=== PATIENT | female | born 1955 | race Caucasian/White ===

== ENCOUNTER 2016-11-18 13:38 | Emergency (ER) | payer MEDICAID, MEDICARE ==
[2016-11-18 14:37] LABS: Hematocrit 31 % (35-47); Hemoglobin 10.1 g/dl (12.0-16.0); Mean Corpuscular HGB Conc 33 g/dl (31-36); Mean Corpuscular Hemoglobin 26 pg (27-31); Mean Corpuscular Volume 79 fL (80-97); Mean Platelet Volume 8 um3 (7.4-10.4); Red Blood Count 3.92 10^6/ul (4.0-5.4); Red Cell Distribution Width 16 % (10.5-15); White Blood Count 6.1 10^3/ul (3.5-10.8)
[2016-11-18 14:52] LABS: Albumin 3.5 g/dL (3.2-5.2); BUN/Creatinine Ratio 20.1 (8-20); C Reactive Protein 59.68 mg/L (< 5.00); Calcium 9.2 mg/dL (8.6-10.3); EGFR African American 51.5 (>60); EGFR Non-African American 40.1 (>60); Globulin 3.7 g/dL (2-4); Total Bilirubin 0.4 mg/dL (0.2-1.0); Total Protein 7.2 g/dL (6.4-8.9)
[2016-11-18 14:53] LABS: Potassium 4.3 mmol/L (3.5-5.0)
--- NOTE | 2016-11-18 14:55 | ED ---
Upper Extremity Pain - HPI Summary HPI Summary: Patient presents with right index finger redness and swelling since last night, with a red streak up her forearm. She has a history of middle digit partial amputation on this same hand from infection, and is currently being treated for left foot osteomyolititis. Although she noticed the redness today, she admits to dealing with "dry skin" on the tip of the finger by putting lotion on and picking at the skin. She denies fever, or chills. 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 She has had a mild cold over the last week but feels better today than she has in a week. She thinks she is dehydrated and has a BREWER. - History of Current Complaint Chief Complaint: EDRashSkinAbscess Stated Complaint: INFECTION IN FINGER LINES GOING UP ARM Time Seen by Provider: 11/18/16 13:53 Hx Obtained From: Patient Mechanism Of Injury: Unknown Onset/Duration: Started Days Ago Timing: Constant Severity Initially: Mild Severity Currently: Severe Pain Location: Finger - left index Character: Unable to Describe - neuropathy Aggravating Factor(s): Nothing Alleviating Factor(s): Nothing Associated Signs & Symptoms: Positive: Swelling, Redness - Allergies/Home Medications Allergies/Adverse Reactions: Allergies Allergy/AdvReac Type Severity Reaction Status Date / Time Atenolol [From Tenormin] Allergy Severe MASSIVE Verified 11/18/16 13:41 BRUISING Glipizide Allergy Unknown Verified 11/18/16 13:41 Reaction Details Metformin [From Glucophage] AdvReac Severe N/V, Verified 11/18/16 13:41 DIARRHEA PMH/Surg Hx/FS Hx/Imm Hx Endocrine/Hematology History: Reports: Hx Blood Transfusions, Hx Diabetes Denies: Hx Anticoagulant Therapy, Hx Blood Disorders, Hx Bone Marrow Disease , Hx Systemic Lupus Erythematosus, Hx Sickle Cell Disease, Hx Thyroid Disease, Hx Anemia, Hx Unexplained Bleeding, Other Endocrine/Hematological Disorders Cardiovascular History: Reports: Hx Congestive Heart Failure - AFTER LAST SURGERY, Hx Deep Vein Thrombosis - Once after surgery, Hx Hypercholesterolemia, Hx Hypertension Denies: Hx Aneurysm, Hx Angina, Hx Angioplasty, Hx Auto Implanted Cardiovert Defib, Hx Cardiac Arrest, Hx Cardiomegaly, Hx Congenital Heart Disease, Hx Coronary Artery Disease, Hx Embolism, Hx Hypotension, Hx Pacemaker/ICD, Hx Peripheral Vascular Disease, Hx Rheumatic Fever, Hx Syncope, Hx Valvular Heart Disease, Other Cardiovascular Problems/Disorders Respiratory History: Denies: Hx Asthma, Hx Chronic Bronchitis, Hx Chronic Obstructive Pulmonary Disease (COPD), Hx Cystic Fibrosis, Hx Lung Cancer, Hx Pleural Effusion, Hx Pneumonia, Hx Pulmonary Edema, Hx Pulmonary Embolism, Hx Seasonal Allergies, Hx Sleep Apnea, Other Respiratory Problems/Disorders GI History: Reports: Hx Gastroesophageal Reflux Disease, Hx Hiatal Hernia, Hx Ulcer, Other GI Disorders - colon CA diarrhea Denies: Hx Cirrhosis, Hx Crohn's Disease, Hx Diverticulosis, Hx Gall Bladder Disease, Hx Gastrointestinal Bleed, Hx Irritable Bowel, Hx Jaundice, Hx Obstructive Bowel, Hx Ileostomy, Hx Pyloric Stenosis History: Reports: Hx Kidney Infection, Hx Renal Disease - LT HYDRONEPHROSIS, LT URETERAL STENT, Other Problems/Disorders - left urostomy tube from scar tissue Denies: Hx Acute Renal Failure, Hx Benign Prostatic Hyperplasia, Hx Chronic Renal Failure, Hx Dialysis, Hx Kidney Stones Musculoskeletal History: Reports: Hx Arthritis - HANDS AND LOWER BACK Denies: Hx Back Problems, Hx Bursitis, Hx Congenital Bone Abnormalities, Hx Fibromyalgia, Hx Gout, Hx Orthopedic Injury, Hx Osteoporosis, Hx Scoliosis, Hx Tendonitis, Other Musculoskeletal History Sensory History: Reports: Hx Contacts or Glasses - Reading, Hx Vision Problem - 03/25/13: Reading glasses only Denies: Hx Cataracts, Hx Eye Injury, Hx Eye Prosthesis, Hx Glaucoma, Hx Macular Degeneration, Hx Deafness, Hx Hearing Aid, Hx Hearing Problem Opthamlomology History: Reports: Hx Contacts or Glasses - Reading, Hx Vision Problem - 03/25/13: Reading glasses only Denies: Hx Cataracts, Hx Eye Injury, Hx Eye Prosthesis, Hx Glaucoma, Hx Macular Degeneration Neurological History: Reports: Hx Migraine - HX OF USUALLY ASSOCIATED WITH MENSES, Other Neuro Impairments/Disorders - NEUROPATHY IN FEET AND HANDS SINCE CHEMOTHERAPY Denies: Hx Dementia, Hx Developmental Delay, Hx Headaches, Hx Nerve Disease, Hx Seizures, Hx Spinal Cord Injury, Hx Transient Ischemic Attacks (TIA) Psychiatric History: Reports: Hx Depression - WITH RECENT DIAGNOSES OF CANCER Denies: Hx Anxiety, Hx Attention Deficit Hyperactivity Disorder, Hx Eating Disorder, Hx Panic Disorder, Hx Post Traumatic Stress Disorder, Hx Inpatient Treatment, Hx Community Mental Health Tx, Hx Schizophrenia, Hx Bipolar Disorder , Hx Suicide Attempt, Hx of Violent Episodes Against Others, Hx Substance Abuse , Other Psychiatric Issues/Disorders - Cancer History Cancer Type, Location and Year: COLON ca Hx Chemotherapy: Yes Hx Radiation Therapy: Yes Hx Palliative Cancer Treatment: No - Surgical History Surgery Procedure, Year, and Place: 2X LEFT FOOT,2X COLON Hx Anesthesia Reactions: No Infectious Disease History: Yes Infectious Disease History: Reports: Hx of Known/Suspected MRSA, History Other Infectious Disease - MRSA foot, post surgery Denies: Hx Clostridium Difficile, Hx Hepatitis, Hx Human Immunodeficiency Virus (HIV), Hx Shingles, Hx Tuberculosis, Hx Known/Suspected VRE, Traveled Outside the [place] in Last 30 Days - Family History Known Family History: Positive: None, Cardiac Disease - oldest brother, Hypertension, Diabetes, Other - cancer - Social History Occupation: Unemployed Lives: With Family Alcohol Use: None Substance Use Type: Reports: None Smoking Status (MU): Never Smoked Tobacco Have You Smoked in the Last Year: No Review of Systems Negative: Fever, Chills Positive: Decreased ROM, Edema Positive: Other - erythema from distal tip of left index finger proximally to PIP with erythematous streaking on the dorsum to the left mid forearm. All Other Systems Reviewed And Are Negative: Yes Physical Exam Triage Information Reviewed: Yes Vital Signs On Initial Exam: Initial Vitals Temp Pulse Resp BP Pulse Ox 96.9 F 85 18 142/73 99 11/18/16 13:41 11/18/16 13:41 11/18/16 13:41 11/18/16 13:41 11/18/16 13:41 Vital Signs Reviewed: Yes Appearance: Positive: Well-Appearing, No Pain Distress, Obese Skin: Positive: Warm, Skin Color Reflects Adequate Perfusion, Dry, Soft, Erythema @ - erythema from distal tip of left index finger proximally to PIP with erythematous streaking on the dorsum to the left mid forearm. Head/Face: Positive: Normal Head/Face Inspection Eyes: Positive: EOMI, BOBO, Conjunctiva Clear ENT: Positive: Hearing grossly normal Neck: Positive: No Lymphadenopathy Respiratory/Lung Sounds: Positive: Breath Sounds Present Cardiovascular: Positive: RRR Musculoskeletal: Positive: Limited @, Edema Left - erythema from distal tip of left index finger proximally to PIP with erythematous streaking on the dorsum to the left mid forearm. Neurological: Positive: Alert, Oriented to Person Place, Time. Negative: NV Bundle Intact Distally Psychiatric: Positive: Affect/Mood Appropriate AVPU Assessment: Alert - Dot Coma Scale Coma Scale Total: 15 Diagnostics - Vital Signs Vital Signs Temp Pulse Resp BP Pulse Ox 11/18/16 14:00 82 114/67 100 11/18/16 13:56 73 97 11/18/16 13:55 125/64 11/18/16 13:41 96.9 F 85 18 142/73 99 - Laboratory Lab Results: Lab Results 11/18/16 11/18/16 Range/Units 14:09 14:30 WBC 6.1 (3.5-10.8) 10^3/ul RBC 3.92 L (4.0-5.4) 10^6/ul Hgb 10.1 L (12.0-16.0) g/dl Hct 31 L (35-47) % MCV 79 L (80-97) fL MCH 26 L (27-31) pg MCHC 33 (31-36) g/dl RDW 16 H (10.5-15) % Plt Count 223 (150-450) 10^3/ul MPV 8 (7.4-10.4) um3 Neut % (Auto) 86.8 H (38-83) % Lymph % (Auto) 7.2 L (25-47) % [place] % (Auto) 5.0 (1-9) % Eos % (Auto) 0.6 (0-6) % Baso % (Auto) 0.4 (0-2) % Absolute Neuts (auto) 5.3 (1.5-7.7) 10^3/ul Absolute Lymphs (auto) 0.4 L (1.0-4.8) 10^3/ul Absolute Monos (auto) 0.3 (0-0.8) 10^3/ul Absolute Eos (auto) 0 (0-0.6) 10^3/ul Absolute Basos (auto) 0 (0-0.2) 10^3/ul Absolute Nucleated RBC 0 10^3/ul Nucleated RBC % 0 POC Glucose (mg/dL) 304 H (74-106) mg/dL Result Diagrams: 11/18/16 14:30 11/18/16 14:30 Lab Statement: Any lab studies that have been ordered have been reviewed, and results considered in the medical decision making process. - Radiology No standard instances Xray Interpretation: Positive (See Comments) - Suspicious for osteomyolitis of the distal phalanx and septic arthritis of the DIP Radiology Interpretation Completed By: Radiologist Course/Dx - Course Course Of Treatment: Patient's case was reviewed with Dr. Oates. She recommended discharge home with additional antiobiotic for infection and follow- up with Dr. Moore's MAURICIO. - Diagnoses Differential Diagnosis/HQI/PQRI: Positive: Arthritis, Bursitis, Contusion, Fracture (Closed), Hematoma, Osteomyelitis, Septic Arthritis, Strain, Sprain Provider Diagnoses: Cellulitis, Osteomyelitis - Physician Notifications Discussed Care Of Patient With: Dr. Oates, orthopedic surgeon Time Discussed With Above Provider: 15:00 Instructed by Provider To: Have Pt Call For Appt. Discharge - Discharge Plan Condition: Stable Disposition: HOME Prescriptions: Clindamycin CAP* [Cleocin 150 MG CAP*] 150 mg PO Q6H #60 cap Patient Education Materials: Cellulitis (ED) Referrals: Colten Brandon MD [Medical Doctor] - Ignacio Lawrence MD [Primary Care Provider] - Additional Instructions: Please add the new antibiotic to your other antibiotic. Call Dr. Moore's office in the morning for an appointment in 1-2 days for evaluation. Return to the emergency department if your symptoms worsen.
--- NOTE | 2016-11-18 15:07 | RAD ---
INDICATION: Right index finger infection, history of osteomyelitis. COMPARISON: Comparison is made with a prior x-ray study of the right hand from July 23, 2016. TECHNIQUE: 3 views of the right index finger were obtained. FINDINGS: The patient is status post amputation of the distal half of the middle phalanx of the middle finger. There is diffuse soft tissue swelling in the index finger. There is erosion of the tuft of the distal phalanx. There is also joint space narrowing hypertrophic and erosive change present in the distal interphalangeal joint. These findings are suspicious for osteomyelitis and septic arthritis. IMPRESSION: FINDINGS SUSPICIOUS FOR OSTEOMYELITIS OF THE DISTAL PHALANX AND SEPTIC ARTHRITIS OF THE DISTAL INTERPHALANGEAL JOINT.
[2016-11-18] MEDS ORDERED: Clindamycin 600 MG IVPREMIX(* 600 MG/50 ML SDV IV ONE (15:20)
[2016-11-18 16:23] VITALS: BP 121/58
== END 2016-11-18 16:22 | disposition home or self-care (01) ==
LOC: ED 13:38
DX: L03.012 Cellulitis of left finger (principal); M86.9 Osteomyelitis, unspecified; E11.9 Type 2 diabetes mellitus without complications; I50.9 Heart failure, unspecified; G62.9 Polyneuropathy, unspecified; Z92.21 Personal history of antineoplastic chemotherapy; C18.9 Malignant neoplasm of colon, unspecified; F32.9 Major depressive disorder, single episode, unspecified; Z86.718 Personal history of other venous thrombosis and embolism; Z79.4 Long term (current) use of insulin; Z79.82 Long term (current) use of aspirin
CPT/HCPCS: 36415; 73140; 80053; 85025; 86140; 96374; 99282

== ENCOUNTER 2016-11-22 11:26 | Day surgery (SDC) | payer MEDICAID, MEDICARE ==
[~2016-11-22 11:26] MED LIST: Bupivacaine 0.5% SDV PF* 30 ML VIAL ONE; Lidocain 1% EPI 1:100,000 * 30 ML MDV ONE; Lidocaine 2.5%/Prilocain 2.5%* 5 GM TUBE ONE
[2016-11-22] MEDS ORDERED: ceFAZolin 2 GM PREMIX (*) 0 GM/0 ML BAG IVPB ONE (13:11)
[2016-11-22] MEDS ORDERED: HYDROcodone/ACETAMIN 5-325 MG* 1 TAB ONE (15:21)
[2016-11-22 15:44] VITALS: BP 105/77
--- NOTE | 2016-11-27 00:51 | OP ---
DATE OF OPERATION: 11/22/16 - [facility] DATE OF : 53 SURGEON: Colten Brandon MD TIRE CORD WEAVER: ELROY Moon ANESTHESIOLOGIST: None. ANESTHESIA: Local only with 0.5% Marcaine digital block. PRE-OP DIAGNOSIS: Right index finger tip infection with osteomyelitis and necrosis due to inadequate vascularization distally. POST-OP DIAGNOSIS: Right index finger tip infection with osteomyelitis and necrosis due to inadequate vascularization distally. OPERATIVE PROCEDURE: Trans middle phalanx amputation of right index finger with digital neurectomies. INDICATIONS: Willa has severe diabetes. She has previously had osteomyelitis and infection requiring amputation to the middle phalanx of the right middle finger. She had healed that up nicely. Three months later, she came to my office with necrosis of the finger tip of the right index finger distally as well as infection proximal to that. She has been on oral antibiotics. I saw her just a couple of days ago in the clinic and she scheduled for surgery today. ESTIMATED BLOOD LOSS: 5 mL. COMPLICATIONS: None. FINDINGS: As expected. DESCRIPTION OF PROCEDURE: Wilal was seen in the preoperative holding area and the correct side, site, and procedure were marked and performed a digital block with 0.5% Marcaine. We came back to the operating room. The arm was prepped and draped in the usual fashion. Formal time-out was performed. The finger was exsanguinated proximal to the area of the infection with [place] drain and this was left proximally as a tourniquet. I then made a fish-mouth incision centered over the middle phalanx. I took the flap just as far distally as I could based on what looks like viable and perfused tissue. Dissection was carried down sharply full thickness. The bone cutter was used to complete the amputation through the proximal portion of the middle phalanx. I then pulled our the FDP stump and incised it sharply and allowed to retract back into the finger. I tried to leave as much FDS inserted on the middle phalanx as possible. Clearly some of the distal aspect of the insertion was released with the amputation. The terminal extensor tendon was likewise debrided back a few millimeters taking care to preserve the attachment of the central slip. The digital nerves were pulled out of the amputation stump and cut with the tenotomy scissors and allowed to retract back proximally into the finger. The flaps were prepared, contoured, and debulked just a little bit. I then had to cut back just a couple more millimeters of middle phalanx. The proximal stump of that middle phalanx was getting short, but it was what was required to perform an adequate debridement. I then brought my volar flap up and sutured the wound close with some 4-0 nylon. The corner I excised one of the dog ears. Prior to closing the wound, I had let it soak in a saline Betadine mixture for about 5 minutes. Everything looked clean prior to closure. After closing the wound, I then dressed it with Xeroform, some 1-inch Michelle loosely, and some Coban. She was then taken to the recovery room in stable condition. POSTOPERATIVE PLAN: Cultures were sent intraoperatively. We will await those cultures. I am going to switch over from clindamycin to some Bactrim. She is to continue to follow up with Dr. Liam Whipple with Infectious Disease. I will see her back in next week. CC: Liam Whipple MD, Infectious Disease * [id number]/[facility] #: [id number] [facility]
== END 2016-11-22 15:30 | disposition home or self-care (01) ==
LOC: OREAST 11:26
PROVIDERS: ATTEND Orthopaedic Surgery Hand Surgery
DX: M86.141 Other acute osteomyelitis, right hand (principal); E11.8 Type 2 diabetes mellitus with unspecified complications; Z79.4 Long term (current) use of insulin
CPT/HCPCS: 87070; 87073; 87077; 87186; 87205; 87640; 87641; 88305; 88311; A9270-GY; J0690

== ENCOUNTER 2016-12-03 08:15 | Inpatient (IN) | payer MEDICARE, MEDICAID ==
--- NOTE | 2016-12-28 20:47 | HP ---
PREOPERATIVE HISTORY AND PHYSICAL: DATE OF ADMISSION: 12/31/16 CHIEF COMPLAINT: Left foot infection. HISTORY OF PRESENT ILLNESS: Willa is a 61-year-old female who has been followed by Dr. Haynes for an open wound to the left foot that has been ongoing for quite sometime. She was previously scheduled to undergo partial amputation of the left foot; however, this was postponed for cardiac clearance. She has had several months of an open draining wound to the plantar aspect of her left foot. She states that the foot swells occasionally and then subsides. She has been followed by Dr. Whipple and has been on antibiotics for several months as well. She has failed conservative wound care efforts as well. She has been recommended to undergo partial amputation of the foot which she would like to proceed with. PAST MEDICAL HISTORY: 1. Type 2 diabetes. 2. Chronic kidney disease. 3. History of deep vein thrombosis. 4. Depression. 5. GERD. 6. History of rectal cancer. 7. Hyperlipidemia. 8. Hypertension. 9. Coronary artery disease. PAST SURGICAL HISTORY: 1. Urinary stent placement. 2. Partial finger amputations. 3. Colon resection with ileostomy and ileostomy reversal. 4. Left foot wound debridement. She reports no complications of anesthesia with those procedures. CURRENT MEDICATIONS: 1. Bactrim DS 1 tab p.o. b.i.d. 2. [place] 5/325 one tab p.o. q.6 hours p.r.n. pain. 3. Keflex 500 mg 1 p.o. t.i.d. 4. Tradjenta 5 mg 1 p.o. daily. 5. Lantus 85 units injected at bedtime. 6. Wellbutrin 150 mg p.o. daily. 7. Sertraline 100 mg p.o. daily. 8. Metoprolol tartrate 25 mg p.o. daily. 9. Lisinopril 10 mg p.o. daily. 10. NovoLog per sliding scale. 11. Lasix 20 mg p.o. daily. 12. Aspirin 325 mg p.o. daily. 13. Simvastatin 20 mg p.o. daily. 14. Imodium advanced 2/125 mg p.o. daily. 15. Multivitamin 1 p.o. daily. 16. Vitamin D supplement p.o. daily. ALLERGIES: GLUCOPHAGE, GLIPIZIDE, and TENORMIN. FAMILY HISTORY: Positive for diabetes. Positive for cancer. Negative for coronary artery disease. SOCIAL HISTORY: The patient denies alcohol, tobacco, or recreational drug use. She is retired. She does live alone. REVIEW OF SYSTEMS: Constitutional: Negative for recent hospitalizations. Positive for fevers and chills. Negative for night sweats. Negative for recent weight loss. Head: Negative for lightheadedness, headaches, or balance problems. Cardiovascular: Negative for chest or arm pain with exertion, history of heart attack, heart murmur. Positive for high blood pressure. Positive for deep vein thrombosis. Respiratory: Negative for chronic cough. Positive for shortness of breath with exertion. Negative for asthma or COPD. Gastrointestinal: Positive for heartburn. Positive for diarrhea. Negative for constipation. Positive for GERD. Genitourinary: Positive for a history of urinary tract infection, ureteral stent placement, and chronic kidney disease. Skin: Negative for rashes, lesions, lumps, or sores. Positive for an ulcer on the plantar aspect of her foot. Musculoskeletal: Negative for chronic back pain. Negative for recent fractures. Neurologic: Negative for seizure or stroke. Positive for depression. Negative for anxiety. Endocrine: Positive for diabetes. Negative for thyroid problems. Hematology: Negative for easy bleeding, bruising, or anemia. PHYSICAL EXAMINATION GENERAL: She is a well-developed, well-nourished female in no acute distress at rest. She is alert and oriented x3 with appropriate mood and affect. HEENT: Normocephalic, atraumatic. Her hearing and vision are grossly intact. NECK: Her trachea is midline. RESPIRATORY: Lungs clear to auscultation bilaterally. No wheezes, rales, or rhonchi. CARDIOVASCULAR: Regular rate and rhythm. No murmurs, rubs, or gallops appreciated. ABDOMEN: Soft, nondistended, nontender. Normal bowel sounds. EXTREMITIES: Exam of the left lower extremity: She has a 2 to 3 cm wide round open wound to the plantar lateral aspect of her foot that is draining serous fluid. There is moderate edema throughout the lower extremity and increased erythema over the last several days. She does not have any pain in this area, she is somewhat neuropathic. She has a 1+ dorsalis pedis pulse. IMPRESSION: Right foot osteomyelitis. PLAN: The patient is to undergo right foot bone excision and debridement and lateral right amputation by Dr. Haynes on 12/31/16. The risks, benefits, and postoperative course were discussed with the patient at length and she would like to proceed. She is understanding that she will be an inpatient for possibly a couple of days for IV antibiotics and assistance with working with physical therapy as she does live alone. All of her questions were answered to her full satisfaction. We will follow up with the patient in the postoperative phase. ELROY PORTILLO [id number]/[facility] #: [id number] MTDD
[2016-12-31] MEDS ORDERED: Buffered Lidocaine 1% SYRIN* 3 ML/SYR SYRINGE INTRADERM ONE (06:00)
[2016-12-31] MEDS ORDERED: Famotidine IV* 10 MG/ML 2 ML (20 mg) IV ONE (06:00)
[2016-12-31] MEDS ORDERED: Metoclopramide IV* 5 MG/ML 2 ML VIAL IV SLOW PU ONE (06:00)
[2016-12-31] MEDS ORDERED: HYDROmorphone* 1 MG/ML 1 ML SYR IV PRN (07:13)
[2016-12-31] MEDS ORDERED: PROCHLORPERAZINE INJ 5 MG/ML 2 ML VIAL IV PRN (07:13)
[2016-12-31] MEDS ORDERED: Ondansetron INJ* 2 MG/ML VIAL IV PRN ×2 (07:13→12:01)
[2016-12-31] MEDS ORDERED: DiMENhydriNATE IV* 50 MG/ML VIAL IV PUSH PRN (07:13)
[2016-12-31] MEDS ORDERED: fentaNYL* 50 MCG/ML 2 ML VIAL (100 MCG VIAL) IV PRN (07:13)
[2016-12-31] MEDS ORDERED: ceFAZolin 2 GM PREMIX(*) 2 GM/50 ML BAG IVPB ONE (08:56)
[2016-12-31] MEDS ORDERED: Metoclopramide IV* 5 MG/ML 2 ML VIAL ONE (08:56)
[2016-12-31] MEDS ORDERED: ceFAZolin 1 GM in Dextrose (*) 1 GM/50 ML BAG IVPB ONE (08:56)
[2016-12-31] MEDS ORDERED: Famotidine IV* 10 MG/ML 2 ML (20 mg) ONE (08:56)
[2016-12-31] MEDS ORDERED: fentaNYL* 50 MCG/ML 2 ML VIAL (100 MCG VIAL) ONE (09:23)
[2016-12-31] MEDS ORDERED: Midazolam* 1 MG/ML 2 ML VIAL (2 MG) ONE (09:23)
[2016-12-31] MEDS ORDERED: Lidocaine 2% PF * 5 ML VIAL ONE (09:28)
[2016-12-31] MEDS ORDERED: Ketorolac INJ* 30 MG/ML 1 ML VIAL ONE (09:28)
[2016-12-31] MEDS ORDERED: Ondansetron INJ* 2 MG/ML VIAL ONE (09:28)
[2016-12-31] MEDS ORDERED: Propofol* 10 MG/ML 20 ML BTL IV PUSH ONE (09:28)
[2016-12-31] MEDS ORDERED: Bupivacaine 0.5% SDV PF* 30 ML VIAL ONE (10:35)
[2016-12-31] MEDS ORDERED: diPHENhydraMINE IV* 50 MG/ML 1 ml VIAL (BENADRYL) IV PRN (12:01)
[2016-12-31] MEDS ORDERED: traZODone TAB* 50 MG TAB PO PRN (12:01)
[2016-12-31] MEDS ORDERED: Morphine INJ* 2 MG/ML 1 ML SYRINGE IV PRN (12:01)
[2016-12-31] MEDS ORDERED: Dextrose 50% Syringe 50 ML* 25 GM/50 ML SYRINGE IV PUSH PRN (12:47)
[2016-12-31] MEDS ORDERED: Enoxaparin(*) 30 MG/0.3 ML SYR SUBCUT SCH (13:00)
[2016-12-31] MEDS: Insulin LISPRO* 1 UNITS UNIT SUBCUT SCH (17:41)
[2016-12-31] MEDS: Insulin GLARGINE(*) 1 UNITS UNIT SUBCUT SCH (17:42)
[2016-12-31] MEDS ORDERED: ceFAZolin 1 GM in Dextrose (*) 1 GM/50 ML BAG IVPB SCH (20:00)
[2016-12-31] MEDS: Docusate CAP* 100 MG PO SCH (20:28)
[2016-12-31] MEDS: oxyCODONE TAB* 5 MG TAB PO PRN (20:29)
[2016-12-31] MEDS: Lactobacillus Acidophilu (GG)* 1 CAP CAP PO SCH (20:29)
[2016-12-31] MEDS ORDERED: Vancomycin per Pharmacy* NOTE FOLLOW UP PRN (20:57)
--- NOTE | 2016-12-31 20:58 | CONS ---
CONSULTATION REPORT: DATE OF CONSULT: 12/31/16 REQUESTING PHYSICIAN FOR CONSULT: Dr. Haynes. ATTENDING PHYSICIAN WHILE IN THE HOSPITAL: Dr. Colten Doyle (report being dictated by Beni Mckeon NP). PRIMARY CARE PROVIDER: Dr. Lawrence. REASON FOR CONSULTATION: Evaluation of medical problems and co-medical management. HISTORY OF PRESENT ILLNESS: Ms. Valdez is a 61-year-old female patient that presents to the care of Dr. Haynes today for a left foot bone excision and debridement and lateral amputation which was performed by Dr. Haynes. The patient has a well-documented history of diabetes, CKD, history of DVT in the postoperative setting, depression, GERD, rectal cancer, hyperlipidemia, hypertension, coronary artery disease, osteomyelitis and neuropathy. She came in today because of the failing outpatient conservative management for a chronic left foot wound. She has had several months of an opening wound at the plantar aspect of her left foot. She has been following with Dr. Whipple. She has been on antibiotics for several months. She failed conservative wound management. The patient sought care with Dr. Haynes and recommendation for partial amputation of the foot was deemed to be appropriate and the patient decided to undergo this procedure today after appropriate cardiac clearance. She was evaluated in the PACU setting. She denies having any chest pain. She denies having any shortness of breath. She denies any abdominal pain. She does state that she feels drowsy. She denies having any chest pain and denies any abdominal discomfort and states her pain rate now is zero. She has significant neuropathy and is really unable to feel any pain in the left foot. Because of her chronic medical conditions, we were asked to evaluate in consult. PAST MEDICAL HISTORY: Significant for: 1. Diabetes. 2. CKD. 3. DVT. 4. Depression. 5. GERD. 6. Rectal cancer. 7. Hyperlipidemia. 8. Hypertension. 9. Osteomyelitis. 10. Neuropathy. 11. Diabetic foot ulcer. SURGICAL HISTORY: 1. She has had a finger amputation. 2. Colon resection with ileostomy and then with subsequent reversal. 3. She has had a left foot wound debridement. HOME MEDICATIONS: According to the patient include: 1. Zoloft 100 mg daily. 2. Flagyl 500 mg every 12 hours. 3. Lisinopril 10 mg p.o. daily. 4. Tradjenta 5 mg daily. 5. Levaquin 500 mg p.o. daily. 6. Culturelle one capsule p.o. b.i.d. 7. Lantus, she is actually on 85 units subcu p.m. 8. Lispro insulin aspart sliding scale t.i.d. with meals. 9. Lasix 10 mg daily. 10. Bupropion 150 mg daily. 11. Aspirin 81 mg daily. 12. Tylenol 500 mg p.o. b.i.d. as needed. ALLERGIES TO MEDICATIONS: Include ATENOLOL, GLIPIZIDE, and METFORMIN. FAMILY HISTORY: Her mother had a history of brain cancer and father had a history of colon cancer. SOCIAL HISTORY: She does not smoke. She does not drink alcohol. Surrogate decision maker is her brother, Homer. REVIEW OF SYSTEMS: There is no documented fever. She denied having any significant weight change. There was no double vision. She denies having any ear discharge. There is no rhinorrhea. No sore throat. No thyroid enlargement. She denies having any chest pain. There is no shortness of breath. There is no abdominal pain. No nausea, no vomiting, no dysuria, no frequency, no seizure, no loss of consciousness, no pruritus. There is a wound noted to the left foot. Review of 14 systems were otherwise negative. PHYSICAL EXAM: Reveals vital signs: Blood pressure 129/62 with a pulse of 85, respirations 14, O2 sat of 97%, temperature 97.3. General: At this time, Ms. Valdez is a 61-year-old female patient. She is sitting in the PACU. She appears well nourished, well developed does not appear to be in any acute distress. HEENT: Head atraumatic, normocephalic. Eyes: EOMs intact. Sclerae anicteric, not pale. Neck: Supple. Throat: Oral mucosa appears to be moist. No oropharyngeal erythema. Heart: Sounds S1 and S2. Regular rate and rhythm. No murmurs, rubs, or gallops. Lungs: Clear to auscultation bilaterally. Abdomen: Bowel sounds were hypoactive and present in all 4 quadrants. Extremities: Pulses 2+ throughout. She has basically no sensation to bilateral lower extremities from the knees down. She has 5/5 strength. Neurologically, she is awake, alert, oriented x3. Speech is clear. No facial drooping. No gross focal deficits. The skin is intact with the exception there is incision to the left foot which is covered with an Stan dressing and bandaging from Dr. Haynes. Otherwise, skin is intact. DIAGNOSTIC STUDIES/LAB DATA: Labs preop reveal WBC of 11.2, RBC of 3.85, hemoglobin of 9.8, hematocrit 31, platelet count 378. INR was 1.05. Sodium 135 , potassium 4.2, chloride 99, bicarb 28. BUN 24; creatinine 1.15, baseline is rated 1. Glucose is 256. Her last A1c from July was 8.5. Preop urine showed 2+ glucose, 1+ protein, 1+ blood, 1+ leukocyte esterase, 2+ WBC. Microbiology from that urine is pending. She had a preop EKG which showed a normal sinus rhythm with PAC. No ST elevation or T-wave inversions were noted. She did have a preop echocardiogram with her agriculture consultant. Her EF is 60% to 65% . She did have a preop chest x-ray which showed no active disease. Old medical records reviewed. ASSESSMENT AND PLAN: Ms. Valdez is a 61-year-old female patient coming under the care of Dr. Haynes today for elective left foot bone excision and I and D of a wound on the left foot. The hospitalist service was asked to evaluate in consult. Recommendations at this point are: 1. Status post incision and drainage of the left diabetic foot ulcer with bone excision. I will defer the management to Dr. Haynes and his team. 2. History of diabetes. I will continue the lispro sliding scale and continue her Lantus. 3. Chronic kidney disease. We will follow her BMP daily. 4. History of deep venous thrombosis. She is on prophylactic Lovenox for now. We will monitor. 5. Depression. Continue with Wellbutrin. 6. Gastroesophageal reflux disease. Continue with current medical regimen. 7. History of rectal cancer. She can follow with her PCP, not an active issue. 8. Hyperlipidemia. Continue mediations as prescribed. 9. Hypertension. She is on lisinopril and Lasix but in the postoperative setting, I am going to hold these for the time being. We can reintroduce them slowly as her blood pressure allows. Her last blood pressure was 129/63, so we will just continue to follow for the time being. 10. History of osteomyelitis. Again, follow with primary. 11. Neuropathy. Continue current medical regimen. 12. DVT prophylaxis. She is high risk. She will be placed on Lovenox. 13. Fluid, electrolytes and nutrition. I would recommend a consistent carb diet. 14. Code status is full code. TIME SPENT: Time spent on the consult was 60 minutes; greater than half the time was spent [id number] with the patient obtaining my history and physical, the other half the time spent going over the plan of care with the patient and implementing the plan of care. I did discuss the plan of care with my attending , Dr. Doyle. He is in agreement. BENI MCKEON NP CC: Dr. Haynes; Dr. Lawrence* [id number] #: [id number] MTDD
[2016-12-31] MEDS ORDERED: Vancomycin(*) 1,500 MG in NS 0.9% 250 ML* 250 ML IVPB ONE (21:30)
[2017-01-01] MEDS: oxyCODONE TAB* 5 MG TAB PO PRN (05:25)
[2017-01-01] MEDS: Vancomycin(*) 1,000 MG in NS 0.9% 250 ML* 250 ML IVPB SCH ×3 (05:28→21:13)
[2017-01-01 05:52] LABS: Hematocrit 25 % (35-47); Hemoglobin 7.9 g/dl (12.0-16.0)
[2017-01-01 06:10] LABS: BUN/Creatinine Ratio 15.7 (8-20); Calcium 8.5 mg/dL (8.6-10.3); EGFR African American 61.5 (>60); EGFR Non-African American 47.8 (>60); Potassium 4.3 mmol/L (3.5-5.0)
--- NOTE | 2017-01-01 07:32 | PN ---
Subjective Date of Service: 01/01/17 Interval History: Patient seen this morning. Says she is feeling well overall. Denies pain in the foot, usually does not have much feeling. Denies subjective fever or chills. No N/V. Ate dinner last night and moved her bowels. Mild headache presently. Family History: Unchanged from Admission Social History: Unchanged from Admission Past Medical History: Unchanged from Admission Objective Active Medications: Aspirin (Aspirin Ec Low Dose*) 81 mg PO DAILY SJ Bupropion HCl (Wellbutrin Xl *) 150 mg PO DAILY SJ Dextrose (D50w Syringe 50 Ml*) 12.5 gm IV PUSH .FOR FS < 60 - SS PRN Diphenhydramine HCl (Benadryl Iv*) 25 mg IV Q6H PRN Docusate Sodium (Colace Cap*) 100 mg PO BID SJ Enoxaparin Sodium (Lovenox(*)) 30 mg SUBCUT Q24H SJ Lactated Ringer's (Lactated Ringers 1000 Ml Bag*) 1,000 mls @ 75 mls/hr IV PER RATE SJ Vancomycin HCl 1,000 mg/ (Sodium Chloride) 250 mls @ 166.667 mls/hr IVPB Q8H SJ Insulin Glargine (Lantus(*)) 85 units SUBCUT QPM SJ Insulin Human Lispro (Humalog*) 0 units SUBCUT AC SJ Lactobacillus Rhamnosus (Culturelle*) 1 cap PO BID SJ Morphine Sulfate (Morphine Inj (Syringe)*) 2 mg IV Q2H PRN Ondansetron HCl (Zofran Inj*) 4 mg IV Q6H PRN Oxycodone HCl (Roxycodone Tab*) 10 mg PO Q4H PRN Oxycodone HCl (Roxycodone Tab*) 5 mg PO Q4H PRN Pharmacy Consult (Vancomycin Per Pharmacy*) 1 note FOLLOW UP . PRN Pharmacy Profile Note (Vancomycin Trough Check) 1 note FOLLOW UP 2100 ONE Sertraline HCl (Zoloft*) 100 mg PO DAILY SJ Trazodone HCl (Desyrel Tab*) 25 mg PO BEDTIME PRN Vital Signs 12/31/16 12/31/16 12/31/16 09:01 12:03 12:05 Temperature 97.9 F 97.3 F Pulse Rate 82 78 79 Respiratory 16 14 12 Rate Blood Pressure 152/70 129/62 125/64 (mmHg) O2 Sat by Pulse 99 97 97 Oximetry 12/31/16 12/31/16 01/01/17 22:29 23:39 00:00 Temperature 100.0 F Pulse Rate 87 Respiratory 16 22 Rate Blood Pressure 141/49 (mmHg) O2 Sat by Pulse 96 96 Oximetry Oxygen Devices in Use Now: None Appearance: Middle-aged, F, laying in bed in NAD Eyes: No Scleral Icterus Ears/Nose/Mouth/Throat: Mucous Membranes Moist Neck: NL Appearance and Movements; NL JVP Respiratory: Symmetrical Chest Expansion and Respiratory Effort, Clear to Auscultation Cardiovascular: NL Sounds; No Murmurs; No JVD, RRR Abdominal: NL Sounds; No Tenderness; No Distention Lymphatic: No Cervical Adenopathy Extremities: - - R hand with 1st and 2nd finger amputations, LLE with dressing in place Skin: No Rash or Ulcers Neurological: Alert and Oriented x 3, - - able to move toes in LLE, limited sensation Result Diagrams: 01/01/17 05:41 01/01/17 05:41 Microbiology and Other Data: Microbiology 12/31/16 11:16 Skin and Soft Tissue MRSA/MSSA (PCR - Final Wound Mrsa Positive S.aureus Positive Gram Stain - Final Assess/Plan/Problems-Billing Assessment: 61 yo F with hx of HTN, HLD, DM, CKD, post-op DVT, depression, osteomyelitis s/ p I&D and bone excision of non-healing L foot diabetic foot ulcer on 12/31 - Patient Problems (1) Foot ulcer due to secondary DM Current Visit: No Comment: S/P I&D and bone incision on 12/[address] Haynes. Wound culture growing GPC (MRSA positive PCR), on Vancomycin. Management as per Ortho (2) Diabetes mellitus Current Visit: No Comment: For now continue Lantus 85 units qhs and HISS, did not have HS sugar drawn last night. (3) HTN (hypertension) Current Visit: No Comment: BPs stable, continue to hold Lasix and Lisinopril for now. (4) CKD (chronic kidney disease) Current Visit: Yes Comment: Creatinine stable. (5) HLD (hyperlipidemia) Current Visit: No Comment: Continue statin. (6) Depression Current Visit: No Comment: Cont Sertraline and Buproprion. (7) DVT prophylaxis Current Visit: No Comment: Lovenox
[2017-01-01] MEDS: Insulin LISPRO* 1 UNITS UNIT SUBCUT SCH ×3 (07:54→17:28)
[2017-01-01] MEDS: Lactobacillus Acidophilu (GG)* 1 CAP CAP PO SCH ×2 (08:40→21:09)
[2017-01-01] MEDS: Docusate CAP* 100 MG PO SCH ×2 (08:40→19:38)
[2017-01-01] MEDS: Aspirin EC Low Dose* 81 MG TAB.EC PO SCH (08:40)
[2017-01-01] MEDS: Sertraline* 100 MG TAB PO SCH (08:40)
[2017-01-01] MEDS: BuPROPion XL* 150 MG TAB.XL PO SCH (08:40)
[2017-01-01] MEDS ORDERED: Lisinopril TAB* 10 MG PO SCH (09:00)
[2017-01-01] MEDS ORDERED: Furosemide TAB* 20 MG PO SCH (09:00)
--- NOTE | 2017-01-01 09:00 | OP ---
OPERATIVE REPORT: DATE OF SURGERY: 12/31/16 - inpatient, SSU [id number] DATE OF : 53 ATTENDING SURGEON: Colten aHynes MD. STRIPPING CUTTER AND WINDER: Dasha Hwang PA-C. ANESTHESIOLOGIST: Diomedes Oscar MD ANESTHESIA: General. PRE-OP DIAGNOSIS: Recurrent osteomyelitis, chronic, left lateral border mid foot. POST-OP DIAGNOSIS: Recurrent osteomyelitis, chronic, left lateral border mid foot. PRIMARY PROCEDURE: Excision fourth and fifth metatarsals, partial cuboid excision, revision of skin flaps and closure. DESCRIPTION OF PROCEDURE: The patient was taken to the operating room where A longitudinal incision was made along the left midfoot from the base of fifth toe to the lateral border of the cuboid. Deep flaps were raised around the chronic osteomyelitis of the fourth and fifth metatarsals, which were removed with Argueta elevator. Local hemostasis obtained with the tourniquet dropped and then a 3 L pulsatile lavage was used to cleanse the wound after cultures were sent. There was a large skin defect on the plantar aspect, which was revised with a 15 blade, trimming away the necrotic or granulitic skin flaps. We were then able to close dorsal to plantar with 0 Vicryl sutures, interrupted Surgipro the skin. A compression dressing and plaster splint were applied. [id number]/CPS #: [id number] MTDD
--- NOTE | 2017-01-01 09:37 | PN ---
Progress Note - Progress Note SOAP: Subjective: [Pt was seen laying in bed this morning. She states that the pain in her foot is under control. She states that she is just feeling a bit tired with a headache. She admits to numbness of the toes. She denies any nausea, vomiting, calf pain, chest pain or shortness of breath. ] Objective: [General: Pt is awake, alert and oriented. She appears to be slightly pale MSK: LLE: Dressing is c/d/i. The pt is unable to feel light touch on her toes. She is able to wiggle her toes in the splint. Laboratory Last Values Hgb 7.9 g/dl (12.0-16.0) L 01/01/17 05:41 Hct 25 % (35-47) L 01/01/17 05:41 Sodium 135 mmol/L (133-145) 01/01/17 05:41 Potassium 4.3 mmol/L (3.5-5.0) 01/01/17 05:41 Chloride 104 mmol/L (101-111) 01/01/17 05:41 Carbon Dioxide 26 mmol/L (22-32) 01/01/17 05:41 Anion Gap 5 mmol/L (2-11) 01/01/17 05:41 BUN 18 mg/dL (6-24) 01/01/17 05:41 Creatinine 1.15 mg/dL (0.51-0.95) H 01/01/17 05:41 Est GFR ( Amer) 61.5 (>60) 01/01/17 05:41 Est GFR (Non-Af Amer) 47.8 (>60) 01/01/17 05:41 BUN/Creatinine Ratio 15.7 (8-20) 01/01/17 05:41 Glucose 81 mg/dL (70-100) 01/01/17 05:41 POC Glucose (mg/dL) 105 mg/dL (74-106) 01/01/17 07:39 Calcium 8.5 mg/dL (8.6-10.3) L 01/01/17 05:41 Vital Signs Temp 99.0 F 01/01/17 07:31 Pulse 79 01/01/17 07:31 Resp 20 01/01/17 08:00 BP 135/58 01/01/17 07:31 Pulse Ox 96 01/01/17 08:00 Microbiology 12/31/16 11:16 Anaerobic Culture - Preliminary Wound Skin and Soft Tissue MRSA/MSSA (PCR - Final Mrsa Positive S.aureus Positive Gram Stain - Final Assessment: [S/P Excision of 4th and 5th metatarsals, partial cuboid excision, revision of skin flaps and closure ] Plan: [Continue PT/OT Continue current pain management Continue current DVT prophylaxis Continue with Abx, Vancomycin Continue current hospitalists management We will continue to watch vitals and H&H.]
[2017-01-01] MEDS: Enoxaparin(*) 40 MG/0.4 ML SYR SUBCUT SCH (13:28)
--- NOTE | 2017-01-01 16:11 | PN ---
Progress Note - Progress Note SOAP: Subjective: DOS: 01/01/17 CC: left foot infection HPI: 61 yo woman with recurrent and now persistent left foot infection and wound , had recently gotten worse redness and swelling; recently on flagyl and levaquin. Admitted for partial amputation which she tolerated well. No fever, rash, or diarrhea. Objective: [] Vital Signs Temp 36.8 C 01/01/17 15:32 Pulse 80 01/01/17 15:32 Resp 16 01/01/17 15:32 BP 140/60 01/01/17 15:32 Pulse Ox 97 01/01/17 15:32 Intake & Output 12/31/16 01/01/17 01/01/17 18:59 06:59 18:59 Intake Total 2100 1579 760 Output Total 250 200 Balance 2100 1329 560 Weight 262 lb Intake: IV Fluids 1500 1279 3 GM CEFAZOLIN 100 ABX - CEFAZOLIN 55 ABX - VANCOMYCIN 284 LR 1400 940 Oral 600 300 760 Output: Urine 250 200 Other: Estimated Void Medium # Bowel Movements 1 Estimated Stool Amount Small # Voids 1 Gen:Awake, NAD Neuro: Ox3, moves all extremities HEENT:PERRL, MMM Neck:Supple Heart:RRR no murmur Lungs:CTA BL Abd:+BS NTND soft Skin: no rash MSK: no spine tenderness, left foot wrapped Laboratory Results - last 24 hr 12/31/16 01/01/17 01/01/17 16:24 05:41 05:41 Hgb Hct Sodium 135 Potassium 4.3 Chloride 104 Carbon Dioxide 26 Anion Gap 5 BUN 18 Creatinine 1.15 H Est GFR ( Amer) 61.5 Est GFR (Non-Af Amer) 47.8 BUN/Creatinine Ratio 15.7 Glucose 81 POC Glucose (mg/dL) 226 H Hemoglobin A1c 9.3 H Calcium 8.5 L 01/01/17 01/01/17 01/01/17 05:41 07:39 11:43 Hgb 7.9 L Hct 25 L Sodium Potassium Chloride Carbon Dioxide Anion Gap BUN Creatinine Est GFR ( Amer) Est GFR (Non-Af Amer) BUN/Creatinine Ratio Glucose POC Glucose (mg/dL) 105 149 H Hemoglobin A1c Calcium Assessment: 1. chronic osteomyelitis, left foot due to MRSA and likely polymicrobial 2. chronic non pressure ulcer left foot 3. diabetes 4. obesity 5. neuropathy Plan: 1. voancomycin goal tr 15-20, add ceftriaxone 2 gm daily, will plan on another course of IV antibiotics for 4 weeks and [facility] PO pending her course.
[2017-01-01] MEDS: Insulin GLARGINE(*) 1 UNITS UNIT SUBCUT SCH (18:11)
[2017-01-01] MEDS ORDERED: Vancomycin Trough Check NOTE FOLLOW UP ONE (21:00)
[2017-01-02] MEDS ORDERED: Vancomycin(*) 1,250 MG in NS 0.9% 250 ML* 250 ML IVPB SCH (02:45)
[2017-01-02] MEDS: Vancomycin(*) 1,250 MG in NS 0.9% 250 ML* 250 ML IVPB SCH ×3 (05:55→21:39)
[2017-01-02 06:40] LABS: Hematocrit 23 % (35-47); Hemoglobin 7.4 g/dl (12.0-16.0)
[2017-01-02 07:07] LABS: BUN/Creatinine Ratio 14.6 (8-20); Calcium 8.2 mg/dL (8.6-10.3); EGFR African American 75.7 (>60); EGFR Non-African American 58.9 (>60)
--- NOTE | 2017-01-02 07:22 | PN ---
Subjective Date of Service: 01/02/17 Interval History: Patient seen this morning. No complaints. Denies pain. Worked with PT yesterday , said it was not easy to get around. Eating, drinking, moving bowels. Family History: Unchanged from Admission Social History: Unchanged from Admission Past Medical History: Unchanged from Admission Objective Active Medications: Aspirin (Aspirin Ec Low Dose*) 81 mg PO DAILY SJ Bupropion HCl (Wellbutrin Xl *) 150 mg PO DAILY SJ Dextrose (D50w Syringe 50 Ml*) 12.5 gm IV PUSH .FOR FS < 60 - SS PRN Diphenhydramine HCl (Benadryl Iv*) 25 mg IV Q6H PRN Docusate Sodium (Colace Cap*) 100 mg PO BID SJ Enoxaparin Sodium (Lovenox(*)) 40 mg SUBCUT Q24H SJ Heparin Sodium (Porcine) (Heparin Flush Port (Ivad)) 5 ml FLUSH DAILY SJ Lactated Ringer's (Lactated Ringers 1000 Ml Bag*) 1,000 mls @ 75 mls/hr IV PER RATE SJ Ceftriaxone Sodium 2 gm/ (Sodium Chloride) 100 mls @ 200 mls/hr IVPB Q24H SJ Vancomycin HCl 1,250 mg/ (Sodium Chloride) 250 mls @ 166.667 mls/hr IVPB 0530, 1330,2130 SCHr Insulin Glargine (Lantus(*)) 85 units SUBCUT QPM SJ Insulin Human Lispro (Humalog*) 0 units SUBCUT AC SJ Lactobacillus Rhamnosus (Culturelle*) 1 cap PO BID SJ Morphine Sulfate (Morphine Inj (Syringe)*) 2 mg IV Q2H PRN Ondansetron HCl (Zofran Inj*) 4 mg IV Q6H PRN Oxycodone HCl (Roxycodone Tab*) 10 mg PO Q4H PRN Oxycodone HCl (Roxycodone Tab*) 5 mg PO Q4H PRN Pharmacy Consult (Vancomycin Per Pharmacy*) 1 note FOLLOW UP . PRN Pharmacy Profile Note (Vancomycin Trough Check) 1 note FOLLOW UP 0530 ONE Sertraline HCl (Zoloft*) 100 mg PO DAILY SJ Trazodone HCl (Desyrel Tab*) 25 mg PO BEDTIME PRN Vital Signs 01/01/17 01/01/17 01/01/17 07:25 07:31 08:00 Temperature 99.0 F Pulse Rate 79 Respiratory 18 18 20 Rate Blood Pressure 135/58 (mmHg) O2 Sat by Pulse 95 96 Oximetry 01/01/17 01/01/17 01/01/17 11:38 15:32 16:27 Temperature 99.2 F 98.2 F Pulse Rate 80 80 Respiratory 17 16 Rate Blood Pressure 138/57 140/60 (mmHg) O2 Sat by Pulse 99 97 97 Oximetry 01/01/17 01/01/17 01/01/17 19:30 19:59 23:28 Temperature 98.6 F 97.3 F Pulse Rate 85 84 Respiratory 20 16 14 Rate Blood Pressure 150/59 125/49 (mmHg) O2 Sat by Pulse 96 94 Oximetry 01/02/17 01/02/17 00:00 03:31 Temperature 98.4 F Pulse Rate 73 Respiratory 13 Rate Blood Pressure 129/47 (mmHg) O2 Sat by Pulse 95 95 Oximetry Oxygen Devices in Use Now: None Appearance: Middle-aged, F, laying in bed in NAD Eyes: No Scleral Icterus Ears/Nose/Mouth/Throat: Mucous Membranes Moist Neck: NL Appearance and Movements; NL JVP Respiratory: Symmetrical Chest Expansion and Respiratory Effort, Clear to Auscultation Cardiovascular: NL Sounds; No Murmurs; No JVD, - - Mild tachycardia Abdominal: NL Sounds; No Tenderness; No Distention Lymphatic: No Cervical Adenopathy Extremities: - - LLE with dressing in place, c/d/i Skin: No Rash or Ulcers Neurological: Alert and Oriented x 3 Lines/Tubes/Other Access: Clean, Dry and Intact Other Access - L chest port, c/d /i Result Diagrams: 01/02/17 05:55 01/02/17 05:55 Microbiology and Other Data: Microbiology 12/31/16 11:16 Skin and Soft Tissue MRSA/MSSA (PCR - Final Wound Mrsa Positive S.aureus Positive Gram Stain - Final Assess/Plan/Problems-Billing Assessment: 61 yo F with hx of HTN, HLD, DM, CKD, post-op DVT, depression, osteomyelitis s/ p I&D and bone excision of non-healing L foot diabetic foot ulcer on 12/31 - Patient Problems (1) Foot ulcer due to secondary DM Current Visit: No Comment: S/P I&D and bone incision on 12/[address] Haynes. Wound culture growing S. aureus (MRSA PCR positive). ID recommending Vanc/CTX. Patient with chest port, ?need for PICC line. Management as per Ortho (2) Anemia Current Visit: Yes Comment: Post-op. Hb drifting down today to 7.4, mildly tachycardic on exam this AM. Will transfuse 1 unit (ordered). (3) Diabetes mellitus Current Visit: No Comment: Continue Lantus 85 units qhs and HISS, AM BG pending (4) HTN (hypertension) Current Visit: No Comment: BPs stable, continue to hold Lasix and Lisinopril for now. (5) CKD (chronic kidney disease) Current Visit: Yes Comment: Creatinine stable. (6) HLD (hyperlipidemia) Current Visit: No Comment: Continue statin. (7) Depression Current Visit: No Comment: Cont Sertraline and Buproprion. (8) DVT prophylaxis Current Visit: No Comment: Lovenox
[2017-01-02] MEDS: Insulin LISPRO* 1 UNITS UNIT SUBCUT SCH ×3 (09:05→17:24)
[2017-01-02] MEDS: Sertraline* 100 MG TAB PO SCH (09:05)
[2017-01-02] MEDS: Docusate CAP* 100 MG PO SCH ×2 (09:05→21:42)
[2017-01-02] MEDS: Lactobacillus Acidophilu (GG)* 1 CAP CAP PO SCH ×2 (09:05→21:39)
[2017-01-02] MEDS: BuPROPion XL* 150 MG TAB.XL PO SCH (09:05)
[2017-01-02] MEDS: Aspirin EC Low Dose* 81 MG TAB.EC PO SCH (09:05)
--- NOTE | 2017-01-02 10:12 | PN ---
Progress Note - Progress Note SOAP: Subjective: DOS: 01/02/17 CC: left foot infection HPI: 61 yo woman with recurrent and now persistent left foot infection and wound , had recently gotten worse redness and swelling; recently on flagyl and levaquin. Admitted for partial amputation which she tolerated well. No fever or rash. Has chronic diarrhea, worse now without imodium. Some abd cramping which is usual for her. Liquid stool 3-6 times per day. Objective: [] Vital Signs Temp 36.4 C 01/02/17 07:31 Pulse 72 01/02/17 07:31 Resp 16 01/02/17 08:00 BP 146/76 01/02/17 07:31 Pulse Ox 99 01/02/17 08:00 Intake & Output 01/01/17 01/02/17 01/02/17 18:59 06:59 18:59 Intake Total 1230 1629 671 Output Total 200 200 Balance 1030 1429 671 Intake: IV Fluids 290 609 311 ABX - CEFAZOLIN 103 ABX - VANCOMYCIN 260 270 270 LR 30 211 NS (0.9%) 25 41 Oral 940 1020 360 Output: Urine 200 200 Other: Estimated Void Large Large Small Date of Last Bowel 01/01/17 Movement # Bowel Movements 1 1 Estimated Stool Amount Large Small # Voids 1 1 Gen:Awake, NAD Neuro: Ox3, moves all extremities HEENT:PERRL, MMM Neck:Supple Heart:RRR no murmur Lungs:CTA BL Abd:+BS NTND soft Skin: no rash MSK: no spine tenderness, left foot wrapped Laboratory Results - last 24 hr 01/01/17 01/01/17 01/01/17 05:41 11:43 17:07 Hgb Hct Sodium Potassium Chloride Carbon Dioxide Anion Gap BUN Creatinine Est GFR ( Amer) Est GFR (Non-Af Amer) BUN/Creatinine Ratio Glucose POC Glucose (mg/dL) 149 H 154 H Hemoglobin A1c 9.3 H Calcium Vancomycin Trough Blood Type Antibody Screen Crossmatch 01/01/17 01/01/17 01/02/17 21:10 22:26 05:55 Hgb Hct Sodium 138 Potassium 4.0 Chloride 107 Carbon Dioxide 26 Anion Gap 5 BUN 14 Creatinine 0.96 H Est GFR ( Amer) 75.7 Est GFR (Non-Af Amer) 58.9 BUN/Creatinine Ratio 14.6 Glucose 149 H POC Glucose (mg/dL) 203 H Hemoglobin A1c Calcium 8.2 L Vancomycin Trough 11.6 Blood Type Antibody Screen Crossmatch 01/02/17 01/02/17 01/02/17 05:55 05:55 07:50 Hgb 7.4 L Hct 23 L Sodium Potassium Chloride Carbon Dioxide Anion Gap BUN Creatinine Est GFR ( Amer) Est GFR (Non-Af Amer) BUN/Creatinine Ratio Glucose POC Glucose (mg/dL) 168 H Hemoglobin A1c Calcium Vancomycin Trough Blood Type A Positive Antibody Screen Negative Crossmatch See Detail Assessment: 1. chronic osteomyelitis, left foot due to MRSA and likely polymicrobial 2. chronic non pressure ulcer left foot 3. diabetes 4. obesity 5. neuropathy 6. chronic diarrhea Laboratory Results - last 24 hr 01/01/17 01/01/17 01/01/17 05:41 11:43 17:07 Hgb Hct Sodium Potassium Chloride Carbon Dioxide Anion Gap BUN Creatinine Est GFR ( Amer) Est GFR (Non-Af Amer) BUN/Creatinine Ratio Glucose POC Glucose (mg/dL) 149 H 154 H Hemoglobin A1c 9.3 H Calcium Vancomycin Trough Blood Type Antibody Screen Crossmatch 01/01/17 01/01/17 01/02/17 21:10 22:26 05:55 Hgb Hct Sodium 138 Potassium 4.0 Chloride 107 Carbon Dioxide 26 Anion Gap 5 BUN 14 Creatinine 0.96 H Est GFR ( Amer) 75.7 Est GFR (Non-Af Amer) 58.9 BUN/Creatinine Ratio 14.6 Glucose 149 H POC Glucose (mg/dL) 203 H Hemoglobin A1c Calcium 8.2 L Vancomycin Trough 11.6 Blood Type Antibody Screen Crossmatch 01/02/17 01/02/17 01/02/17 05:55 05:55 07:50 Hgb 7.4 L Hct 23 L Sodium Potassium Chloride Carbon Dioxide Anion Gap BUN Creatinine Est GFR ( Amer) Est GFR (Non-Af Amer) BUN/Creatinine Ratio Glucose POC Glucose (mg/dL) 168 H Hemoglobin A1c Calcium Vancomycin Trough Blood Type A Positive Antibody Screen Negative Crossmatch See Detail Plan: 1. vancomycin goal tr 15-20, ceftriaxone 2 gm daily, will plan on another course of IV antibiotics for 4 weeks and terminal gauger PO. Disussed with Dr Haynes
[2017-01-02] MEDS: Enoxaparin(*) 40 MG/0.4 ML SYR SUBCUT SCH (12:28)
[2017-01-02] MEDS: oxyCODONE TAB* 5 MG TAB PO PRN (12:32)
[2017-01-02] MEDS: Loperamide CAP* 2 MG PO PRN (12:32)
--- NOTE | 2017-01-02 13:15 | PN ---
Progress Note - Progress Note SOAP: Subjective: POD #2 left foot lateral ray amputation. Doing well, denies pain. States that she is doing "pretty well" with PT, has had to rest foot occasionally for balance. Denies CP/SOB, denies f/c Objective: Vitals: Temp Pulse Resp BP Pulse Ox 98.0 F 69 16 135/69 99 01/02/17 11:13 01/02/17 11:13 01/02/17 12:32 01/02/17 11:13 01/02/17 11:28 Gen: A&Ox3, NAD at rest, sitting in chair with LLE elevated LLE: Splint C/D/I, sensation to toes decreased, warm with brisk cap refill Labs: Laboratory Last Values Hgb 7.4 g/dl (12.0-16.0) L 01/02/17 05:55 Hct 23 % (35-47) L 01/02/17 05:55 Sodium 138 mmol/L (133-145) 01/02/17 05:55 Potassium 4.0 mmol/L (3.5-5.0) 01/02/17 05:55 Chloride 107 mmol/L (101-111) 01/02/17 05:55 Carbon Dioxide 26 mmol/L (22-32) 01/02/17 05:55 Anion Gap 5 mmol/L (2-11) 01/02/17 05:55 BUN 14 mg/dL (6-24) 01/02/17 05:55 Creatinine 0.96 mg/dL (0.51-0.95) H 01/02/17 05:55 Est GFR ( Amer) 75.7 (>60) 01/02/17 05:55 Est GFR (Non-Af Amer) 58.9 (>60) 01/02/17 05:55 BUN/Creatinine Ratio 14.6 (8-20) 01/02/17 05:55 Glucose 149 mg/dL (70-100) H 01/02/17 05:55 POC Glucose (mg/dL) 135 mg/dL (74-106) H 01/02/17 12:21 Hemoglobin A1c 9.3 % (Less than 6.0) H 01/01/17 05:41 Calcium 8.2 mg/dL (8.6-10.3) L 01/02/17 05:55 Vancomycin Trough 11.6 mcg/mL 01/01/17 21:10 Blood Type A Positive 01/02/17 05:55 Antibody Screen Negative 01/02/17 05:55 Crossmatch See Detail 01/02/17 05:55 Assessment: POD #2 Left foot lateral ray amputation Plan: H/H decreased, receiving 1 unit of blood currently, not symptomatic Cont PT for increased strength Possible d/c home tomorrow if comfortable and IV abx set up per ID
[2017-01-02] MEDS: Insulin GLARGINE(*) 1 UNITS UNIT SUBCUT SCH (17:25)
[2017-01-03] MEDS: Loperamide CAP* 2 MG PO PRN ×2 (00:13→15:26)
[2017-01-03] MEDS ORDERED: Vancomycin Trough Check NOTE FOLLOW UP ONE (05:30)
[2017-01-03] MEDS: Vancomycin(*) 1,250 MG in NS 0.9% 250 ML* 250 ML IVPB SCH ×2 (06:20→17:58)
[2017-01-03 08:17] LABS: Hematocrit 25 % (35-47); Hemoglobin 7.9 g/dl (12.0-16.0)
[2017-01-03] MEDS: Insulin LISPRO* 1 UNITS UNIT SUBCUT SCH ×3 (08:36→17:58)
--- NOTE | 2017-01-03 09:16 | PN ---
Progress Note - Progress Note SOAP: Subjective: resting comfortably with no complaints, minimal right foot pain Objective: Vital Signs Temp Pulse Resp BP Pulse Ox 97.7 F 84 18 148/78 100 01/03/17 08:28 01/03/17 08:28 01/03/17 08:29 01/03/17 08:28 01/03/17 08:28 Laboratory Last Values Hgb 7.9 g/dl (12.0-16.0) L 01/03/17 05:35 Hct 25 % (35-47) L 01/03/17 05:35 Sodium 138 mmol/L (133-145) 01/02/17 05:55 Potassium 4.0 mmol/L (3.5-5.0) 01/02/17 05:55 Chloride 107 mmol/L (101-111) 01/02/17 05:55 Carbon Dioxide 26 mmol/L (22-32) 01/02/17 05:55 Anion Gap 5 mmol/L (2-11) 01/02/17 05:55 BUN 14 mg/dL (6-24) 01/02/17 05:55 Creatinine 0.96 mg/dL (0.51-0.95) H 01/02/17 05:55 Est GFR ( Amer) 75.7 (>60) 01/02/17 05:55 Est GFR (Non-Af Amer) 58.9 (>60) 01/02/17 05:55 BUN/Creatinine Ratio 14.6 (8-20) 01/02/17 05:55 Glucose 149 mg/dL (70-100) H 01/02/17 05:55 POC Glucose (mg/dL) 89 mg/dL (74-106) 01/03/17 08:06 Hemoglobin A1c 9.3 % (Less than 6.0) H 01/01/17 05:41 Calcium 8.2 mg/dL (8.6-10.3) L 01/02/17 05:55 Vancomycin Trough 23.6 mcg/mL 01/03/17 05:35 Blood Type A Positive 01/02/17 05:55 Antibody Screen Negative 01/02/17 05:55 Crossmatch See Detail 01/02/17 05:55 incision: c/d/i PE: able to move toes right foot, good capillary refill, diminished sensation over right foot Assessment: POD #3 S/P right foot lateral baljit Plan: 1) continue IV Abx per ID 2) Continue DVT prophylaxis 3)HCT stable; OK to DC from ortho standpoint once home IV Abx are setup.
--- NOTE | 2017-01-03 09:33 | PN ---
Progress Note - Progress Note SOAP: Subjective: DOS: 01/03/17 CC: left foot infection HPI: 61 yo woman with recurrent and now persistent left foot infection and wound , had recently gotten worse redness and swelling; recently on flagyl and levaquin. Admitted for partial amputation which she tolerated well. No foot pain. No fever or rash. Has chronic diarrhea, back to baseline with imodium. Objective: [] Vital Signs Temp 36.5 C 01/03/17 08:28 Pulse 84 01/03/17 08:28 Resp 18 01/03/17 08:29 BP 148/78 01/03/17 08:28 Pulse Ox 100 01/03/17 08:28 Intake & Output 01/02/17 01/03/17 01/03/17 18:59 06:59 18:59 Intake Total 2758 1805 330 Output Total 0 200 Balance 2758 1605 330 Intake: IV Fluids 869 305 330 ABX - CEFAZOLIN 105 ABX - VANCOMYCIN 540 270 275 NS (0.9%) 224 35 55 Oral 1580 1500 Packed Cells 309 Output: Urine 0 200 Other: Estimated Void Large Large Date of Last Bowel 01/03/17 Movement # Bowel Movements 1 Estimated Stool Amount Medium # Voids 1 1 Gen:Awake, NAD Neuro: Ox3, moves all extremities HEENT:PERRL, MMM Neck:Supple Heart:RRR no murmur Lungs:CTA BL Abd:+BS NTND soft Skin: no rash MSK: no spine tenderness, left foot wrapped Laboratory Results - last 24 hr 01/02/17 01/02/17 01/02/17 05:55 12:21 17:15 Hgb Hct POC Glucose (mg/dL) 135 H 141 H Vancomycin Trough Blood Type A Positive Antibody Screen Negative Crossmatch See Detail 01/02/17 01/03/17 01/03/17 21:54 05:35 05:35 Hgb 7.9 L Hct 25 L POC Glucose (mg/dL) 142 H Vancomycin Trough 23.6 Blood Type Antibody Screen Crossmatch 01/03/17 08:06 Hgb Hct POC Glucose (mg/dL) 89 Vancomycin Trough Blood Type Antibody Screen Crossmatch Assessment: 1. chronic osteomyelitis, left foot due to MRSA and likely polymicrobial 2. chronic non pressure ulcer left foot 3. diabetes 4. obesity 5. neuropathy 6. chronic diarrhea Plan: 1. continue vancomycin goal tr 15-20, ceftriaxone, either both for home infusion OR daptomycin 750 mg IV Q24hrs and ceftriaxone 2 gm IV daily for infusion center with weekly labs. Discussed with Hermelinda Bernal
[2017-01-03] MEDS: BuPROPion XL* 150 MG TAB.XL PO SCH (09:44)
[2017-01-03] MEDS: Lactobacillus Acidophilu (GG)* 1 CAP CAP PO SCH ×2 (09:44→20:15)
[2017-01-03] MEDS: Aspirin EC Low Dose* 81 MG TAB.EC PO SCH (09:45)
[2017-01-03] MEDS: Sertraline* 100 MG TAB PO SCH (09:48)
[2017-01-03] MEDS: Docusate CAP* 100 MG PO SCH ×2 (09:54→20:10)
--- NOTE | 2017-01-03 10:38 | PN ---
Subjective Date of Service: 01/03/17 Interval History: Patient seen this morning. No new complaints. Denies pain. Eating and drinking well. Chronic abdominal discomfort and loose stools. No fever or chills. Feels that she has been getting around fairly well, now has a scooter. Family History: Unchanged from Admission Social History: Unchanged from Admission Past Medical History: Unchanged from Admission Objective Active Medications: Acetaminophen (Tylenol Tab*) 650 mg PO Q6H PRN Aspirin (Aspirin Ec Low Dose*) 81 mg PO DAILY SJ Bupropion HCl (Wellbutrin Xl *) 150 mg PO DAILY SJ Dextrose (D50w Syringe 50 Ml*) 12.5 gm IV PUSH .FOR FS < 60 - SS PRN Diphenhydramine HCl (Benadryl Iv*) 25 mg IV Q6H PRN Docusate Sodium (Colace Cap*) 100 mg PO BID SJ Enoxaparin Sodium (Lovenox(*)) 40 mg SUBCUT Q24H [facility] Heparin Sodium (Porcine) (Heparin Flush Port (Ivad)) 5 ml FLUSH DAILY [facility] Lactated Ringer's (Lactated Ringers 1000 Ml Bag*) 1,000 mls @ 75 mls/hr IV PER RATE [facility] Ceftriaxone Sodium 2 gm/ (Sodium Chloride) 100 mls @ 200 mls/hr IVPB Q24H [facility] Vancomycin HCl 1,250 mg/ (Sodium Chloride) 250 mls @ 166.667 mls/hr IVPB 0530, 1330,2130 [facility] Insulin Glargine (Lantus(*)) 85 units SUBCUT QPM [facility] Insulin Human Lispro (Humalog*) 0 units SUBCUT AC [facility] Lactobacillus Rhamnosus (Culturelle*) 1 cap PO BID SJ Loperamide HCl (Imodium Cap*) 2 mg PO .SEE DIRECTIONS PRN Morphine Sulfate (Morphine Inj (Syringe)*) 2 mg IV Q2H PRN Ondansetron HCl (Zofran Inj*) 4 mg IV Q6H PRN Oxycodone HCl (Roxycodone Tab*) 10 mg PO Q4H PRN Oxycodone HCl (Roxycodone Tab*) 5 mg PO Q4H PRN Pharmacy Consult (Vancomycin Per Pharmacy*) 1 note FOLLOW UP . PRN Sertraline HCl (Zoloft*) 100 mg PO DAILY SJ Trazodone HCl (Desyrel Tab*) 25 mg PO BEDTIME PRN Vital Signs 01/02/17 01/02/17 01/02/17 11:13 11:28 12:32 Temperature 98.0 F Pulse Rate 69 Respiratory 18 16 Rate Blood Pressure 135/69 (mmHg) O2 Sat by Pulse 99 99 Oximetry 01/03/17 01/03/17 01/03/17 08:00 08:28 08:29 Temperature 97.7 F Pulse Rate 84 Respiratory 16 18 18 Rate Blood Pressure 148/78 (mmHg) O2 Sat by Pulse 100 Oximetry Oxygen Devices in Use Now: None Appearance: Middle-aged, F, laying in bed in NAD Eyes: No Scleral Icterus Ears/Nose/Mouth/Throat: Mucous Membranes Moist Neck: NL Appearance and Movements; NL JVP Respiratory: Symmetrical Chest Expansion and Respiratory Effort, Clear to Auscultation Cardiovascular: NL Sounds; No Murmurs; No JVD, RRR Abdominal: - - NTND, BS hyperactive Lymphatic: No Cervical Adenopathy Extremities: No Edema, - - LLE with dressing in place Skin: No Rash or Ulcers Neurological: Alert and Oriented x 3 Result Diagrams: 01/03/17 05:35 01/02/17 05:55 Microbiology and Other Data: Microbiology 12/31/16 11:16 Skin and Soft Tissue MRSA/MSSA (PCR - Final Wound Mrsa Positive S.aureus Positive Gram Stain - Final Assess/Plan/Problems-Billing Assessment: 61 yo F with hx of HTN, HLD, DM, CKD, post-op DVT, depression, osteomyelitis s/ p I&D and bone excision of non-healing L foot diabetic foot ulcer on 12/31 - Patient Problems (1) Foot ulcer due to secondary DM Current Visit: No Comment: S/P I&D and bone incision on 12/[address] Haynes. Management as per Ortho. Wound culture growing S. aureus (MRSA PCR positive). ID recommending Vanc or Daptomycin and CTX. Trying to work out ABx plan for discharge. (2) Anemia Current Visit: Yes Comment: Hb 7.9 after transfusion. No need for any further blood at this point. (3) Diabetes mellitus Current Visit: No Comment: Continue Lantus 85 units qhs and HISS. Can resume home medications on discharge. (4) HTN (hypertension) Current Visit: No Comment: Resume home Lasix and Lisinopril today (5) CKD (chronic kidney disease) Current Visit: Yes Comment: Creatinine stable. (6) HLD (hyperlipidemia) Current Visit: No Comment: Continue statin. (7) Depression Current Visit: No Comment: Cont Sertraline and Buproprion. (8) DVT prophylaxis Current Visit: No Comment: Lovenox Status and Disposition: Will sign off at this time. Continue above regimen and when discharged can resume home DM medications. Please call with any further questions.
[2017-01-03] MEDS: Furosemide TAB* 20 MG PO SCH (11:29)
[2017-01-03] MEDS: Lisinopril TAB* 10 MG PO SCH (11:29)
[2017-01-03] MEDS: Enoxaparin(*) 40 MG/0.4 ML SYR SUBCUT SCH (13:02)
[2017-01-03] MEDS: Acetaminophen TAB* 325 MG PO PRN ×2 (15:26→21:52)
[2017-01-03] MEDS ORDERED: NS 0.9% 250 ML* 250 ML ONE (17:53)
[2017-01-03] MEDS: Insulin GLARGINE(*) 1 UNITS UNIT SUBCUT SCH (18:02)
[2017-01-04] MEDS: Loperamide CAP* 2 MG PO PRN ×2 (01:32→15:16)
[2017-01-04] MEDS: Acetaminophen TAB* 325 MG PO PRN (03:41)
[2017-01-04] MEDS: Vancomycin(*) 1,250 MG in NS 0.9% 250 ML* 250 ML IVPB SCH ×2 (05:57→14:00)
--- NOTE | 2017-01-04 08:40 | PN ---
Progress Note - Progress Note SOAP: Subjective: pt resting comfortably with no complaints Objective: [] Vital Signs Temp Pulse Resp BP Pulse Ox 97.5 F 68 18 138/56 96 01/04/17 03:07 01/04/17 03:07 01/04/17 03:32 01/04/17 03:07 01/04/17 03:07 Laboratory Last Values Hgb 7.9 g/dl (12.0-16.0) L 01/03/17 05:35 Hct 25 % (35-47) L 01/03/17 05:35 Sodium 138 mmol/L (133-145) 01/02/17 05:55 Potassium 4.0 mmol/L (3.5-5.0) 01/02/17 05:55 Chloride 107 mmol/L (101-111) 01/02/17 05:55 Carbon Dioxide 26 mmol/L (22-32) 01/02/17 05:55 Anion Gap 5 mmol/L (2-11) 01/02/17 05:55 BUN 14 mg/dL (6-24) 01/02/17 05:55 Creatinine 0.96 mg/dL (0.51-0.95) H 01/02/17 05:55 Est GFR ( Amer) 75.7 (>60) 01/02/17 05:55 Est GFR (Non-Af Amer) 58.9 (>60) 01/02/17 05:55 BUN/Creatinine Ratio 14.6 (8-20) 01/02/17 05:55 Glucose 149 mg/dL (70-100) H 01/02/17 05:55 POC Glucose (mg/dL) 94 mg/dL (74-106) 01/04/17 08:01 Hemoglobin A1c 9.3 % (Less than 6.0) H 01/01/17 05:41 Calcium 8.2 mg/dL (8.6-10.3) L 01/02/17 05:55 Vancomycin Trough 23.6 mcg/mL 01/03/17 05:35 Blood Type A Positive 01/02/17 05:55 Antibody Screen Negative 01/02/17 05:55 Crossmatch See Detail 01/02/17 05:55 incision: c/d/i; splint intact PE: moving toes wells, diminished sensation over toes. Assessment: s/p right foot lateral ray Plan: 1) continue IV Abx per ID 2) continue DVT prophylaxis 3) PT/OT-NWB RLE 4) Awaiting NH placement
[2017-01-04] MEDS: Insulin LISPRO* 1 UNITS UNIT SUBCUT SCH ×2 (08:46→12:07)
[2017-01-04] MEDS: Aspirin EC Low Dose* 81 MG TAB.EC PO SCH (09:02)
[2017-01-04] MEDS: Furosemide TAB* 20 MG PO SCH (09:02)
[2017-01-04] MEDS: BuPROPion XL* 150 MG TAB.XL PO SCH (09:02)
[2017-01-04] MEDS: Lisinopril TAB* 10 MG PO SCH (09:02)
[2017-01-04] MEDS: Lactobacillus Acidophilu (GG)* 1 CAP CAP PO SCH (09:02)
[2017-01-04] MEDS: Sertraline* 100 MG TAB PO SCH (09:02)
[2017-01-04] MEDS: oxyCODONE TAB* 5 MG TAB PO PRN ×2 (09:02→15:14)
[2017-01-04] MEDS: Docusate CAP* 100 MG PO SCH (09:09)
[2017-01-04] MEDS: Enoxaparin(*) 40 MG/0.4 ML SYR SUBCUT SCH (12:48)
[2017-01-04 15:43] VITALS: BP 149/68
[2017-01-05] MEDS ORDERED: Vancomycin Trough Check NOTE FOLLOW UP ONE (06:00)
--- NOTE | 2017-01-05 06:04 | DS ---
DISCHARGE SUMMARY: DATE OF ADMISSION: 12/31/16 DATE OF DISCHARGE: 01/04/17 SURGEON: Colten Haynes MD PRINCIPAL DIAGNOSIS: Recurrent osteomyelitis, chronic, left lateral border mid foot. DISCHARGE DIAGNOSIS: Recurrent osteomyelitis, chronic, left lateral border mid foot. HOSPITAL COURSE: Ms. Valdez is a 61-year-old female, she was admitted to the hospital on 12/31/16 fo r recurrent osteomyelitis of the left foot. She underwent a left lateral J procedure. She tolerate d the procedure well. Postoperatively, she was placed on Lovenox for DVT prophylaxis. Dr. Whipple was consulted and she was placed on IV antibiotics. On postoperative day 1, her H and H was 7.9 an d 25. On postoperative day, her H and H was 7.4 and 23. One unit of packed red blood cells were tr ansfused on 01/02/17. At the time of discharge on 01/04/17, her pain was well controlled, but she h ad continued difficulty with ambulation. She is non- weightbearing of the left lower extremity and she was discharged to [facility] for IV antibiotics. DISCHARGE MEDICATIONS: 1. Vancomycin 1250 mg every 12 hours. 2. Ceftriaxone 2 g every day. 3. Lovenox 30 mg subcu every day. 4. Wellbutrin 150 mg daily. 5. Colace 100 mg twice a day as needed. 6. Lasix 10 mg daily. 7. Lantus 85 units subcu every evening. 8. Humalog. 9. Lisinopril 10 mg daily. 10. Oxycodone 5 mg every 4 hours. 11. Zoloft 100 mg daily. 12. Trazodone 25 mg at night. PHYSICAL EXAMINATION UPON DISCHARGE: She was afebrile. Her vital signs were stable. She is able t o wiggle the toes of the left foot. She does have diminished sensation over the toes, but good capi llary refill. DISCHARGE PLAN: To be discharged to [facility] for IV antibiotics. Dr. Whipple has recommended van comycin 1250 mg every 12 hours and ceftriaxone 2 g daily. She will remain on Lovenox 30 mg subcu da patel for a month for DVT prophylaxis. Recommended oxycodone 5 mg every 4 hours as needed for pain. S he will remain nonweightbearing of the left lower extremity. She will see Dr. Haynes next week. She will keep her foot dry and intact until her followup appointment with Dr. Haynes. ELROY ESCUDERO [id number]/[facility] #: [id number]
== END 2017-01-04 16:00 | DRG 504 ==
LOC: AA 12-31 08:33 → SSU 12-31 13:36
PROVIDERS: ADMIT Orthopaedic Surgery; ATTEND Orthopaedic Surgery
PROC: 0Y6Y0Z2 Detachment at Left 5th Toe, Mid, Open Approach (ICD-10-PCS; 2016-12-31)
PROC: 0Y6W0Z2 Detachment at Left 4th Toe, Mid, Open Approach (ICD-10-PCS; principal; 2016-12-31 10:00)
PROC: 30233N1 Transfusion of Nonautologous Red Blood Cells into Peripheral Vein, Percutaneous Approach (ICD-10-PCS; 2017-01-02)
DX: M86.672 Other chronic osteomyelitis, left ankle and foot (principal); D62 Acute posthemorrhagic anemia; E11.22 Type 2 diabetes mellitus with diabetic chronic kidney disease; I13.10 Hypertensive heart and chronic kidney disease without heart failure, with stage 1 through stage 4 chronic kidney disease, or unspecified chronic kidney disease; E11.40 Type 2 diabetes mellitus with diabetic neuropathy, unspecified; E11.621 Type 2 diabetes mellitus with foot ulcer; N18.9 Chronic kidney disease, unspecified; K21.9 Gastro-esophageal reflux disease without esophagitis; E78.5 Hyperlipidemia, unspecified; Z85.048 Personal history of other malignant neoplasm of rectum, rectosigmoid junction, and anus; Z86.718 Personal history of other venous thrombosis and embolism; Z79.01 Long term (current) use of anticoagulants; Z79.1 Long term (current) use of non-steroidal anti-inflammatories (NSAID); Z79.82 Long term (current) use of aspirin; Z79.4 Long term (current) use of insulin; Z79.899 Other long term (current) drug therapy; Z88.8 Allergy status to other drugs, medicaments and biological substances; Z80.0 Family history of malignant neoplasm of digestive organs; Z80.8 Family history of malignant neoplasm of other organs or systems; Z83.3 Family history of diabetes mellitus
CPT/HCPCS: 36415; 80048; 80202; 83036; 85014; 85018; 86850; 86900; 86901; 86922; 87070; 87073; 87077; 87186; 87205; 87640; 87641; 88304; 88311; 94760; A9270-GY; J0690; J0696; J1642; J1650; J1885; J2250; J2270; J2405; J2704; J3010; J3370; P9040

== ENCOUNTER 2017-12-11 09:01 | Day surgery (SDC) | payer MEDICARE ==
--- NOTE | 2017-12-04 23:03 | HP ---
CC: Dr. Lawrence * HISTORY AND PHYSICAL: DATE OF PLANNED ADMISSION AND SURGERY: 12/11/17 HISTORY OF PRESENT ILLNESS: Ms. Valdez is a 62-year-old white female who has chronic left hydronephrosis, status post placement of left ureteral stent, who is admitted for cystoscopy and left ureteral stent exchange. Ms. Valdez developed stricture of the distal left ureter following treatment of carcinoma of the colon where she underwent radiation therapy, surgery, and systemic chemotherapy about 7 years ago. The ureteral stricture resulted in left hydronephrosis and this was managed with placement of a left ureteral stent. She did not respond to balloon dilation of the ureter and has a chronic ureteral stent. The stent was last replaced in August 2016. The stent should have been replaced earlier; however, the patient did not respond to repeated phone calls and instructions to come to the office for earlier procedure. She has been minimally symptomatic from her kidney. She has had episodes of urinary tract infections that were uncomplicated and treated with antibiotics. KUB showed the Lt ureteral stent in good position, no abnormal calcifications adjacent to the stent. PAST MEDICAL HISTORY AND SYSTEM REVIEW: She has chronic diarrhea, which seems to be related to her colon surgery and radiation therapy. She is diabetic and has been maintained on Lantus, NovoLog. She is hypertensive, on lisinopril 20 mg and Lasix 20 mg daily. She is on 1 regular aspirin per day. She takes Zoloft 50 mg daily. She had a urine culture 5 weeks prior to this planned admission showing a charlton sensitive E. coli. The patient was started on Bactrim DS twice a day 1 week prior to this admission. ALLERGIES: She reports being intolerant or allergic to GLUCOPHAGE and TENORMIN. PHYSICAL EXAMINATION GENERAL: Obese white female, who looks her age. VITAL SIGNS: Blood pressure 140/80, pulse of 60. LUNGS: Clear. HEART: Regular and rhythmic. No murmurs. ABDOMEN: Soft without masses and no CVA tenderness. 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 PLAN: Cystoscopy and left ureteral stent exchange. I discussed the above plans with the patient. All her questions were answered. [id number]/[facility] #: [id number] [facility]
[~2017-12-11 09:01] MED LIST changes: +Buffered Lidocaine 0.9% SYRIN* 5 ML/SYR SYRINGE INTRADERM ONE; -Bupivacaine 0.5% SDV PF* 30 ML VIAL ONE; -Lidocain 1% EPI 1:100,000 * 30 ML MDV ONE; -Lidocaine 2.5%/Prilocain 2.5%* 5 GM TUBE ONE; +cefTRIAXone 2000 MG SYRINGE IVPB ONCE (in NaCl) IVPB ONE
[2017-12-11] MEDS ORDERED: cefTRIAXone(*) 2 GM in NS 0.9% 100 ML* 100 ML IVPB ONE (10:00)
[2017-12-11] MEDS ORDERED: Iohexol 180 (CONTRAST) 10 ML SDV IV ONE (10:47)
[2017-12-11] MEDS ORDERED: fentaNYL* 50 MCG/ML 2 ML VIAL (100 MCG VIAL) ONE (11:04)
[2017-12-11] MEDS ORDERED: Lidocaine 2% PF * 5 ML VIAL ONE (11:06)
[2017-12-11] MEDS ORDERED: Propofol* 10 MG/ML 20 ML BTL IV PUSH ONE (11:06)
[2017-12-11] MEDS ORDERED: Midazolam* 1 MG/ML 2 ML VIAL (2 MG) ONE (11:06)
[2017-12-11] MEDS ORDERED: Acetaminophen TAB* 325 MG PO PRN (11:24)
[2017-12-11] MEDS ORDERED: oxyCODONE TAB* 5 MG TAB PO PRN (11:24)
[2017-12-11] MEDS ORDERED: Ondansetron INJ* 2 MG/ML VIAL IV PRN (11:24)
[2017-12-11] MEDS ORDERED: Naloxone* 0.4 MG/ML 1 ML VIAL IV PRN (11:24)
[2017-12-11] MEDS ORDERED: DiMENhydriNATE IV* 50 MG/ML VIAL IV PUSH PRN (11:24)
[2017-12-11] MEDS ORDERED: fentaNYL* 50 MCG/ML 2 ML VIAL (100 MCG VIAL) IV PRN (11:24)
[2017-12-11] MEDS ORDERED: Acetaminophen TAB* 325 MG ONE (12:06)
[2017-12-11 12:15] VITALS: BP 137/89
--- NOTE | 2017-12-12 07:21 | OP ---
CC: Dr. Lawrence * DATE OF OPERATION: 12/11/17 - [facility] DATE OF : 53 SURGEON: Beau Pruett MD. ANESTHESIOLOGIST: Dr. Sam Watkins. ANESTHESIA: General. PRE-OP DIAGNOSES: 1. Left ureteral stricture. 2. Status post placement left ureteral stent. POST-OP DIAGNOSES: 1. Left ureteral stricture. 2. Status post placement left ureteral stent. OPERATIVE PROCEDURE: 1. Cystoscopy. 2. Left retrograde pyelography. 3. Balloon dilation distal left ureteral stricture. 4. Left ureteral stent exchange (black silicon, 26 cm, 8.5-Faroese). INDICATION FOR PROCEDURE: Ms. Valdez is a 62-year-old white female who developed a stricture of the distal left ureter following surgery, radiation therapy and systemic chemotherapy for carcinoma of the colon about 7 years ago. Her stricture has been managed with chronic stent placement. The stent was last replaced 14 months ago. The plan was to replace the stent earlier, but the patient did not follow up on her appointments. Preoperative KUB showed the stent in good position and no abnormal calcifications or calculi adjacent to the stent. The patient now is admitted for the above procedure. PATHOLOGY: At cystoscopy, the bladder mucosa looked normal. There was slight hyperemia adjacent to the stent. There were no suspicious bladder lesions seen. The distal limb of the stent was seen coming from the left ureteral orifice. Following removal of the stent, there were no calcifications noted on the stent or inside its lumen. Retrograde pyelography showed no hydronephrosis. There was a stricture of the distal ureter about 3 to 4 cm above the level of the ureteral orifice. This stricture yielded well to the balloon dilation. DESCRIPTION OF PROCEDURE: After successful general anesthesia, the patient was placed in the lithotomy position and was prepped and draped for cystoscopy. Cystoscopy was performed, the bladder was carefully inspected, and the above findings were noted. The left ureteral stent was then removed. A flexible-tip guidewire was introduced without difficulty inside the left orifice and positioned in the area of the renal pelvis. Retrograde pyelography was then performed. A balloon dilator was then introduced over the guidewire and positioned in the distal ureter. The balloon was then inflated to 18-Faroese. There was partial waisting of the distal ureter about 4 cm above the level of the orifice. The balloon was then inflated by digital pressure and was kept inflated for a total of 5 minutes. Achieving 80% dilation of the stricture compared to the rest of the ureter. The balloon was then deflated and was removed keeping the guidewire in place. A black silicone stent, 8.5-Faroese, 26 cm long, was then positioned with the proximal end coiling in the renal pelvis and distal end coiling inside the bladder. The patient tolerated the procedure well and left the operating room in good condition. The plan is to leave the stent in for 4 to 6 weeks. It will be removed in the office and we will check if she is going to have a recurrence of the hydronephrosis. [id number]/[facility] #: [id number] MALAIKA
--- NOTE | 2017-12-12 10:07 | RAD ---
INDICATION: Left ureteral stent exchange COMPARISONS: August 24, 2016 TECHNIQUE: Fluoroscopy was provided for a retrograde pyelogram and stent placement. Total fluoroscopy time is: 13 seconds FINDINGS: Spot images of the straight contrast within the renal collecting system. A balloon is noted in the distal ureter. A ureteral stent is noted. IMPRESSION: FLUOROSCOPY WAS PROVIDED FOR A RETROGRADE PYELOGRAM AND STENT PLACEMENT CPT II Codes: 6045F
== END 2017-12-11 12:45 | disposition home or self-care (01) ==
LOC: OR 09:01
PROVIDERS: ATTEND Urology
DX: N13.5 Crossing vessel and stricture of ureter without hydronephrosis (principal); E11.9 Type 2 diabetes mellitus without complications; Z79.4 Long term (current) use of insulin; Z85.038 Personal history of other malignant neoplasm of large intestine; I10 Essential (primary) hypertension; E66.9 Obesity, unspecified; M19.90 Unspecified osteoarthritis, unspecified site; G62.9 Polyneuropathy, unspecified
CPT/HCPCS: 74420; A9270-GY; C1876; J0696; J2250; J2704; J3010

== ENCOUNTER 2018-03-13 12:42 | Observation (INO) | payer MEDICARE ==
--- NOTE | 2018-03-13 12:39 | HP ---
HISTORY AND PHYSICAL: DATE OF PLANNED ADMISSION AND SURGERY: 03/13/18 HISTORY OF PRESENT ILLNESS: Mrs. Valdez is a 62-year-old white female who is admitted with recurrence of the left ureteral stricture, severe left hydronephrosis for cystoscopy and placement of left ureteral stent. Mrs. Valdez's history goes back to 2010 when she underwent surgery for carcinoma of the colon. She had radiation therapy postoperatively. She developed a distal left ureteral stricture. This was managed by chronic stent placement. The stent has been in place since 2012 and has been changed periodically. Three months ago she underwent a cystoscopy, balloon dilation of the distal ureteral stricture. The balloon dilation went easy indicating that it might be resolving. The stent was replaced. The stent was removed about 8 days ago and the patient had been observed for possible recurrence of the stricture. Because of positive culture with E. coli sensitive to cephalosporins, she has been on Keflex starting several days before the stent removal and continued on it until yesterday. 3 days ago, she started having left flank pain and yesterday the pain became more severe. She also felt warm, but did not have any chills. She was evaluated today and had a renal ultrasound, which showed severe left hydronephrosis. Urine analysis in the office today was negative. Because of the recurrence of the hydronephrosis, she is admitted for urgent placement of a left ureteral stent. PAST MEDICAL HISTORY AND SYSTEM REVIEW: She has history of diabetes, hypertension, depression, hyperlipidemia, chronic diarrhea, history of DVT, GERD , and neuropathy. She had incision and drainage of an osteomyelitis of her right middle finger in July 2016. MEDICATIONS: She is maintained on the following medications: 1. Lasix 10 mg daily. 2. Zoloft 100 mg daily. 3. Zocor 20 mg daily. 4. Lantus 70 units subcu every evening. 5. Lisinopril 10 mg daily. 6. Aspirin 81 mg daily. She just completed a course of Keflex yesterday. ALLERGIES: She reports being intolerant or allergic to GLIPIZIDE, METFORMIN, and ATENOLOL. PHYSICAL EXAMINATION GENERAL: Morbidly obese white female, who looks in moderate pain. VITAL SIGNS: Blood pressure 160/90, pulse of 90, temperature 100, oxygen saturation 98%. LUNGS: Clear. HEART: Regular and rhythmic, no murmurs. ABDOMEN: Soft. No guarding. There is left flank tenderness. IMPRESSION: 1. 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 2. Recurrent left ureteral obstruction with severe left hydronephrosis following balloon dilation of the ureteral stricture and stent removal. 3. Diabetes mellitus. PLAN: Plan is for cystoscopy and placement of left ureteral stent. She will need the stent indefinitely and this will be replaced periodically. I discussed the above plans with the patient. All her questions were answered. [id number]/[facility] #: [id number] MALAIKA
[2018-03-13] MEDS ORDERED: cefTRIAXone(*) 2 GM ADDV.VIAL IVPB ONE (12:49)
[2018-03-13] MEDS ORDERED: Buffered Lidocaine 0.9% SYRIN* 5 ML/SYR SYRINGE ONE (12:49)
[2018-03-13 13:32] LABS: ABS Basophils 0 10^3/ul (0-0.2); ABS Eosinophils 0 10^3/ul (0-0.6); ABS Lymphocytes 0.4 10^3/ul (1.0-4.8); ABS Monocytes 0.5 10^3/ul (0-0.8); ABS Neutrophils 6.1 10^3/ul (1.5-7.7); ABS Nucleated RBC 0 10^3/ul; Eosinophil % 0.6 % (0-6); Hematocrit 30 % (35-47); Hemoglobin 9.9 g/dl (12.0-16.0); Lymphocyte % 5.2 % (25-47); Mean Corpuscular HGB Conc 33 g/dl (31-36); Mean Corpuscular Hemoglobin 27 pg (27-31); Mean Corpuscular Volume 83 fL (80-97); Mean Platelet Volume 7.7 um3 (7.4-10.4); Nucleated Red Blood Cells % 0; Platelet Count 277 10^3/ul (150-450); Red Blood Count 3.64 10^6/ul (4.00-5.40); Red Cell Distribution Width 15 % (10.5-15)
[2018-03-13] MEDS ORDERED: Dexamethasone IV* 4 MG/ML 1 ML (4 MG) ONE (14:58)
[2018-03-13] MEDS ORDERED: Midazolam* 1 MG/ML 5 ML VIAL (5 MG) ONE (14:58)
[2018-03-13] MEDS ORDERED: Lidocaine 2% PF * 5 ML VIAL ONE (14:58)
[2018-03-13] MEDS ORDERED: Ondansetron ODT TAB* 4 MG ONE (14:58)
[2018-03-13] MEDS ORDERED: fentaNYL* 50 MCG/ML 2 ML VIAL (100 MCG VIAL) ONE ×2 (14:58→15:13)
[2018-03-13] MEDS ORDERED: Propofol* 10 MG/ML 20 ML BTL IV PUSH ONE (14:58)
[2018-03-13] MEDS ORDERED: Iohexol 180 (CONTRAST) 10 ML SDV IV ONE (15:02)
[2018-03-13] MEDS ORDERED: fentaNYL* 50 MCG/ML 2 ML VIAL (100 MCG VIAL) IV PRN (16:07)
[2018-03-13] MEDS ORDERED: Naloxone* 0.4 MG/ML 1 ML VIAL IV PRN (16:07)
[2018-03-13] MEDS ORDERED: oxyCODONE/Acetamin 5/325 MG* TAB PO PRN ×2 (16:07→19:28)
[2018-03-13] MEDS ORDERED: Ondansetron INJ* 2 MG/ML VIAL IV PRN (16:07)
[2018-03-13] MEDS ORDERED: DiMENhydriNATE IV* 50 MG/ML VIAL IV PUSH PRN (16:07)
[2018-03-13] MEDS ORDERED: Dextrose 50% Syringe 50 ML* 25 GM/50 ML SYRINGE IV PUSH PRN (17:20)
--- NOTE | 2018-03-13 17:23 | ADMNOTE ---
Subjective Date of Service: 03/13/18 Interval History: ADMISSION HISTORY AND PHYSICAL EXAM: Allergies Allergy/AdvReac Type Severity Reaction Status Date / Time atenolol [From Tenormin] Allergy Unknown Verified 03/13/18 12:55 Reaction Details glipizide Allergy Diarrhea Verified 03/13/18 12:55 metformin [From Glucophage] Allergy Nausea And Verified 03/13/18 12:55 Vomiting Home Medications Medication Instructions Recorded Confirmed Type Insulin ASPART (NF) [Novolog (NF)] 0 - 100 units SUBCUT TID PRN 07/17/12 History Aspirin EC TAB* [Ecotrin EC Low 81 mg PO QAM 07/23/16 03/13/18 History Dose 81 MG*] Insulin GLARGINE(*) [Lantus(*)] 85 units SUBCUT QPM 07/23/16 03/13/18 History Lisinopril TAB* [Prinivil TAB 10 10 mg PO QAM 07/23/16 03/13/18 History MG*] Sertraline* [Zoloft*] 100 mg PO QAM 07/23/16 03/13/18 History Linagliptin (NF) [Tradjenta (NF)] 5 mg PO QAM 12/27/16 03/13/18 History Acetaminophen [Acetaminophen Extra 2 tab PO Q4HR PRN 12/05/17 03/13/18 History Strength] Bactrim DS 800/160 TAB* 1 tab PO BID 12/05/17 03/13/18 History Furosemide TAB* [Lasix TAB*] 1 tab PO WEEKLY 12/05/17 03/13/18 History Lactobacillus Acidophilus* 1 cap PO BID 12/05/17 03/13/18 History Omeprazole CAP* [Prilosec CAP* 20 1 cap PO QAM 12/05/17 03/13/18 History MG] Vitamin C 1 tab PO QAM 12/05/17 03/13/18 History HPI: The patient has had a L ureteral stent for 5 yrs related to RT induced stricture. Dr. Pruett gave a trial without the stent with the patient taking cephalexin. She developed L flank pain about 3 days ago and US showed hydronephrosis. Dr. Styles inserted a stent in the L ureter today and drained pus. It was sent for C&S. He could only insert a 6 Fr stent. The patient's L flank pain is much better now. Family History: Findings - mult instances ca colon, lung, brain, breast, prostate. Social History: Findings - Lives alone. No alcohol or tobacco use. Her brother Homer Valdez, is her SDM. Past Medical History: Findings - Surgery for colon ca 2010, post-op R, reversal of ileostomy. R 3rd finger I&D for osteo 2015. DM, HTN, depression, DVT, L ureteral stricture Review of Systems - Measurements Intake and Output: Intake and Output Last 24 Hours 03/11/18 03/12/18 03/13/18 03/14/18 06:59 06:59 06:59 06:59 Intake Total 1500 Balance 1500 Weight 264 lb 12.8 oz Intake: IV Fluids 1500 LR 1500 - Review of Systems Constitutional Symptoms: Negative: Weight Gain, Weight Loss, Weakness, Fatigue, Fever, Night Sweats, Unexplained Falls, Other Dermatology: Positive: Normal HEENT: Positive: Normal Eyes: Positive: Normal Thyroid: Positive: Normal Pulmonary: Positive: Normal Cardiology: Positive: Normal Gastroenterology: Positive: Other - L flank pain Genital - Urinary: Positive: Normal Hematologic/Lymphatic: Positive: Anemia Neurology: Positive: Normal Allergic/Immunologic: Negative: Hx Anaphylaxis, Hx Angioedema, Hx Environmental, Hx Seasonal, Athsma, Hx HIV, Immunocompromise, Swollen Glands LymphNodes, Other Objective Active Medications: Aspirin (Aspirin Ec Tab*) 81 mg PO QAM [facility] Dimenhydrinate (Dramamine Iv*) 25 mg IV PUSH ONCE PRN PRN Reason: NAUSEA/VOMITING Enoxaparin Sodium (Lovenox(*)) 40 mg SUBCUT Q24H SJ Enoxaparin Sodium (Lovenox(*)) 40 mg SUBCUT Q24H SJ Fentanyl Citrate (Fentanyl*) 25 mcg IV Q5M PRN PRN Reason: PAIN - MODERATE Lisinopril (Prinivil Tab*) 10 mg PO QAM SJ Naloxone HCl (Narcan*) 0.08 mg IV Q2M PRN PRN Reason: severe induced resp depression Omeprazole (Prilosec Cap*) 20 mg PO QAM SJ Ondansetron HCl (Zofran Inj*) 4 mg IV ONCE PRN PRN Reason: NAUSEA/VOMITING Oxycodone/Acetaminophen (Percocet 5/325 Tab*) 1 tab PO ONCE PRN PRN Reason: PAIN - MODERATE Sertraline HCl (Zoloft*) [facility] [place] Vital Signs - 8 hr 03/13/18 03/13/18 03/13/18 12:54 16:45 16:50 Temperature 99.3 F 97.5 F Pulse Rate 84 87 85 Respiratory 20 16 16 Rate Blood Pressure 165/77 153/73 137/67 (mmHg) O2 Sat by Pulse 100 98 99 Oximetry 03/13/18 03/13/18 03/13/18 16:55 17:01 17:02 Temperature Pulse Rate 80 77 Respiratory 18 16 18 Rate Blood Pressure 150/72 150/72 (mmHg) O2 Sat by Pulse 99 100 Oximetry 03/13/18 03/13/18 17:05 17:10 Temperature Pulse Rate 82 86 Respiratory 21 16 Rate Blood Pressure (mmHg) O2 Sat by Pulse 100 98 Oximetry Oxygen Devices in Use Now: Nasal Cannula Appearance: Supine on PACU stretcher, mildly sedated, looks comfortable. Eyes: No Scleral Icterus Neck: NL Appearance and Movements; NL JVP, No Thyroid Enlargement, Masses Respiratory: Clear to Auscultation, Clear to Percussion Cardiovascular: NL Sounds; No Murmurs; No JVD, RRR, No Edema, - Abdominal: NL Sounds; No Tenderness; No Distention, No Hepatosplenomegaly, - Extremities: No Edema, No Clubbing, Cyanosis, - Skin: No Rash or Ulcers, No Nodules or Sclerosis, - Neurological: NL Sensation - mildly sedated post-op Result Diagrams: 03/13/18 13:21 03/13/18 17:35 Assess/Plan/Problems-Billing Assessment: - Patient Problems (1) UTI (urinary tract infection) Current Visit: No Status: Acute Priority: High Onset Date: 07/13/14 Comment: Pus drained when stent inserted L ureter. Ceftriaxone 2 gm in OR, 1 gm 03/14 AM, discharge on amox/clav if afebrile and fup US shows no hydro. (2) Diabetes mellitus Current Visit: No Status: Chronic Code(s): E11.9 - TYPE 2 DIABETES MELLITUS WITHOUT COMPLICATIONS SNOMED Code(s): 88425608 Comment: Reduced dose of Lantus first evening post-op, Lispro by SS. (3) Anemia Current Visit: No Status: Acute Code(s): D64.9 - ANEMIA, UNSPECIFIED SNOMED Code(s): 986653361 Comment: Chronic and stable. (4) GERD (gastroesophageal reflux disease) Current Visit: No Status: Acute Code(s): K21.9 - GASTRO-ESOPHAGEAL REFLUX DISEASE WITHOUT ESOPHAGITIS SNOMED Code(s): 670903240 Comment: Continue omeprazole. (5) Depression Current Visit: No Status: Chronic Code(s): F32.9 - MAJOR DEPRESSIVE DISORDER , SINGLE EPISODE, UNSPECIFIED SNOMED Code(s): 89734408 Comment: Cont Sertraline.
[2018-03-13] MEDS ORDERED: Enoxaparin(*) 40 MG/0.4 ML SYR SUBCUT SCH ×2 (18:00→20:00)
[2018-03-13 18:02] LABS: EGFR Non-African American 47.2 (>60)
[2018-03-13] MEDS ORDERED: Insulin GLARGINE(*) 1 UNITS UNIT SUBCUT SCH (21:00)
[2018-03-13] MEDS ORDERED: Acetaminophen TAB* 325 MG PO PRN (21:06)
[2018-03-13] MEDS: Insulin LISPRO* 1 UNITS UNIT SUBCUT SCH (21:18)
[2018-03-14 06:45] LABS: ABS Basophils 0 10^3/ul (0-0.2); ABS Eosinophils 0 10^3/ul (0-0.6); ABS Lymphocytes 0.3 10^3/ul (1.0-4.8); ABS Monocytes 0.2 10^3/ul (0-0.8); ABS Neutrophils 4.7 10^3/ul (1.5-7.7); ABS Nucleated RBC 0 10^3/ul; Eosinophil % 0 % (0-6); Hematocrit 26 % (35-47); Hemoglobin 8.6 g/dl (12.0-16.0); Lymphocyte % 5.7 % (25-47); Mean Corpuscular HGB Conc 33 g/dl (31-36); Mean Corpuscular Hemoglobin 27 pg (27-31); Mean Corpuscular Volume 83 fL (80-97); Mean Platelet Volume 8.1 um3 (7.4-10.4); Nucleated Red Blood Cells % 0; Platelet Count 224 10^3/ul (150-450); Red Blood Count 3.17 10^6/ul (4.00-5.40); Red Cell Distribution Width 15 % (10.5-15); White Blood Count 5.2 10^3/ul (3.5-10.8)
--- NOTE | 2018-03-14 06:50 | OP ---
CC: Dr. Lawrence * DATE OF OPERATION: 03/13/18 - ROOM #339 DATE OF : 53 SURGEON: Beau Pruett MD ANESTHESIOLOGIST: Ankit Sheikh MD ANESTHESIA: General. PRE-OP DIAGNOSES: 1. Recurrent left ureteral stricture. 2. Left hydronephrosis due to above. 3. History of urinary tract infection. POST-OP DIAGNOSES: 1. Recurrent left ureteral stricture. 2. Left hydronephrosis due to above. 3. History of urinary tract infection. 4. Left pyonephrosis. OPERATIVE PROCEDURE: 1. Cystoscopy. 2. Left retrograde pyelography. 3. Placement of left ureteral stent (black silicone, 6-Georgian, 26 cm). INDICATIONS: Mrs. Valdez is a 62-year-old white female who underwent surgery followed by radiation therapy for carcinoma of the left colon in 2010. Following her treatments she developed a tight left ureteral stricture and required a placement of left nephrostomy tube at [facility]. The left nephrostomy tube was converted to a left ureteral stent. She has been followed by me for the last several years and had periodic stent exchange. Three months ago, the stent was replaced. At that time, I performed a balloon dilatation of the stricture. The balloon dilation went easy and the stricture looked like it had resolved. I decided to give her a trial without a stent. Urine culture grew E. coli sensitive to Keflex. She was placed on Keflex and stent was removed in the office under antibiotic coverage 8 days ago. Three days ago, she started having left flank pain. She felt chilli but did not have any fever. She called with her symptoms last night. Renal ultrasound this morning showed severe left hydronephrosis. The patient now is admitted for replacement of the left ureteral stent. PATHOLOGY AT CYSTOSCOPY: The bladder mucosa looked normal except for some hyperemia suggestive of resolving cystitis. The ureteral orifices looked normal. At Lt ureteral intubation, there was a tight stricture noted in the distal third of the ureter. The stricture was very tight and there was a lot of difficulty introducing the 5-Georgian open-ended catheter over the guidewire. Purulent urine was noted from the left kidney. Retrograde pyelography showed severe left hydronephrosis. DESCRIPTION OF PROCEDURE: After successful general anesthesia, the patient was placed in the lithotomy position and was prepped and draped for a cystoscopy. Cystoscopy was performed. The bladder was inspected and the above findings were noted. A guidewire was introduced into the left orifice but there was difficulty introducing it beyond the distal third. A Glidewire was then introduced and successfully positioned in the area of the renal pelvis. A size 5-Georgian open-ended catheter was then fed on top of the guidewire and there was a lot of resistance at the site of the stricture. After several attempts, the open-ended catheter was successfully positioned in the renal pelvis. Pus was drained from her kidney. Small amount of contrast was then injected delineating the collecting system and demonstrating the severe hydronephrosis. The open-ended catheter was removed over a guidewire. A black silicone stent, 26 cm long, 6 Georgian was then placed with the proximal end coiling in the renal pelvis and distal end coiling inside the bladder. Good drainage of contrast from the kidney was noted. A 16-Georgian Nunes catheter was then passed inside the bladder. The patient tolerated the procedure well and left the operating room in good condition. The plan is to keep the patient for observation overnight for possible sepsis, and to repeat the renal ultrasound in the morning to confirm resolution of the hydronephrosis. . [id number]/[facility] #: [id number] MALAIKA
[2018-03-14 07:09] LABS: EGFR Non-African American 50.7 (>60)
[2018-03-14] MEDS ORDERED: Omeprazole CAP* 20 MG PO SCH (07:30)
--- NOTE | 2018-03-14 07:56 | RAD ---
INDICATION: Left renal stent placed COMPARISON: Renal sonogram March 05, 2018 TECHNIQUE: Longitudinal and transverse scans of the left kidney were obtained. FINDINGS: Left kidney: The left kidney is in size and echogenicity. No renal masses, calculi, or hydronephrosis is seen. There is interval resolution of left-sided hydronephrosis following stent placement. The left kidney measures 11.7 x 3.6 x 4.7 cm. Other: The spleen is noted to be enlarged measuring 14.9 x 4.2 x 4.8 cm. IMPRESSION: RESOLUTION OF LEFT-SIDED HYDRONEPHROSIS POST STENT PLACEMENT. SPLENOMEGALY.
[2018-03-14] MEDS ORDERED: Insulin GLARGINE(*) 1 UNITS UNIT SUBCUT ONE (08:41)
[2018-03-14] MEDS ORDERED: Ascorbic Acid TAB* 500 MG PO SCH (09:00)
[2018-03-14] MEDS ORDERED: Sertraline* 100 MG TAB PO SCH (09:00)
[2018-03-14] MEDS ORDERED: Furosemide TAB* 20 MG PO SCH (09:00)
[2018-03-14] MEDS ORDERED: cefTRIAXone* 1 GM in NS 0.9% 50 ML BAG IVPB SCH (09:00)
[2018-03-14] MEDS ORDERED: Aspirin EC TAB* 81 MG TAB.EC PO SCH (09:00)
[2018-03-14] MEDS ORDERED: Lactobacillus Acidophilus* 1 TAB PO SCH (09:00)
[2018-03-14] MEDS ORDERED: Lisinopril TAB* 10 MG PO SCH (09:00)
[2018-03-14] MEDS ORDERED: Sulfamethox/Trimethoprim DS 800/160* TAB PO SCH (09:00)
[2018-03-14] MEDS: Insulin LISPRO* 1 UNITS UNIT SUBCUT SCH ×2 (10:03→11:54)
[2018-03-14] MEDS ORDERED: Loperamide CAP* 2 MG PO ONE (11:37)
[2018-03-14 12:41] VITALS: BP 148/73
--- NOTE | 2018-03-14 13:17 | DS ---
CC: Dr. Pruett; Dr. Lawrence * DISCHARGE SUMMARY: DATE OF ADMISSION: 03/13/18 DATE OF DISCHARGE: 03/14/18 HISTORY OF PRESENT ILLNESS: This 62-year-old woman was admitted with a urinary tract infection related to ureteral stricture. The history is detailed in my admission note. She had radiation therapy following resection of a colon cancer in 2010. She had developed a left ureteral stricture and was maintained with stents for about [address] Pruett wanted to give a trial of her without a stent. He removed the stent in his office. She was on cephalexin for the entire period of time before, during and after removing the stent; however, a few days before admission, she developed left flank pain and was found to have left hydronephrosis. Dr. Pruett brought the patient to the OR, inserted a 6-Montenegrin stent, pus drained from the kidney. The patient's pain was relieved. She was given 2 g of ceftriaxone in the operating room, she got 1 g this morning in the hospital before discharge. The patient's pain is almost completely resolved. She is afebrile. Her white count went down from 7.0 to 5.2 while in the hospital. Her creatinine went from 1.16 to 1.09, which is within her baseline labs. A culture was sent on the purulent drainage from the left ureteral stent in the OR, this result is pending. Based on the previous sensitivities, the patient will go home on amoxicillin clavulanate 875 mg b.i.d. for 10 days, total of 20 doses. FINAL DIAGNOSES: 1. Urinary tract infection with left ureteral stricture. 2. Diabetes mellitus. 3. Anemia. 4. Gastroesophageal reflux disease. 5. Depression. DISCHARGE MEDICATIONS: 1. Amoxicillin clavulanate 875 mg b.i.d. for 20 doses. 2. Aspartame insulin t.i.d. per sliding scale. 3. Sertraline 100 mg daily. 4. Glargine insulin 85 units every evening. 5. Lisinopril 10 mg daily. 6. Aspirin 81 mg daily. 7. Linagliptin 5 mg daily. 8. Acetaminophen 500 mg 2 every 4 hours p.r.n. 9. Vitamin C 1 tablet daily. 10. Omeprazole 1 capsule daily. 11. Furosemide 1 tablet weekly. 12. Lactobacillus 1 capsule twice a day. [id number]/[facility] #: [id number] MTDD
[2018-03-14] MEDS ORDERED: Amoxicillin/Clavulanate TAB* 875 MG PO SCH (21:00)
--- NOTE | 2018-03-17 10:07 | RAD ---
INDICATION: Cystogram and LEFT ureteral stent placement. Colon carcinoma. COMPARISON: Ultrasound of the same date. TECHNIQUE: 18 seconds fluoroscopy. FINDINGS: Retrograde pyelogram documents severe LEFT hydronephrosis. LEFT ureteral stent placed. IMPRESSION: Procedural fluoroscopy. CPT II Codes: G9500
== END 2018-03-14 13:25 | disposition home or self-care (01) ==
LOC: OR 12:42 → SSU 17:12
PROVIDERS: ADMIT Urology; ATTEND Internal Medicine
PROC: 0WHR8YZ Insertion of Other Device into Genitourinary Tract, Via Natural or Artificial Opening Endoscopic (ICD-10-PCS; 2018-03-13)
PROC: BT1FZZZ Fluoroscopy of Left Kidney, Ureter and Bladder (ICD-10-PCS; principal; 2018-03-13 15:30)
DX: N13.6 Pyonephrosis (principal); E11.9 Type 2 diabetes mellitus without complications; D64.9 Anemia, unspecified; K21.9 Gastro-esophageal reflux disease without esophagitis; F32.9 Major depressive disorder, single episode, unspecified; Z79.899 Other long term (current) drug therapy; Z79.82 Long term (current) use of aspirin; Z79.4 Long term (current) use of insulin; Z88.8 Allergy status to other drugs, medicaments and biological substances
CPT/HCPCS: 36415; 74420; 76775; 80048; 85025; 87077; 87086; 87186; 87641; 93005; 96372; A9270-GY; G0378; J0696; J1100; J1650; J2250; J2704; J3010

== ENCOUNTER 2018-09-10 13:14 | Emergency (ER) | payer MEDICARE ==
[2018-09-10] MEDS ORDERED: NS 0.9% 1000 ML* 1,000 ML IV ONE (14:32)
[2018-09-10 15:02] LABS: ABS Basophils 0 10^3/ul (0-0.2); ABS Eosinophils 0.1 10^3/ul (0-0.6); ABS Lymphocytes 0.5 10^3/ul (1.0-4.8); ABS Monocytes 0.3 10^3/ul (0-0.8); ABS Neutrophils 4.7 10^3/ul (1.5-7.7); ABS Nucleated RBC 0 10^3/ul; Eosinophil % 2.2 %; Hematocrit 31 % (35-47); Lymphocyte % 8.8 %; Mean Corpuscular HGB Conc 33 g/dl (31-36); Mean Corpuscular Hemoglobin 27 pg (27-31); Mean Corpuscular Volume 82 fL (80-97); Mean Platelet Volume 7.8 fL (7.4-10.4); Nucleated Red Blood Cells % 0; Platelet Count 220 10^3/ul (150-450); Red Blood Count 3.72 10^6/ul (4.00-5.40); Red Cell Distribution Width 15 % (10.5-15); White Blood Count 5.7 10^3/ul (3.5-10.8)
[2018-09-10 15:19] LABS: Albumin 3.6 g/dL (3.2-5.2); Albumin/Globulin Ratio 1.2 (1-3); BUN/Creatinine Ratio 16.4 (8-20); C Reactive Protein 106.44 mg/L (<8.01); Calcium 8.9 mg/dL (8.6-10.3); EGFR Non-African American 44.4 (>60); Potassium 4.2 mmol/L (3.5-5.0); Total Bilirubin 0.3 mg/dL (0.2-1.0); Total Protein 6.6 g/dL (6.4-8.9)
[2018-09-10 15:25] LABS: Activated Partial Thrombo Time 30.4 seconds (26.0-36.3); INR 1.08 (0.77-1.02)
[2018-09-10] MEDS ORDERED: Acetaminophen TAB* 325 MG PO ONE (15:35)
[2018-09-10] MEDS ORDERED: Amoxicillin/Clavulanate TAB* 875 MG PO ONE (15:37)
[2018-09-10 15:48] LABS: Erythrocyte Sed Rate 88 mm/Hr (0-30)
--- NOTE | 2018-09-10 17:10 | ED ---
Skin Complaint - HPI Summary HPI Summary: Patient with history of diabetes with multiple minor amputations complains of infection/ulcer on the plantar surface of left foot first noticed 5 days ago. Patient states she had some penicillin left over and was taking it for the past 4 days just to get through the holidays. States she was originally feeling nauseous and ill, but states she feels significantly better today, but wanted wound evaluated. Denies purulent discharge, known trauma, fever, cough, sore throat, CP, SOB, N/V/D, abdominal pain, change in urine, change in BM. Medical history is DM, HTN, HDL, CAD, colon cancer. - History of Current Complaint Chief Complaint: EDGeneral Time Seen by Provider: 09/10/18 14:41 Stated Complaint: LEFT FOOT INFECTION Hx Obtained From: Patient Onset/Duration: Started Days Ago Timing: Constant Onset Severity: Moderate Current Severity: Moderate Pain Intensity: 6 Pain Scale Used: 0-10 Numeric Aggravating Symptom(s): Nothing Alleviating Symptom(s): Treatment MANAGER CLIENT: Associated Signs & Symptoms: Negative - Additional Pertinent History Primary Care Physician: ONUR - Allergy/Home Medications Allergies/Adverse Reactions: Allergies Allergy/AdvReac Type Severity Reaction Status Date / Time atenolol [From Tenormin] Allergy Severe MASSIVE Verified 08/01/18 08:58 BRUISING glipizide Allergy Intermediate Diarrhea Verified 08/01/18 08:58 metformin [From Glucophage] Allergy Intermediate Nausea And Verified 08/01/18 08 :58 Vomiting PMH/Surg Hx/FS Hx/Imm Hx Endocrine/Hematology History: Reports: Hx Blood Transfusions, Hx Diabetes - Type 2 Denies: Hx Anticoagulant Therapy, Hx Blood Disorders, Hx Bone Marrow Disease , Hx Systemic Lupus Erythematosus, Hx Sickle Cell Disease, Hx Thyroid Disease, Hx Anemia, Hx Unexplained Bleeding, Other Endocrine/Hematological Disorders Cardiovascular History: Reports: Hx Congestive Heart Failure - AFTER LAST SURGERY, Hx Deep Vein Thrombosis - Once after surgery, Hx Hypercholesterolemia, Hx Hypertension - on medication, Other Cardiovascular Problems/Disorders - HAD A DVT LEFT LEG 2012- WAS ON COUMADIN AFTERWARDS Denies: Hx Aneurysm, Hx Angina, Hx Angioplasty, Hx Auto Implanted Cardiovert Defib, Hx Cardiac Arrest, Hx Cardiomegaly, Hx Congenital Heart Disease, Hx Coronary Artery Disease, Hx Embolism, Hx Hypotension, Hx Pacemaker/ICD, Hx Peripheral Vascular Disease, Hx Rheumatic Fever, Hx Syncope, Hx Valvular Heart Disease Respiratory History: Denies: Hx Asthma, Hx Chronic Bronchitis, Hx Chronic Obstructive Pulmonary Disease (COPD), Hx Cystic Fibrosis, Hx Lung Cancer, Hx Pleural Effusion, Hx Pneumonia, Hx Pulmonary Edema, Hx Pulmonary Embolism, Hx Seasonal Allergies, Hx Sleep Apnea, Other Respiratory Problems/Disorders GI History: Reports: Hx Gastroesophageal Reflux Disease - on omeprazole, Hx Hiatal Hernia, Hx Ulcer, Other GI Disorders - 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 Denies: Hx Cirrhosis, Hx Crohn's Disease, Hx Diverticulosis, Hx Gall Bladder Disease, Hx Gastrointestinal Bleed, Hx Irritable Bowel, Hx Jaundice, Hx Obstructive Bowel, Hx Ileostomy, Hx Pyloric Stenosis History: Reports: Hx Kidney Infection, Hx Renal Disease - LT HYDRONEPHROSIS, LT URETERAL STENT, Other Problems/Disorders - 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,alot of UTIs due to urine back up Denies: Hx Acute Renal Failure, Hx Benign Prostatic Hyperplasia, Hx Chronic Renal Failure, Hx Dialysis, Hx Kidney Stones Musculoskeletal History: Reports: Hx Arthritis - HANDS AND LOWER BACK, Hx Osteoporosis, Other Musculoskeletal History - Diabetic foot wounds-history of MRSA Denies: Hx Back Problems, Hx Bursitis, Hx Congenital Bone Abnormalities, Hx Fibromyalgia, Hx Gout, Hx Orthopedic Injury, Hx Scoliosis, Hx Tendonitis Sensory History: Reports: Hx Contacts or Glasses - Reading glasses, Hx Vision Problem - 03/25/13: Reading glasses only Denies: Hx Cataracts, Hx Eye Injury, Hx Eye Prosthesis, Hx Glaucoma, Hx Macular Degeneration, Hx Deafness, Hx Hearing Aid, Hx Hearing Problem Opthamlomology History: Reports: Hx Contacts or Glasses - Reading glasses, Hx Vision Problem - 03/25/13: Reading glasses only Denies: Hx Cataracts, Hx Eye Injury, Hx Eye Prosthesis, Hx Glaucoma, Hx Macular Degeneration Neurological History: Reports: Hx Migraine - HX OF USUALLY ASSOCIATED WITH MENSES, Hx Nerve Disease - Neuropathy from chemo, hands and feet Denies: Hx Dementia, Hx Developmental Delay, Hx Headaches, Hx Seizures, Hx Spinal Cord Injury, Hx Transient Ischemic Attacks (TIA), Other Neuro Impairments /Disorders Psychiatric History: Reports: Hx Depression Denies: Hx Anxiety, Hx Attention Deficit Hyperactivity Disorder, Hx Eating Disorder, Hx Panic Disorder, Hx Post Traumatic Stress Disorder, Hx Inpatient Treatment, Hx Community Mental Health Tx, Hx Schizophrenia, Hx Bipolar Disorder , Hx Suicide Attempt, Hx of Violent Episodes Against Others, Hx Substance Abuse , Other Psychiatric Issues/Disorders - Cancer History Cancer Type, Location and Year: colon CA, 06/2012 Hx Chemotherapy: Yes - chemo and radiation Hx Radiation Therapy: Yes Hx Palliative Cancer Treatment: No - Surgical History Surgery Procedure, Year, and Place: 2X LEFT FOOT- 2006. 2X Colon surgery- Ostomy and then reversal. Left Foot Surgery 12/2015. Ureteral Stents-multiple times Hx Anesthesia Reactions: Yes - usually gets something for nausea and vomiting. Headache from spinal Infectious Disease History: Yes Infectious Disease History: Reports: Hx of Known/Suspected MRSA, History Other Infectious Disease - MRSA foot, post surgery Denies: Hx Clostridium Difficile, Hx Hepatitis, Hx Human Immunodeficiency Virus (HIV), Hx Shingles, Hx Tuberculosis, Hx Known/Suspected VRE, Traveled Outside the [place] in Last 30 Days - Family History Known Family History: Positive: None, Cardiac Disease - oldest brother, Hypertension, Diabetes, Other - cancer - Social History Alcohol Use: None Substance Use Type: Reports: None Smoking Status (MU): Never Smoked Tobacco Have You Smoked in the Last Year: No Review of Systems Constitutional: Negative Eyes: Negative ENT: Negative Cardiovascular: Negative Respiratory: Negative Gastrointestinal: Negative Genitourinary: Negative Musculoskeletal: Negative Skin: Other Neurological: Negative Psychological: Normal All Other Systems Reviewed And Are Negative: Yes Physical Exam - Summary Physical Exam Summary: Foot ulcer 4 cm x 3 cm on plantar surface of left foot just proximal to both foot. No purulent discharge. Wound is clean and dry. No erythema, ecchymosis , deformity or swelling. Minimally tender to palpation. Triage Information Reviewed: Yes Vital Signs On Initial Exam: Initial Vitals Temp Pulse Resp BP Pulse Ox 98.6 F 78 16 183/73 99 09/10/18 13:54 09/10/18 13:54 09/10/18 13:54 09/10/18 13:54 09/10/18 13:54 Vital Signs Reviewed: Yes Appearance: Positive: Well-Appearing Skin: Positive: Warm Head/Face: Positive: Normal Head/Face Inspection Eyes: Positive: Normal Neck: Positive: Supple Respiratory/Lung Sounds: Positive: Clear to Auscultation Cardiovascular: Positive: Normal Abdomen Description: Positive: Nontender Musculoskeletal: Positive: Normal Neurological: Positive: Normal Psychiatric: Positive: Normal AVPU Assessment: Alert - Dot Coma Scale Best Eye Response: 4 - Spontaneous Best Motor Response: 6 - Obeys Commands Best Verbal Response: 5 - Oriented Coma Scale Total: 15 Diagnostics - Vital Signs Vital Signs Temp Pulse Resp BP Pulse Ox 09/10/18 16:37 65 148/77 100 09/10/18 16:07 65 162/70 99 09/10/18 16:00 67 98 09/10/18 15:59 98 09/10/18 15:37 64 158/82 98 09/10/18 15:29 66 99 09/10/18 15:07 142/77 09/10/18 15:02 148/83 09/10/18 14:33 67 98 09/10/18 14:32 66 150/78 99 09/10/18 13:54 98.6 F 78 16 183/73 99 - Laboratory Lab Results: Lab Results 09/10/18 09/10/18 09/10/18 Range/Units 14:45 14:45 14:45 WBC 5.7 (3.5-10.8) 10^3/ul RBC 3.72 L (4.00-5.40) 10^6/ul Hgb 10.0 L (12.0-16.0) g/dl Hct 31 L (35-47) % MCV 82 (80-97) fL MCH 27 (27-31) pg MCHC 33 (31-36) g/dl RDW 15 (10.5-15) % Plt Count 220 (150-450) 10^3/ul MPV 7.8 (7.4-10.4) fL Neut % (Auto) 83.5 % Lymph % (Auto) 8.8 % Perry % (Auto) 5.3 % Eos % (Auto) 2.2 % Baso % (Auto) 0.2 % Absolute Neuts (auto) 4.7 (1.5-7.7) 10^3/ul Absolute Lymphs (auto) 0.5 L (1.0-4.8) 10^3/ul Absolute Monos (auto) 0.3 (0-0.8) 10^3/ul Absolute Eos (auto) 0.1 (0-0.6) 10^3/ul Absolute Basos (auto) 0 (0-0.2) 10^3/ul Absolute Nucleated RBC 0 10^3/ul Nucleated RBC % 0 ESR 88 H (0-30) mm/Hr INR (Anticoag Therapy) 1.08 H (0.77-1.02) APTT 30.4 (26.0-36.3) seconds Sodium 134 L (135-145) mmol/L Potassium 4.2 (3.5-5.0) mmol/L Chloride 102 (101-111) mmol/L Carbon Dioxide 24 (22-32) mmol/L Anion Gap 8 (2-11) mmol/L BUN 20 (6-24) mg/dL Creatinine 1.22 H (0.51-0.95) mg/dL Est GFR ( Amer) 53.7 (>60) Est GFR (Non-Af Amer) 44.4 (>60) BUN/Creatinine Ratio 16.4 (8-20) Glucose 389 H (70-100) mg/dL Lactic Acid (0.5-2.0) mmol/L Calcium 8.9 (8.6-10.3) mg/dL Total Bilirubin 0.30 (0.2-1.0) mg/dL AST 13 (13-39) U/L ALT 21 (7-52) U/L Alkaline Phosphatase 113 H (34-104) U/L C-Reactive Protein 106.44 H (<8.01) mg/L Total Protein 6.6 (6.4-8.9) g/dL Albumin 3.6 (3.2-5.2) g/dL Globulin 3.0 (2-4) g/dL Albumin/Globulin Ratio 1.2 (1-3) 12//18 Range/Units 14:45 WBC (3.5-10.8) 10^3/ul RBC (4.00-5.40) 10^6/ul Hgb (12.0-16.0) g/dl Hct (35-47) % MCV (80-97) fL MCH (27-31) pg MCHC (31-36) g/dl RDW (10.5-15) % Plt Count (150-450) 10^3/ul MPV (7.4-10.4) fL Neut % (Auto) % Lymph % (Auto) % Perry % (Auto) % Eos % (Auto) % Baso % (Auto) % Absolute Neuts (auto) (1.5-7.7) 10^3/ul Absolute Lymphs (auto) (1.0-4.8) 10^3/ul Absolute Monos (auto) (0-0.8) 10^3/ul Absolute Eos (auto) (0-0.6) 10^3/ul Absolute Basos (auto) (0-0.2) 10^3/ul Absolute Nucleated RBC 10^3/ul Nucleated RBC % ESR (0-30) mm/Hr INR (Anticoag Therapy) (0.77-1.02) APTT (26.0-36.3) seconds Sodium (135-145) mmol/L Potassium (3.5-5.0) mmol/L Chloride (101-111) mmol/L Carbon Dioxide (22-32) mmol/L Anion Gap (2-11) mmol/L BUN (6-24) mg/dL Creatinine (0.51-0.95) mg/dL Est GFR ( Amer) (>60) Est GFR (Non-Af Amer) (>60) BUN/Creatinine Ratio (8-20) Glucose (70-100) mg/dL Lactic Acid 1.1 (0.5-2.0) mmol/L Calcium (8.6-10.3) mg/dL Total Bilirubin (0.2-1.0) mg/dL AST (13-39) U/L ALT (7-52) U/L Alkaline Phosphatase (34-104) U/L C-Reactive Protein (<8.01) mg/L Total Protein (6.4-8.9) g/dL Albumin (3.2-5.2) g/dL Globulin (2-4) g/dL Albumin/Globulin Ratio (1-3) Result Diagrams: 09/10/18 14:45 09/10/18 14:45 Lab Statement: Any lab studies that have been ordered have been reviewed, and results considered in the medical decision making process. Course/Dx - Course Course Of Treatment: Patient with history of diabetes with multiple minor amputations complains of infection/ulcer on the plantar surface of left foot first noticed 5 days ago. Patient states she had some penicillin left over and was taking it for the past 4 days just to get through the holidays. States she was originally feeling nauseous and ill, but states she feels significantly better today, but wanted wound evaluated. Denies purulent discharge, known trauma, fever, cough, sore throat, CP, SOB, N/V/D, abdominal pain, change in urine, change in BM. Medical history is DM, HTN, HDL, CAD, colon cancer. Physical exam:Foot ulcer 4 cm x 3 cm on plantar surface of left foot just proximal to both foot. No purulent discharge. Wound is clean and dry. No erythema, ecchymosis, deformity or swelling. Minimally tender to palpation. Vital signs within normal limits and stable. Labs unremarkable or at patient baseline. Patient started on Augmentin. Rx for same and follow up with wound care. Patient understands unopposable plan. - Diagnoses Provider Diagnoses: Diabetic foot ulcer Discharge - Sign-Out/Discharge Documenting (check all that apply): Patient Departure - Discharge Plan Condition: Stable Disposition: HOME Prescriptions: Amoxicillin/Clavulanate TAB* [Augmentin TAB 875*] 875 mg PO BID #20 tab Patient Education Materials: Diabetic Foot Ulcers (ED) Referrals: Ignacio Lawrence MD [Primary Care Provider] - Juan Pablo Montague MD [Medical Doctor] - Additional Instructions: Take antibiotics as directed. Follow-up with wound care Dr. Montague. Keep wound clean and dry and protected. Return to the ED for any new or worsening symptoms. - Billing Disposition and Condition Condition: STABLE Disposition: Home
[2018-09-10 17:18] VITALS: BP 165/84
[2018-09-10 18:29] LABS: Urine Appearance Cloudy; Urine Bacteria Absent (Absent); Urine Bilirubin Negative (Negative); Urine Blood Negative (Negative); Urine Color Yellow; Urine Glucose 3+(>=500 mg/dL) (Negative); Urine Ketones Negative (Negative); Urine Nitrite Negative (Negative); Urine Protein 1+(30 mg/dL) (Negative); Urine Red Blood Cell Absent (Absent); Urine Specific Gravity 1.024 (1.010-1.030); Urine Urobilinogen Negative (Negative); Urine White Blood Cell 3+(>20/hpf) (Absent)
--- NOTE | 2018-09-11 15:47 | PN ---
Progress Note - Progress Note Date of Service: 09/11/18 Note: Blood cultures grew staph aureus + 1/ Probable contaminant Patient called at 3pm. Busy signal. Provider was able to reach MANASA, brother who states will be able to go over to her house and patient will call back. Awaiting phone call at pm on 09/11/18. Patient called back at 3:50pm and states she is feeling better. No fevers, sweats or chills. She has been on abx and infection of the foot has improved. However, now is having diarrhea secondary to the abx, but states this is normal for her when she takes antibiotics. This is likely a contaminant. Discussed with patient to return to the ED if she develops any sweats or chills or fevers.
--- NOTE | 2018-09-14 07:03 | PN ---
Progress Note - Progress Note Date of Service: 09/10/18 Note: No growth on day 3 of blood cultures Patient had been previously placed on Augmentin which is sensitive to the staph aureus positive which grew on day 1 and 1 blood culture As shown in previous progress note, patient was called and had been feeling improved This is likely a contaminant Patient will remain on Augmentin
== END 2018-09-10 17:25 | disposition home or self-care (01) ==
LOC: ED 13:14
DX: E13.621 Other specified diabetes mellitus with foot ulcer (principal); Z88.0 Allergy status to penicillin; Z85.038 Personal history of other malignant neoplasm of large intestine
CPT/HCPCS: 36415; 80053; 81003; 81015; 83605; 85025; 85610; 85652; 85730; 86140; 87040; 87077; 87086; 87150; 87186; 87205; 99283; A9270-GY

== ENCOUNTER → 2019-01-21 06:07 | Day surgery (SDC) | payer MEDICARE ==
--- NOTE | 2019-01-14 22:12 | HP ---
HISTORY AND PHYSICAL: DATE OF PLANNED ADMISSION AND SURGERY: 01/21/19 HISTORY OF PRESENT ILLNESS: Ms. Valdez is a 63-year-old white female who is admitted with a chronic left hydronephrosis, chronic left ureteral stent drainage, for cystoscopy and left ureteral stent exchange. Ms. Valdez developed carcinoma of the colon and was treated with surgery and radiation therapy. This resulted in a stricture of the distal left ureter, which was diagnosed in 2010. Initially, she was managed with a nephrostomy tube drainage and this was then converted to a chronic left ureteral stent. The stricture was attempted to be corrected with several balloon dilations; however, she continued to have recurrence of the stricture and had required chronic left ureteral stent drainage. The stent was last replaced in July 2018. The patient is now admitted for elective cystoscopy and left ureteral stent exchange. PAST MEDICAL HISTORY AND SYSTEM REVIEW: She is diabetic. 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 She is still wearing a boot and she is waiting for healing of her stump to be fitted with prosthesis. She has chronic diarrhea that started after the treatment for colon cancer. She is hypertensive and diabetic. MEDICATIONS: She is maintained on the following medications: 1. Lisinopril 10 mg daily. 2. Aspirin 81 mg daily. 3. Omeprazole 1 tablet daily. 4. Simvastatin 20 mg daily. 5. Furosemide 10 mg daily. 6. Glargine insulin 85 units every evening. 7. Sertraline 100 mg daily. ALLERGIES: The patient reports having intolerance to TENORMIN. SOCIAL HISTORY: She is a nonsmoker. No history of alcohol or drug use. FAMILY HISTORY: Negative. PHYSICAL EXAMINATION GENERAL: She is an obese white female who looks older than her age and has a boot on her left lower extremity. VITAL SIGNS: Blood pressure 160/80, pulse of 90. LUNGS: Clear. HEART: Regular and rhythmic, no murmurs. ABDOMEN: Soft, no tenderness, and no CVA tenderness. Extremities: Lt leg in boot. Dressing not removed. IMPRESSION: 1. Chronic left hydronephrosis secondary to left ureteral stricture, status post surgery and radiation therapy for colon cancer without evidence of recurrent disease. 2. Chronic left ureteral stent drainage. 3. Diabetes mellitus. 4. Hypertension. PLAN/RECOMMENDATIONS: Plan is for cystoscopy and left ureteral stent exchange. I discussed the above plans with the patient; all her questions were answered. [id number]/[facility] #: [id number] MALAIKA
[~2019-01-21 06:07] MED LIST changes: -Buffered Lidocaine 0.9% SYRIN* 5 ML/SYR SYRINGE INTRADERM ONE; +Buffered Lidocaine 1% SYRIN* 1 ML/SYRINGE INTRADERM ONE; +DiMENhydriNATE IV* 50 MG/ML VIAL IV PUSH PRN; +Famotidine IV* 10 MG/ML 2 ML (20 mg) IV ONE; +Famotidine IV* 10 MG/ML 2 ML (20 mg) ONE; +HYDROcodone/ACETAMIN 5-325 MG* 1 TAB PO PRN; +Iohexol 180 (CONTRAST) 10 ML SDV IV ONE; +Lactated Ringers 1000 ML Bag* 1,000 ML IV SCH; +Levofloxacin 750 MG IVPREMIX(* 750 MG/150 ML BAG ONE; +Lidocaine 2% PF * 5 ML VIAL ONE; +Midazolam* 1 MG/ML 2 ML VIAL (2 MG) ONE; +Naloxone* 0.4 MG/ML 1 ML VIAL IV PRN; +Ondansetron INJ* 2 MG/ML VIAL ONE; +Propofol* 10 MG/ML 20 ML BTL ONE; -cefTRIAXone 2000 MG SYRINGE IVPB ONCE (in NaCl) IVPB ONE; +fentaNYL* 50 MCG/ML 2 ML VIAL (100 MCG VIAL) IV PRN; +fentaNYL* 50 MCG/ML 2 ML VIAL (100 MCG VIAL) ONE; +oxyCODONE/Acetamin 5/325 MG* TAB PO PRN
--- NOTE | 2019-01-21 14:53 | OP ---
OPERATIVE REPORT: DATE OF OPERATION: 01/21/19 - [facility] DATE OF : 53 SURGEON: Beau Pruett MD ANESTHESIOLOGIST: Dr. Remi Ferreira. ANESTHESIA: General. PRE-OP DIAGNOSES: 1. Left ureteral stricture. 2. Left hydronephrosis due to above. 3. Chronic left ureteral stent drainage. POST-OP DIAGNOSES: 1. Left ureteral stricture. 2. Left hydronephrosis due to above. 3. Left ureteral stent drainage. OPERATIVE PROCEDURE: 1. Cystoscopy. 2. Left retrograde pyelography. 3. Left ureteral stent exchange (black silicone, 8.5-Hebrew, 26 cm). INDICATION FOR PROCEDURE: Ms. Valdez is a 63-year-old white female, who developed a distal left ureteral stricture after surgical and radiation treatments for colon carcinoma. Balloon dilations of the stricture had failed and she had been managed with a chronic left ureteral stent. The stent is typically replaced once every 6 months and the patient has done very well on that regimen. The patient is here for her periodic elective ureteral stent exchange. PATHOLOGY: At cystoscopy, the bladder mucosa showed some hyperemia consistent with cystitis. The distal limb of the stent was seen coming from the left ureteral orifice. Upon left retrograde pyelography, there was minimal dilatation of the ureter and collecting system. DESCRIPTION OF PROCEDURE: After successful general anesthesia, the patient was placed in the lithotomy position and was prepped and draped for a cystoscopy. Cystoscopy was performed. The bladder was inspected and the above findings were noted. The distal limb of the stent was pulled out to the level of the urethral meatus. A flexible-tip guidewire was then introduced into the lumen of the stent and positioned in the area of the renal pelvis. Retrograde pyelography was then performed. A black silicone stent, 26 cm long, 8.5-Hebrew was then placed with the proximal end coiling in the renal pelvis and the distal end coiling inside the bladder. There was good drainage of contrast from the kidney. The patient tolerated the procedure well and left the operating room in good condition. [id number]/[facility] #: [id number] MTDD
[2019-01-21 15:31] VITALS: BP 144/76
== END | disposition home or self-care (01) ==
LOC: OR 06:07
PROVIDERS: ATTEND Urology
DX: N13.1 Hydronephrosis with ureteral stricture, not elsewhere classified (principal); E11.9 Type 2 diabetes mellitus without complications; Z79.84 Long term (current) use of oral hypoglycemic drugs; Z85.038 Personal history of other malignant neoplasm of large intestine; I10 Essential (primary) hypertension
CPT/HCPCS: 74420; J2250; J2405; J2704; J3010; Q9965

== ENCOUNTER 2019-02-12 12:13 | Inpatient (IN) | payer MEDICARE ==
[2019-02-12] MEDS ORDERED: traMADol TAB* 50 MG PO PRN (12:21)
[2019-02-12] MEDS ORDERED: Morphine INJ* 2 MG/ML 1 ML SYRINGE (TWO MG - NEW SYRINGE VERSION) IV PRN (12:21)
[2019-02-12] MEDS ORDERED: Ondansetron ODT TAB* 4 MG PO PRN (12:21)
[2019-02-12] MEDS ORDERED: traZODone TAB* 50 MG TAB PO PRN (12:21)
[2019-02-12] MEDS ORDERED: diPHENhydraMINE IV* 50 MG/ML 1 ml VIAL (BENADRYL) IV PRN (12:21)
[2019-02-12] MEDS ORDERED: diPHENhydraMINE PO* 25 MG PO PRN (12:21)
[2019-02-12] MEDS ORDERED: oxyCODONE TAB* 5 MG TAB PO PRN (12:21)
[2019-02-12] MEDS ORDERED: Ondansetron INJ* 2 MG/ML VIAL IV PRN (12:21)
[2019-02-12] MEDS ORDERED: Bisacodyl SUPP* 10 MG SUPP PR PRN (12:21)
[2019-02-12] MEDS ORDERED: oxyCODONE/Acetamin 5/325 MG* TAB PO PRN ×2 (12:21)
[2019-02-12] MEDS ORDERED: Polyethylene Glycol 3350* 17 GM PACKET PO PRN (12:21)
[2019-02-12] MEDS ORDERED: Magnesium Hydroxide LIQ* 30 ML UDC PO PRN (12:21)
[2019-02-12] MEDS ORDERED: Vancomycin per Pharmacy* NOTE FOLLOW UP PRN (15:06)
[2019-02-12] MEDS: Acetaminophen TAB* 325 MG PO SCH ×2 (15:31→21:24)
[2019-02-12] MEDS ORDERED: Vancomycin(*) 1,750 MG in NS 0.9% 500 ML* 500 ML IVPB ONE (16:00)
[2019-02-12] MEDS: Enoxaparin(*) 40 MG/0.4 ML SYR SUBCUT SCH (16:33)
[2019-02-12 19:04] LABS: EGFR African American 52.2 (>60); EGFR Non-African American 43.1 (>60)
[2019-02-12] MEDS ORDERED: Dextrose 50% Syringe 50 ML* 25 GM/50 ML SYRINGE IV PUSH PRN (20:14)
[2019-02-12 20:42] LABS: ABS Eosinophils 0.1 10^3/ul (0-0.6); ABS Lymphocytes 0.6 10^3/ul (1.0-4.8); ABS Monocytes 0.3 10^3/ul (0-0.8); ABS Neutrophils 6.4 10^3/ul (1.5-7.7); Eosinophil % 1.3 %; Hematocrit 30 % (35-47); Hemoglobin 9.6 g/dL (12.0-16.0); Lymphocyte % 8.4 %; Mean Corpuscular HGB Conc 33 g/dL (31-36); Mean Corpuscular Hemoglobin 26 pg (27-31); Mean Corpuscular Volume 81 fL (80-97); Mean Platelet Volume 8.2 fL (7.4-10.4); Platelet Count 268 10^3/uL (150-450); Red Blood Count 3.66 10^6 /uL (3.70-4.87); Red Cell Distribution Width 16 % (10.5-15); White Blood Count 7.4 10^3/uL (3.5-10.8)
[2019-02-12 21:00] LABS: BUN/Creatinine Ratio 12.8 (8-20); C Reactive Protein 81.73 mg/L (<8.01); Calcium 8.5 mg/dL (8.6-10.3); EGFR African American 52.2 (>60); EGFR Non-African American 43.1 (>60); Potassium 3.7 mmol/L (3.5-5.0)
[2019-02-12] MEDS: Lactated Ringers 1000 ML Bag* 1,000 ML IV SCH (21:00)
[2019-02-12] MEDS ORDERED: Insulin GLARGINE(*) 1 UNITS UNIT SUBCUT SCH (21:00)
[2019-02-12] MEDS ORDERED: Metoprolol Tartrate TAB* 25 MG PO SCH (21:00)
[2019-02-12] MEDS: Docusate CAP* 100 MG PO SCH (21:16)
[2019-02-12] MEDS: Lactobacillus Acidophilus* 1 TAB PO SCH (21:25)
--- NOTE | 2019-02-12 23:55 | CONS ---
CC: Dr. Haynes; Dr. Prince* CONSULTATION REPORT: DATE OF CONSULT: 02/12/19 ATTENDING PHYSICIAN: Dr. Haynes. CONSULTING PHYSICIAN: Dr. Jermain Paige (dictated by Remedios Wynn NP). REASON FOR CONSULT: Comanagement of chronic medical conditions. HISTORY OF PRESENT ILLNESS: Ms. Valdez is a 63-year-old female with past medical history significant for diabetes, hypertension, history of colon cancer , history of multiple UTIs, chronic diarrhea, who presented for a direct admission from Dr. Haynes's office for concern of stump infection. The patient reports in October she had an amputation of her left foot metatarsal amputation and after that hospitalization, she was discharged to [facility], [place]. She reports from [facility], [place] she was discharged home and has been home for approximately a month. She has been following with Dr. Haynes closely who has been observing her stump progression, which has been healing well. She reports on last she had the casting removed to the left stump and was going to get fitted for a prothesis. She states that she was walking with the boot on and the skin opened up. She states that on Saturday the skin was a little bit worse. So, she called the doctor's office. She reports there was no signs of infection, so her orthopedic office told her to follow up Saturday. She reports that she followed up with Dr. Haynes on Saturday and they placed a cast back on her stump and started her on Bactrim antibiotics. She reports that she followed up again today with Dr. Haynes and the stump was weeping and oozing more secretion, so he sent her to the hospital for IV antibiotics for her stump infection. Due to her history of diabetes and hypertension, we were asked to see and to assist in comanagement of her chronic medical conditions. PAST MEDICAL HISTORY: Significant for: 1. Left hydronephrosis. 2. History of colon cancer. 3. Status post chemo and resection. 4. History of multiple UTIs. 5. Diabetes type 2. 6. Hypertension. 7. Chronic diarrhea. 8. Chronic anemia. 9. Depression. 10. GERD. 11. History of CAD. 12. Peptic ulcer. 13. History of osteomyelitis of the left foot. PAST SURGICAL HISTORY: 1. Left foot amputation. 2. Partial finger amputations. 3. History of colon resection. 4. History of a DVT in 2013 status post second colon operation. HOME MEDICATIONS: Include: 1. Metoprolol 25 mg p.o. b.i.d. Metoprolol - the patient has not taken in a month. 2. Lisinopril 40 mg p.o. daily. Lisinopril - the patient has not taken in a month. 3. Lactobacillus 1 tab b.i.d. 4. Lantus 85 units q.a.m. - the patient has taken this intermittently over the past month, most recently in the last 2 days prior to that did not have any Lantus insulin. 5. Aspirin 81 mg p.o. daily. 6. Omeprazole 40 mg p.o. daily. 7. Vitamin B complex 1 tablet p.o. daily. 8. Zoloft 100 mg p.o. daily. ALLERGIES: 1. ATENOLOL. 2. GLIPIZIDE. 3. METFORMIN. FAMILY HISTORY: No reported history of coronary artery disease or cancer. Diabetes with 2 brothers. SOCIAL HISTORY: She denies any tobacco, alcohol, or illicit drug use. She is single. Surrogate decision maker in the event she is unable to make her own decisions is her brother Homer. She is a do not resuscitate. REVIEW OF SYSTEMS: The patient denies any fever or intended weight loss, chest pain, edema, cough, hemoptysis or shortness of breath. No nausea, vomiting, diarrhea or abdominal pain, gross hematuria, dysuria, focal weakness, sensory loss, dysphagia. She does report generalized body aches secondary to limited weightbearing on the left foot. She denies any rashes. She does report an open wound to the left foot stump. Denies any psychosis or anxiety. PHYSICAL EXAM: General: At this time, Ms. Valdez is alert and oriented, resting in her hospital bed. She is in no acute distress. Vital Signs: Blood pressure 135/50, heart rate 70, respirations 22, O2 saturation 99%, temperature was 98.1. HEENT: Head is atraumatic, normocephalic. Eyes: EOMs are intact. Sclerae anicteric and not pale. Oral mucosa appears to be moist. Neck is supple. Lungs are clear to auscultation bilaterally. No wheezes, rales, or rhonchi. Cardiac: S1, S2. Regular rate and rhythm. No murmurs, rubs, or gallops. Abdomen is soft and nontender. Bowel sounds are present x4. Musculoskeletal: She is able to move all 4 extremities. She does have mild swelling to the left lower extremity. Dressing is dry and intact to her left foot stump. Skin: There is a dressing that is dry and intact to the left foot stump. Her left lower leg is with mild pain and swelling. Warm to touch. No redness. Neurologic: She is awake, alert, oriented x3. Speech is clear. Thought process is intact. There is no gross focal deficit. DIAGNOSTIC STUDIES/LAB DATA: WBCs are 7.4, RBCs 3.66, hemoglobin 9.6, hematocrit was 30, platelet count was 268. Sodium 134, potassium 3.7, chloride 103, carbon dioxide was 23, anion gap was 8, BUN was 16, creatinine was 1.25, glucose was 287, calcium 8.5. C-reactive protein was 81.73. ASSESSMENT AND PLAN: Ms. Valdez is a 63-year-old female with a past medical history significant for diabetes, hypertension, history of osteomyelitis and left foot ulcer status post Pirogoff amputation to the left foot who presented with open wound to the left stump, concern for infection. 1. Left foot amputation and infection. Management per Orthopedics. PT/OT per Orthopedics. 2. Diabetes type 2. I will place her on lispro sliding scale with Accu-Cheks a.c. and h.s. She will resume her Lantus at 60 units subcu daily. She does report she takes 85 units at home, but has not been consistently taking this over the past month as she was out of Lantus. We will adjust her dose based on her blood sugars. 3. Hypertension. The patient does report a history of hypertension. She reports she used to be on metoprolol and lisinopril, which she reports she has not taken in over a month. I will stop her metoprolol. I will resume her lisinopril at 5 mg and adjust dose as needed. 4. GERD. She will continue on omeprazole as previously prescribed. 5. Depression. She should continue on Zoloft 100 mg p.o. daily. 6. FEN: She should have consistent carb diet. 7. Code status. She is a DNR. 8. DVT prophylaxis. As per Orthopedics. TIME SPENT: Time spent on this consultation was 45 minutes, greater than half that time was spent at the bedside reviewing events leading thus far to her hospitalization, performing physical exam, and reviewing my plan of care. I have discussed this with my attending, Dr. Jermain Paige, he is in agreement with my plan. REMEDIOS WYNN, RELATIONS LIAISON [id number]/CPS #: [id number] MALAIKA
[2019-02-13] MEDS ORDERED: Vancomycin(*) 1,250 MG in NS 0.9% 250 ML* 250 ML IVPB SCH (05:30)
[2019-02-13] MEDS: Acetaminophen TAB* 325 MG PO SCH ×4 (05:57→21:33)
[2019-02-13 05:58] LABS: BUN/Creatinine Ratio 12.6 (8-20); Calcium 8.7 mg/dL (8.6-10.3); EGFR African American 59.9 (>60); EGFR Non-African American 49.5 (>60); Potassium 3.3 mmol/L (3.5-5.0)
[2019-02-13] MEDS: Insulin LISPRO* 1 UNITS UNIT SUBCUT SCH ×3 (08:37→17:49)
[2019-02-13] MEDS ORDERED: Potassium Chlor TAB* 20 MEQ TAB.ER PO ONE (08:59)
[2019-02-13] MEDS ORDERED: Lisinopril TAB* 10 MG PO SCH (09:00)
[2019-02-13] MEDS: Lactated Ringers 1000 ML Bag* 1,000 ML IV SCH (09:42)
[2019-02-13] MEDS: Lisinopril TAB* 5 MG PO SCH (09:43)
[2019-02-13] MEDS: Sertraline* 100 MG TAB PO SCH (09:43)
[2019-02-13] MEDS: Lactobacillus Acidophilus* 1 TAB PO SCH ×2 (09:43→21:35)
[2019-02-13] MEDS: FERROUS SULFATE 27 MG PO SCH (09:43)
[2019-02-13] MEDS: Pantoprazole TAB * 40 MG TAB PO SCH (09:43)
[2019-02-13] MEDS: Docusate CAP* 100 MG PO SCH ×2 (09:43→21:34)
--- NOTE | 2019-02-13 09:43 | PN ---
Subjective Date of Service: 02/13/19 Interval History: HOSPITALIST PROGRESS NOTE Patient seen and examined at bedside. Care reviewed and d/w Samantha Joshua RN. She c/o an "ache" on her left foot stump. Otherwise feels well. Family History: Unchanged from Admission Social History: Unchanged from Admission Past Medical History: Unchanged from Admission Objective Active Medications: Acetaminophen (Tylenol Tab*) 975 mg PO Q8H [facility] Last Admin: 02/13/19 05:57 Dose: 975 mg Bisacodyl (Dulcolax Supp*) 10 mg TN DAILY PRN PRN Reason: constipation Dextrose (D50w Syringe 50 Ml*) 12.5 gm IV PUSH .FOR FS < 60 - SS PRN PRN Reason: FS < 60 Diphenhydramine HCl (Benadryl Iv*) 25 mg IV Q6H PRN PRN Reason: itching Diphenhydramine HCl (Benadryl Po*) 25 mg PO Q6H PRN PRN Reason: itching Docusate Sodium (Colace Cap*) 100 mg PO BID [facility] Last Admin: 02/12/19 21:16 Dose: Not Given Enoxaparin Sodium (Lovenox(*)) 40 mg SUBCUT Q24H [facility] Last Admin: 02/12/19 16:33 Dose: 40 mg Lactated Ringer's (Lactated Ringers 1000 Ml Bag*) 1,000 mls @ 100 mls/hr IV PER RATE [facility] Last Admin: 02/12/19 21:00 Dose: 100 mls/hr Vancomycin HCl 1,250 mg/ (Sodium Chloride) 250 mls @ 166.667 mls/hr IVPB Q12H [facility] Last Admin: 02/13/19 06:10 Dose: 166.667 mls/hr Insulin Glargine (Lantus(*)) 60 units SUBCUT Q24H [facility] Last Admin: 02/12/19 21:25 Dose: 60 units Insulin Human Lispro (Humalog*) 0 units SUBCUT [facility]; Protocol Last Admin: 02/13/19 08:37 Dose: Not Given Lactobacillus Rhamnosus (Lactobacillus Acidophilus*) 1 tab PO BID [facility] Last Admin: 02/12/19 21:25 Dose: 1 tab Lactulose (Lactulose*) 30 ml PO Q6H PRN PRN Reason: constipation Lisinopril (Prinivil Tab*) 5 mg PO DAILY [facility] Magnesium Hydroxide (Milk Of Magnesia Liq*) 30 ml PO Q6H PRN PRN Reason: constipation Morphine Sulfate (Morphine Inj (Syringe))*) 2 mg IV Q4H PRN PRN Reason: PAIN - SEVERE Non-Formulary Medication (Ferrous Sulfate [High Potency Iron]) 27 mg PO QAM [facility] Ondansetron HCl (Zofran Inj*) 4 mg IV Q6H PRN PRN Reason: nausea Ondansetron HCl (Zofran Odt Tab*) 4 mg PO Q6H PRN PRN Reason: NAUSEA Oxycodone HCl (Roxycodone Tab*) 10 mg PO Q4H PRN PRN Reason: PAIN - MODERATE TO SEVERE Last Admin: 02/12/19 15:31 Dose: 10 mg Oxycodone/Acetaminophen (Percocet 5/325 Tab*) 1 tab PO Q4H PRN PRN Reason: PAIN - MILD Oxycodone/Acetaminophen (Percocet 5/325 Tab*) 2 tab PO Q4H PRN PRN Reason: PAIN - MODERATE Pantoprazole Sodium (Protonix Tab*) 40 mg PO QAM [facility] Pharmacy Consult (Vancomycin Per Pharmacy*) 1 note FOLLOW UP . PRN PRN Reason: PER PROTOCOL Pharmacy Profile Note (Vancomycin Trough Check) 1 note FOLLOW UP .ENTER TIME ONE Stop: 02/14/19 17:01 Polyethylene Glycol/Electrolytes (Miralax*) 17 gm PO DAILY PRN PRN Reason: Constipation Sertraline HCl (Zoloft*) 100 mg PO QAM [facility] Tramadol HCl (Ultram*) 50 mg PO Q6H PRN PRN Reason: PAIN - MILD Trazodone HCl (Desyrel Tab*) 25 mg PO BEDTIME PRN PRN Reason: insomnia Vital Signs - 8 hr 02/13/19 02/13/19 03:00 06:47 Temperature 98 F 98.2 F Pulse Rate 64 63 Respiratory 18 Rate Blood Pressure 123/50 116/51 (mmHg) O2 Sat by Pulse 98 98 Oximetry Oxygen Devices in Use Now: None Appearance: Pleasant elderly lady sitting up in bed in NAD. Eyes: No Scleral Icterus Ears/Nose/Mouth/Throat: Mucous Membranes Moist Neck: Trachea Midline Respiratory: Symmetrical Chest Expansion and Respiratory Effort, Clear to Auscultation Cardiovascular: RRR - Normal S1 and S2 Extremities: - - CDI to left foot stump Neurological: Alert and Oriented x 3, NL Muscle Strength and Tone Result Diagrams: 02/12/19 20:37 02/13/19 05:14 Assess/Plan/Problems-Billing Assessment: Mrs Valdez is 63yo F with PMH of type 2 DM, diabetic neuropathy, HTN, depression , GERD, colon CA s/p resection and chemo, left foot osteomyelitis s/p left Pirogoff amputation, who was admitted due to stump infection. Hospitalist service consulted to assist with comorbidities management. - Patient Problems (1) Diabetic foot infection Comment: - Management as per Ortho and ID recommendations. - Continue Vancomycin. (2) Diabetes mellitus Comment: - Last A1c was 9.5 11/04 - will repeat. - Transitioning to a different PCP - had a hard time with her insulin at home. - Increase Lantus to 65 units and cover with Lispro SS. (3) HTN (hypertension) Comment: - Controlled. - Continue Lisinopril. (4) Hypokalemia Comment: - Replete. (5) DVT prophylaxis Comment: - Lovenox. Status and Disposition: Hospitalist service will continue to follow with you.
--- NOTE | 2019-02-13 12:14 | PN ---
Progress Note - Progress Note Date of Service: 02/13/19 SOAP: Subjective: []Patient seen at bedside, dressing was changed this am by Tosha CHAKRABORTY from ID. Patient states she initially had pain in her leg but now has resolved. Objective: [] Vital Signs Temp 98.2 F 02/13/19 06:47 Pulse 63 02/13/19 06:47 Resp 18 02/13/19 06:47 BP 116/51 02/13/19 06:47 Pulse Ox 98 02/13/19 06:47 Intake & Output 02/12/19 02/13/19 02/13/19 18:59 06:59 18:59 Intake Total 320 2446 480 Balance 320 2446 480 Weight 253 lb 12.8 oz 253 lb 8 oz Intake: IV Fluids 931 NS (0.9%) 931 IVPB 555 ABX - VANCOMYCIN 555 Oral 320 960 480 Other: Estimated Void Medium Medium # Bowel Movements 0 Estimated Stool Amount Medium # Voids 2 1 Laboratory Results - last 24 hr 02/12/19 02/12/19 02/12/19 18:31 20:27 20:37 WBC RBC Hgb Hct MCV MCH MCHC RDW Plt Count MPV Neut % (Auto) Lymph % (Auto) Dade % (Auto) Eos % (Auto) Baso % (Auto) Absolute Neuts (auto) Absolute Lymphs (auto) Absolute Monos (auto) Absolute Eos (auto) Absolute Basos (auto) Absolute Nucleated RBC Nucleated RBC % Sodium 134 L Potassium 3.7 Chloride 103 Carbon Dioxide 23 Anion Gap 8 BUN 16 16 Creatinine 1.25 H 1.25 H Est GFR ( Amer) 52.2 52.2 Est GFR (Non-Af Amer) 43.1 43.1 BUN/Creatinine Ratio 12.8 Glucose 287 H POC Glucose (mg/dL) 310 H Calcium 8.5 L C-Reactive Protein 81.73 H Vancomycin Trough 02/12/19 02/13/19 02/13/19 20:37 05:14 08:32 WBC 7.4 RBC 3.66 L Hgb 9.6 L Hct 30 L MCV 81 MCH 26 L MCHC 33 RDW 16 H Plt Count 268 MPV 8.2 Neut % (Auto) 85.5 Lymph % (Auto) 8.4 Dade % (Auto) 4.5 Eos % (Auto) 1.3 Baso % (Auto) 0.3 Absolute Neuts (auto) 6.4 Absolute Lymphs (auto) 0.6 L Absolute Monos (auto) 0.3 Absolute Eos (auto) 0.1 Absolute Basos (auto) 0.0 Absolute Nucleated RBC 0.0 Nucleated RBC % 0.0 Sodium 138 Potassium 3.3 L Chloride 108 Carbon Dioxide 24 Anion Gap 6 BUN 14 Creatinine 1.11 H Est GFR ( Amer) 59.9 Est GFR (Non-Af Amer) 49.5 BUN/Creatinine Ratio 12.6 Glucose 88 POC Glucose (mg/dL) 113 H Calcium 8.7 C-Reactive Protein Vancomycin Trough 12.0 02/13/19 11:40 WBC RBC Hgb Hct MCV MCH MCHC RDW Plt Count MPV Neut % (Auto) Lymph % (Auto) Dade % (Auto) Eos % (Auto) Baso % (Auto) Absolute Neuts (auto) Absolute Lymphs (auto) Absolute Monos (auto) Absolute Eos (auto) Absolute Basos (auto) Absolute Nucleated RBC Nucleated RBC % Sodium Potassium Chloride Carbon Dioxide Anion Gap BUN Creatinine Est GFR ( Amer) Est GFR (Non-Af Amer) BUN/Creatinine Ratio Glucose POC Glucose (mg/dL) 196 H Calcium C-Reactive Protein Vancomycin Trough dressings unwrapped bottom of stump with light pink granulation tissue, blister edges are slightly macerated, no drainage, no purulent drainage or foul smell. The area is non tender as she is insensate up to the distal tibial region. Betadine wet to dry dressing replaced. Assessment: []Open wound plantar aspect Pirogoff amputation stump, no active evidence of infection Plan: []Continue with daily wound check for improvement with Wet to dry Betadine dressing changes. TERESA Victor
[2019-02-13] MEDS: Vancomycin(*) 1,000 MG in NS 0.9% 250 ML* 250 ML IVPB SCH ×2 (13:32→21:35)
--- NOTE | 2019-02-13 16:31 | CONS ---
CONSULTATION REPORT: DATE OF CONSULT: 02/13/19 PRIMARY CARE PROVIDER: Vanessa Prince NP PROVIDER REQUESTING CONSULTATION: ELROY Luna CONSULTING SERVICE: Infectious Disease. PROVIDER: Soo Fischer NP MY ATTENDING PROVIDER: Dr. Liam Whipple.* (DICTATED BY SOO FISCHER, [employer] SUPERVISOR-C) REASON FOR CONSULT: Left foot wound/infection. IMPRESSION: 1. Left foot wound, status post Pirogoff amputation. The patient was started on Bactrim outpatient by orthopedics. No cultures of the wound have been obtained at this time. There does not appear to be anything to culture at this time. She has grown methicillin-resistant Staphylococcus aureus in the past from this site. She is currently afebrile and has been afebrile since her stay. She has no leukocytosis. Her CRP is elevated at 81.73. She had ABIs completed in October 2018 showing normal ABIs, slightly lower on the left than the right, but within normal limits. 2. History of left foot osteomyelitis, status post multiple foot surgeries. 3. Diabetes mellitus type 2 with peripheral neuropathy. PLAN/RECOMMENDATIONS: Recommend continuing IV vancomycin through the weekend, we can see how the wound does over the course of few days on IV antibiotics and then can make further recommendations. Vanco trough goal of 15 to 20. HISTORY OF PRESENT ILLNESS: Ms. Valdez is a 63-year-old female with past medical history significant for diabetes mellitus with diabetic neuropathy, multiple left foot surgeries for osteomyelitis, who developed a plantar ulcer of the midfoot on the left. She was hospitalized in October 2018 and placed on broad spectrum antibiotics due to the wound on her foot. At that time, wound cultures showed the PCR was positive for MRSA and the culture grew Staph aureus. She underwent a Pirogoff amputation, and completed 5 weeks of IV vancomycin. She states that she was doing well and the amputation site had healed well. Last , she had a cast removed from her stump. By Saturday , she had developed a wound on the bottom of her stump. A cast was placed back on her stump and she was started on Bactrim. She followed up with Dr. Haynes in the office yesterday, and at that time she was noted to have a weeping and oozing wound and was sent to the hospital for IV antibiotics. While in the hospital she states that she is doing well, but is frustrated by the occurrence of a new wound. She denies any fevers or chills. She reports diarrhea for approximately 10 days, but also reports that she has had some degree of diarrhea since her colon surgery. The diarrhea is no worse than her usual. She has been on Bactrim since earlier this week and prior to that Augmentin after a urological procedure by Dr. Monsivais for 10 days. Denies constipation. She denies any urinary symptoms. She has neuropathy in bilateral hands and feet. She denies any recent travel. PAST MEDICAL HISTORY: 1. Colon cancer, status post chemotherapy, colectomy, and radiation. 2. Diabetes mellitus type 2. 3. Hypertension. 4. Anemia. 5. Depression. 6. GERD. 7. Peptic ulcer disease. 8. Osteomyelitis of the left foot and right fingers. 9. DVT. 10. Chronic anemia. PAST SURGICAL HISTORY: 1. Status post a fourth and fifth metatarsal resection in December 2016. 2. Status post cystoscopy and stent insertions. 3. Status post right second and third finger amputation secondary to osteomyelitis. 4. Status post colectomy. MEDICATIONS: Home medications include: 1. Lantus insulin 85 units subcutaneous every evening. 2. Lopressor 25 mg by mouth twice daily. 3. Lisinopril 40 mg by mouth every morning. 4. Lactobacillus 1 capsule by mouth twice daily. 5. Ferrous sulfate 27 mg by mouth daily. 6. Aspirin 81 mg by mouth daily. 7. Acetaminophen 1000 mg by mouth every 6 hours. 8. Omeprazole 40 mg by mouth daily. 9. Vitamin B complex 1 capsule by mouth daily. 10. Sertraline 100 mg by mouth every morning. Hospital medications: 1. Acetaminophen 975 mg by mouth every 8 hours. 2. Dulcolax suppository 10 mg per rectum daily as needed for constipation. 3. Dextrose 12.5 g IV push for glucose less than 60. 4. Benadryl 25 mg IV/p.o. every 6 hours as needed for itching. 5. Colace 100 mg by mouth twice daily. 6. Lovenox 40 mg subcutaneous every day. 7. Lantus 60 units subcutaneous daily. 8. Humalog sliding scale subcutaneous with meals. 9. Lactobacillus 1 tablet by mouth twice daily. 10. Lactulose 30 mL by mouth every 6 hours as needed for constipation. 11. Lisinopril 5 mg by mouth daily. 12. Milk of magnesia 30 mL by mouth every 6 hours as needed for constipation. 13. Morphine sulfate 2 mg IV every 4 hours as needed for pain. 14. Ferrous sulfate 27 mg by mouth every morning. 15. Zofran 4 mg IV or p.o. every 6 hours as needed for nausea and vomiting. 16. Oxycodone 10 mg by mouth every 4 hours as needed for pain. 17. Percocet 5/325 one to two tablets by mouth every 4 hours as needed for pain. 18. Protonix 40 mg by mouth every morning. 19. MiraLAX 17 g by mouth daily as needed for constipation. 20. Zoloft 100 mg by mouth daily. 21. Tramadol 50 mg by mouth every 6 hours as needed for pain. 22. Trazodone 25 mg by mouth at bedtime as needed for sleep. 23. Vancomycin 1000 mg IV every 8 hours. ALLERGIES: ATENOLOL, GLIPIZIDE, METFORMIN. FAMILY HISTORY: No family history of recurrent infections. Denies family history of coronary artery disease or cancer. Two brothers with a history of diabetes. SOCIAL HISTORY: Denies tobacco, alcohol, or recreational drug use. REVIEW OF SYSTEMS: I performed a 10-point review of systems. All the pertinent positives and negatives are mentioned in the history of present illness. The remaining review of systems are negative. PHYSICAL EXAM: Vital Signs: Temperature 98.2, heart rate 63, respiratory rate 18, O2 sat 98% on room air, blood pressure 116/51. General Appearance: No acute distress. Head: Normocephalic, atraumatic. ENT: Pupils are equal and reactive to light. Extraocular movements intact. Moist mucous membranes. No thrush. Neck: Supple. No lymphadenopathy. Neurologic: Alert and oriented x4. Cranial nerves II through XII are grossly intact. Cardiovascular: Heart rate is regular. No murmurs, rubs, or gallops heard. Respiratory: No accessory muscle use. Lungs are clear to auscultation bilaterally. Abdomen: Soft, nontender, nondistended. Bowel sounds present x4. Extremities: No lower extremity edema. Musculoskeletal: No clubbing or cyanosis noted. The patient exhibits good strength in all extremities. Psychological: Calm and cooperative. Skin: No rash seen. She has wound to her stump that is approximately 7.5 cm x 7 cm x 0.1 cm. There is slight erythema surrounding the wound. There is a light pink granulation tissue with slightly macerated edges around the outer edge of the wound. No drainage or foul smell noted. No tenderness. The patient has decreased sensation to her leg. DIAGNOSTIC STUDIES/LAB DATA: Sodium 138, potassium 3.3, chloride 108, CO2 of 24 , BUN 14, creatinine 1.11, glucose 88. WBC 7.4, hemoglobin 9.6, hematocrit 30, platelet count 268. CRP 81.73. Please see impression and recommendations outlined above. Thank you for asking use to see Ms. Valdez in consultation. Case has been discussed with ELROY Reynolds, with Orthopedics. Case has been reviewed with my attending, Dr. Whipple, who agrees with the plan of care. Reviewed by TODD SU 02/15/19 1800 [id number]/CPS #: [id number] MTDD
[2019-02-13] MEDS: Enoxaparin(*) 40 MG/0.4 ML SYR SUBCUT SCH (16:32)
--- NOTE | 2019-02-13 19:24 | HP ---
HISTORY AND PHYSICAL: DATE OF ADMISSION: 02/12/19 HISTORY OF PRESENT ILLNESS: Willa is a pleasant 63-year-old insulin-dependent diabetic who has had chronic osteomyelitis of the left lower extremity, who underwent a Pirogoff amputation and was doing well until a week ago when she was advanced to a boot and developed a significant blister on the ita om of her foot. She now has cellulitis and serous drainage and will be admitted for some IV antibioti cs. PAST MEDICAL HISTORY: She has significant medical issues including hydronephrosis, pyelonephritis hi story, type 2 diabetes, some diabetic polyneuropathy. She has had a stent in her ureter. She has neves d mixed hyperlipidemia. She has had previous DVT. She has depression. She has obesity. She has re flux. She had previous colorectal cancer treated with chemoradiation. 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 Hyperlipidemia and hypertension. MEDICATIONS: Willa is takin. Basaglar KwikPen in the evenings 100 units/mL. 2. Furosemide 20 mg every day. 3. Sertraline 100 mg tab by mouth daily. 4. Lisinopril 10 mg 1 per day. 5. NovoLog 100 units/mL, not taking, only per sliding scale. 6. She is on omeprazole 20 mg per day. 7. Metoprolol 25 mg per day. ALLERGIES: She has an allergy to GLUCOPHAGE, GLIPIZIDE, and TENORMIN. REVIEW OF SYSTEMS: Have been negative except for fatigue, occasional feeling of chills. No signific ant chest pain, shortness of breath. She has chronic constipation issues. She has polyneuropathy. No dizziness noted. Generalized malaise and weakness, some depression. PHYSICAL EXAMINATION GENERAL: Willa is pleasant, alert, and oriented. VITAL SIGNS: She is a 5 feet 11 inches, 260 pounds. She is normotensive, 142. Afebrile. HEENT: Oropharynx is clear. Her neck is supple. CHEST: Exam is clear to auscultation in all lung dominique. I do not hear any wheezing or rales. CARDIAC EXAM: Distant heart sounds, regular. No extra sounds noted. ABDOMEN: Flat, large, soft, nontender. EXTREMITIES: Exam shows her to have a left hind foot amputation with well-healed anterior scar, but complete skin blistering over the plantar aspect of the heel with raw, erythematous serous drainage. PLAN: Willa will be admitted for IV antibiotics as she has skin loss of the plantar heel from cell ulitis and blistering. She will have an ID consult and followed by Orthopedics as well. [id number]/[facility] #: [id number]
[2019-02-13] MEDS ORDERED: Insulin GLARGINE(*) 1 UNITS UNIT SUBCUT SCH (21:00)
[2019-02-13] MEDS ORDERED: NS 0.9% 250 ML* 250 ML ONE (21:28)
[2019-02-14] MEDS: Acetaminophen TAB* 325 MG PO SCH ×3 (06:12→21:51)
[2019-02-14] MEDS: Vancomycin(*) 1,000 MG in NS 0.9% 250 ML* 250 ML IVPB SCH ×2 (06:12→14:49)
[2019-02-14 06:48] LABS: BUN/Creatinine Ratio 13.2 (8-20); Calcium 8.7 mg/dL (8.6-10.3); EGFR African American 63.1 (>60); EGFR Non-African American 52.2 (>60); Potassium 4.2 mmol/L (3.5-5.0)
[2019-02-14] MEDS: Insulin LISPRO* 1 UNITS UNIT SUBCUT SCH ×5 (08:20→18:22)
[2019-02-14] MEDS: Docusate CAP* 100 MG PO SCH ×2 (08:21→21:52)
[2019-02-14] MEDS: FERROUS SULFATE 27 MG PO SCH (08:21)
--- NOTE | 2019-02-14 08:51 | PN ---
Progress Note - Progress Note Date of Service: 02/14/19 SOAP: Subjective: resting comfortably, no complaints of pain Objective: Vital Signs Temp Pulse Resp BP Pulse Ox 97.4 F 58 17 125/63 100 02/14/19 06:45 02/14/19 06:45 02/14/19 08:00 02/14/19 06:45 02/14/19 06:45 Laboratory Last Values WBC 7.4 10^3/uL (3.5-10.8) 02/12/19 20:37 RBC 3.66 10^6 /uL (3.70-4.87) L 02/12/19 20:37 Hgb 9.6 g/dL (12.0-16.0) L 02/12/19 20:37 Hct 30 % (35-47) L 02/12/19 20:37 MCV 81 fL (80-97) 02/12/19 20:37 MCH 26 pg (27-31) L 02/12/19 20:37 MCHC 33 g/dL (31-36) 02/12/19 20:37 RDW 16 % (10.5-15) H 02/12/19 20:37 Plt Count 268 10^3/uL (150-450) 02/12/19 20:37 MPV 8.2 fL (7.4-10.4) 02/12/19 20:37 Neut % (Auto) 85.5 % 02/12/19 20:37 Lymph % (Auto) 8.4 % 02/12/19 20:37 [place] % (Auto) 4.5 % 02/12/19 20:37 Eos % (Auto) 1.3 % 02/12/19 20:37 Baso % (Auto) 0.3 % 02/12/19 20:37 Absolute Neuts (auto) 6.4 10^3/ul (1.5-7.7) 02/12/19 20:37 Absolute Lymphs (auto) 0.6 10^3/ul (1.0-4.8) L 02/12/19 20:37 Absolute Monos (auto) 0.3 10^3/ul (0-0.8) 02/12/19 20:37 Absolute Eos (auto) 0.1 10^3/ul (0-0.6) 02/12/19 20:37 Absolute Basos (auto) 0.0 10^3/ul (0-0.2) 02/12/19 20:37 Absolute Nucleated RBC 0.0 10^3/ul 02/12/19 20:37 Nucleated RBC % 0.0 02/12/19 20:37 Sodium 139 mmol/L (135-145) 02/14/19 06:23 Potassium 4.2 mmol/L (3.5-5.0) 02/14/19 06:23 Chloride 111 mmol/L (101-111) 02/14/19 06:23 Carbon Dioxide 21 mmol/L (22-32) L 02/14/19 06:23 Anion Gap 7 mmol/L (2-11) 02/14/19 06:23 BUN 14 mg/dL (6-24) 02/14/19 06:23 Creatinine 1.06 mg/dL (0.51-0.95) H 02/14/19 06:23 Est GFR ( Amer) 63.1 (>60) 02/14/19 06:23 Est GFR (Non-Af Amer) 52.2 (>60) 02/14/19 06:23 BUN/Creatinine Ratio 13.2 (8-20) 02/14/19 06:23 Glucose 105 mg/dL (70-100) H 02/14/19 06:23 POC Glucose (mg/dL) 234 mg/dL (70-100) H 02/13/19 21:21 Calcium 8.7 mg/dL (8.6-10.3) 02/14/19 06:23 C-Reactive Protein 81.73 mg/L (<8.01) H 02/12/19 20:37 Vancomycin Trough 12.0 mcg/mL 02/13/19 05:14 PE: LLE wound, edges clean, no erythema/warmth/drainage; dressing changed Assessment: open wound plantar aspect pirogoff amp stump Plan: 1) NWB LLE 2) twice daily dressing changes 3) continue abx 4) Lovenox for DVT prophylaxis
[2019-02-14] MEDS: Sertraline* 100 MG TAB PO SCH (10:16)
[2019-02-14] MEDS: Lisinopril TAB* 5 MG PO SCH (10:16)
[2019-02-14] MEDS: Lactobacillus Acidophilus* 1 TAB PO SCH ×2 (10:16→21:52)
[2019-02-14] MEDS: Pantoprazole TAB * 40 MG TAB PO SCH (10:16)
[2019-02-14] MEDS ORDERED: Dextrose 50% Syringe 50 ML* 25 GM/50 ML SYRINGE IV PUSH PRN (11:20)
--- NOTE | 2019-02-14 11:29 | PN ---
Subjective Date of Service: 02/14/19 Interval History: HOSPITALIST PROGRESS NOTE Patient seen and examined at bedside. Care reviewed and d/w Brenda Mcgregor RN. She feels a little better today. Stump pain is less intense. Family History: Unchanged from Admission Social History: Unchanged from Admission Past Medical History: Unchanged from Admission Objective Active Medications: Acetaminophen (Tylenol Tab*) 975 mg PO Q8H [facility] Last Admin: 02/14/19 06:12 Dose: 975 mg Bisacodyl (Dulcolax Supp*) 10 mg [place] DAILY PRN PRN Reason: constipation Dextrose (D50w Syringe 50 Ml*) 12.5 gm IV PUSH .FOR FS < 60 - SS PRN PRN Reason: FS < 60 Dextrose (D50w Syringe 50 Ml*) 12.5 gm IV PUSH .FOR FS < 60 - SS PRN PRN Reason: FS < 60 Diphenhydramine HCl (Benadryl Iv*) 25 mg IV Q6H PRN PRN Reason: itching Diphenhydramine HCl (Benadryl Po*) 25 mg PO Q6H PRN PRN Reason: itching Docusate Sodium (Colace Cap*) 100 mg PO BID [facility] Last Admin: 02/14/19 08:21 Dose: Not Given Enoxaparin Sodium (Lovenox(*)) 40 mg SUBCUT Q24H [facility] Last Admin: 02/13/19 16:32 Dose: 40 mg Vancomycin HCl 1,000 mg/ (Sodium Chloride) 250 mls @ 166.667 mls/hr IVPB Q8H [facility] Last Admin: 02/14/19 06:12 Dose: 166.667 mls/hr Insulin Glargine (Lantus(*)) 60 units SUBCUT BEDTIME [facility] Insulin Human Lispro (Humalog*) 0 units SUBCUT AC [facility]; Protocol Last Admin: 02/14/19 08:20 Dose: Not Given Insulin Human Lispro (Humalog*) 0 units SUBCUT AC [facility]; Protocol Lactobacillus Rhamnosus (Lactobacillus Acidophilus*) 1 tab PO BID [facility] Last Admin: 02/14/19 10:16 Dose: 1 tab Lactulose (Lactulose*) 30 ml PO Q6H PRN PRN Reason: constipation Lisinopril (Prinivil Tab*) 5 mg PO DAILY [facility] Last Admin: 02/14/19 10:16 Dose: 5 mg Magnesium Hydroxide (Milk Of Magnesia Liq*) 30 ml PO Q6H PRN PRN Reason: constipation Morphine Sulfate (Morphine Inj (Syringe))*) 2 mg IV Q4H PRN PRN Reason: PAIN - SEVERE Non-Formulary Medication (Ferrous Sulfate [High Potency Iron]) 27 mg PO [facility] Last Admin: 02/14/19 08:21 Dose: Not Given Ondansetron HCl (Zofran Inj*) 4 mg IV Q6H PRN PRN Reason: nausea Ondansetron HCl (Zofran Odt Tab*) 4 mg PO Q6H PRN PRN Reason: NAUSEA Oxycodone HCl (Roxycodone Tab*) 10 mg PO Q4H PRN PRN Reason: PAIN - MODERATE TO SEVERE Last Admin: 02/12/19 15:31 Dose: 10 mg Oxycodone/Acetaminophen (Percocet 5/325 Tab*) 1 tab PO Q4H PRN PRN Reason: PAIN - MILD Oxycodone/Acetaminophen (Percocet 5/325 Tab*) 2 tab PO Q4H PRN PRN Reason: PAIN - MODERATE Pantoprazole Sodium (Protonix Tab*) 40 mg PO [facility] Last Admin: 02/14/19 10:16 Dose: 40 mg Pharmacy Consult (Vancomycin Per Pharmacy*) 1 note FOLLOW UP . PRN PRN Reason: PER PROTOCOL Pharmacy Profile Note (Vancomycin Trough Check) 1 note FOLLOW UP ONCE ONE Stop: 02/14/19 13:31 Polyethylene Glycol/Electrolytes (Miralax*) 17 gm PO DAILY PRN PRN Reason: Constipation Sertraline HCl (Zoloft*) 100 mg PO [facility] Last Admin: 02/14/19 10:16 Dose: 100 mg Tramadol HCl (Ultram*) 50 mg PO Q6H PRN PRN Reason: PAIN - MILD Trazodone HCl (Desyrel Tab*) 25 mg PO BEDTIME PRN PRN Reason: insomnia Vital Signs - 8 hr 02/14/19 02/14/19 06:45 08:00 Temperature 97.4 F Pulse Rate 58 Respiratory 16 17 Rate Blood Pressure 125/63 (mmHg) O2 Sat by Pulse 100 Oximetry Oxygen Devices in Use Now: None Appearance: Pleasant obese lady lying in bed in NAD Eyes: No Scleral Icterus Ears/Nose/Mouth/Throat: Mucous Membranes Moist Neck: Trachea Midline Respiratory: Symmetrical Chest Expansion and Respiratory Effort, Clear to Auscultation Cardiovascular: RRR - Normal S1 and S2 Extremities: - - CDI to left stump Neurological: Alert and Oriented x 3, NL Muscle Strength and Tone Result Diagrams: 02/12/19 20:37 02/14/19 06:23 Assess/Plan/Problems-Billing Assessment: Mrs Valdez is 63yo F with PMH of type 2 DM, diabetic neuropathy, HTN, depression , GERD, colon CA s/p resection and chemo, left foot osteomyelitis s/p left Pirogoff amputation, who was admitted due to stump infection. Hospitalist service consulted to assist with comorbidities management. - Patient Problems (1) Diabetic foot infection Comment: - Management as per Ortho and ID recommendations. - Continue Vancomycin. (2) Diabetes mellitus Comment: - Last A1c was 9.5 11/04 - will repeat. - Transitioning to a different PCP - had a hard time with her insulin at home. - Change Lantus back to 60 units as her FS< 100 in AM, but add Lispro carb coverage on to of Lispro SS. (3) HTN (hypertension) Comment: - Controlled. - Continue Lisinopril. (4) Hypokalemia Comment: - Resolved. (5) DVT prophylaxis Comment: - Lovenox. Status and Disposition: Hospitalist service will continue to follow with you.
[2019-02-14] MEDS ORDERED: Vancomycin Trough Check NOTE FOLLOW UP ONE (13:30)
[2019-02-14] MEDS: Enoxaparin(*) 40 MG/0.4 ML SYR SUBCUT SCH (16:30)
[2019-02-14] MEDS ORDERED: Insulin GLARGINE(*) 1 UNITS UNIT SUBCUT SCH ×2 (21:00)
[2019-02-14] MEDS: Vancomycin(*) 1,250 MG in NS 0.9% 250 ML* 250 ML IVPB SCH (21:51)
[2019-02-15] MEDS: Acetaminophen TAB* 325 MG PO SCH ×3 (05:26→20:23)
--- NOTE | 2019-02-15 07:58 | PN ---
Progress Note - Progress Note Date of Service: 02/15/19 SOAP: Subjective: resting comfortably with no complaints Objective: Laboratory Last Values WBC 7.4 10^3/uL (3.5-10.8) 02/12/19 20:37 RBC 3.66 10^6 /uL (3.70-4.87) L 02/12/19 20:37 Hgb 9.6 g/dL (12.0-16.0) L 02/12/19 20:37 Hct 30 % (35-47) L 02/12/19 20:37 MCV 81 fL (80-97) 02/12/19 20:37 MCH 26 pg (27-31) L 02/12/19 20:37 MCHC 33 g/dL (31-36) 02/12/19 20:37 RDW 16 % (10.5-15) H 02/12/19 20:37 Plt Count 268 10^3/uL (150-450) 02/12/19 20:37 MPV 8.2 fL (7.4-10.4) 02/12/19 20:37 Neut % (Auto) 85.5 % 02/12/19 20:37 Lymph % (Auto) 8.4 % 02/12/19 20:37 [place] % (Auto) 4.5 % 02/12/19 20:37 Eos % (Auto) 1.3 % 02/12/19 20:37 Baso % (Auto) 0.3 % 02/12/19 20:37 Absolute Neuts (auto) 6.4 10^3/ul (1.5-7.7) 02/12/19 20:37 Absolute Lymphs (auto) 0.6 10^3/ul (1.0-4.8) L 02/12/19 20:37 Absolute Monos (auto) 0.3 10^3/ul (0-0.8) 02/12/19 20:37 Absolute Eos (auto) 0.1 10^3/ul (0-0.6) 02/12/19 20:37 Absolute Basos (auto) 0.0 10^3/ul (0-0.2) 02/12/19 20:37 Absolute Nucleated RBC 0.0 10^3/ul 02/12/19 20:37 Nucleated RBC % 0.0 02/12/19 20:37 Sodium 139 mmol/L (135-145) 02/14/19 06:23 Potassium 4.2 mmol/L (3.5-5.0) 02/14/19 06:23 Chloride 111 mmol/L (101-111) 02/14/19 06:23 Carbon Dioxide 21 mmol/L (22-32) L 02/14/19 06:23 Anion Gap 7 mmol/L (2-11) 02/14/19 06:23 BUN 14 mg/dL (6-24) 02/14/19 06:23 Creatinine 1.06 mg/dL (0.51-0.95) H 02/14/19 06:23 Est GFR ( Amer) 63.1 (>60) 02/14/19 06:23 Est GFR (Non-Af Amer) 52.2 (>60) 02/14/19 06:23 BUN/Creatinine Ratio 13.2 (8-20) 02/14/19 06:23 Glucose 105 mg/dL (70-100) H 02/14/19 06:23 POC Glucose (mg/dL) 84 mg/dL (70-100) 02/14/19 21:41 Hemoglobin A1c 10.5 % (4.0-5.6) H 02/14/19 06:23 Calcium 8.7 mg/dL (8.6-10.3) 02/14/19 06:23 C-Reactive Protein 81.73 mg/L (<8.01) H 02/12/19 20:37 Vancomycin Trough 23.9 mcg/mL 02/14/19 13:55 Vital Signs Temp Pulse Resp BP Pulse Ox 97.5 F 52 16 121/49 99 02/15/19 04:04 02/15/19 04:04 02/15/19 04:04 02/15/19 04:04 02/15/19 04:04 incision: c/d/i; Dr. Haynes changed dressing this am PE: calf soft/NT Assessment: open wound plantar aspect of Pirogoff amputation stump Plan: 1) continue Abx 2) NWB LLE 3) Lovenox for DVT prophylaxis 4) twice daily wet to dry dressing changes
--- NOTE | 2019-02-15 08:04 | PN ---
Subjective Date of Service: 02/15/19 Interval History: HOSPITALIST PROGRESS NOTE Patient seen and examined at bedside. Care reviewed and d/w Cierra Devine RN. She feels well today, offers no complaints. Glucose was 84 last night and Lantus was held. Family History: Unchanged from Admission Social History: Unchanged from Admission Past Medical History: Unchanged from Admission Objective Active Medications: Acetaminophen (Tylenol Tab*) 975 mg PO Q8H [facility] Last Admin: 02/15/19 05:26 Dose: 650 mg Bisacodyl (Dulcolax Supp*) 10 mg [place] DAILY PRN PRN Reason: constipation Dextrose (D50w Syringe 50 Ml*) 12.5 gm IV PUSH .FOR FS < 60 - SS PRN PRN Reason: FS < 60 Dextrose (D50w Syringe 50 Ml*) 12.5 gm IV PUSH .FOR FS < 60 - SS PRN PRN Reason: FS < 60 Diphenhydramine HCl (Benadryl Iv*) 25 mg IV Q6H PRN PRN Reason: itching Diphenhydramine HCl (Benadryl Po*) 25 mg PO Q6H PRN PRN Reason: itching Docusate Sodium (Colace Cap*) 100 mg PO BID [facility] Last Admin: 02/14/19 21:52 Dose: 100 mg Enoxaparin Sodium (Lovenox(*)) 40 mg SUBCUT Q24H [facility] Last Admin: 02/14/19 16:30 Dose: 40 mg Vancomycin HCl 1,250 mg/ (Sodium Chloride) 250 mls @ 166.667 mls/hr IVPB Q12HR [facility] Last Admin: 02/14/19 21:51 Dose: 166.667 mls/hr Insulin Glargine (Lantus(*)) 20 units SUBCUT DAILY [facility] Insulin Human Lispro (Humalog*) 0 units SUBCUT AC [facility]; Protocol Last Admin: 02/14/19 18:22 Dose: 2 units Insulin Human Lispro (Humalog*) 0 units SUBCUT AC [facility]; Protocol Lactobacillus Rhamnosus (Lactobacillus Acidophilus*) 1 tab PO BID [facility] Last Admin: 02/14/19 21:52 Dose: 1 tab Lactulose (Lactulose*) 30 ml PO Q6H PRN PRN Reason: constipation Lisinopril (Prinivil Tab*) 5 mg PO DAILY [facility] Last Admin: 02/14/19 10:16 Dose: 5 mg Magnesium Hydroxide (Milk Of Magnesia Liq*) 30 ml PO Q6H PRN PRN Reason: constipation Morphine Sulfate (Morphine Inj (Syringe))*) 2 mg IV Q4H PRN PRN Reason: PAIN - SEVERE Non-Formulary Medication (Ferrous Sulfate [High Potency Iron]) 27 mg PO [facility] Last Admin: 02/14/19 08:21 Dose: Not Given Ondansetron HCl (Zofran Inj*) 4 mg IV Q6H PRN PRN Reason: nausea Ondansetron HCl (Zofran Odt Tab*) 4 mg PO Q6H PRN PRN Reason: NAUSEA Oxycodone HCl (Roxycodone Tab*) 10 mg PO Q4H PRN PRN Reason: PAIN - MODERATE TO SEVERE Last Admin: 02/12/19 15:31 Dose: 10 mg Oxycodone/Acetaminophen (Percocet 5/325 Tab*) 1 tab PO Q4H PRN PRN Reason: PAIN - MILD Oxycodone/Acetaminophen (Percocet 5/325 Tab*) 2 tab PO Q4H PRN PRN Reason: PAIN - MODERATE Pantoprazole Sodium (Protonix Tab*) 40 mg PO [facility] Last Admin: 02/14/19 10:16 Dose: 40 mg Pharmacy Consult (Vancomycin Per Pharmacy*) 1 note FOLLOW UP . PRN PRN Reason: PER PROTOCOL Pharmacy Profile Note (Vancomycin Trough Check) 1 note FOLLOW UP ONCE ONE Stop: 02/16/19 08:31 Polyethylene Glycol/Electrolytes (Miralax*) 17 gm PO DAILY PRN PRN Reason: Constipation Sertraline HCl (Zoloft*) 100 mg PO [facility] Last Admin: 02/14/19 10:16 Dose: 100 mg Tramadol HCl (Ultram*) 50 mg PO Q6H PRN PRN Reason: PAIN - MILD Trazodone HCl (Desyrel Tab*) 25 mg PO BEDTIME PRN PRN Reason: insomnia Vital Signs - 8 hr 02/15/19 02/15/19 02/15/19 00:07 04:04 07:50 Temperature 97.9 F 97.5 F 97.4 F Pulse Rate 61 52 53 Respiratory 16 16 18 Rate Blood Pressure 138/58 121/49 133/67 (mmHg) O2 Sat by Pulse 99 99 100 Oximetry Oxygen Devices in Use Now: None Appearance: Pleasant elderly lady sitting up in bed in NAD. Eyes: No Scleral Icterus Ears/Nose/Mouth/Throat: Mucous Membranes Moist Neck: Trachea Midline Respiratory: Symmetrical Chest Expansion and Respiratory Effort, Clear to Auscultation Cardiovascular: RRR - Normal S1 and S2 Extremities: - - CDI to LLE Result Diagrams: 02/12/19 20:37 02/14/19 06:23 Assess/Plan/Problems-Billing Assessment: Mrs Valdez is 63yo F with PMH of type 2 DM, diabetic neuropathy, HTN, depression , GERD, colon CA s/p resection and chemo, left foot osteomyelitis s/p left Pirogoff amputation, who was admitted due to stump infection. Hospitalist service consulted to assist with comorbidities management. - Patient Problems (1) Diabetic foot infection Comment: - Management as per Ortho and ID recommendations. - Continue Vancomycin. - NWB LLE. - Dressing changes as per Ortho. (2) Diabetes mellitus Comment: - Last A1c was 9.5 11/04 - 10.5 now. - Transitioning to a different PCP - had a hard time with her insulin at home. - Glucose was 84 last night - she states she ate less carbs yesterday, especially dinner. Will cut Lantus down to 20, continue Lispro SS/carb coverage. - Endocrinology consult. (3) HTN (hypertension) Comment: - Controlled. - Continue Lisinopril. (4) Hypokalemia Comment: - Resolved. (5) DVT prophylaxis Comment: - Lovenox. Status and Disposition: Hospitalist service will continue to follow with you.
[2019-02-15] MEDS: Pantoprazole TAB * 40 MG TAB PO SCH (09:43)
[2019-02-15] MEDS: Lactobacillus Acidophilus* 1 TAB PO SCH ×2 (09:43→20:23)
[2019-02-15] MEDS: Docusate CAP* 100 MG PO SCH ×3 (09:43→20:20)
[2019-02-15] MEDS: Insulin LISPRO* 1 UNITS UNIT SUBCUT SCH ×6 (09:44→18:30)
[2019-02-15] MEDS: Insulin GLARGINE(*) 1 UNITS UNIT SUBCUT SCH (09:44)
[2019-02-15] MEDS: Sertraline* 100 MG TAB PO SCH (09:44)
[2019-02-15] MEDS: Lisinopril TAB* 5 MG PO SCH (09:44)
--- NOTE | 2019-02-15 09:47 | PN ---
PROGRESS NOTE: DATE OF SERVICE: 02/15/19 Willa has been here couple of days, now on IV vancomycin for left hindfoot amputation, stump breakdown. She is not having any pain, evidently her sugars are improving in terms of overall control. She is trying to keep the foot elevated. She is getting a daily dressing change. I have unwrapped her stump and it is dried out, which is a good thing. Erythema is down. She does have some area of new epithelialization as this dries out and it is difficult to tell until some of the swelling and oozing diminishes further to see how much tyrel skin loss she has had and this of course will determine whether she can start to process over of getting stump healing with serial casting, etc., or need to have an amputation at the below-knee level. I spoke with Willa about this and she seems resigned either course, but is optimistic that she can heal this and go back to where she was a couple of weeks ago before she had such severe breakdown. [id number]/[facility] #: [id number] MALAIKA
[2019-02-15] MEDS: FERROUS SULFATE 27 MG PO SCH (09:57)
[2019-02-15] MEDS: Vancomycin(*) 1,250 MG in NS 0.9% 250 ML* 250 ML IVPB SCH ×2 (10:17→20:38)
[2019-02-15] MEDS: Enoxaparin(*) 40 MG/0.4 ML SYR SUBCUT SCH (17:34)
[2019-02-16] MEDS: Acetaminophen TAB* 325 MG PO SCH ×3 (04:44→21:19)
[2019-02-16 08:30] LABS: EGFR African American 63.8 (>60); EGFR Non-African American 52.8 (>60)
[2019-02-16] MEDS ORDERED: Vancomycin Trough Check NOTE FOLLOW UP ONE (08:30)
--- NOTE | 2019-02-16 09:23 | PN ---
Progress Note - Progress Note Date of Service: 02/16/19 SOAP: Subjective: CC: Left foot infection. HPI: Ms. Valdez is a 63 yo female with PMH significant for colon cancer s/p chemo, bowel resection, and radiation; DM2; HTN; anemia; depression; GERD; PUD; osteomyelitis of the left foot and right fingers; and DVT. Denies fever, chills , nausea, vomiting, or constipation. States that she has baseline diarrhea, and her current diarrhea is at it's baseline. Objective: Physical Exam: General: NAD, laying in bed Neurological: Alert and Oriented HEENT: Moist MM, no thrush Cariodvascular: Heart rate regular Respiratory: Lung sounds clear Abdominal: Bowel sounds present; ABD soft, large and non tender Skin: No rash. Open area to the left LE stump, wound base with pink granulation tissue. No drainage Laboratory Last Values WBC 7.4 10^3/uL (3.5-10.8) 02/12/19 20:37 RBC 3.66 10^6 /uL (3.70-4.87) L 02/12/19 20:37 Hgb 9.6 g/dL (12.0-16.0) L 02/12/19 20:37 Hct 30 % (35-47) L 02/12/19 20:37 MCV 81 fL (80-97) 02/12/19 20:37 MCH 26 pg (27-31) L 02/12/19 20:37 MCHC 33 g/dL (31-36) 02/12/19 20:37 RDW 16 % (10.5-15) H 02/12/19 20:37 Plt Count 268 10^3/uL (150-450) 02/12/19 20:37 MPV 8.2 fL (7.4-10.4) 02/12/19 20:37 Neut % (Auto) 85.5 % 02/12/19 20:37 Lymph % (Auto) 8.4 % 02/12/19 20:37 [place] % (Auto) 4.5 % 02/12/19 20:37 Eos % (Auto) 1.3 % 02/12/19 20:37 Baso % (Auto) 0.3 % 02/12/19 20:37 Absolute Neuts (auto) 6.4 10^3/ul (1.5-7.7) 02/12/19 20:37 Absolute Lymphs (auto) 0.6 10^3/ul (1.0-4.8) L 02/12/19 20:37 Absolute Monos (auto) 0.3 10^3/ul (0-0.8) 02/12/19 20:37 Absolute Eos (auto) 0.1 10^3/ul (0-0.6) 02/12/19 20:37 Absolute Basos (auto) 0.0 10^3/ul (0-0.2) 02/12/19 20:37 Absolute Nucleated RBC 0.0 10^3/ul 02/12/19 20:37 Nucleated RBC % 0.0 02/12/19 20:37 Sodium 139 mmol/L (135-145) 02/14/19 06:23 Potassium 4.2 mmol/L (3.5-5.0) 02/14/19 06:23 Chloride 111 mmol/L (101-111) 02/14/19 06:23 Carbon Dioxide 21 mmol/L (22-32) L 02/14/19 06:23 Anion Gap 7 mmol/L (2-11) 02/14/19 06:23 BUN 16 mg/dL (6-24) 02/16/19 08:05 Creatinine 1.05 mg/dL (0.51-0.95) H 02/16/19 08:05 Est GFR ( Amer) 63.8 (>60) 02/16/19 08:05 Est GFR (Non-Af Amer) 52.8 (>60) 02/16/19 08:05 BUN/Creatinine Ratio 13.2 (8-20) 02/14/19 06:23 Glucose 105 mg/dL (70-100) H 02/14/19 06:23 POC Glucose (mg/dL) 135 mg/dL (70-100) H 02/16/19 07:47 Hemoglobin A1c 10.5 % (4.0-5.6) H 02/14/19 06:23 Calcium 8.7 mg/dL (8.6-10.3) 02/14/19 06:23 C-Reactive Protein 81.73 mg/L (<8.01) H 02/12/19 20:37 Vancomycin Trough 25.9 mcg/mL 02/16/19 08:05 Assessment: 1. Left foot infection S/P pirogoff amputation in 10/2018. 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 Afebrile and no leukocytosis. 2. History of left foot osteomyelitis. S/P left pirogoff in 10/2018. 3. DM2 with peripheral neuropathy. Plan: Continue vancomycin, trough goal 15-20. Recommend an MRI of the left stump to eval for osteomyelitits. Further recommendations will be based on the MRI findings.
[2019-02-16] MEDS: Lisinopril TAB* 5 MG PO SCH (09:31)
[2019-02-16] MEDS: Lactobacillus Acidophilus* 1 TAB PO SCH ×2 (09:31→21:19)
[2019-02-16] MEDS: Pantoprazole TAB * 40 MG TAB PO SCH (09:31)
[2019-02-16] MEDS: Insulin GLARGINE(*) 1 UNITS UNIT SUBCUT SCH (09:31)
[2019-02-16] MEDS: Sertraline* 100 MG TAB PO SCH (09:31)
[2019-02-16] MEDS: Insulin LISPRO* 1 UNITS UNIT SUBCUT SCH ×6 (09:32→18:34)
[2019-02-16] MEDS: Docusate CAP* 100 MG PO SCH ×2 (11:01→21:19)
[2019-02-16] MEDS: FERROUS SULFATE 27 MG PO SCH (11:01)
--- NOTE | 2019-02-16 11:39 | PN ---
Subjective Date of Service: 02/16/19 Interval History: Pt is feeling ok. She has been having frequent loose stools but this is her baseline. She does have some abdominal discomfort but this too is her usual. She denies any pain in the amputation stump at this time. She states it does ache from time to time. Family History: Unchanged from Admission Social History: Unchanged from Admission Past Medical History: Unchanged from Admission Objective Active Medications: Acetaminophen (Tylenol Tab*) 975 mg PO Q8H [facility] Last Admin: 02/16/19 04:44 Dose: Not Given Bisacodyl (Dulcolax Supp*) 10 mg HI DAILY PRN PRN Reason: constipation Dextrose (D50w Syringe 50 Ml*) 12.5 gm IV PUSH .FOR FS < 60 - SS PRN PRN Reason: FS < 60 Diphenhydramine HCl (Benadryl Iv*) 25 mg IV Q6H PRN PRN Reason: itching Diphenhydramine HCl (Benadryl Po*) 25 mg PO Q6H PRN PRN Reason: itching Docusate Sodium (Colace Cap*) 100 mg PO BID [facility] Last Admin: 02/16/19 11:01 Dose: Not Given Enoxaparin Sodium (Lovenox(*)) 40 mg SUBCUT Q24H [facility] Last Admin: 02/15/19 17:34 Dose: 40 mg Vancomycin HCl 750 mg/ Sodium (Chloride) 250 mls @ 166.667 mls/hr IVPB Q12H [facility] Insulin Glargine (Lantus(*)) 20 units SUBCUT DAILY [facility] Last Admin: 02/16/19 09:31 Dose: 20 units Insulin Human Lispro (Humalog*) 0 units SUBCUT AC [facility]; Protocol Last Admin: 02/16/19 09:32 Dose: 2 units Insulin Human Lispro (Humalog*) 0 units SUBCUT AC [facility]; Protocol Last Admin: 02/16/19 09:33 Dose: 2 units Lactobacillus Rhamnosus (Lactobacillus Acidophilus*) 1 tab PO BID [facility] Last Admin: 02/16/19 09:31 Dose: 1 tab Lactulose (Lactulose*) 30 ml PO Q6H PRN PRN Reason: constipation Lisinopril (Prinivil Tab*) 5 mg PO DAILY [facility] Last Admin: 02/16/19 09:31 Dose: 5 mg Magnesium Hydroxide (Milk Of Magnesia Liq*) 30 ml PO Q6H PRN PRN Reason: constipation Morphine Sulfate (Morphine Inj (Syringe))*) 2 mg IV Q4H PRN PRN Reason: PAIN - SEVERE Non-Formulary Medication (Ferrous Sulfate [High Potency Iron]) 27 mg PO [facility] Last Admin: 02/16/19 11:01 Dose: Not Given Ondansetron HCl (Zofran Inj*) 4 mg IV Q6H PRN PRN Reason: nausea Ondansetron HCl (Zofran Odt Tab*) 4 mg PO Q6H PRN PRN Reason: NAUSEA Oxycodone HCl (Roxycodone Tab*) 10 mg PO Q4H PRN PRN Reason: PAIN - MODERATE TO SEVERE Last Admin: 02/12/19 15:31 Dose: 10 mg Oxycodone/Acetaminophen (Percocet 5/325 Tab*) 1 tab PO Q4H PRN PRN Reason: PAIN - MILD Oxycodone/Acetaminophen (Percocet 5/325 Tab*) 2 tab PO Q4H PRN PRN Reason: PAIN - MODERATE Pantoprazole Sodium (Protonix Tab*) 40 mg PO [facility] Last Admin: 02/16/19 09:31 Dose: 40 mg Pharmacy Consult (Vancomycin Per Pharmacy*) 1 note FOLLOW UP . PRN PRN Reason: PER PROTOCOL Pharmacy Profile Note (Vancomycin Trough Check) 1 note FOLLOW UP 0830 ONE Stop: 02/18/19 08:31 Polyethylene Glycol/Electrolytes (Miralax*) 17 gm PO DAILY PRN PRN Reason: Constipation Sertraline HCl (Zoloft*) 100 mg PO [facility] Last Admin: 02/16/19 09:31 Dose: 100 mg Tramadol HCl (Ultram*) 50 mg PO Q6H PRN PRN Reason: PAIN - MILD Trazodone HCl (Desyrel Tab*) 25 mg PO BEDTIME PRN PRN Reason: insomnia Vital Signs - 8 hr 02/16/19 02/16/19 07:35 09:39 Temperature 97.3 F Pulse Rate 51 Respiratory 18 18 Rate Blood Pressure 136/70 (mmHg) O2 Sat by Pulse 99 Oximetry Oxygen Devices in Use Now: None Appearance: Middle aged female sitting up in bed, NAD Eyes: No Scleral Icterus Ears/Nose/Mouth/Throat: Mucous Membranes Moist Respiratory: Symmetrical Chest Expansion and Respiratory Effort, Clear to Auscultation Cardiovascular: NL Sounds; No Murmurs; No JVD, RRR, No Edema Abdominal: NL Sounds; No Tenderness; No Distention Extremities: No Clubbing, Cyanosis, - - amputation stump healed well Skin: No Nodules or Sclerosis, - - distal end of stump has appearance of a ruptured blister, no significant erythema, no drainage, mild swelling Neurological: Alert and Oriented x 3 Result Diagrams: 02/12/19 20:37 02/16/19 08:05 Assess/Plan/Problems-Billing Ms Valdez is 63yo F with PMH of type 2 DM, diabetic neuropathy, HTN, depression, GERD, colon CA s/p resection and chemo, left foot osteomyelitis s/p left Pirogoff amputation, who was admitted due to stump infection. Hospitalist service consulted to assist with comorbidities management. - Patient Problems (1) Diabetic foot infection Current Visit: Yes Status: Acute Code(s): E11.628 - TYPE 2 DIABETES MELLITUS WITH OTHER SKIN COMPLICATIONS; L08.9 - LOCAL INFECTION OF THE SKIN AND SUBCUTANEOUS TISSUE, UNSP SNOMED Code(s): 620826931 Comment: Management per Ortho and ID. Continue vancomycin and NWB LLE. Continue BID betadine soaked gauze to the distal stump. (2) Diabetes mellitus Current Visit: Yes Status: Chronic Code(s): E11.9 - TYPE 2 DIABETES MELLITUS WITHOUT COMPLICATIONS SNOMED Code(s): 77582333 Comment: Blood sugars today are under good control. Continue lantus 20 units SQ daily and lispro sliding scale and carb coverage. (3) HTN (hypertension) Current Visit: Yes Status: Chronic Code(s): I10 - ESSENTIAL (PRIMARY) HYPERTENSION SNOMED Code(s): 89163376 Comment: BP is under good control. Continue lisinopril at current dose. (4) CKD (chronic kidney disease) Current Visit: Yes Status: Acute Code(s): N18.9 - CHRONIC KIDNEY DISEASE, UNSPECIFIED SNOMED Code(s): 541227146 Comment: Creatinine is at baseline. Monitor intermittently. (5) Chronic diarrhea Current Visit: Yes Status: Chronic Code(s): K52.9 - NONINFECTIVE GASTROENTERITIS AND COLITIS, UNSPECIFIED SNOMED Code(s): 984052598 Comment: At baseline. Monitor. (6) DVT prophylaxis Current Visit: Yes Status: Acute Code(s): MEA4493 - SNOMED Code(s): 953251851 Comment: Kayleigh (7) DNR (do not resuscitate) Current Visit: Yes Status: Acute Status and Disposition: Hospitalist service will continue to follow with you.
--- NOTE | 2019-02-16 11:50 | PN ---
Progress Note - Progress Note Date of Service: 02/16/19 SOAP: Subjective: []Patient seen and examined at bedside. She feels well without feeling of fever or chills. Denies CP, SOB, dizziness, nausea. She is on IV vancomycin Objective: []General: Appears well, NAD LLE: Plantar heel with a superficial 6x5 cm area of raw tissue without erythema , discharge or fluctuance. Calves are supple and nontender Assessment: []left lower extremity stump breakdown and cellulitis, SP hindfoot amputation with well healed anterior surgical incision Plan: []NWB LLE Continue vancomycin per ID Lovenox 40 mg sq qd Continue twice daily Betadine wet to dry dressings Vital Signs Temp 97.3 F 02/16/19 07:35 Pulse 51 02/16/19 07:35 Resp 18 02/16/19 09:39 BP 136/70 02/16/19 07:35 Pulse Ox 99 02/16/19 07:35 Intake & Output 02/15/19 02/16/19 02/16/19 18:59 06:59 18:59 Intake Total 1165 1285 Output Total 0 Balance 1165 1285 Weight 259 lb Intake: IV Fluids 35 25 NS (0.9%) 35 25 IVPB 290 300 ABX - VANCOMYCIN 290 300 Oral 840 960 Output: Urine 0 Other: Estimated Void Medium Date of Last Bowel [id number] unknown Movement # Bowel Movements 0 0 # Voids 4 Laboratory Last Values WBC 7.4 10^3/uL (3.5-10.8) 02/12/19 20:37 RBC 3.66 10^6 /uL (3.70-4.87) L 02/12/19 20:37 Hgb 9.6 g/dL (12.0-16.0) L 02/12/19 20:37 Hct 30 % (35-47) L 02/12/19 20:37 MCV 81 fL (80-97) 02/12/19 20:37 MCH 26 pg (27-31) L 02/12/19 20:37 MCHC 33 g/dL (31-36) 02/12/19 20:37 RDW 16 % (10.5-15) H 02/12/19 20:37 Plt Count 268 10^3/uL (150-450) 02/12/19 20:37 MPV 8.2 fL (7.4-10.4) 02/12/19 20:37 Neut % (Auto) 85.5 % 02/12/19 20:37 Lymph % (Auto) 8.4 % 02/12/19 20:37 [place] % (Auto) 4.5 % 02/12/19 20:37 Eos % (Auto) 1.3 % 02/12/19 20:37 Baso % (Auto) 0.3 % 02/12/19 20:37 Absolute Neuts (auto) 6.4 10^3/ul (1.5-7.7) 02/12/19 20:37 Absolute Lymphs (auto) 0.6 10^3/ul (1.0-4.8) L 02/12/19 20:37 Absolute Monos (auto) 0.3 10^3/ul (0-0.8) 02/12/19 20:37 Absolute Eos (auto) 0.1 10^3/ul (0-0.6) 02/12/19 20:37 Absolute Basos (auto) 0.0 10^3/ul (0-0.2) 02/12/19 20:37 Absolute Nucleated RBC 0.0 10^3/ul 02/12/19 20:37 Nucleated RBC % 0.0 02/12/19 20:37 Sodium 139 mmol/L (135-145) 02/14/19 06:23 Potassium 4.2 mmol/L (3.5-5.0) 02/14/19 06:23 Chloride 111 mmol/L (101-111) 02/14/19 06:23 Carbon Dioxide 21 mmol/L (22-32) L 02/14/19 06:23 Anion Gap 7 mmol/L (2-11) 02/14/19 06:23 BUN 16 mg/dL (6-24) 02/16/19 08:05 Creatinine 1.05 mg/dL (0.51-0.95) H 02/16/19 08:05 Est GFR ( Amer) 63.8 (>60) 02/16/19 08:05 Est GFR (Non-Af Amer) 52.8 (>60) 02/16/19 08:05 BUN/Creatinine Ratio 13.2 (8-20) 02/14/19 06:23 Glucose 105 mg/dL (70-100) H 02/14/19 06:23 POC Glucose (mg/dL) 135 mg/dL (70-100) H 02/16/19 07:47 Hemoglobin A1c 10.5 % (4.0-5.6) H 02/14/19 06:23 Calcium 8.7 mg/dL (8.6-10.3) 02/14/19 06:23 C-Reactive Protein 81.73 mg/L (<8.01) H 02/12/19 20:37 Vancomycin Trough 25.9 mcg/mL 02/16/19 08:05
[2019-02-16] MEDS: Enoxaparin(*) 40 MG/0.4 ML SYR SUBCUT SCH (18:33)
[2019-02-16] MEDS: Vancomycin(*) 750 MG in NS 0.9% 250 ML* 250 ML IVPB SCH (21:20)
[2019-02-17] MEDS: Acetaminophen TAB* 325 MG PO SCH ×3 (05:41→21:36)
[2019-02-17] MEDS: Vancomycin(*) 750 MG in NS 0.9% 250 ML* 250 ML IVPB SCH ×2 (08:54→21:38)
[2019-02-17] MEDS: Insulin LISPRO* 1 UNITS UNIT SUBCUT SCH ×6 (08:58→18:03)
[2019-02-17] MEDS: Pantoprazole TAB * 40 MG TAB PO SCH (08:58)
[2019-02-17] MEDS: Lactobacillus Acidophilus* 1 TAB PO SCH ×2 (08:58→21:38)
[2019-02-17] MEDS: Ferrous Sulfate TAB* 325 MG PO SCH (08:58)
[2019-02-17] MEDS: Lisinopril TAB* 5 MG PO SCH (08:58)
[2019-02-17] MEDS: Sertraline* 100 MG TAB PO SCH (08:58)
[2019-02-17] MEDS: Insulin GLARGINE(*) 1 UNITS UNIT SUBCUT SCH (08:59)
[2019-02-17] MEDS: Docusate CAP* 100 MG PO SCH ×2 (09:00→21:38)
--- NOTE | 2019-02-17 11:10 | PN ---
Progress Note - Progress Note Date of Service: 02/17/19 SOAP: Subjective: []Pt seen at bedside, she feels well without chest pain, shortness of breath, fever or chills. Objective: [] General: Appears well, NAD LLE: Plantar heel with a superficial 6x4.5 cm area of raw tissue without erythema, discharge or fluctuance. Anterior surgical scar is well healed. Calves are supple and nontender Assessment: []left lower extremity stump breakdown and cellulitis, SP hindfoot amputation with well healed anterior surgical incision Plan: []NWB LLE Continue vancomycin per ID Lovenox 40 mg sq qd Continue twice daily Betadine wet to dry dressings Plan to watch the wound a few more days, if healing well without sign of infection plan for DC with abx per ID and serial casting. If any sign of infection or concern for lack of healing a below knee amputation may be considered. Vital Signs Temp 97.5 F 02/17/19 03:26 Pulse 55 02/17/19 03:26 Resp 18 02/17/19 03:26 BP 141/64 02/17/19 03:26 Pulse Ox 99 02/17/19 03:26 Intake & Output 02/16/19 02/17/19 02/17/19 18:59 06:59 18:59 Intake Total 1800 325 Output Total 0 Balance 1800 325 Weight 259 lb Intake: IV Fluids 0 25 ABX - VANCOMYCIN 0 NS (0.9%) 25 IVPB 300 ABX - VANCOMYCIN 300 Oral 1800 0 Output: Urine 0 Other: Estimated Void Medium Date of Last Bowel [id number] unknown Movement # Bowel Movements 5 0 Estimated Stool Amount Medium # Voids 5 Laboratory Last Values WBC 7.4 10^3/uL (3.5-10.8) 02/12/19 20:37 RBC 3.66 10^6 /uL (3.70-4.87) L 02/12/19 20:37 Hgb 9.6 g/dL (12.0-16.0) L 02/12/19 20:37 Hct 30 % (35-47) L 02/12/19 20:37 MCV 81 fL (80-97) 02/12/19 20:37 MCH 26 pg (27-31) L 02/12/19 20:37 MCHC 33 g/dL (31-36) 02/12/19 20:37 RDW 16 % (10.5-15) H 02/12/19 20:37 Plt Count 268 10^3/uL (150-450) 02/12/19 20:37 MPV 8.2 fL (7.4-10.4) 02/12/19 20:37 Neut % (Auto) 85.5 % 02/12/19 20:37 Lymph % (Auto) 8.4 % 02/12/19 20:37 [place] % (Auto) 4.5 % 02/12/19 20:37 Eos % (Auto) 1.3 % 02/12/19 20:37 Baso % (Auto) 0.3 % 02/12/19 20:37 Absolute Neuts (auto) 6.4 10^3/ul (1.5-7.7) 02/12/19 20:37 Absolute Lymphs (auto) 0.6 10^3/ul (1.0-4.8) L 02/12/19 20:37 Absolute Monos (auto) 0.3 10^3/ul (0-0.8) 02/12/19 20:37 Absolute Eos (auto) 0.1 10^3/ul (0-0.6) 02/12/19 20:37 Absolute Basos (auto) 0.0 10^3/ul (0-0.2) 02/12/19 20:37 Absolute Nucleated RBC 0.0 10^3/ul 02/12/19 20:37 Nucleated RBC % 0.0 02/12/19 20:37 Sodium 139 mmol/L (135-145) 02/14/19 06:23 Potassium 4.2 mmol/L (3.5-5.0) 02/14/19 06:23 Chloride 111 mmol/L (101-111) 02/14/19 06:23 Carbon Dioxide 21 mmol/L (22-32) L 02/14/19 06:23 Anion Gap 7 mmol/L (2-11) 02/14/19 06:23 BUN 16 mg/dL (6-24) 02/16/19 08:05 Creatinine 1.05 mg/dL (0.51-0.95) H 02/16/19 08:05 Est GFR ( Amer) 63.8 (>60) 02/16/19 08:05 Est GFR (Non-Af Amer) 52.8 (>60) 02/16/19 08:05 BUN/Creatinine Ratio 13.2 (8-20) 02/14/19 06:23 Glucose 105 mg/dL (70-100) H 02/14/19 06:23 POC Glucose (mg/dL) 203 mg/dL (70-100) H 02/17/19 07:48 Hemoglobin A1c 10.5 % (4.0-5.6) H 02/14/19 06:23 Calcium 8.7 mg/dL (8.6-10.3) 02/14/19 06:23 C-Reactive Protein 81.73 mg/L (<8.01) H 02/12/19 20:37 Vancomycin Trough 25.9 mcg/mL 02/16/19 08:05
--- NOTE | 2019-02-17 13:20 | CONSULT ---
Consult Consult: [facility] Inpatient Consult Note Date of Consult: 02/17/19 Reason for Consult: management of hyperglycemia Reason for Admission: diabetic foot infection s/p amputation ASSESSMENT: 63 yo F with long-standing T2DM on insulin with A1c >10%, admitted October 2018 for LEFT foot amputation, now admitted for LEFT food wound infection. Her insulin requirement is at least 40 units/day during this admisison, which is a significant reduction from her prior regimen (glargine 85 units/day). She is willing to use multi-dose insulin regimen to regain glycemic control allow for better wound healing. See recommendations below. She has multiple intolerances and/or treatment failures and/or contraindications to diabetes medications. 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 She was diagnosed with T2DM in the mid-1980s. She has used various oral agents over the years, but has since stopped these: metformin (diarrhea), glipizide ( ineffective), Januvia (ineffective). she has a history of Lantus induced hypoglycemia last year while she was a resident of [facility]. Complications of diabetes include nephropathy, neuropathy. She has struggled with diabetes management since her PCP (Dr. aLwrence) . Past Medical History: 1. Obstructive uropathy. 2. Colon cancer. 3. Hypertension 4. Depression. 5. Diabetes type 2. 6. GERD. Medications Prior to Admission: Aspirin EC TAB* [Ecotrin EC Low Dose 81 MG*] 81 mg PO QAM 07/23/16 [History Confirmed 02/12/19] Insulin GLARGINE(*) [Lantus(*)] 85 units SUBCUT QPM 07/23/16 [History Confirmed 02/12/19] Sertraline* [Zoloft*] 100 mg PO QAM 07/23/16 [History Confirmed 02/12/19] Lactobacillus Acidophilus* 1 cap PO BID 12/05/17 [History Confirmed 02/12/19] Acetaminophen [Acetaminophen Extra Strength] 2 tab PO Q6HR #0 11/14/18 [Rx Confirmed 02/12/19] Lisinopril 40 mg PO QAM 01/14/19 [History Confirmed 02/12/19] Ferrous Sulfate [Ra High Potency Iron] 27 mg PO QAM 01/15/19 [History Confirmed 02/12/19] Metoprolol Tartrate TAB* [Lopressor TAB*] 25 mg PO BID 01/15/19 [History Confirmed 02/12/19] Omeprazole 40 mg PO QAM 01/15/19 [History Confirmed 02/12/19] Vitamin B Complex CAP* [B Complex CAP*] 1 cap PO QAM 01/15/19 [History Confirmed 02/12/19] Inpatient Medications: Acetaminophen (Tylenol Tab*) 975 mg PO Q8H [facility] Last Admin: 02/17/19 05:41 Dose: 975 mg Bisacodyl (Dulcolax Supp*) 10 mg RI DAILY PRN PRN Reason: constipation Dextrose (D50w Syringe 50 Ml*) 12.5 gm IV PUSH .FOR FS < 60 - SS PRN PRN Reason: FS < 60 Diphenhydramine HCl (Benadryl Iv*) 25 mg IV Q6H PRN PRN Reason: itching Diphenhydramine HCl (Benadryl Po*) 25 mg PO Q6H PRN PRN Reason: itching Docusate Sodium (Colace Cap*) 100 mg PO BID [facility] Last Admin: 02/17/19 09:00 Dose: Not Given Enoxaparin Sodium (Lovenox(*)) 40 mg SUBCUT Q24H [facility] Last Admin: 02/16/19 18:33 Dose: 40 mg Ferrous Sulfate (Ferrous Sulfate Tab*) 325 mg PO DAILY [facility] Last Admin: 02/17/19 08:58 Dose: 325 mg Vancomycin HCl 750 mg/ Sodium (Chloride) 250 mls @ 166.667 mls/hr IVPB Q12H [facility] Last Admin: 02/17/19 08:54 Dose: 166.667 mls/hr Insulin Glargine (Lantus(*)) 20 units SUBCUT DAILY [facility] Last Admin: 02/17/19 08:59 Dose: 20 units Insulin Human Lispro (Humalog*) 0 units SUBCUT [facility]; Protocol Last Admin: 02/17/19 08:58 Dose: 6 units Insulin Human Lispro (Humalog*) 0 units SUBCUT [facility]; Protocol Last Admin: 02/17/19 08:59 Dose: 3 units Lactobacillus Rhamnosus (Lactobacillus Acidophilus*) 1 tab PO BID [facility] Last Admin: 02/17/19 08:58 Dose: 1 tab Lactulose (Lactulose*) 30 ml PO Q6H PRN PRN Reason: constipation Lisinopril (Prinivil Tab*) 5 mg PO DAILY [facility] Last Admin: 02/17/19 08:58 Dose: 5 mg Magnesium Hydroxide (Milk Of Magnmolly Liq*) 30 ml PO Q6H PRN PRN Reason: constipation Morphine Sulfate (Morphine Inj (Syringe))*) 2 mg IV Q4H PRN PRN Reason: PAIN - SEVERE Ondansetron HCl (Zofran Inj*) 4 mg IV Q6H PRN PRN Reason: nausea Ondansetron HCl (Zofran Odt Tab*) 4 mg PO Q6H PRN PRN Reason: NAUSEA Oxycodone HCl (Roxycodone Tab*) 10 mg PO Q4H PRN PRN Reason: PAIN - MODERATE TO SEVERE Last Admin: 02/12/19 15:31 Dose: 10 mg Oxycodone/Acetaminophen (Percocet 5/325 Tab*) 1 tab PO Q4H PRN PRN Reason: PAIN - MILD Oxycodone/Acetaminophen (Percocet 5/325 Tab*) 2 tab PO Q4H PRN PRN Reason: PAIN - MODERATE Pantoprazole Sodium (Protonix Tab*) 40 mg PO QAM [facility] Last Admin: 02/17/19 08:58 Dose: 40 mg Pharmacy Consult (Vancomycin Per Pharmacy*) 1 note FOLLOW UP . PRN PRN Reason: PER PROTOCOL Pharmacy Profile Note (Vancomycin Trough Check) 1 note FOLLOW UP 829 ONE Stop: 02/18/19 08:31 Polyethylene Glycol/Electrolytes (Miralax*) 17 gm PO DAILY PRN PRN Reason: Constipation Sertraline HCl (Zoloft*) 100 mg PO [facility] Last Admin: 02/17/19 08:58 Dose: 100 mg Tramadol HCl (Ultram*) 50 mg PO Q6H PRN PRN Reason: PAIN - MILD Trazodone HCl (Desyrel Tab*) 25 mg PO BEDTIME PRN PRN Reason: insomnia Allergies/Intolerances: Social History: 2 brothers with T2DM. No reported history of coronary artery disease or cancer. Family History: She denies any tobacco, alcohol, or illicit drug use. Lives alone. HCP is brother Homer. DNR. Review of Systems: As above. OBJECTIVE: Temp Pulse Resp BP Pulse Ox 97.5 F 55 18 141/64 99 02/17/19 03:26 02/17/19 03:26 02/17/19 08:00 02/17/19 03:26 02/17/19 03:26 General: alert, pleasant, oriented, no distress ENT: neck supple, no thyromegaly, no bruit is heard Chest: CTAB, no wheezing or crackles CV: RRR, no murmur Abdomen: soft, non-tender Extremities: no edema, LEFT foot stump, s/p R 2-3 interdigital amputation Skin: warm, dry, no rash Neuro: grossly intact motor/sensory in extremities Psych: restricted affect, pleasant Labs: 02/15/19 16:30 184 02/15/19 21:00 - 20G 02/16/19 09:09 135 - 4L 02/16/19 11:59 151 - 5L 02/16/19 17:35 162 - 5L 02/16/19 21:00 - 20G 02/17/19 07:30 203 - 9L 02/17/19 11:30 167 - 6L WBC 7.4 10^3/uL (3.5-10.8) 02/12/19 20:37 RBC 3.66 10^6 /uL (3.70-4.87) L 02/12/19 20:37 Hgb 9.6 g/dL (12.0-16.0) L 02/12/19 20:37 Hct 30 % (35-47) L 02/12/19 20:37 MCV 81 fL (80-97) 02/12/19 20:37 MCH 26 pg (27-31) L 02/12/19 20:37 MCHC 33 g/dL (31-36) 02/12/19 20:37 RDW 16 % (10.5-15) H 02/12/19 20:37 Plt Count 268 10^3/uL (150-450) 02/12/19 20:37 MPV 8.2 fL (7.4-10.4) 02/12/19 20:37 Neut % (Auto) 85.5 % 02/12/19 20:37 Lymph % (Auto) 8.4 % 02/12/19 20:37 [place] % (Auto) 4.5 % 02/12/19 20:37 Eos % (Auto) 1.3 % 02/12/19 20:37 Baso % (Auto) 0.3 % 02/12/19 20:37 Absolute Neuts (auto) 6.4 10^3/ul (1.5-7.7) 02/12/19 20:37 Absolute Lymphs (auto) 0.6 10^3/ul (1.0-4.8) L 02/12/19 20:37 Absolute Monos (auto) 0.3 10^3/ul (0-0.8) 02/12/19 20:37 Absolute Eos (auto) 0.1 10^3/ul (0-0.6) 02/12/19 20:37 Absolute Basos (auto) 0.0 10^3/ul (0-0.2) 02/12/19 20:37 Absolute Nucleated RBC 0.0 10^3/ul 02/12/19 20:37 Nucleated RBC % 0.0 02/12/19 20:37 Sodium 139 mmol/L (135-145) 02/14/19 06:23 Potassium 4.2 mmol/L (3.5-5.0) 02/14/19 06:23 Chloride 111 mmol/L (101-111) 02/14/19 06:23 Carbon Dioxide 21 mmol/L (22-32) L 02/14/19 06:23 Anion Gap 7 mmol/L (2-11) 02/14/19 06:23 BUN 16 mg/dL (6-24) 02/16/19 08:05 Creatinine 1.05 mg/dL (0.51-0.95) H 02/16/19 08:05 Est GFR ( Amer) 63.8 (>60) 02/16/19 08:05 Est GFR (Non-Af Amer) 52.8 (>60) 02/16/19 08:05 BUN/Creatinine Ratio 13.2 (8-20) 02/14/19 06:23 Glucose 105 mg/dL (70-100) H 02/14/19 06:23 POC Glucose (mg/dL) 167 mg/dL (70-100) H 02/17/19 11:30 Hemoglobin A1c 10.5 % (4.0-5.6) H 02/14/19 06:23 Calcium 8.7 mg/dL (8.6-10.3) 02/14/19 06:23 C-Reactive Protein 81.73 mg/L (<8.01) H 02/12/19 20:37 Vancomycin Trough 25.9 mcg/mL 02/16/19 08:05
--- NOTE | 2019-02-17 14:50 | PN ---
Subjective Date of Service: 02/17/19 Interval History: HOSPITALIST PROGRESS NOTE Patient seen and examined at bedside. Care reviewed and d/w Brenda Mcgregor RN. She offers no new complaints today. Pain is controlled. Sugar is trending up again. Family History: Unchanged from Admission Social History: Unchanged from Admission Past Medical History: Unchanged from Admission Objective Active Medications: Acetaminophen (Tylenol Tab*) 975 mg PO Q8H [facility] Last Admin: 02/17/19 14:14 Dose: 975 mg Bisacodyl (Dulcolax Supp*) 10 mg [place] DAILY PRN PRN Reason: constipation Dextrose (D50w Syringe 50 Ml*) 12.5 gm IV PUSH .FOR FS < 60 - SS PRN PRN Reason: FS < 60 Diphenhydramine HCl (Benadryl Iv*) 25 mg IV Q6H PRN PRN Reason: itching Diphenhydramine HCl (Benadryl Po*) 25 mg PO Q6H PRN PRN Reason: itching Docusate Sodium (Colace Cap*) 100 mg PO BID [facility] Last Admin: 02/17/19 09:00 Dose: Not Given Enoxaparin Sodium (Lovenox(*)) 40 mg SUBCUT Q24H [facility] Last Admin: 02/16/19 18:33 Dose: 40 mg Ferrous Sulfate (Ferrous Sulfate Tab*) 325 mg PO DAILY [facility] Last Admin: 02/17/19 08:58 Dose: 325 mg Vancomycin HCl 750 mg/ Sodium (Chloride) 250 mls @ 166.667 mls/hr IVPB Q12H [facility] Last Admin: 02/17/19 08:54 Dose: 166.667 mls/hr Insulin Glargine (Lantus(*)) 20 units SUBCUT DAILY [facility] Last Admin: 02/17/19 08:59 Dose: 20 units Insulin Human Lispro (Humalog*) 0 units SUBCUT AC [facility]; Protocol Last Admin: 02/17/19 13:04 Dose: 3 units Insulin Human Lispro (Humalog*) 0 units SUBCUT AC [facility]; Protocol Last Admin: 02/17/19 13:04 Dose: 3 units Lactobacillus Rhamnosus (Lactobacillus Acidophilus*) 1 tab PO BID [facility] Last Admin: 02/17/19 08:58 Dose: 1 tab Lactulose (Lactulose*) 30 ml PO Q6H PRN PRN Reason: constipation Lisinopril (Prinivil Tab*) 5 mg PO DAILY [facility] Last Admin: 02/17/19 08:58 Dose: 5 mg Magnesium Hydroxide (Milk Of Magnmolly Liq*) 30 ml PO Q6H PRN PRN Reason: constipation Morphine Sulfate (Morphine Inj (Syringe))*) 2 mg IV Q4H PRN PRN Reason: PAIN - SEVERE Ondansetron HCl (Zofran Inj*) 4 mg IV Q6H PRN PRN Reason: nausea Ondansetron HCl (Zofran Odt Tab*) 4 mg PO Q6H PRN PRN Reason: NAUSEA Oxycodone HCl (Roxycodone Tab*) 10 mg PO Q4H PRN PRN Reason: PAIN - MODERATE TO SEVERE Last Admin: 02/12/19 15:31 Dose: 10 mg Oxycodone/Acetaminophen (Percocet 5/325 Tab*) 1 tab PO Q4H PRN PRN Reason: PAIN - MILD Oxycodone/Acetaminophen (Percocet 5/325 Tab*) 2 tab PO Q4H PRN PRN Reason: PAIN - MODERATE Pantoprazole Sodium (Protonix Tab*) 40 mg PO QAM [facility] Last Admin: 02/17/19 08:58 Dose: 40 mg Pharmacy Consult (Vancomycin Per Pharmacy*) 1 note FOLLOW UP . PRN PRN Reason: PER PROTOCOL Pharmacy Profile Note (Vancomycin Trough Check) 1 note FOLLOW UP 0830 ONE Stop: 02/18/19 08:31 Polyethylene Glycol/Electrolytes (Miralax*) 17 gm PO DAILY PRN PRN Reason: Constipation Sertraline HCl (Zoloft*) 100 mg PO [facility] Last Admin: 02/17/19 08:58 Dose: 100 mg Tramadol HCl (Ultram*) 50 mg PO Q6H PRN PRN Reason: PAIN - MILD Trazodone HCl (Desyrel Tab*) 25 mg PO BEDTIME PRN PRN Reason: insomnia Vital Signs - 8 hr Selected Entries 02/17/19 03:26 Temperature 97.5 F Pulse Rate 55 Respiratory 18 Rate Blood Pressure 141/64 (mmHg) O2 Sat by Pulse 99 Oximetry Oxygen Devices in Use Now: None Appearance: Pleasant lady sitting up in bed in NAD. Eyes: No Scleral Icterus Ears/Nose/Mouth/Throat: Mucous Membranes Moist Neck: Trachea Midline Respiratory: Symmetrical Chest Expansion and Respiratory Effort, Clear to Auscultation Cardiovascular: RRR - Normal S1 and S2 Extremities: - - No edema, plantar heel ulcer 6x4.5cm area of raw tissue, no erythema, discharge. Anterior surgical scar is well healed. 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 Hospitalist service consulted to assist with comorbidities management. - Patient Problems (1) Diabetic foot infection Comment: - Management per Ortho and ID. - Continue vancomycin and NWB LLE. - Continue BID betadine soaked gauze to the distal stump. - MRI suggestive of osteomyelitis - d/w ID - would recommend 4-6 weeks of IV Vancomycin or Daptomycin. (2) Diabetes mellitus Comment: - Blood sugars trending up again - will request Endocrinology input to adjust her insulin dose. (3) HTN (hypertension) Comment: - Controlled. - Continue lisinopril. (4) DVT prophylaxis Comment: Kayleigh (5) DNR (do not resuscitate) Status and Disposition: Hospitalist service will continue to follow with you.
[2019-02-17] MEDS: Enoxaparin(*) 40 MG/0.4 ML SYR SUBCUT SCH (16:26)
[2019-02-18] MEDS: Acetaminophen TAB* 325 MG PO SCH ×3 (05:56→21:20)
[2019-02-18] MEDS ORDERED: Vancomycin Trough Check NOTE FOLLOW UP ONE (08:30)
--- NOTE | 2019-02-18 09:07 | PN ---
Progress Note - Progress Note Date of Service: 02/18/19 SOAP: Subjective: CC: Left foot infection. HPI: Ms. Valdez is a 63 yo female with PMH significant for colon cancer s/p chemo, bowel resection, and radiation; DM2; HTN; anemia; depression; GERD; PUD; osteomyelitis of the left foot and right fingers; and DVT. Denies fever, chills , nausea, vomiting, or constipation. States that she has baseline diarrhea, currently with 5 loose stools daily. Reports ABD discomfort, which she states is caused by Vancomycin. She states that every time she is on IV Vancomycin it caused stomach discomfort. Objective: Vital Signs - 8 hr 02/18/19 02/18/19 02:45 07:59 Temperature 97.5 F Pulse Rate 52 46 Respiratory 18 20 Rate Blood Pressure 135/54 121/47 (mmHg) O2 Sat by Pulse 98 99 Oximetry Physical Exam: General: NAD, sitting up on the side of the bed Neurological: Alert and oriented HEENT: No thrush, moist MM Cardiovascular: Heart rate regular Respiratory: Lung sounds clear Abdominal: Bowel sounds present, ABD large, soft and non tender Skin: Dressing to left stump clean, dry and intact. No erythema seen above the dressing. No rash Laboratory Last Values WBC 7.4 10^3/uL (3.5-10.8) 02/12/19 20:37 RBC 3.66 10^6 /uL (3.70-4.87) L 02/12/19 20:37 Hgb 9.6 g/dL (12.0-16.0) L 02/12/19 20:37 Hct 30 % (35-47) L 02/12/19 20:37 MCV 81 fL (80-97) 02/12/19 20:37 MCH 26 pg (27-31) L 02/12/19 20:37 MCHC 33 g/dL (31-36) 02/12/19 20:37 RDW 16 % (10.5-15) H 02/12/19 20:37 Plt Count 268 10^3/uL (150-450) 02/12/19 20:37 MPV 8.2 fL (7.4-10.4) 02/12/19 20:37 Neut % (Auto) 85.5 % 02/12/19 20:37 Lymph % (Auto) 8.4 % 02/12/19 20:37 [place] % (Auto) 4.5 % 02/12/19 20:37 Eos % (Auto) 1.3 % 02/12/19 20:37 Baso % (Auto) 0.3 % 02/12/19 20:37 Absolute Neuts (auto) 6.4 10^3/ul (1.5-7.7) 02/12/19 20:37 Absolute Lymphs (auto) 0.6 10^3/ul (1.0-4.8) L 02/12/19 20:37 Absolute Monos (auto) 0.3 10^3/ul (0-0.8) 02/12/19 20:37 Absolute Eos (auto) 0.1 10^3/ul (0-0.6) 02/12/19 20:37 Absolute Basos (auto) 0.0 10^3/ul (0-0.2) 02/12/19 20:37 Absolute Nucleated RBC 0.0 10^3/ul 02/12/19 20:37 Nucleated RBC % 0.0 02/12/19 20:37 Sodium 139 mmol/L (135-145) 02/14/19 06:23 Potassium 4.2 mmol/L (3.5-5.0) 02/14/19 06:23 Chloride 111 mmol/L (101-111) 02/14/19 06:23 Carbon Dioxide 21 mmol/L (22-32) L 02/14/19 06:23 Anion Gap 7 mmol/L (2-11) 02/14/19 06:23 BUN 16 mg/dL (6-24) 02/16/19 08:05 Creatinine 1.05 mg/dL (0.51-0.95) H 02/16/19 08:05 Est GFR ( Amer) 63.8 (>60) 02/16/19 08:05 Est GFR (Non-Af Amer) 52.8 (>60) 02/16/19 08:05 BUN/Creatinine Ratio 13.2 (8-20) 02/14/19 06:23 Glucose 105 mg/dL (70-100) H 02/14/19 06:23 POC Glucose (mg/dL) 152 mg/dL (70-100) H 02/18/19 07:20 Hemoglobin A1c 10.5 % (4.0-5.6) H 02/14/19 06:23 Calcium 8.7 mg/dL (8.6-10.3) 02/14/19 06:23 C-Reactive Protein 81.73 mg/L (<8.01) H 02/12/19 20:37 Vancomycin Trough 19.4 mcg/mL 02/18/19 06:52 Assessment: 1. Left foot acute osteomyelitis. S/P pirogoff amputation in 10/2018. 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 MRI shows new osteomyelitis of the tibiocalcaneal arthrodesis when compared to the previous CT from 10/2018. Afebrile and no leukocytosis. CRP 81.73 on 02/12. Will discuss with Orthopedics if they plan to take her to the OR for a revision of her stump. 2. History of left foot osteomyelitis. S/P left pirogoff amputation in 10/2018. 3. DM2 with peripheral neuropathy. Plan: Continue vancomycin, trough goal 15-20. She will need 4-6 weeks if IV ABX, day -. Will place a PICC line. Will need to have weekly labs while on ABX: CBC , CMP, CRP and vanco trough.
[2019-02-18] MEDS: Insulin GLARGINE(*) 1 UNITS UNIT SUBCUT SCH (09:08)
[2019-02-18] MEDS: Insulin LISPRO* 1 UNITS UNIT SUBCUT SCH ×6 (09:09→18:33)
[2019-02-18] MEDS: Vancomycin(*) 750 MG in NS 0.9% 250 ML* 250 ML IVPB SCH ×2 (09:10→21:20)
[2019-02-18] MEDS: Lisinopril TAB* 5 MG PO SCH (09:10)
[2019-02-18] MEDS: Ferrous Sulfate TAB* 325 MG PO SCH (09:10)
[2019-02-18] MEDS: Lactobacillus Acidophilus* 1 TAB PO SCH ×2 (09:10→21:20)
[2019-02-18] MEDS: Sertraline* 100 MG TAB PO SCH (09:10)
[2019-02-18] MEDS: Pantoprazole TAB * 40 MG TAB PO SCH (09:10)
[2019-02-18] MEDS: Docusate CAP* 100 MG PO SCH ×2 (09:11→21:20)
--- NOTE | 2019-02-18 14:53 | PN ---
Progress Note - Progress Note Date of Service: 02/18/19 SOAP: Subjective: []I saw Willa today, she feels well, no fever or chills. No pain of LLE. Objective: []General: Appears well, NAD LLE: Plantar heel with a superficial 5.5x4.5 cm area of raw tissue without erythema, discharge or fluctuance. Anterior surgical scar is well healed. Calves are supple and nontender Assessment: []left lower extremity stump breakdown and cellulitis, SP hindfoot amputation with well healed anterior surgical incision Plan: []NWB LLE Continue vancomycin per ID Lovenox 40 mg sq qd Continue twice daily Betadine wet to dry dressings Plan to watch the wound a few more days, if healing well without sign of infection plan for DC with abx per ID and serial casting. If any sign of infection or concern for lack of healing a below knee amputation may be considered. Vital Signs Temp 97.5 F 02/18/19 02:45 Pulse 46 02/18/19 07:59 Resp 20 02/18/19 08:00 BP 121/47 02/18/19 07:59 Pulse Ox 99 02/18/19 07:59 Intake & Output 02/17/19 02/18/19 02/18/19 18:59 06:59 18:59 Intake Total 7397 585 0116 Output Total 0 Balance 2715 615 0702 Intake: IV Fluids 20 NS (0.9%) 20 IVPB 280 250 ABX - VANCOMYCIN 280 250 Oral 1140 0 1200 Output: Urine 0 Other: Estimated Void Medium # Bowel Movements 0 0 # Voids 3 Laboratory Last Values WBC 7.4 10^3/uL (3.5-10.8) 02/12/19 20:37 RBC 3.66 10^6 /uL (3.70-4.87) L 02/12/19 20:37 Hgb 9.6 g/dL (12.0-16.0) L 02/12/19 20:37 Hct 30 % (35-47) L 02/12/19 20:37 MCV 81 fL (80-97) 02/12/19 20:37 MCH 26 pg (27-31) L 02/12/19 20:37 MCHC 33 g/dL (31-36) 02/12/19 20:37 RDW 16 % (10.5-15) H 02/12/19 20:37 Plt Count 268 10^3/uL (150-450) 02/12/19 20:37 MPV 8.2 fL (7.4-10.4) 02/12/19 20:37 Neut % (Auto) 85.5 % 02/12/19 20:37 Lymph % (Auto) 8.4 % 02/12/19 20:37 [place] % (Auto) 4.5 % 02/12/19 20:37 Eos % (Auto) 1.3 % 02/12/19 20:37 Baso % (Auto) 0.3 % 02/12/19 20:37 Absolute Neuts (auto) 6.4 10^3/ul (1.5-7.7) 02/12/19 20:37 Absolute Lymphs (auto) 0.6 10^3/ul (1.0-4.8) L 02/12/19 20:37 Absolute Monos (auto) 0.3 10^3/ul (0-0.8) 02/12/19 20:37 Absolute Eos (auto) 0.1 10^3/ul (0-0.6) 02/12/19 20:37 Absolute Basos (auto) 0.0 10^3/ul (0-0.2) 02/12/19 20:37 Absolute Nucleated RBC 0.0 10^3/ul 02/12/19 20:37 Nucleated RBC % 0.0 02/12/19 20:37 Sodium 139 mmol/L (135-145) 02/14/19 06:23 Potassium 4.2 mmol/L (3.5-5.0) 02/14/19 06:23 Chloride 111 mmol/L (101-111) 02/14/19 06:23 Carbon Dioxide 21 mmol/L (22-32) L 02/14/19 06:23 Anion Gap 7 mmol/L (2-11) 02/14/19 06:23 BUN 16 mg/dL (6-24) 02/16/19 08:05 Creatinine 1.05 mg/dL (0.51-0.95) H 02/16/19 08:05 Est GFR ( Amer) 63.8 (>60) 02/16/19 08:05 Est GFR (Non-Af Amer) 52.8 (>60) 02/16/19 08:05 BUN/Creatinine Ratio 13.2 (8-20) 02/14/19 06:23 Glucose 105 mg/dL (70-100) H 02/14/19 06:23 POC Glucose (mg/dL) 135 mg/dL (70-100) H 02/18/19 11:45 Hemoglobin A1c 10.5 % (4.0-5.6) H 02/14/19 06:23 Calcium 8.7 mg/dL (8.6-10.3) 02/14/19 06:23 C-Reactive Protein 81.73 mg/L (<8.01) H 02/12/19 20:37 Vancomycin Trough 19.4 mcg/mL 02/18/19 06:52
--- NOTE | 2019-02-18 17:46 | PN ---
Subjective Date of Service: 02/18/19 Interval History: HOSPITALIST PROGRESS NOTE Patient seen and examined at bedside. Care reviewed and d/w Marivel Mcqueen RN. She offers no new complaints today. Continues to have diarrhea, 4-5 episodes/day , that she associates with Vancomycin (has received it in the past with similar side effects). Pain is controlled. Family History: Unchanged from Admission Social History: Unchanged from Admission Past Medical History: Unchanged from Admission Objective Active Medications: Acetaminophen (Tylenol Tab*) 975 mg PO Q8H [facility] Last Admin: 02/18/19 13:30 Dose: 975 mg Bisacodyl (Dulcolax Supp*) 10 mg [place] DAILY PRN PRN Reason: constipation Dextrose (D50w Syringe 50 Ml*) 12.5 gm IV PUSH .FOR FS < 60 - SS PRN PRN Reason: FS < 60 Diphenhydramine HCl (Benadryl Iv*) 25 mg IV Q6H PRN PRN Reason: itching Diphenhydramine HCl (Benadryl Po*) 25 mg PO Q6H PRN PRN Reason: itching Docusate Sodium (Colace Cap*) 100 mg PO BID [facility] Last Admin: 02/18/19 09:11 Dose: Not Given Enoxaparin Sodium (Lovenox(*)) 40 mg SUBCUT Q24H [facility] Last Admin: 02/17/19 16:26 Dose: 40 mg Ferrous Sulfate (Ferrous Sulfate Tab*) 325 mg PO DAILY [facility] Last Admin: 02/18/19 09:10 Dose: 325 mg Vancomycin HCl 750 mg/ Sodium (Chloride) 250 mls @ 166.667 mls/hr IVPB Q12H [facility] Last Admin: 02/18/19 09:10 Dose: 166.667 mls/hr Insulin Glargine (Lantus(*)) 24 units SUBCUT DAILY [facility] Last Admin: 02/18/19 09:08 Dose: 24 units Insulin Human Lispro (Humalog*) 0 units SUBCUT AC [facility]; Protocol Last Admin: 02/18/19 16:47 Dose: Not Given Insulin Human Lispro (Humalog*) 0 units SUBCUT AC [facility]; Protocol Last Admin: 02/18/19 13:31 Dose: 3 units Lactobacillus Rhamnosus (Lactobacillus Acidophilus*) 1 tab PO BID [facility] Last Admin: 02/18/19 09:10 Dose: 1 tab Lactulose (Lactulose*) 30 ml PO Q6H PRN PRN Reason: constipation Lisinopril (Prinivil Tab*) 5 mg PO DAILY [facility] Last Admin: 02/18/19 09:10 Dose: 5 mg Loperamide HCl (Imodium Cap*) 2 mg PO .SEE DIRECTIONS PRN PRN Reason: DIARRHEA Magnesium Hydroxide (Milk Of Magnesia Liq*) 30 ml PO Q6H PRN PRN Reason: constipation Morphine Sulfate (Morphine Inj (Syringe))*) 2 mg IV Q4H PRN PRN Reason: PAIN - SEVERE Ondansetron HCl (Zofran Inj*) 4 mg IV Q6H PRN PRN Reason: nausea Ondansetron HCl (Zofran Odt Tab*) 4 mg PO Q6H PRN PRN Reason: NAUSEA Oxycodone HCl (Roxycodone Tab*) 10 mg PO Q4H PRN PRN Reason: PAIN - MODERATE TO SEVERE Last Admin: 02/12/19 15:31 Dose: 10 mg Oxycodone/Acetaminophen (Percocet 5/325 Tab*) 1 tab PO Q4H PRN PRN Reason: PAIN - MILD Oxycodone/Acetaminophen (Percocet 5/325 Tab*) 2 tab PO Q4H PRN PRN Reason: PAIN - MODERATE Pantoprazole Sodium (Protonix Tab*) 40 mg PO QAM [facility] Last Admin: 02/18/19 09:10 Dose: 40 mg Pharmacy Consult (Vancomycin Per Pharmacy*) 1 note FOLLOW UP . PRN PRN Reason: PER PROTOCOL Pharmacy Profile Note (Vancomycin Trough Check) 1 note FOLLOW UP 0830 ONE Stop: 02/20/19 08:31 Polyethylene Glycol/Electrolytes (Miralax*) 17 gm PO DAILY PRN PRN Reason: Constipation Sert[facility]ine [facility] ([facility]ft*) [facility] [place] [facility] [place] Admin: 02/18/19 09:10 Dose: 100 mg Tramadol HCl (Ultram*) 50 mg PO Q6H PRN PRN Reason: PAIN - MILD Trazodone HCl (Desyrel Tab*) 25 mg PO BEDTIME PRN PRN Reason: insomnia Last Admin: 02/17/19 21:37 Dose: 25 mg Vital Signs - 8 hr 02/18/19 16:15 Temperature 98.0 F Pulse Rate 60 Respiratory 16 Rate Blood Pressure 141/61 (mmHg) O2 Sat by Pulse 99 Oximetry Oxygen Devices in Use Now: None Appearance: Pleasant lady lying in bed in NAD. Eyes: No Scleral Icterus Ears/Nose/Mouth/Throat: Mucous Membranes Moist Neck: Trachea Midline Respiratory: Symmetrical Chest Expansion and Respiratory Effort, Clear to Auscultation Cardiovascular: RRR - Normal S1 and S2 Extremities: - - CDI to left stump Neurological: Alert and Oriented x 3, NL Muscle Strength and Tone Result Diagrams: 02/12/19 20:37 02/16/19 08:05 Assess/Plan/Problems-Billing Ms Valdez is 63yo F with PMH of type 2 DM, diabetic neuropathy, HTN, depression, GERD, colon CA s/p resection and chemo, left foot osteomyelitis s/p left Pirogoff amputation, who was admitted due to stump infection. Hospitalist service consulted to assist with comorbidities management. - Patient Problems (1) Diabetic foot infection Comment: - Management per Ortho and ID. - Continue NWB LLE. - Continue BID betadine soaked gauze to the distal stump. - MRI suggestive of osteomyelitis - d/w ID - would recommend 4-6 weeks of IV Vancomycin or Daptomycin - place PICC line. - Awaiting Ortho decision re: surgical revision. (2) Diabetes mellitus Comment: - Endocrinology input appreciated - increase Lantus by 3 units until AM FS <120. - If discharged home, will need prescriptions for insulin as outlined on Dr Patterson 's consult. (3) HTN (hypertension) Comment: - Controlled. - Continue lisinopril. (4) Diarrhea Comment: - Likely secondary to antibiotic - check C. diff. - Immodium if C diff negative. (5) DVT prophylaxis Comment: Kayleigh (6) DNR (do not resuscitate) Status and Disposition: Hospitalist service will continue to follow with you.
[2019-02-18] MEDS: Enoxaparin(*) 40 MG/0.4 ML SYR SUBCUT SCH (18:33)
[2019-02-19] MEDS: Acetaminophen TAB* 325 MG PO SCH ×3 (06:14→21:12)
[2019-02-19 06:51] LABS: ABS Eosinophils 0.1 10^3/ul (0-0.6); ABS Lymphocytes 0.7 10^3/ul (1.0-4.8); ABS Monocytes 0.2 10^3/ul (0-0.8); ABS Neutrophils 3.6 10^3/ul (1.5-7.7); Hematocrit 31 % (35-47); Hemoglobin 9.9 g/dL (12.0-16.0); Lymphocyte % 14.4 %; Mean Corpuscular HGB Conc 32 g/dL (31-36); Mean Corpuscular Hemoglobin 26 pg (27-31); Mean Corpuscular Volume 81 fL (80-97); Mean Platelet Volume 8.2 fL (7.4-10.4); Nucleated Red Blood Cells % 0.1; Platelet Count 280 10^3/uL (150-450); Red Blood Count 3.78 10^6 /uL (3.70-4.87); Red Cell Distribution Width 15 % (10.5-15); White Blood Count 4.6 10^3/uL (3.5-10.8)
[2019-02-19 07:07] LABS: BUN/Creatinine Ratio 15.1 (8-20); EGFR African American 51.7 (>60); EGFR Non-African American 42.8 (>60); Potassium 4.1 mmol/L (3.5-5.0)
--- NOTE | 2019-02-19 08:52 | PN ---
Progress Note - Progress Note Date of Service: 02/19/19 SOAP: Subjective: CC: Left foot infection. HPI: Ms. Valdez is a 63 yo female with PMH significant for colon cancer s/p chemo, bowel resection, and radiation; DM2; HTN; anemia; depression; GERD; PUD; osteomyelitis of the left foot and right fingers; and DVT. Denies fever, chills , nausea, vomiting, or constipation. States that she has baseline diarrhea, no loose stools since yesterday. Reports ABD discomfort, she states this occurs at home without being on vancomycin, but feels like it lasts longer while on Vancomycin. Reports a decreased appetite, but is eating ok. Objective: Vital Signs - 8 hr 02/19/19 03:47 Temperature 96.9 F Pulse Rate 49 Respiratory 20 Rate Blood Pressure 153/60 (mmHg) O2 Sat by Pulse 98 Oximetry Physical Exam: General: NAD, sitting up in bed Neurological: Alert and Oriented x 4 HEENT: No thrush, moist MM Cardiovascular: Heart rate regular Respiratory: Lung sounds clear bilateral Abdominal: Bowel sounds present; ABD soft, large and on tender Skin: No rash. Dressing to the left stump intact. No erythema. Laboratory Results - last 24 hr 02/19/19 02/19/19 02/19/19 06:11 06:11 08:22 WBC 4.6 RBC 3.78 Hgb 9.9 L Hct 31 L MCV 81 MCH 26 L MCHC 32 RDW 15 Plt Count 280 MPV 8.2 Neut % (Auto) 77.7 Lymph % (Auto) 14.4 [place] % (Auto) 5.1 Eos % (Auto) 2.0 Baso % (Auto) 0.8 Absolute Neuts (auto) 3.6 Absolute Lymphs (auto) 0.7 L Absolute Monos (auto) 0.2 Absolute Eos (auto) 0.1 Absolute Basos (auto) 0.0 Absolute Nucleated RBC 0.0 Nucleated RBC % 0.1 Sodium 141 Potassium 4.1 Chloride 109 Carbon Dioxide 25 Anion Gap 7 BUN 19 Creatinine 1.26 H Est GFR ( Amer) 51.7 Est GFR (Non-Af Amer) 42.8 BUN/Creatinine Ratio 15.1 Glucose 168 H POC Glucose (mg/dL) 161 H Calcium 9.0 Assessment: 1. Left foot acute osteomyelitis. S/P pirogoff amputation in 10/2018. 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 MRI shows new osteomyelitis of the tibiocalcaneal arthrodesis when compared to the previous CT from 10/2018. Afebrile and no leukocytosis. CRP 81.73 on 02/12. Will discuss with Orthopedics if they plan to take her to the OR for a revision of her stump. 2. History of left foot osteomyelitis. S/P left pirogoff amputation in 10/2018. 3. DM2 with peripheral neuropathy. Plan: Will add a CRP to todays labs. Continue vancomycin, trough goal 15-20. She will need 4-6 weeks if IV ABX, day 7/28-42. Will place a PICC line today. Will need to have weekly labs while on ABX: CBC, CMP, CRP and vanco trough.
[2019-02-19] MEDS: Pantoprazole TAB * 40 MG TAB PO SCH (09:33)
[2019-02-19] MEDS: Lactobacillus Acidophilus* 1 TAB PO SCH ×2 (09:33→21:13)
[2019-02-19] MEDS: Lisinopril TAB* 5 MG PO SCH (09:33)
[2019-02-19] MEDS: Docusate CAP* 100 MG PO SCH ×3 (09:33→20:45)
[2019-02-19] MEDS: Insulin LISPRO* 1 UNITS UNIT SUBCUT SCH ×6 (09:34→18:09)
[2019-02-19] MEDS: Ferrous Sulfate TAB* 325 MG PO SCH (09:34)
[2019-02-19] MEDS: Sertraline* 100 MG TAB PO SCH (09:34)
[2019-02-19] MEDS: Insulin GLARGINE(*) 1 UNITS UNIT SUBCUT SCH (09:35)
[2019-02-19] MEDS: Vancomycin(*) 750 MG in NS 0.9% 250 ML* 250 ML IVPB SCH ×2 (09:35→21:13)
[2019-02-19 09:40] LABS: C Reactive Protein 10.51 mg/L (<8.01)
--- NOTE | 2019-02-19 14:09 | PN ---
Subjective Date of Service: 02/19/19 Interval History: Pt c/o chronic loose stool (5x/day-chronic) and lower abd pain after eating- chronic Family History: Unchanged from Admission Social History: Unchanged from Admission Past Medical History: Unchanged from Admission Objective Active Medications: Acetaminophen (Tylenol Tab*) 975 mg PO Q8H [facility] Last Admin: 02/19/19 13:31 Dose: 975 mg Bisacodyl (Dulcolax Supp*) 10 mg [place] DAILY PRN PRN Reason: constipation Dextrose (D50w Syringe 50 Ml*) 12.5 gm IV PUSH .FOR FS < 60 - SS PRN PRN Reason: FS < 60 Diphenhydramine HCl (Benadryl Iv*) 25 mg IV Q6H PRN PRN Reason: itching Diphenhydramine HCl (Benadryl Po*) 25 mg PO Q6H PRN PRN Reason: itching Docusate Sodium (Colace Cap*) 100 mg PO BID [facility] Last Admin: 02/19/19 09:37 Dose: Not Given Enoxaparin Sodium (Lovenox(*)) 40 mg SUBCUT Q24H [facility] Last Admin: 02/18/19 18:33 Dose: 40 mg Ferrous Sulfate (Ferrous Sulfate Tab*) 325 mg PO DAILY [facility] Last Admin: 02/19/19 09:34 Dose: 325 mg Heparin Sodium (Porcine) (Heparin Flush Picc/Ml/Cvc(*)) 1 - 3 ml FLUSH 0600, 1800 [facility]; Protocol Vancomycin HCl 750 mg/ Sodium (Chloride) 250 mls @ 166.667 mls/hr IVPB Q12H [facility] Last Admin: 02/19/19 09:35 Dose: 166.667 mls/hr Insulin Glargine (Lantus(*)) 24 units SUBCUT DAILY [facility] Last Admin: 02/19/19 09:35 Dose: 24 units Insulin Human Lispro (Humalog*) 0 units SUBCUT AC [facility]; Protocol Last Admin: 02/19/19 13:33 Dose: 2 units Insulin Human Lispro (Humalog*) 0 units SUBCUT AC [facility]; Protocol Last Admin: 02/19/19 13:33 Dose: 3 units Lactobacillus Rhamnosus (Lactobacillus Acidophilus*) 1 tab PO BID [facility] Last Admin: 02/19/19 09:33 Dose: 1 tab Lactulose (Lactulose*) 30 ml PO Q6H PRN PRN Reason: constipation Lisinopril (Prinivil Tab*) 5 mg PO DAILY [facility] Last Admin: 02/19/19 09:33 Dose: 5 mg Loperamide HCl (Imodium Cap*) 2 mg PO .SEE DIRECTIONS PRN PRN Reason: DIARRHEA Magnesium Hydroxide (Milk Of Magnesia Liq*) 30 ml PO Q6H PRN PRN Reason: constipation Ondansetron HCl (Zofran Inj*) 4 mg IV Q6H PRN PRN Reason: nausea Ondansetron HCl (Zofran Odt Tab*) 4 mg PO Q6H PRN PRN Reason: NAUSEA Pantoprazole Sodium (Protonix Tab*) [address] [facility] [place] [facility] Admin: 02/19/19 09:33 Dose: 40 mg Pharmacy Consult (Vancomycin Per Pharmacy*) 1 note FOLLOW UP . PRN PRN Reason: PER PROTOCOL Pharmacy Profile Note (Vancomycin Trough Check) 1 note FOLLOW UP 0830 ONE Stop: 02/20/19 08:31 Pharmacy Profile Note (Vancomycin Trough Check) 1 note FOLLOW UP ONCE ONE Stop: 02/20/19 08:31 Polyethylene Glycol/Electrolytes (Miralax*) 17 gm PO DAILY PRN PRN Reason: Constipation Sertraline HCl (Zoloft*) 100 mg PO [facility] Last Admin: 02/19/19 09:34 Dose: 100 mg Trazodone HCl (Desyrel Tab*) 25 mg PO BEDTIME PRN PRN Reason: insomnia Last Admin: 02/17/19 21:37 Dose: 25 mg Vital Signs - 8 hr 02/19/19 08:00 Respiratory 16 Rate O2 Sat by Pulse 98 Oximetry Oxygen Devices in Use Now: None Appearance: 63 yo F in nAD, aAOx3 Eyes: No Scleral Icterus, PERRLA Ears/Nose/Mouth/Throat: NL Teeth, Lips, Gums, Mucous Membranes Moist Neck: NL Appearance and Movements; NL JVP, Trachea Midline Respiratory: Symmetrical Chest Expansion and Respiratory Effort, Clear to Auscultation Cardiovascular: NL Sounds; No Murmurs; No JVD, RRR Abdominal: NL Sounds; No Tenderness; No Distention Lymphatic: No Cervical Adenopathy Extremities: No Clubbing, Cyanosis, - - left foot stump in surgical dressings, not uncovered Skin: No Nodules or Sclerosis Neurological: Alert and Oriented x 3, NL Muscle Strength and Tone Result Diagrams: 02/19/19 06:11 02/19/19 06:11 Assess/Plan/Problems-Billing Ms Valdez is 63yo F with PMH of type 2 DM, diabetic neuropathy, HTN, depression, GERD, colon CA s/p resection and chemo, left foot osteomyelitis s/p left Pirogoff amputation, who was admitted due to stump infection. Hospitalist service consulted to assist with comorbidities management. - Patient Problems (1) Diabetic foot infection Code(s): E11.628 - TYPE 2 DIABETES MELLITUS WITH OTHER SKIN COMPLICATIONS; L08.9 - LOCAL INFECTION OF THE SKIN AND SUBCUTANEOUS TISSUE, UNSP Comment: - Management per Ortho and ID. - Continue NWB LLE. - Continue BID betadine soaked gauze to the distal stump. - MRI suggestive of osteomyelitis - d/w ID - would recommend 4-6 weeks of IV Vancomycin or Daptomycin - placed PICC line. - Ortho decision: no surgical revision at this time. (2) CKD (chronic kidney disease) Comment: Creatinine is at baseline. Monitor intermittently. (3) Diarrhea Comment: - chronic, will tx with simethicone due to "gas pain" (4) Diabetes mellitus Comment: - Endocrinology input appreciated - increase Lantus by 3 units until AM FS <120. - If discharged home, will need prescriptions for insulin as outlined on Dr Patterson 's consult. (5) HTN (hypertension) Comment: - Controlled. - Continue lisinopril. (6) DVT prophylaxis Comment: Lovenox Status and Disposition: Hospitalist service will continue to follow with you.
--- NOTE | 2019-02-19 14:19 | PN ---
Progress Note - Progress Note Date of Service: 02/19/19 SOAP: Subjective: []Pt seen at bedside. She feels well without fever or chills. Agrees to go to [facility] for rehab. Objective: []General: Appears well, NAD LLE: Plantar heel with a superficial 5.5x4.0 cm area of raw tissue without erythema, discharge or fluctuance. Anterior surgical scar is well healed. Calves are supple and nontender Assessment: []left lower extremity stump breakdown and cellulitis, SP hindfoot amputation with well healed anterior surgical incision Plan: []NWB LLE Continue IV vancomycin per ID Lovenox 40 mg sq qd Continue twice daily Betadine wet to dry dressings Discussed with Dr Haynes, patient can discharge on IV abx, no surgery planned at this time Follow up with Dr Haynes next week, sooner with concerns DC as soon as bed offer/insurance approval and abx set up. Vital Signs Temp 98.6 F 02/19/19 11:11 Pulse 55 02/19/19 11:11 Resp 16 02/19/19 11:11 BP 142/83 02/19/19 11:11 Pulse Ox 99 02/19/19 11:11 Intake & Output 02/18/19 02/19/19 02/19/19 18:59 06:59 18:59 Intake Total 1480 270 990 Balance 1480 270 990 Intake: IV Fluids 20 270 ABX - VANCOMYCIN 250 NS (0.9%) 20 20 IVPB 280 250 ABX - VANCOMYCIN 280 250 Oral 1200 0 720 Other: Estimated Void Medium Medium # Bowel Movements 0 0 3 Estimated Stool Amount Large # Voids 3 0 3 Laboratory Last Values WBC 4.6 10^3/uL (3.5-10.8) 02/19/19 06:11 RBC 3.78 10^6 /uL (3.70-4.87) 02/19/19 06:11 Hgb 9.9 g/dL (12.0-16.0) L 02/19/19 06:11 Hct 31 % (35-47) L 02/19/19 06:11 MCV 81 fL (80-97) 02/19/19 06:11 MCH 26 pg (27-31) L 02/19/19 06:11 MCHC 32 g/dL (31-36) 02/19/19 06:11 RDW 15 % (10.5-15) 02/19/19 06:11 Plt Count 280 10^3/uL (150-450) 02/19/19 06:11 MPV 8.2 fL (7.4-10.4) 02/19/19 06:11 Neut % (Auto) 77.7 % 02/19/19 06:11 Lymph % (Auto) 14.4 % 02/19/19 06:11 Sullivan % (Auto) 5.1 % 02/19/19 06:11 Eos % (Auto) 2.0 % 02/19/19 06:11 Baso % (Auto) 0.8 % 02/19/19 06:11 Absolute Neuts (auto) 3.6 10^3/ul (1.5-7.7) 02/19/19 06:11 Absolute Lymphs (auto) 0.7 10^3/ul (1.0-4.8) L 02/19/19 06:11 Absolute Monos (auto) 0.2 10^3/ul (0-0.8) 02/19/19 06:11 Absolute Eos (auto) 0.1 10^3/ul (0-0.6) 02/19/19 06:11 Absolute Basos (auto) 0.0 10^3/ul (0-0.2) 02/19/19 06:11 Absolute Nucleated RBC 0.0 10^3/ul 02/19/19 06:11 Nucleated RBC % 0.1 02/19/19 06:11 Sodium 141 mmol/L (135-145) 02/19/19 06:11 Potassium 4.1 mmol/L (3.5-5.0) 02/19/19 06:11 Chloride 109 mmol/L (101-111) 02/19/19 06:11 Carbon Dioxide 25 mmol/L (22-32) 02/19/19 06:11 Anion Gap 7 mmol/L (2-11) 02/19/19 06:11 BUN 19 mg/dL (6-24) 02/19/19 06:11 Creatinine 1.26 mg/dL (0.51-0.95) H 02/19/19 06:11 Est GFR ( Amer) 51.7 (>60) 02/19/19 06:11 Est GFR (Non-Af Amer) 42.8 (>60) 02/19/19 06:11 BUN/Creatinine Ratio 15.1 (8-20) 02/19/19 06:11 Glucose 168 mg/dL (70-100) H 02/19/19 06:11 POC Glucose (mg/dL) 131 mg/dL (70-100) H 02/19/19 11:55 Hemoglobin A1c 10.5 % (4.0-5.6) H 02/14/19 06:23 Calcium 9.0 mg/dL (8.6-10.3) 02/19/19 06:11 C-Reactive Protein 10.51 mg/L (<8.01) H 02/19/19 06:11 Vancomycin Trough 19.4 mcg/mL 02/18/19 06:52
--- NOTE | 2019-02-19 14:33 | PN ---
Subjective Date of Service: 02/19/19 Family History: Unchanged from Admission Social History: Unchanged from Admission Past Medical History: Unchanged from Admission Objective Active Medications: Acetaminophen (Tylenol Tab*) 975 mg PO Q8H [facility] Last Admin: 02/19/19 13:31 Dose: 975 mg Bisacodyl (Dulcolax Supp*) 10 mg [place] DAILY PRN PRN Reason: constipation Dextrose (D50w Syringe 50 Ml*) 12.5 gm IV PUSH .FOR FS < 60 - SS PRN PRN Reason: FS < 60 Diphenhydramine HCl (Benadryl Iv*) 25 mg IV Q6H PRN PRN Reason: itching Diphenhydramine HCl (Benadryl Po*) 25 mg PO Q6H PRN PRN Reason: itching Docusate Sodium (Colace Cap*) 100 mg PO BID [facility] Last Admin: 02/19/19 09:37 Dose: Not Given Enoxaparin Sodium (Lovenox(*)) 40 mg SUBCUT Q24H [facility] Last Admin: 02/18/19 18:33 Dose: 40 mg Ferrous Sulfate (Ferrous Sulfate Tab*) 325 mg PO DAILY [facility] Last Admin: 02/19/19 09:34 Dose: 325 mg Heparin Sodium (Porcine) (Heparin Flush Picc/Ml/Cvc(*)) 1 - 3 ml FLUSH 0600, 1800 [facility]; Protocol Vancomycin HCl 750 mg/ Sodium (Chloride) 250 mls @ 166.667 mls/hr IVPB Q12H [facility] Last Admin: 02/19/19 09:35 Dose: 166.667 mls/hr Insulin Glargine (Lantus(*)) 24 units SUBCUT DAILY [facility] Last Admin: 02/19/19 09:35 Dose: 24 units Insulin Human Lispro (Humalog*) 0 units SUBCUT AC [facility]; Protocol Last Admin: 02/19/19 13:33 Dose: 2 units Insulin Human Lispro (Humalog*) 0 units SUBCUT AC [facility]; Protocol Last Admin: 02/19/19 13:33 Dose: 3 units Lactobacillus Rhamnosus (Lactobacillus Acidophilus*) 1 tab PO BID [facility] Last Admin: 02/19/19 09:33 Dose: 1 tab Lactulose (Lactulose*) 30 ml PO Q6H PRN PRN Reason: constipation Lisinopril (Prinivil Tab*) 5 mg PO DAILY [facility] Last Admin: 02/19/19 09:33 Dose: 5 mg Loperamide HCl (Imodium Cap*) 2 mg PO .SEE DIRECTIONS PRN PRN Reason: DIARRHEA Magnesium Hydroxide (Milk Of Magnmolly Liq*) 30 ml PO Q6H PRN PRN Reason: constipation Ondansetron HCl (Zofran Inj*) 4 mg IV Q6H PRN PRN Reason: nausea Ondansetron HCl (Zofran Odt Tab*) 4 mg PO Q6H PRN PRN Reason: NAUSEA Pantoprazole Sodium (Protonix Tab*) 40 mg PO QAM [facility] Last Admin: 02/19/19 09:33 Dose: 40 mg Pharmacy Consult (Vancomycin Per Pharmacy*) 1 note FOLLOW UP . PRN PRN Reason: PER PROTOCOL Pharmacy Profile Note (Vancomycin Trough Check) 1 note FOLLOW UP 0830 ONE Stop: 02/20/19 08:31 Pharmacy Profile Note (Vancomycin Trough Check) 1 note FOLLOW UP ONCE ONE Stop: 02/20/19 08:31 Polyethylene Glycol/Electrolytes (Miralax*) 17 gm PO DAILY PRN PRN Reason: Constipation Sertraline HCl (Zoloft*) [facility] [place] Last Admin: 02/19/19 09:34 Dose: 100 mg Trazodone HCl (Desyrel Tab*) 25 mg PO BEDTIME PRN PRN Reason: insomnia Last Admin: 02/17/19 21:37 Dose: 25 mg Vital Signs - 8 hr 02/19/19 02/19/19 02/19/19 07:50 08:00 11:11 Temperature 97.9 F 98.6 F Pulse Rate 51 55 Respiratory 18 16 16 Rate Blood Pressure 142/57 142/83 (mmHg) O2 Sat by Pulse 100 98 99 Oximetry Oxygen Devices in Use Now: None Result Diagrams: 02/19/19 06:11 02/19/19 06:11 Assess/Plan/Problems-Billing Ms Valdez is 63yo F with PMH of type 2 DM, diabetic neuropathy, HTN, depression, GERD, colon CA s/p resection and chemo, left foot osteomyelitis s/p left Pirogoff amputation, who was admitted due to stump infection. Hospitalist service consulted to assist with comorbidities management. Status and Disposition: Hospitalist service will continue to follow with you.
[2019-02-19] MEDS: Enoxaparin(*) 40 MG/0.4 ML SYR SUBCUT SCH (18:08)
[2019-02-20] MEDS: Acetaminophen TAB* 325 MG PO SCH ×4 (05:22→21:39)
[2019-02-20] MEDS: Docusate CAP* 100 MG PO SCH ×2 (08:06→19:10)
[2019-02-20] MEDS: Lisinopril TAB* 5 MG PO SCH (08:16)
[2019-02-20] MEDS: Pantoprazole TAB * 40 MG TAB PO SCH (08:16)
[2019-02-20] MEDS: Sertraline* 100 MG TAB PO SCH (08:16)
[2019-02-20] MEDS: Ferrous Sulfate TAB* 325 MG PO SCH (08:16)
[2019-02-20] MEDS: Lactobacillus Acidophilus* 1 TAB PO SCH ×2 (08:16→21:31)
[2019-02-20] MEDS ORDERED: Vancomycin Trough Check NOTE FOLLOW UP ONE ×2 (08:30)
[2019-02-20] MEDS ORDERED: Insulin GLARGINE(*) 1 UNITS UNIT SUBCUT SCH (09:00)
[2019-02-20] MEDS: Insulin LISPRO* 1 UNITS UNIT SUBCUT SCH ×6 (09:33→18:08)
[2019-02-20 11:07] LABS: Vancomycin Trough 17.4 mcg/mL
[2019-02-20] MEDS: Vancomycin(*) 750 MG in NS 0.9% 250 ML* 250 ML IVPB SCH ×2 (11:47→21:32)
[2019-02-20] MEDS: Simethicone TAB* 80 MG TAB.CHEW PO PRN (12:47)
--- NOTE | 2019-02-20 13:49 | PN ---
Subjective Date of Service: 02/20/19 Interval History: Pt c/o abd cramping after eating which is chronic. Has not had any BM since last night Family History: Unchanged from Admission Social History: Unchanged from Admission Past Medical History: Unchanged from Admission Objective Active Medications: Acetaminophen (Tylenol Tab*) 975 mg PO Q8H [facility] Last Admin: 02/20/19 12:47 Dose: 975 mg Bisacodyl (Dulcolax Supp*) 10 mg [place] DAILY PRN PRN Reason: constipation Dextrose (D50w Syringe 50 Ml*) 12.5 gm IV PUSH .FOR FS < 60 - SS PRN PRN Reason: FS < 60 Diphenhydramine HCl (Benadryl Iv*) 25 mg IV Q6H PRN PRN Reason: itching Diphenhydramine HCl (Benadryl Po*) 25 mg PO Q6H PRN PRN Reason: itching Docusate Sodium (Colace Cap*) 100 mg PO BID [facility] Last Admin: 02/20/19 08:06 Dose: Not Given Enoxaparin Sodium (Lovenox(*)) 40 mg SUBCUT Q24H [facility] Last Admin: 02/19/19 18:08 Dose: 40 mg Ferrous Sulfate (Ferrous Sulfate Tab*) 325 mg PO DAILY [facility] Last Admin: 02/20/19 08:16 Dose: 325 mg Heparin Sodium (Porcine) (Heparin Flush Picc/Ml/Cvc(*)) 1 - 3 ml FLUSH 0600, 1800 [facility]; Protocol Last Admin: 02/19/19 23:21 Dose: 1 ml Vancomycin HCl 750 mg/ Sodium (Chloride) 250 mls @ 166.667 mls/hr IVPB Q12H [facility] Last Admin: 02/20/19 11:47 Dose: 166.667 mls/hr Insulin Glargine (Lantus(*)) 27 units SUBCUT DAILY [facility] Last Admin: 02/20/19 09:34 Dose: 27 units Insulin Human Lispro (Humalog*) 0 units SUBCUT AC [facility]; Protocol Last Admin: 02/20/19 09:33 Dose: 2 units Insulin Human Lispro (Humalog*) 0 units SUBCUT AC [facility]; Protocol Last Admin: 02/20/19 09:34 Dose: 2 units Lactobacillus Rhamnosus (Lactobacillus Acidophilus*) 1 tab PO BID [facility] Last Admin: 02/20/19 08:16 Dose: 1 tab Lactulose (Lactulose*) 30 ml PO Q6H PRN PRN Reason: constipation Lisinopril (Prinivil Tab*) 5 mg PO DAILY [facility] Last Admin: 02/20/19 08:16 Dose: 5 mg Loperamide HCl (Imodium Cap*) 2 mg PO .SEE DIRECTIONS PRN PRN Reason: DIARRHEA Magnesium Hydroxide (Milk Of Magnesia Liq*) 30 ml PO Q6H PRN PRN Reason: constipation Ondansetron HCl (Zofran Inj*) 4 mg IV Q6H PRN PRN Reason: nausea Ondansetron HCl (Zofran Odt Tab*) 4 mg PO Q6H PRN PRN Reason: NAUSEA Pantoprazole Sodium (Protonix Tab*) 40 mg PO QAM [facility] Last Admin: 02/20/19 08:16 Dose: 40 mg Pharmacy Consult (Vancomycin Per Pharmacy*) 1 note FOLLOW UP . PRN PRN Reason: PER PROTOCOL Polyethylene Glycol/Electrolytes (Miralax*) 17 gm PO DAILY PRN PRN Reason: Constipation Sertraline HCl (Zoloft*) [facility] [place] Last Admin: 02/20/19 08:16 Dose: 100 mg Simethicone (Mylicon Tab*) 80 mg PO Q6H PRN PRN Reason: abd discomfort Last Admin: 02/20/19 12:47 Dose: 80 mg Trazodone HCl (Desyrel Tab*) 25 mg PO BEDTIME PRN PRN Reason: insomnia Last Admin: 02/17/19 21:37 Dose: 25 mg Vital Signs - 8 hr 02/20/19 02/20/19 07:46 08:00 Temperature 97.4 F Pulse Rate 56 Respiratory 16 16 Rate Blood Pressure 167/65 (mmHg) O2 Sat by Pulse 99 Oximetry Oxygen Devices in Use Now: None Appearance: 63 yo F in nAD, aAOx3 Eyes: No Scleral Icterus, PERRLA Ears/Nose/Mouth/Throat: NL Teeth, Lips, Gums, Mucous Membranes Moist Neck: NL Appearance and Movements; NL JVP, Trachea Midline Respiratory: Symmetrical Chest Expansion and Respiratory Effort, Clear to Auscultation Cardiovascular: NL Sounds; No Murmurs; No JVD, RRR Abdominal: - - mildy distended , soft , NT BS+ Lymphatic: No Cervical Adenopathy Extremities: - - mild left leg edema Skin: No Nodules or Sclerosis, - - left LE s/p foot amputation-post op dressings not removed Neurological: Alert and Oriented x 3, NL Muscle Strength and Tone Result Diagrams: 02/19/19 06:11 02/19/19 06:11 Microbiology and Other Data: Microbiology 02/19/19 14:00 Stool Gross Appearance - Final Stool C. difficile DNA Amplification - Final 027 Presumptive NEGATIVE Toxigenic C.diff NEGATIVE Assess/Plan/Problems-Billing Ms Valdez is 63yo F with PMH of type 2 DM, diabetic neuropathy, HTN, depression, GERD, colon CA s/p resection and chemo, left foot osteomyelitis s/p left Pirogoff amputation, who was admitted due to stump infection. Hospitalist service consulted to assist with comorbidities management. - Patient Problems (1) Diabetic foot infection Code(s): E11.628 - TYPE 2 DIABETES MELLITUS WITH OTHER SKIN COMPLICATIONS; L08.9 - LOCAL INFECTION OF THE SKIN AND SUBCUTANEOUS TISSUE, UNSP Comment: - Management per Ortho and ID. - Continue NWB LLE. - Continue BID betadine soaked gauze to the distal stump. - MRI suggestive of osteomyelitis - d/w ID recommends 4-6 weeks of IV Vancomycin or Daptomycin - placed PICC line. - Ortho decision: no surgical revision at this time. (2) CKD (chronic kidney disease) Comment: Creatinine is at baseline. Monitor intermittently. (3) Diarrhea Comment: - chronic, will tx with simethicone due to "gas pain" -stool neg for C.diff -cont Imodium prn (4) Diabetes mellitus Comment: - Endocrinology input appreciated - increase Lantus by 3 units until AM FS <120. - If discharged home, will need prescriptions for insulin as outlined on Dr Patterson 's consult. (5) HTN (hypertension) Comment: - Controlled. - Continue lisinopril. (6) DVT prophylaxis Comment: Lovenox Status and Disposition: Medicine consult
[2019-02-20 13:57] LABS: EGFR African American 60.5 (>60)
[2019-02-20] MEDS: Loperamide CAP* 2 MG PO PRN ×3 (16:22→19:14)
[2019-02-20] MEDS: Enoxaparin(*) 40 MG/0.4 ML SYR SUBCUT SCH (16:23)
[2019-02-21] MEDS: Acetaminophen TAB* 325 MG PO SCH ×3 (05:12→21:23)
[2019-02-21] MEDS: Insulin LISPRO* 1 UNITS UNIT SUBCUT SCH ×6 (08:35→17:59)
[2019-02-21] MEDS: Vancomycin(*) 750 MG in NS 0.9% 250 ML* 250 ML IVPB SCH ×2 (08:45→21:22)
[2019-02-21] MEDS: Insulin GLARGINE(*) 1 UNITS UNIT SUBCUT SCH (08:51)
[2019-02-21] MEDS: Lactobacillus Acidophilus* 1 TAB PO SCH ×2 (08:52→21:22)
[2019-02-21] MEDS: Lisinopril TAB* 5 MG PO SCH (08:52)
[2019-02-21] MEDS: Ferrous Sulfate TAB* 325 MG PO SCH (08:52)
[2019-02-21] MEDS: Docusate CAP* 100 MG PO SCH ×2 (08:53→21:34)
[2019-02-21] MEDS: Sertraline* 100 MG TAB PO SCH (08:53)
[2019-02-21] MEDS: Pantoprazole TAB * 40 MG TAB PO SCH (08:53)
[2019-02-21] MEDS: Simethicone TAB* 80 MG TAB.CHEW PO PRN (13:44)
--- NOTE | 2019-02-21 15:14 | PN ---
Subjective Date of Service: 02/21/19 Interval History: Pt feels well. Abd pain/diarrhea better with tx with simethicone and Imodium Family History: Unchanged from Admission Social History: Unchanged from Admission Past Medical History: Unchanged from Admission Objective Active Medications: Acetaminophen (Tylenol Tab*) 975 mg PO Q8H [facility] Last Admin: 02/21/19 13:36 Dose: 975 mg Bisacodyl (Dulcolax Supp*) 10 mg [place] DAILY PRN PRN Reason: constipation Dextrose (D50w Syringe 50 Ml*) 12.5 gm IV PUSH .FOR FS < 60 - SS PRN PRN Reason: FS < 60 Diphenhydramine HCl (Benadryl Iv*) 25 mg IV Q6H PRN PRN Reason: itching Diphenhydramine HCl (Benadryl Po*) 25 mg PO Q6H PRN PRN Reason: itching Docusate Sodium (Colace Cap*) 100 mg PO BID [facility] Last Admin: 02/21/19 08:53 Dose: Not Given Enoxaparin Sodium (Lovenox(*)) 40 mg SUBCUT Q24H [facility] Last Admin: 02/20/19 16:23 Dose: 40 mg Ferrous Sulfate (Ferrous Sulfate Tab*) 325 mg PO DAILY [facility] Last Admin: 02/21/19 08:52 Dose: 325 mg Heparin Sodium (Porcine) (Heparin Flush Picc/Ml/Cvc(*)) 1 - 3 ml FLUSH 0600, 1800 [facility]; Protocol Last Admin: 02/21/19 11:07 Dose: 1 ml Vancomycin HCl 750 mg/ Sodium (Chloride) 250 mls @ 166.667 mls/hr IVPB Q12H [facility] Last Admin: 02/21/19 08:45 Dose: 166.667 mls/hr Insulin Glargine (Lantus(*)) 30 units SUBCUT DAILY [facility] Last Admin: 02/21/19 08:51 Dose: 30 units Insulin Human Lispro (Humalog*) 0 units SUBCUT AC [facility]; Protocol Last Admin: 02/21/19 13:14 Dose: Not Given Insulin Human Lispro (Humalog*) 0 units SUBCUT AC [facility]; Protocol Last Admin: 02/21/19 13:36 Dose: 1 units Lactobacillus Rhamnosus (Lactobacillus Acidophilus*) 1 tab PO BID [facility] Last Admin: 02/21/19 08:52 Dose: 1 tab Lactulose (Lactulose*) 30 ml PO Q6H PRN PRN Reason: constipation Lisinopril (Prinivil Tab*) 5 mg PO DAILY [facility] Last Admin: 02/21/19 08:52 Dose: 5 mg Loperamide HCl (Imodium Cap*) 2 mg PO .SEE DIRECTIONS PRN PRN Reason: DIARRHEA Last Admin: 02/20/19 19:14 Dose: 2 mg Magnesium Hydroxide (Milk Of Magnesia Liq*) 30 ml PO Q6H PRN PRN Reason: constipation Ondansetron HCl (Zofran Inj*) 4 mg IV Q6H PRN PRN Reason: nausea Ondansetron HCl (Zofran Odt Tab*) 4 mg PO Q6H PRN PRN Reason: NAUSEA Pantoprazole Sodium (Protonix Tab*) 40 mg PO QAM [facility] Last Admin: 02/21/19 08:53 Dose: 40 mg Pharmacy Consult (Vancomycin Per Pharmacy*) 1 note FOLLOW UP . PRN PRN Reason: PER PROTOCOL Polyethylene Glycol/Electrolytes (Miralax*) 17 gm PO DAILY PRN PRN Reason: Constipation Sertraline HCl ([facility]oloft*) [address] [facility] [place] Last Admin: 02/21/19 08:53 Dose: 100 mg Simethicone (Mylicon Tab*) 80 mg PO Q6H PRN PRN Reason: abd discomfort Last Admin: 02/21/19 13:44 Dose: 80 mg Trazodone HCl (Desyrel Tab*) 25 mg PO BEDTIME PRN PRN Reason: insomnia Last Admin: 02/17/19 21:37 Dose: 25 mg Vital Signs - 8 hr 02/21/19 02/21/19 08:45 11:52 Temperature 97.2 F Pulse Rate 50 Respiratory 20 12 Rate Blood Pressure 149/59 (mmHg) O2 Sat by Pulse 99 100 Oximetry Oxygen Devices in Use Now: None Appearance: 63 yo F in nAD, aAOx3 Eyes: No Scleral Icterus, PERRLA Ears/Nose/Mouth/Throat: NL Teeth, Lips, Gums, Mucous Membranes Moist Neck: NL Appearance and Movements; NL JVP, Trachea Midline Respiratory: Symmetrical Chest Expansion and Respiratory Effort, Clear to Auscultation Cardiovascular: NL Sounds; No Murmurs; No JVD, RRR Abdominal: NL Sounds; No Tenderness; No Distention Lymphatic: No Cervical Adenopathy Extremities: No Clubbing, Cyanosis, - - trace left leg edema Skin: No Nodules or Sclerosis, - - left leg stump with area of an open scupeficial wound of 5 cm at the bottom of stump with healthy granulation tissue and no evidence of cellulitis. Neurological: Alert and Oriented x 3, NL Muscle Strength and Tone Result Diagrams: 02/19/19 06:11 02/20/19 08:25 Microbiology and Other Data: Microbiology 02/19/19 14:00 Stool Gross Appearance - Final Stool C. difficile DNA Amplification - Final 027 Presumptive NEGATIVE Toxigenic C.diff NEGATIVE Assess/Plan/Problems-Billing Ms Valdez is 63yo F with PMH of type 2 DM, diabetic neuropathy, HTN, depression, GERD, colon CA s/p resection and chemo, left foot osteomyelitis s/p left Pirogoff amputation, who was admitted due to stump infection. Hospitalist service consulted to assist with comorbidities management. - Patient Problems (1) Diabetic foot infection Code(s): E11.628 - TYPE 2 DIABETES MELLITUS WITH OTHER SKIN COMPLICATIONS; L08.9 - LOCAL INFECTION OF THE SKIN AND SUBCUTANEOUS TISSUE, UNSP Comment: - Management per Ortho and ID. - Continue NWB LLE. - Continue BID betadine soaked gauze to the distal stump. - MRI suggestive of osteomyelitis - d/w ID recommends 4-6 weeks of IV Vancomycin or Daptomycin - placed PICC line. - Ortho decision: no surgical revision at this time. (2) CKD (chronic kidney disease) Comment: Creatinine is at baseline. Monitor intermittently. (3) Diarrhea Comment: - chronic, will tx with simethicone due to "gas pain" -stool neg for C.diff -cont Imodium prn (4) Diabetes mellitus Comment: - Endocrinology input appreciated - increase Lantus by 3 units until AM FS <120. - If discharged home, will need prescriptions for insulin as outlined on Dr Patterson 's consult. (5) HTN (hypertension) Comment: - Controlled. - Continue lisinopril. (6) DVT prophylaxis Comment: Lovenox Status and Disposition: Medicine consult. Sugars are stable. Will sign off for now and see pt prn. Thank You for consult. Call if needed.
[2019-02-21] MEDS: Enoxaparin(*) 40 MG/0.4 ML SYR SUBCUT SCH (16:47)
[2019-02-21] MEDS: Loperamide CAP* 2 MG PO PRN (21:21)
[2019-02-22] MEDS: Loperamide CAP* 2 MG PO PRN (00:35)
[2019-02-22] MEDS: Pantoprazole TAB * 40 MG TAB PO SCH (08:50)
[2019-02-22] MEDS: Ferrous Sulfate TAB* 325 MG PO SCH (08:50)
[2019-02-22] MEDS: Lisinopril TAB* 5 MG PO SCH (08:50)
[2019-02-22] MEDS: Sertraline* 100 MG TAB PO SCH (08:50)
[2019-02-22] MEDS: Lactobacillus Acidophilus* 1 TAB PO SCH ×2 (08:50→21:55)
[2019-02-22] MEDS: Acetaminophen TAB* 325 MG PO SCH ×3 (08:51→22:08)
[2019-02-22] MEDS: Insulin GLARGINE(*) 1 UNITS UNIT SUBCUT SCH (08:52)
[2019-02-22] MEDS: Insulin LISPRO* 1 UNITS UNIT SUBCUT SCH ×6 (08:52→17:49)
[2019-02-22] MEDS: Docusate CAP* 100 MG PO SCH ×2 (08:52→22:09)
[2019-02-22] MEDS: Vancomycin(*) 750 MG in NS 0.9% 250 ML* 250 ML IVPB SCH ×2 (09:00→21:55)
[2019-02-22] MEDS: Simethicone TAB* 80 MG TAB.CHEW PO PRN (09:24)
--- NOTE | 2019-02-22 11:43 | PN ---
Progress Note - Progress Note Date of Service: 02/22/19 SOAP: Subjective: [Pt with no c/o pain. In good spirits. Denies CP/SOB/dizziness. C/O diarrhea with vanco. Was seen by Dr. Haynes earlier today.] Objective: [A and O x 3, NAD L stump dressing C/D/I, Calves soft/NT Vital Signs: Temp Pulse Resp BP Pulse Ox 97.1 F 54 16 159/65 100 02/22/19 03:39 02/22/19 03:39 02/22/19 08:45 02/22/19 03:39 02/22/19 08:00 Laboratory Results - last 24 hr 02/21/19 02/21/19 02/21/19 08:02 12:03 16:51 POC Glucose (mg/dL) 129 H 112 H 53 L 02/21/19 02/21/19 02/22/19 17:06 22:43 07:48 POC Glucose (mg/dL) 97 236 H 103 H Assessment: [L LE stump cellulitis, breakdown] Plan: [NWB LLE Con't vanco per ID Lovenox 40 mg sq qd D/C to [facility] is planned for tomorrow]
[2019-02-22] MEDS: Enoxaparin(*) 40 MG/0.4 ML SYR SUBCUT SCH (16:31)
[2019-02-23 06:44] LABS: EGFR African American 54.7 (>60); EGFR Non-African American 45.2 (>60)
[2019-02-23] MEDS: Acetaminophen TAB* 325 MG PO SCH ×2 (06:47→12:48)
[2019-02-23 07:45] VITALS: BP 147/71
[2019-02-23] MEDS: Docusate CAP* 100 MG PO SCH (09:10)
[2019-02-23] MEDS: Insulin GLARGINE(*) 1 UNITS UNIT SUBCUT SCH (09:10)
[2019-02-23] MEDS: Sertraline* 100 MG TAB PO SCH (09:10)
[2019-02-23] MEDS: Pantoprazole TAB * 40 MG TAB PO SCH (09:10)
[2019-02-23] MEDS: Lisinopril TAB* 5 MG PO SCH (09:10)
[2019-02-23] MEDS: Lactobacillus Acidophilus* 1 TAB PO SCH (09:10)
[2019-02-23] MEDS: Ferrous Sulfate TAB* 325 MG PO SCH (09:10)
[2019-02-23] MEDS: Insulin LISPRO* 1 UNITS UNIT SUBCUT SCH ×4 (09:11→12:49)
--- NOTE | 2019-02-23 09:20 | PN ---
Progress Note - Progress Note Date of Service: 02/23/19 SOAP: Subjective: CC: Left foot infection. HPI: Ms. Valdez is a 63 yo female with PMH significant for colon cancer s/p chemo, bowel resection, and radiation; DM2; HTN; anemia; depression; GERD; PUD; osteomyelitis of the left foot and right fingers; and DVT. Denies fever, chills , nausea, vomiting, or constipation. States that she has baseline diarrhea, continues to have loose stools, not worse than her baseline. Reports intermittent ABD discomfort. Reports appetite is good and she is eating well. She feels like her vision is blurry when reading, she states she feels this is a side effect of the Vancomycin. She has noticed this in the past and it has resolved once the Vanomycin is stopped. Objective: Vital Signs - 8 hr 02/23/19 02/23/19 03:14 07:30 Temperature 98 F 98.2 F Pulse Rate 54 54 Respiratory 16 16 Rate Blood Pressure 135/72 147/71 (mmHg) O2 Sat by Pulse 99 99 Oximetry Physical Exam: General: NAD, sitting up in bed Neurological: Alert and Oriented x4 HEENT: No thrush, moist MM Cardiovascular: Heart rate regular Respiratory: Lung sounds clear bilateral Abdominal: Bowel sounds present; ABD soft, non tender and non distended Skin: No rash. Left LE stump with open area, measures 4.4 cm x 4.8 cm x 0.1 cm. The wound bed is red granulation tissue. No drainage noted. The surrounding skin is intact with slight erythema. Laboratory Last Values WBC 4.6 10^3/uL (3.5-10.8) 02/19/19 06:11 RBC 3.78 10^6 /uL (3.70-4.87) 02/19/19 06:11 Hgb 9.9 g/dL (12.0-16.0) L 02/19/19 06:11 Hct 31 % (35-47) L 02/19/19 06:11 MCV 81 fL (80-97) 02/19/19 06:11 MCH 26 pg (27-31) L 02/19/19 06:11 MCHC 32 g/dL (31-36) 02/19/19 06:11 RDW 15 % (10.5-15) 02/19/19 06:11 Plt Count 280 10^3/uL (150-450) 02/19/19 06:11 MPV 8.2 fL (7.4-10.4) 02/19/19 06:11 Neut % (Auto) 77.7 % 02/19/19 06:11 Lymph % (Auto) 14.4 % 02/19/19 06:11 [place] % (Auto) 5.1 % 02/19/19 06:11 Eos % (Auto) 2.0 % 02/19/19 06:11 Baso % (Auto) 0.8 % 02/19/19 06:11 Absolute Neuts (auto) 3.6 10^3/ul (1.5-7.7) 02/19/19 06:11 Absolute Lymphs (auto) 0.7 10^3/ul (1.0-4.8) L 02/19/19 06:11 Absolute Monos (auto) 0.2 10^3/ul (0-0.8) 02/19/19 06:11 Absolute Eos (auto) 0.1 10^3/ul (0-0.6) 02/19/19 06:11 Absolute Basos (auto) 0.0 10^3/ul (0-0.2) 02/19/19 06:11 Absolute Nucleated RBC 0.0 10^3/ul 02/19/19 06:11 Nucleated RBC % 0.1 02/19/19 06:11 Sodium 141 mmol/L (135-145) 02/19/19 06:11 Potassium 4.1 mmol/L (3.5-5.0) 02/19/19 06:11 Chloride 109 mmol/L (101-111) 02/19/19 06:11 Carbon Dioxide 25 mmol/L (22-32) 02/19/19 06:11 Anion Gap 7 mmol/L (2-11) 02/19/19 06:11 BUN 27 mg/dL (6-24) H 02/23/19 06:10 Creatinine 1.20 mg/dL (0.51-0.95) H 02/23/19 06:10 Est GFR ( Amer) 54.7 (>60) 02/23/19 06:10 Est GFR (Non-Af Amer) 45.2 (>60) 02/23/19 06:10 BUN/Creatinine Ratio 15.1 (8-20) 02/19/19 06:11 Glucose 168 mg/dL (70-100) H 02/19/19 06:11 POC Glucose (mg/dL) 160 mg/dL (70-100) H 02/23/19 07:48 Hemoglobin A1c 10.5 % (4.0-5.6) H 02/14/19 06:23 Calcium 9.0 mg/dL (8.6-10.3) 02/19/19 06:11 C-Reactive Protein 10.51 mg/L (<8.01) H 02/19/19 06:11 Vancomycin Trough 17.4 mcg/mL 02/20/19 08:25 Microbiology 02/19/19 14:00 Stool Gross Appearance - Final Stool C. difficile DNA Amplification - Final 027 Presumptive NEGATIVE Toxigenic C.diff NEGATIVE Assessment: 1. Left foot acute osteomyelitis. S/P pirogoff amputation in 10/2018. 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 MRI shows new osteomyelitis of the tibiocalcaneal arthrodesis when compared to the previous CT from 10/2018. Afebrile and no leukocytosis. CRP 81.73 on 02/12 and down to 10.51 on 02/19/19. No plans for surgical revision per orthopedics. 2. History of left foot osteomyelitis. S/P left pirogoff amputation in 10/2018. 3. DM2 with peripheral neuropathy. Plan: Continue vancomycin 750 mg Q12H, trough goal 15-20. She will need 4-6 weeks if IV ABX, day 08/13-42. PICC line has been placed. Will need to have weekly labs while on ABX: CBC, CMP, CRP and vanco trough, please obtain on Mondays. Will need to followup in the office in about 2 weeks.
[2019-02-23] MEDS: Vancomycin(*) 750 MG in NS 0.9% 250 ML* 250 ML IVPB SCH (09:59)
--- NOTE | 2019-02-23 12:44 | DS ---
Orthopedic Discharge Summary - Discharge Summary Date of Admission:02/12/19 Date of Discharge: 02/23/19 Attending Orthopedic Provider: Colten Haynes MD Admitting Diagnosis: Left foot osteomyelitis Disposition of Patient: shelter facility Condition of Patient: Stable History: GISELLE WISE is a 63 year old F with history of left foot amputation. She was admitted with large plantar heel blister and cellulitis. Hospital Course: GISELLE was admitted to [facility] on 02/12/19. She was admitted for observation and IV antibiotics. Our hospitalist service, infectious disease, physical therapy and occupational therapy also participated in this patients care. Throughout her hospitalization, redness and swelling improved. Patient was no longer febrile and WBC count was decreasing. Patient was deemed to be medically and orthopedically stable for discharge. Physical therapy goals were met. Home Medications Medication Instructions Recorded Confirmed Type Aspirin EC TAB* [Ecotrin EC Low 81 mg PO QAM 07/23/16 02/12/19 History Dose 81 MG*] Insulin GLARGINE(*) [Lantus(*)] 85 units SUBCUT QPM 07/23/16 02/12/19 History Sertraline* [Zoloft*] 100 mg PO QAM 07/23/16 02/12/19 History Lactobacillus Acidophilus* 1 cap PO BID 12/05/17 02/12/19 History Acetaminophen [Acetaminophen Extra 2 tab PO Q6HR #0 11/14/18 02/12/19 Rx Strength] Lisinopril 40 mg PO QAM 01/14/19 02/12/19 History Ferrous Sulfate [High Potency Iron] 27 mg PO QAM 01/15/19 02/12/19 History Metoprolol Tartrate TAB* 25 mg PO BID 01/15/19 02/12/19 History [Lopressor TAB*] Omeprazole 40 mg PO QAM 01/15/19 02/12/19 History Vitamin B Complex CAP* [B Complex 1 cap PO QAM 01/15/19 02/12/19 History CAP*] Acetaminophen TAB* [Tylenol TAB*] 975 mg PO Q8H tab 02/23/19 Rx Docusate CAP* [Colace Cap*] 100 mg PO BID cap 02/23/19 Rx Enoxaparin(*) [Lovenox(*)] 40 mg SUBCUT Q24H syringe 06/10/19 Rx Heparin FLUSH PICC/ML/CVC(*) 1 - 3 ml FLUSH 0600,1800 syringe 02/23/19 Rx Instructions: Patient will be non-weightbearing on the left leg She will need daily betadine wet to dry dressing changes Elevate leg frequently Follow up with Dr. Haynes 1-2 weeks
== END 2019-02-23 13:30 | DRG 565 ==
LOC: MED 15:02
PROVIDERS: ADMIT Orthopaedic Surgery; ATTEND Orthopaedic Surgery
PROC: 02HV33Z Insertion of Infusion Device into Superior Vena Cava, Percutaneous Approach (ICD-10-PCS; principal; 2019-02-19)
DX: T87.44 Infection of amputation stump, left lower extremity (principal); M86.662 Other chronic osteomyelitis, left tibia and fibula; L03.116 Cellulitis of left lower limb; M86.172 Other acute osteomyelitis, left ankle and foot; E11.69 Type 2 diabetes mellitus with other specified complication; E11.42 Type 2 diabetes mellitus with diabetic polyneuropathy; E78.2 Mixed hyperlipidemia; F32.9 Major depressive disorder, single episode, unspecified; E66.9 Obesity, unspecified; Z96.0 Presence of urogenital implants; K21.9 Gastro-esophageal reflux disease without esophagitis; I08.1 Rheumatic disorders of both mitral and tricuspid valves; K59.09 Other constipation; R53.81 Other malaise; E87.6 Hypokalemia; T87.89 Other complications of amputation stump; Y83.5 Amputation of limb(s) as the cause of abnormal reaction of the patient, or of later complication, without mention of misadventure at the time of the procedure; E11.22 Type 2 diabetes mellitus with diabetic chronic kidney disease; N18.9 Chronic kidney disease, unspecified; K52.9 Noninfective gastroenteritis and colitis, unspecified; Z66 Do not resuscitate; R10.9 Unspecified abdominal pain; I12.9 Hypertensive chronic kidney disease with stage 1 through stage 4 chronic kidney disease, or unspecified chronic kidney disease; E11.21 Type 2 diabetes mellitus with diabetic nephropathy; I25.10 Atherosclerotic heart disease of native coronary artery without angina pectoris; D64.9 Anemia, unspecified; Z89.021 Acquired absence of right finger(s); Z89.432 Acquired absence of left foot; Z86.718 Personal history of other venous thrombosis and embolism; Z68.36 Body mass index [BMI] 36.0-36.9, adult; Z85.038 Personal history of other malignant neoplasm of large intestine; Z85.048 Personal history of other malignant neoplasm of rectum, rectosigmoid junction, and anus; Z92.3 Personal history of irradiation; Z92.21 Personal history of antineoplastic chemotherapy; Z88.8 Allergy status to other drugs, medicaments and biological substances; Y92.9 Unspecified place or not applicable; Z90.49 Acquired absence of other specified parts of digestive tract; Z83.3 Family history of diabetes mellitus; Z87.440 Personal history of urinary (tract) infections; Z79.82 Long term (current) use of aspirin; Z79.4 Long term (current) use of insulin; Z79.01 Long term (current) use of anticoagulants
CPT/HCPCS: 36415; 80048; 80202; 82565; 83036; 84520; 85025; 86140; 87493; A9270-GY; C1751; G8978-GP-CI; G8978-GP-CJ; G8979-GP-CH; G8979-GP-CI; G8980-GP-CI; G8987-GO-CK; G8988-GO-CI; J1650; J3370

== ENCOUNTER 2019-05-30 15:01 | Inpatient (IN) | payer MEDICARE ==
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
[2019-05-30] MEDS ORDERED: ED Vancomycin 1 GM/250 ML 1 GM/250 ML PREMIX.SET IVPB ONE (15:50)
[2019-05-30 16:14] LABS: ABS Basophils 0.1 10^3/ul (0-0.2); ABS Eosinophils 0.2 10^3/ul (0-0.6); ABS Lymphocytes 0.6 10^3/ul (1.0-4.8); ABS Monocytes 0.3 10^3/ul (0-0.8); ABS Neutrophils 6.2 10^3/ul (1.5-7.7); Eosinophil % 2.2 %; Hematocrit 34 % (35-47); Hemoglobin 10.9 g/dL (12.0-16.0); Lymphocyte % 8.2 %; Mean Corpuscular HGB Conc 32 g/dL (31-36); Mean Corpuscular Hemoglobin 26 pg (27-31); Mean Corpuscular Volume 80 fL (80-97); Mean Platelet Volume 8.3 fL (7.4-10.4); Nucleated Red Blood Cells % 0.1; Platelet Count 323 10^3/uL (150-450); Red Blood Count 4.22 10^6 /uL (3.70-4.87); Red Cell Distribution Width 18 % (10-15); White Blood Count 7.3 10^3/uL (3.5-10.8)
--- OUTSIDE RECORDS SUMMARY | 2019-05-30 16:17 | XMS REPORT | Continuity of Care Document ---
:1955 External Reference #:[id number] Author Name Colten Haynes M.D. (transmitted by agent of provider Ivory Hearn) Address [address] [place] [address] Care Team Providers Name Role Phone William Roman MD - Gastroenterology Care Team Information Bottom Presser Lorenzo Ortiz MD - Ophthalmology Care Team Information Bottom Presser Latrice Salas MD [facility] - Care Team Information Bottom Presser [phone] Cardiovascular Disease Steffany Wilburn MD - Internal Medicine Care Team Information Bottom Presser Problems Active Problems Provider Date Benign essential hypertension Latrice Salas M.D. Onset: 06/04/2011 Type II diabetes mellitus uncontrolled Latrice Salas M.D. Onset: Hyperlipidemia Latrice Salas M.D. Onset: 06/04/2011 Electrocardiogram abnormal Latrice Salas M.D. Onset: 06/04/2011 Morbid obesity Latrice Salas M.D. Onset: 06/04/2011 Mitral valve disorder Latrice Salas M.D. Onset: 07/30/2011 Rheumatic disease of tricuspid valve Latrice Salas M.D. Onset: 07/30 Pre-surgery evaluation Latrice Salas M.D. Onset: 09/05/2011 Gastroesophageal reflux disease Ignacio Lawrence M.D. Onset: 10/10/2011 Obesity Ignacio Lawrence M.D. Onset: 10/10/2011 Depressive disorder Ignacio Lawrence M.D. 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 Onset: 06/03/2012 distal lower extremity Thromboembolic disorder Ignacio Lawrence M.D. Onset: 07/02/2012 Open wound of anterior abdominal wall Ignacio Lawrence M.D. Onset: 2011 without complication Insomnia Ignacio Lawrence M.D. Onset: 07/16/2012 Type 2 diabetes mellitus Ignacio Lawrence M.D. Onset: 10/15/2012 Mixed hyperlipidemia Ignacio Lawrence M.D. Onset: 04/08/2013 Urinary tract infectious disease Ignacio Lawrence M.D. Onset: 04/22/2013 Closed fracture of vertebral column Ignacio Lawrence M.D. Onset: 07/21/2013 History of insertion of stent into Boris GreenlandicMYLENE Onset: 07/22/2015 ureter Note: Left ureteral stent placement d/t moderate left-sided hydronephorsis; Dr. Beau Pruett History of malignant neoplasm of rectum Boris Owens NP Onset: 07/31/2011 Note: chemo & radiation Dr. Cordon's following Type 2 diabetes mellitus with diabetic Ignacio Lawrence M.D. Onset: 2015 polyneuropathy Chronic osteomyelitis of hand Colten Brandon MD Onset: 08/31/2016 Convalescence after surgery Colten Brandon MD Onset: 09/14/2016 Type 2 diabetes mellitus with ulcer Ignacio Lawrence M.D. Onset: 10/03/2016 Anemia René Leung M.D. Onset: 03/13/2018 Pyelonephritis René Leung M.D. Onset: 03/14/2018 Hydronephrosis René Leung M.D. Onset: 03/14/2018 Long-term current use of insulin René Leung M.D. Onset: 03/14/2018 Acute osteomyelitis of ankle and/or foot Colten Haynes M.D. Onset: 2018 Social History Type Date Description Comments Sex Unknown Tobacco Use Start: Unknown Never Smoked Cigarettes ETOH Use 02/25/2014 Negative For Denies alcohol use Recreational Drug Use Denies Drug Use Tobacco Use Start: Unknown Patient has never smoked Smoking Status Reviewed: 05/19/19 Patient has never smoked Exercise Type/Frequency Exercises sporadically Allergies, Adverse Reactions, Alerts Active Allergies Reaction Severity Comments Date Glucophage nauseau, diarrhea 08/02/2010 Glipizide diarrhea 06/04/2011 Tenormin Pt states "broken veins" 06/04/2011 vascular hemmorhage Medications Active Medications SIG Qnty Indications Ordering Date Provider Ferrous Sulfate Every Day Unknown 05/06/2019 325(65Fe) mg Tablets Roxybond Q4H Unknown 05/06/2019 5mg Taba Humalog Before Meals And AT Unknown 05/06/2019 100Unit/ML Bedtime Solution Bactrim DS 1 by mouth twice a 28tabs M86.172 Colten Haynes, 04/14/2019 day M.DAbram 800-160mg Tablets Colace Twice Daily Unknown 02/23/2019 100mg Capsules Onetouch Ultra 2 check blood sugar 2 1units E11.40 [place] 12/03/2017 times daily and prtyson Lawrence M.D. w/Device Kit Onetouch Ultrasoft check blood sugar 2 100units E11.40 [place] 12/03/2017 Lancets times daily and prtyson Lawrence M.D. [facility] Onetouch Ultra Blue test twice a day 100units E11.40 [place] 12/03/2017 and as needed Heidy Lawrence Strips Basaglar Kwikpen inject 85 iu daily 30ml Zsofia Abraham, 11/15/2017 in the evenings, PANTOGRAPH ENG[employer]VER 100Unit/ML Solution reduce dose to 70 Pen-Inject iu if bs reading < 100 at night - pt taking at 9am at [facility] w/ good effect Furosemide 1 by mouth every 30tabs I10 Zsofia Abraham, 11/08/2017 20mg day f PANTOGRAPH ENGRAVER Tablets Oxygen 2 l nc at bedtime 1units Les Turcios 12/20/2016 [facility] Heidy Carter Sertraline HCL 1 tab by mouth 90tabs F32.9 Zsofia Abraham, 03/25/2015 daily PANTOGRAPH ENGRAVER 100mg Tablets BD Pen [place] for use with 100units Vanessa Prince, 12/17/2012 Short/Ultrafine/31G insulin pens as N.P. X 5/16" directed 31G X 8 [facility] Ins[facility] Syringe 1ML use qid 120units E11.40 Ignacio 08/02/2010 Heidy Lawrence Blood Sugar test qid Unknown Tylenol Extra 2 by mouth q4 hrs Unknown Strength as needed 500mg Tablets Metoprolol Tartrate 1 by mouth twice a Unknown day 25mg Tablets Lovenox 1 injection Unknown 40mg/0.4ML subcutaneous every Solution 24 hours Vitamin B Complex 1 by mouth every Unknown day Tablets Lisinopril 1 by mouth every Unknown 40mg day Tablets Omeprazole 1 by mouth every Unknown 40mg day Capsules Aspirin Low Dose 1 by mouth every Unknown day 81mg Tablets DR Vancomycin HCL 750 mg iv every 12 [facility] Rec Ceftriaxone Sodium 2gm IV q day at Unknown [place] 1gm Solution Rec History Medications Doxycycline Hyclate one tablet twice 28caps Liam Riojas 03/29/2019 - daily for 14 days Heidy Gutierrez 04/19/2019 100mg Capsules (order written on [facility] consult sheet) Vancomycin HCL 750mg IV q 12 hrs Liam Riojas 02/23/2019 - 1gm x 4-6 wks at Heidy Gutierrez 03/28/2019 Solution Rec [place] started 02/13/19 Bactrim DS 1 by mouth twice 28tabs M86.672 Colten Haynes, 02/10/2019 - a day Heidy 02/23/2019 800-160mg Tablets Immunizations CPT Code Status Date Vaccine Lot # [id number] Given 07/19/2016 Influ Virus Vaccine, Quadrivalent, Split Virus, [place] [id number] [address] Given 02/25/2014 Hepatitis B Vaccine Adult Dosage [id number] Given 05/28/2012 Fluzone Vaccine [id number] 10471 Given 05/28/2012 Influenza Virus 3Yrs & Over 39028 Given 02/06/2012 Pneumonia Vaccine [id number] Given 07/10/2011 Influenza Virus 3Yrs & Over Vital Signs Date Vital Result Comment 05/19/2019 10:26am Height 71 inches 5'11" Weight 260.00 lb Heart Rate 80 /min BP Systolic 144 mmHg BP Diastolic 70 mmHg Respiratory Rate 14 /min Body Temperature 98.4 F Pain Level 0 BMI (Body Mass Index) 36.3 kg/m2 05/12/2019 11:48am Height 71 inches 5'11" Heart Rate 65 /min BP Systolic 130 mmHg BP Diastolic 72 mmHg Respiratory Rate 18 /min Body Temperature 98.2 F Pain Level 0 Results Test Date Facility Test Result H/L Range Note Comp Metabolic 05/11/2019 [facility] Sodium 141 mmol/L Normal 135-145 [address] [place] [address] [phone] Potassium 3.8 mmol/L Normal 3.5-5.0 Co2 Carbon Dioxide 24 mmol/L Normal 22-32 Glucose 94 mg/dL Normal 70-100 Blood Urea Nitrogen 18 mg/dL Normal 6-24 Creatinine 0.83 mg/dL Normal 0.51-0.95 BUN/Creatinine Ratio 21.7 High 8-20 Calcium 7.3 mg/dL Low 8.6-10.3 Total Protein 4.6 g/dL Low 6.4-8.9 Albumin 2.6 g/dL Low 3.2-5.2 Globulin 2.0 g/dL Normal 2-4 Albumin/Globulin Ratio 1.3 Normal 1-3 Total Bilirubin 0.20 mg/dL Normal 0.2-1.0 Alkaline Phosphatase 66 U/L Normal 34-104 Alt 7 U/L Normal 7-52 Ast 8 U/L Low 13-39 Egfr Non- 69.2 >60 Egfr 83.7 >60 2 Chloride 112 mmol/L High 101-111 Anion Gap 5 mmol/L Normal 2-11 Laboratory test 05/11/2019 [facility] Vancomycin Trough 10.3 g /mL [address] [place] [address] [phone] C Reactive Protein 30.27 mg/L High <8.01 4 CBC Auto 05/11/2019 [facility] White Blood 5.6 10^3/uL Normal 3.5-10.[address] [place] [address] [phone] Red Blood Count 2.70 10^6/uL Low 3.70-4.87 Hemoglobin 6.8 g/dL Low 12.0-16.0 Hematocrit 22 % Low 35-47 Mean Corpuscular Volume 80 fL Normal 80-97 Mean Corpuscular Hemoglobin 25 pg Low 27-31 Mean Corpuscular HGB Conc 32 g/dL Normal 31-36 Red Cell Distribution Width 16 % High 10-15 Platelet Count 289 10^3/uL Normal 150-450 Mean Platelet Volume 7.6 fL Normal 7.4-10.4 Abs Neutrophils 4.8 10^3/uL Normal 1.5-7.7 Abs Lymphocytes 0.5 10^3/uL Low 1.0-4.8 Abs Monocytes 0.2 10^3/uL Normal 0-0.8 Abs Eosinophils 0.1 10^3/uL Normal 0-0.6 Abs Basophils 0.0 10^3/uL Normal 0-0.2 Abs Nucleated RBC 0.0 10^3/uL Granulocyte % 85.4 % Lymphocyte % 8.5 % Monocyte % 3.7 % Eosinophil % 2.0 % Basophil % 0.4 % Nucleated Red Blood Cells % 0.1 Laboratory test 05/11/2019 [facility] Erythrocyte Sed 103 mm/Hr High 0-29 [address] [place] [address] [phone] Comp Metabolic 03/30/2019 [facility] Sodium 142 Normal 135- 145 [address] mmol/L [place], [place] [address] [phone] Chloride 108 mmol/L Normal 101-111 Co2 Carbon Dioxide 29 mmol/L Normal 22-32 Glucose 113 mg/dL High 70-100 Blood Urea Nitrogen 29 mg/dL High 6-24 Creatinine 1.18 mg/dL High 0.51-0.95 BUN/Creatinine Ratio 24.6 High 8-20 Calcium 9.0 mg/dL Normal 8.6-10.3 Total Protein 6.0 g/dL Low 6.4-8.9 Albumin 3.5 g/dL Normal 3.2-5.2 Globulin 2.5 g/dL Normal 2-4 Albumin/Globulin Ratio 1.4 Normal 1-3 Total Bilirubin 0.20 mg/dL Normal 0.2-1.0 Alkaline Phosphatase 89 U/L Normal 34-104 Alt 8 U/L Normal 7-52 Ast 8 U/L Low 13-39 Egfr Non- 46.1 >60 Egfr 55.8 >60 7 Potassium 5.2 mmol/L High 3.5-5.0 Anion Gap 5 mmol/L Normal 2-11 Laboratory test 03/30/2019 [facility] C Reactive 13.75 High < 8.01 [address] Protein mg/L [place], [place] [id number] [phone] CBC Auto Diff 03/30/2019 [facility] White Blood 5.5 Normal 3.5 -10.[address] Count 10^3/[place] [address] [phone] Red Blood Count 3.84 10^6/uL Normal 3.70-4.87 Hemoglobin 10.0 g/dL Low 12.0-16.0 Hematocrit 31 % Low 35-47 Mean Corpuscular Volume 82 fL Normal 80-97 Mean Corpuscular Hemoglobin 26 pg Low 27-31 Mean Corpuscular HGB Conc 32 g/dL Normal 31-36 Red Cell Distribution Width 16 % High 10-15 Platelet Count 223 10^3/uL Normal 150-450 Mean Platelet Volume 9.0 fL Normal 7.4-10.4 Abs Neutrophils 4.3 10^3/uL Normal 1.5-7.7 Abs Lymphocytes 0.7 10^3/uL Low 1.0-4.8 Abs Monocytes 0.3 10^3/uL Normal 0-0.8 Abs Eosinophils 0.1 10^3/uL Normal 0-0.6 Abs Basophils 0.0 10^3/uL Normal 0-0.2 Abs Nucleated RBC 0.0 10^3/uL Granulocyte % 78.9 % Lymphocyte % 12.7 % Monocyte % 5.9 % Eosinophil % 2.2 % Basophil % 0.3 % Nucleated Red Blood Cells % 0.1 Laboratory 03/30/2019 [facility] Erythrocyte 47 mm/Hr High 0- 29 9 test finding [address] [place] [address] [phone] Laboratory 03/27/2019 [facility] Vancomycin 30.3 Critical 10 , test finding [address] Trough g/mL high 11 [place] [address] [phone] Comp 03/23/2019 [facility] Sodium 141 Normal 135-145 [address] mmol/[place] [address] [phone] Potassium 4.9 mmol/L Normal 3.5-5.0 Chloride 109 mmol/L Normal 101-111 Co2 Carbon Dioxide 25 mmol/L Normal 22-32 Anion Gap 7 mmol/L Normal 2-11 Glucose 164 mg/dL High 70-100 Blood Urea Nitrogen 32 mg/dL High 6-24 Creatinine 1.24 mg/dL High 0.51-0.95 BUN/Creatinine Ratio 25.8 High 8-20 Calcium 9.6 mg/dL Normal 8.6-10.3 Total Protein 6.1 g/dL Low 6.4-8.9 Albumin 3.6 g/dL Normal 3.2-5.2 Globulin 2.5 g/dL Normal 2-4 Albumin/Globulin Ratio 1.4 Normal 1-3 Total Bilirubin 0.20 mg/dL Normal 0.2-1.0 Alkaline Phosphatase 91 U/L Normal 34-104 Alt 9 U/L Normal 7-52 Ast 9 U/L Low 13-39 Egfr Non- 43.5 >60 Egfr 52.7 >60 13 Laboratory test 03/23/2019 [facility] Vancomycin Trough 20.6 g /mL [address] [place] [address] [phone] C Reactive Protein 10.76 mg/L High <8.01 15 CBC Auto 03/23/2019 [facility] White Blood 6.3 10^3/uL Normal 3.5-10.[address] [place] [address] [phone] Red Blood Count 4.05 10^6/uL Normal 3.70-4.87 Hemoglobin 10.5 g/dL Low 12.0-16.0 Hematocrit 33 % Low 35-47 Mean Corpuscular Volume 82 fL Normal 80-97 Mean Corpuscular Hemoglobin 26 pg Low 27-31 Mean Corpuscular HGB Conc 32 g/dL Normal 31-36 Red Cell Distribution Width 16 % High 10-15 Platelet Count 242 10^3/uL Normal 150-450 Mean Platelet Volume 9.0 fL Normal 7.4-10.4 Abs Neutrophils 5.0 10^3/uL Normal 1.5-7.7 Abs Lymphocytes 0.8 10^3/uL Low 1.0-4.8 Abs Monocytes 0.3 10^3/uL Normal 0-0.8 Abs Eosinophils 0.1 10^3/uL Normal 0-0.6 Abs Basophils 0.1 10^3/uL Normal 0-0.2 Abs Nucleated RBC 0.0 10^3/uL Granulocyte % 79.8 % Lymphocyte % 12.7 % Monocyte % 5.1 % Eosinophil % 1.6 % Basophil % 0.8 % Nucleated Red Blood Cells % 0.0 Laboratory 03/23/2019 [facility] Erythrocyte Sed 50 mm/Hr High 0-29 16 test finding [address] [place] [address] [phone] Laboratory 03/16/2019 [facility] Vancomycin 17.0 17, test finding [address] Trough g/mL 18 [place] [address] [phone] Laboratory 03/09/2019 [facility] Vancomycin 14.8 19, test finding [address] Trough g/mL 20 [place] [address] [phone] Laboratory 01/21/2019 [facility] Point of Care 165 High 70- 100 21 test finding [address] Glucose mg/dL [place], [place] [address] [phone] Laboratory 01/21/2019 [facility] Point of Care 125 High 70- 100 22 test finding [address] Glucose mg/dL [place], [place] [address] [phone] Laboratory 01/21/2019 [facility] Point of Care 112 High 70- 100 23 test finding [address] Glucose mg/dL [place], [place] [address] [phone] CBC Auto Diff 12/08/2018 [facility] White Blood 6.0 Normal 3.5 -10. [address] Count 10^3/uL 8 [place] [address] [phone] Red Blood Count 3.72 10^6/uL Normal 3.70-4.87 Hemoglobin 9.8 g/dL Low 12.0-16.0 Hematocrit 31 % Low 33-41 Mean Corpuscular Volume 82 fL Normal 80-97 Mean Corpuscular Hemoglobin 26 pg Low 27-31 Mean Corpuscular HGB Conc 32 g/dL Normal 31-36 Red Cell Distribution Width 17 % High 10.5-15 Platelet Count 245 10^3/uL Normal 150-450 Mean Platelet Volume 8.4 fL Normal 7.4-10.4 Abs Neutrophils 4.6 10^3/uL Normal 1.5-7.7 Abs Lymphocytes 0.7 10^3/uL Low 1.0-4.8 Abs Monocytes 0.4 10^3/uL Normal 0-0.8 Abs Eosinophils 0.2 10^3/uL Normal 0-0.6 Abs Basophils 0 10^3/uL Normal 0-0.2 Abs Nucleated RBC 0 10^3/uL Granulocyte % 77.3 % Lymphocyte % 11.3 % Monocyte % 6.9 % Eosinophil % 4.1 % Basophil % 0.4 % Nucleated Red Blood Cells % 0.1 Comp Metabolic 12/08/2018 [facility] Sodium 140 mmol/L Normal 135-[address] [place] [address] [phone] Potassium 4.3 mmol/L Normal 3.5-5.0 Chloride 107 mmol/L Normal 101-111 Co2 Carbon Dioxide 27 mmol/L Normal 22-32 Anion Gap 6 mmol/L Normal 2-11 Glucose 86 mg/dL Normal 70-100 Blood Urea Nitrogen 26 mg/dL High 6-24 Creatinine 1.14 mg/dL High 0.51-0.95 BUN/Creatinine Ratio 22.8 High 8-20 Calcium 9.0 mg/dL Normal 8.6-10.3 Total Protein 5.9 g/dL Low 6.4-8.9 Albumin 3.5 g/dL Normal 3.2-5.2 Globulin 2.4 g/dL Normal 2-4 Albumin/Globulin Ratio 1.5 Normal 1-3 Total Bilirubin 0.20 mg/dL Normal 0.2-1.0 Alkaline Phosphatase 123 U/L High 34-104 Alt 7 U/L Normal 7-52 Ast 8 U/L Low 13-39 Egfr Non- 48.0 >60 Egfr 58.1 >60 25 Laboratory test 12/08/2018 [facility] Vancomycin Random 22.4 g /mL [address] [place] [address] [phone] C Reactive Protein 12.20 mg/L High <8.01 27 CBC Auto 12/05/2018 [facility] White Blood 5.4 10^3/uL Normal 3.5-10.8 [address] [place] [address] [phone] Red Blood Count 3.88 10^6/uL Normal 3.70-4.87 Hemoglobin 10.4 g/dL Low 12.0-16.0 Hematocrit 32 % Low 33-41 Mean Corpuscular Volume 83 fL Normal 80-97 Mean Corpuscular Hemoglobin 27 pg Normal 27-31 Mean Corpuscular HGB Conc 32 g/dL Normal 31-36 Red Cell Distribution Width 17 % High 10.5-15 Platelet Count 265 10^3/uL Normal 150-450 Mean Platelet Volume 8.5 fL Normal 7.4-10.4 Abs Neutrophils 4.3 10^3/uL Normal 1.5-7.7 Abs Lymphocytes 0.6 10^3/uL Low 1.0-4.8 Abs Monocytes 0.3 10^3/uL Normal 0-0.8 Abs Eosinophils 0.2 10^3/uL Normal 0-0.6 Abs Basophils 0 10^3/uL Normal 0-0.2 Abs Nucleated RBC 0 10^3/uL Granulocyte % 79.2 % Lymphocyte % 11.2 % Monocyte % 5.8 % Eosinophil % 3.5 % Basophil % 0.3 % Nucleated Red Blood Cells % 0.1 Comp Metabolic 12/05/2018 [facility] Sodium 142 mmol/L Normal 135-[address] [place] [address] [phone] Potassium 4.2 mmol/L Normal 3.5-5.0 Chloride 108 mmol/L Normal 101-111 Co2 Carbon Dioxide 27 mmol/L Normal 22-32 Anion Gap 7 mmol/L Normal 2-11 Glucose 118 mg/dL High 70-100 Blood Urea Nitrogen 20 mg/dL Normal 6-24 Creatinine 1.04 mg/dL High 0.51-0.95 BUN/Creatinine Ratio 19.2 Normal 8-20 Calcium 8.8 mg/dL Normal 8.6-10.3 Total Protein 6.2 g/dL Low 6.4-8.9 Albumin 3.5 g/dL Normal 3.2-5.2 Globulin 2.7 g/dL Normal 2-4 Albumin/Globulin Ratio 1.3 Normal 1-3 Total Bilirubin 0.20 mg/dL Normal 0.2-1.0 Alkaline Phosphatase 138 U/L High 34-104 Alt 8 U/L Normal 7-52 Ast 8 U/L Low 13-39 Egfr Non- 53.3 >60 Egfr 64.6 >60 29 Laboratory test 12/05/2018 [facility] Vancomycin Random 21.2 g /mL [address] [place] [address] [phone] C Reactive Protein 12.04 mg/L High <8.01 31 Laboratory 12/03/2018 [facility] Vancomycin 21.9 32, 33 test finding [address] Random g/[place] [address] [phone] Laboratory 12/01/2018 [facility] Vancomycin 23.5 34, 35 test finding [address] Random g/[place] [address] [phone] Laboratory 11/26/2018 [facility] Vancomycin 18.0 36, 37 test finding [address] Trough g/[place] [address] [phone] CBC Auto Diff 11/21/2018 [facility] White Blood 6.1 Normal 3.5 - [address] Count 10^3/uL 10.8 [place] [address] [phone] Red Blood Count 3.86 10^6/uL Low 4.00-5.40 Hemoglobin 10.1 g/dL Low 12.0-16.0 Hematocrit 32 % Low 35-47 Mean Corpuscular Volume 82 fL Normal 80-97 Mean Corpuscular Hemoglobin 26 pg Low 27-31 Mean Corpuscular HGB Conc 32 g/dL Normal 31-36 Red Cell Distribution Width 16 % High 10.5-15 Platelet Count 409 10^3/uL Normal 150-450 Mean Platelet Volume 8.0 fL Normal 7.4-10.4 Abs Neutrophils 4.7 10^3/uL Normal 1.5-7.7 Abs Lymphocytes 0.9 10^3/uL Low 1.0-4.8 Abs Monocytes 0.3 10^3/uL Normal 0-0.8 Abs Eosinophils 0.1 10^3/uL Normal 0-0.6 Abs Basophils 0.1 10^3/uL Normal 0-0.2 Abs Nucleated RBC 0 10^3/uL Granulocyte % 76.9 % Lymphocyte % 14.4 % Monocyte % 5.4 % Eosinophil % 2.3 % Basophil % 1.0 % Nucleated Red Blood Cells % 0 Comp Metabolic 11/21/2018 [facility] Sodium 140 mmol/L Normal 135-[address] [place] [address] [phone] Chloride 105 mmol/L Normal 101-111 Co2 Carbon Dioxide 28 mmol/L Normal 22-32 Glucose 77 mg/dL Normal 70-100 Blood Urea Nitrogen 19 mg/dL Normal 6-24 Creatinine 1.04 mg/dL High 0.51-0.95 BUN/Creatinine Ratio 18.3 Normal 8-20 Calcium 9.1 mg/dL Normal 8.6-10.3 Total Protein 6.2 g/dL Low 6.4-8.9 Albumin 3.4 g/dL Normal 3.2-5.2 Globulin 2.8 g/dL Normal 2-4 Albumin/Globulin Ratio 1.2 Normal 1-3 Total Bilirubin 0.30 mg/dL Normal 0.2-1.0 Alkaline Phosphatase 105 U/L High 34-104 Alt 14 U/L Normal 7-52 Egfr Non- 53.3 >60 Egfr 64.6 >60 39 Potassium TNP mmol/L 3.5-5.0 40 Anion Gap 7 mmol/L Normal 2-11 Ast TNP U/L 13-39 41 Laboratory test 11/21/2018 [facility] Vancomycin Trough 23.6 g /mL 42 finding [address] [place] [address] [phone] C Reactive Protein 8.50 mg/L High <8.01 43 Laboratory test 11/17/2018 [facility] Vancomycin 21.7 g/mL 44, 45 finding [address] [place] [address] [phone] 1 [id number] 2 Because ethnic data is not always readily available, this report includes an eGFR for both -Americans and non- Americans. The National Kidney Disease Education Program (NKDEP) does not endorse the use of the MDRD equation for patients that are not between the ages of 18 and 70, are , have extremes of body size, muscle mass, or nutritional status, or are non- or non-. According to the National Kidney Foundation, irrespective of diagnosis, the stage of the disease is based on the level of kidney function: Stage Description GFR(mL/min/1.73 m(2)) 1 Kidney damage with normal or decreased GFR 90 2 Kidney damage with mild decrease in GFR 60-89 3 Moderate decrease in GFR 30-59 4 Severe decrease in GFR 15-29 5 Kidney failure <15 (or dialysis) 3 15-20 for HCAP, VAP, Osteomyelitis, Endocarditis, Meningitis 10-15 for All Other Infections 4 [id number] 6 [facility] - Floor: 1, Rm #: [id number] 7 Because ethnic data is not always readily available, this report includes an eGFR for both -Americans and non- Americans. The National Kidney Disease Education Program (NKDEP) does not endorse the use of the MDRD equation for patients that are not between the ages of 18 and 70, are , have extremes of body size, muscle mass, or nutritional status, or are non- or non-. According to the National Kidney Foundation, irrespective of diagnosis, the stage of the disease is based on the level of kidney function: Stage Description GFR(mL/min/1.73 m(2)) 1 Kidney damage with normal or decreased GFR 90 2 Kidney damage with mild decrease in GFR 60-89 3 Moderate decrease in GFR 30-59 4 Severe decrease in GFR 15-29 5 Kidney failure <15 (or dialysis) 8 [facility] - Floor: 1, Rm #: [id number] 9 [facility] - Floor: 1, Rm #: [id number] [facility] - Floor: , Rm #: [id number] 11 15-20 for HCAP, VAP, Osteomyelitis, Endocarditis, Meningitis 10-15 for All Other Infections 12 [facility] - Floor: 1, Rm #: [id number] 13 Because ethnic data is not always readily available, this report includes an eGFR for both -Americans and non- Americans. The National Kidney Disease Education Program (NKDEP) does not endorse the use of the MDRD equation for patients that are not between the ages of 18 and 70, are , have extremes of body size, muscle mass, or nutritional status, or are non- or non-. According to the National Kidney Foundation, irrespective of diagnosis, the stage of the disease is based on the level of kidney function: Stage Description GFR(mL/min/1.73 m(2)) 1 Kidney damage with normal or decreased GFR 90 2 Kidney damage with mild decrease in GFR 60-89 3 Moderate decrease in GFR 30-59 4 Severe decrease in GFR 15-29 5 Kidney failure <15 (or dialysis) 14 15-20 for HCAP, VAP, Osteomyelitis, Endocarditis, Meningitis 10-15 for All Other Infections 15 [facility] - Floor: 1, Rm #: [id number] 16 [facility] - Floor: 1, Rm #: [id number] 17 [facility] - Floor: 1, Rm #: [id number] 18 15-20 for HCAP, VAP, Osteomyelitis, Endocarditis, Meningitis 10-15 for All Other Infections 19 [facility] - Floor: 1, Rm #: [id number] 20 [facility] - Floor: 1, Rm #: [id number] 21 [employer]: [id number] 22 [employer] Hel[employer]: [id number] 23 [employer] Helper: [id number] 24 [facility] - Floor: 1, Rm #: [id number] 25 Because ethnic data is not always readily available, this report includes an eGFR for both -Americans and non- Americans. The National Kidney Disease Education Program (NKDEP) does not endorse the use of the MDRD equation for patients that are not between the ages of 18 and 70, are , have extremes of body size, muscle mass, or nutritional status, or are non- or non-. According to the National Kidney Foundation, irrespective of diagnosis, the stage of the disease is based on the level of kidney function: Stage Description GFR(mL/min/1.73 m(2)) 1 Kidney damage with normal or decreased GFR 90 2 Kidney damage with mild decrease in GFR 60-89 3 Moderate decrease in GFR 30-59 4 Severe decrease in GFR 15-29 5 Kidney failure <15 (or dialysis) 26 15-20 for HCAP, VAP, +++Osteomyelitis, Endocarditis, Meningitis 10-15 for All Other Infections 27 [facility] - Floor: 1, Rm #: [id number] 28 [facility] - Floor: 1, Rm #: [id number] Because ethnic data is not always readily available, this report includes an eGFR for both -Americans and non- Americans. The National Kidney Disease Education Program (NKDEP) does not endorse the use of the MDRD equation for patients that are not between the ages of 18 and 70, are , have extremes of body size, muscle mass, or nutritional status, or are non- or non-. According to the National Kidney Foundation, irrespective of diagnosis, the stage of the disease is based on the level of kidney function: Stage Description GFR(mL/min/1.73 m(2)) 1 Kidney damage with normal or decreased GFR 90 2 Kidney damage with mild decrease in GFR 60-89 3 Moderate decrease in GFR 30-59 4 Severe decrease in GFR 15-29 5 Kidney failure <15 (or dialysis) 30 15-20 for HCAP, VAP, +++Osteomyelitis, Endocarditis, Meningitis 10-15 for All Other Infections 31 [facility] - Floor: 1, Rm #: [id number] [facility] - Floor: 1, Rm #: [id number] 15-20 for HCAP, VAP, +++Osteomyelitis, Endocarditis, Meningitis 10-15 for All Other Infections 34 [facility] - Floor: 1, Rm #: [id number] NEXT DOSE 1000 35 15-20 for HCAP, VAP, +++Osteomyelitis, Endocarditis, Meningitis 10-15 for All Other Infections 36 [id number] 38 [facility] - Floor: 1, Rm #: [id number] NEXT VANCO DOSE TODAY AT 1000 39 Because ethnic data is not always readily available, this report includes an eGFR for both -Americans and non- Americans. The National Kidney Disease Education Program (NKDEP) does not endorse the use of the MDRD equation for patients that are not between the ages of 18 and 70, are , have extremes of body size, muscle mass, or nutritional status, or are non- or non-. According to the National Kidney Foundation, irrespective of diagnosis, the stage of the disease is based on the level of kidney function: Stage Description GFR(mL/min/1.73 m(2)) 1 Kidney damage with normal or decreased GFR 90 2 Kidney damage with mild decrease in GFR 60-89 3 Moderate decrease in GFR 30-59 4 Severe decrease in GFR 15-29 5 Kidney failure <15 (or dialysis) 40 Specimen Hemolyzed. Result may not be valid. Unable to report test result due to hemolysis. 41 Unable to report test result due to hemolysis. 42 [facility] - Floor: 1, Rm #: [id number] NEXT VANCO DOSE TODAY AT 1000 43 [facility] - Floor: 1, Rm #: [id number] NEXT VANCO DOSE TODAY AT 1000 44 [facility] - Floor: 1, Rm #: [id number] 45 [facility] - Floor: 1, Rm #: [id number] Procedures Date Code Description Status 04/29/2019 44800 Amputation Leg Through Tibia & Fibula Completed 04/29/2019 54989 Amputation Leg Through Tibia & Fibula Completed 04/07/2019 90501 Walking Cast Completed 02/10/2019 27017 Walking Cast Completed 01/22/2019 94345 Walking Cast Completed 01/01/2019 50892 Walking Cast Completed 12/11/2018 65873 Short Leg Cast Completed 12/04/2018 25715 Short Leg Cast Completed 11/25/2018 51595 Walking Cast Completed 01/01/2013 [id number] Colonoscopy Completed 10/16/2012 [id number] Diabetic Retinal Eye Exam Completed 07/17/2012 [id number] Mammogram Completed 10/04/2011 [id number] Diabetic Foot Exam Completed 08/08/2011 [id number] Mammogram Completed 07/30/2011 [id number] Diabetic Foot Exam Completed 07/16/2011 [id number] Diabetic Foot Exam Completed 07/06/2011 60876637 Colonoscopy Completed 07/02/2011 [id number] Diabetic Foot Exam Completed 06/11/2011 [id number] Diabetic Foot Exam Completed 05/29/2011 [id number] Diabetic Foot Exam Completed 05/14/2011 [id number] Diabetic Foot Exam Completed 05/01/2011 [id number] Diabetic Foot Exam Completed 04/09/2011 612538354 Diabetic Foot Exam Completed 04/02/2011 [id number] Diabetic Foot Exam Completed 03/12/2011 [id number] Diabetic Foot Exam Completed 08/04/2010 [id number] Mammogram Completed Medical Devices Description No Information Available Encounters Type Date Location Provider Dx Diagnosis Office Visit 05/06/2019 [facility] Tosha Naqvi T87.44 Infection of 6:37a Infectious Fischer, CHILD SUPPORT CASE OFFICER amputation stump, Diseases left lower extremity Z89.512 Acquired absence of left leg below knee E11.40 Type 2 diabetes mellitus with diabetic neuropathy, unsp Office Visit 05/05/2019 8:46a [facility] [place] D64.9 Anemia, Assoc,pc [facility] [place], unspecified Hospitalists CHILD SUPPORT CASE OFFICER N18.9 Chronic kidney disease, unspecified E11.22 Type 2 diabetes mellitus w diabetic chronic kidney disease Office Visit 05/04/2019 [facility] T87.44 Infection of 6:36a For Infectious Aaliyah CHILD SUPPORT CASE OFFICER amputation Diseases stump, left lower extremity Z89.512 Acquired absence of left leg below knee E11.40 Type 2 diabetes mellitus with diabetic neuropathy, unsp Office Visit 05/04/2019 8:46a [facility] D64.9 Anemia, Assoc,pc [facility] [place], unspecified Hospitalists CHILD SUPPORT CASE OFFICER N18.9 Chronic kidney disease, unspecified E11.22 Type 2 diabetes mellitus w diabetic chronic kidney disease Office Visit 05/03/2019 8:46a [facility] [place] D64.9 Anemia, Assoc,pc [facility] [place], unspecified Hospitalists CHILD SUPPORT CASE OFFICER N18.9 Chronic kidney disease, unspecified E11.22 Type 2 diabetes mellitus w diabetic chronic kidney disease Office Visit 05/02/2019 8:45a [facility] [place] D64.9 Anemia, Assoc,pc [facility] [place], unspecified Hospitalists CHILD SUPPORT CASE OFFICER E11.22 Type 2 diabetes mellitus w diabetic chronic kidney disease N18.9 Chronic kidney disease, unspecified Office Visit 05/01/2019 8:45a [facility] Maciej D64.9 Anemia, Assoc,pc Jd [place] unspecified Hospitalists N18.9 Chronic kidney disease, unspecified E11.22 Type 2 diabetes mellitus w diabetic chronic kidney disease E11.65 Type 2 diabetes mellitus with hyperglycemia Office Visit 04/30/2019 8:44a [facility] Maciej D64.9 Anemia, Assoc,pc Jd [place] unspecified Hospitalists E11.22 Type 2 diabetes mellitus w diabetic chronic kidney disease N18.9 Chronic kidney disease, unspecified Office Visit 04/29/2019 [facility] T87.44 Infection of 9:14a For Infectious Aaliyah CHILD SUPPORT CASE OFFICER amputation Diseases stump, left lower extremity E11.40 Type 2 diabetes mellitus with diabetic neuropathy, unsp E11.69 Type 2 diabetes mellitus with other specified complication Office Visit 04/29/2019 [facility] Maciej M86.9 Osteomyelitis, 8:37a chely Garrido [place] unspecified Hospitalists D64.9 Anemia, unspecified N18.9 Chronic kidney disease, unspecified E11.22 Type 2 diabetes mellitus w diabetic chronic kidney disease Office Visit 04/28/2019 8:37a [facility] Rosalind T87.44 Infection of Asschely tucker D.O. amputation Hospitalists stump, left lower extremity E87.1 Hypo-osmolality and hyponatremia E11.9 Type 2 diabetes mellitus without complications Office Visit 04/21/2019 [facility] M86.172 Other acute 9:30a Services Of Heidy Haynes osteomyelitis, left C.M.A. ankle and foot Office Visit 04/20/2019 [facility] Liam Riojas M86.172 Other acute 2:40p For Infectious Macqueen, osteomyelitis, left Diseases M.D. ankle and foot E11.69 Type 2 diabetes mellitus with other specified complication Office Visit 03/31/2019 11:00a [facility] S90.812A Abrasion, left Services Of Heidy Haynes foot, initial C.M.A. encounter E11.621 Type 2 diabetes mellitus with foot ulcer Office Visit 03/27/2019 [facility] Liam Riojas M86.172 Other acute 11:30a For Infectious Heidy Gutierrez osteomyelitis, left Diseases ankle and foot Z79.2 [facility] (current) use of antibiotics E11.69 Type 2 diabetes mellitus with other specified complication Office Visit 03/17/2019 [facility] M86.172 Other acute 9:15a Services Of Heidy Haynes osteomyelitis, left C.M.A. ankle and foot Office Visit 03/13/2019 [facility] Liam Riojas M86.172 Other acute 11:30a For Infectious Macqueen, osteomyelitis, left Diseases M.D. ankle and foot E11.69 Type 2 diabetes mellitus with other specified complication Z79.2 director long term care (current) use of antibiotics Office Visit 02/23/2019 [facility] Tosha Naqvi E11.69 Type 2 diabetes 8:55a For Infectious Fischer, CHILD SUPPORT CASE OFFICER mellitus with Diseases other specified complication M86.172 Other acute osteomyelitis, left ankle and foot E11.40 Type 2 diabetes mellitus with diabetic neuropathy, unsp T87.44 Infection of amputation stump, left lower extremity Office Visit 02/22/2019 1:35p [facility] Radha Canas, T87.44 Infection of Services Of RPA-C amputation C.M.A. stump, left lower extremity L03.116 Cellulitis of left lower limb Z89.432 Acquired absence of left foot Office Visit 02/21/2019 8:55a [facility] Radha Munroe, I10 Essential Assoc,pc MHernán (primary) Hospitalists hypertension R19.7 Diarrhea, unspecified N18.9 Chronic kidney disease, unspecified Z79.4 [facility] (current) use of insulin Office Visit 02/20/2019 [facility] Radha Munroe, R19.7 Diarrhea, 8:54a Assoc,chely Moody unspecified Hospitalists N18.9 Chronic kidney disease, unspecified E11.22 Type 2 diabetes mellitus w diabetic chronic kidney disease I10 Essential (primary) hypertension Z79.4 [facility] (current) use of insulin Office Visit 02/19/2019 [facility] E11.69 Type 2 diabetes 9:06a For Infectious Aaliyah, CHILD SUPPORT CASE OFFICER mellitus with Diseases other specified complication M86.172 Other acute osteomyelitis, left ankle and foot E11.40 Type 2 diabetes mellitus with diabetic neuropathy, [facility] T87.44 Infection of amputation stump, left lower extremity Office Visit 02/19/2019 8:54a [facility] Radha Munroe, I10 Essential Assoc,chely MAbramDAbram (primary) Hospitalists hypertension R19.7 Diarrhea, unspecified N18.9 Chronic kidney disease, unspecified E11.22 Type 2 diabetes mellitus w diabetic chronic kidney disease Z79.4 [facility] (current) use of insulin Office Visit 02/19/2019 2:01p Orthopedic Amy Reich, L03.116 Cellulitis of Services Of [place] left lower limb C.M.A. Z89.432 Acquired absence of left foot Office Visit 02/18/2019 [facility] E11.69 Type 2 diabetes 9:04a For Infectious Fischer, CHILD SUPPORT CASE OFFICER mellitus with Diseases other specified complication M86.172 Other acute osteomyelitis, left ankle and foot E11.40 Type 2 diabetes mellitus with diabetic neuropathy, unsp T87.44 Infection of amputation stump, left lower extremity Office Visit 02/18/2019 9:40a Orth[facility] Amy Reich, L03.116 Cellulitis of Services Of [place] left lower limb C.M.A. Z89.432 Acquired absence of left foot Office Visit 02/18/2019 8:[facility]a [facility] I10 Essential chely Garrido M.D. (primary) Hospitalists hypertension R19.7 Diarrhea, unspecified Z79.4 [facility] (current) use of insulin Office Visit 02/17/2019 [facility] E11.65 Type 2 diabetes 3:20p [facility] [place] mellitus with Behavioral Pediatrician hyperglycemia Office Visit 02/17/2019 [facility] Selena I10 Essential 8:53a chely Garrido M.D. (primary) Hospitalists hypertension Z79.4 [facility] (current) use of insulin Office Visit 02/16/2019 2:01p Orthopedic Amy Reich, L03.116 Cellulitis of Services Of [place] left lower limb C.M.A. Z89.432 Acquired absence of left foot Office Visit 02/16/2019 [facility] E11.628 Type 2 diabetes 8:53a chely Garrido D.O. mellitus with Hospitalists other skin complications L08.9 Local infection of the skin and subcutaneous tissue, unsp I10 Essential (primary) hypertension E11.22 Type 2 diabetes mellitus w diabetic chronic kidney disease N18.9 Chronic kidney disease, unspecified Z79.4 [facility] (current) use of insulin Office Visit 02/16/2019 [facility] E11.628 Type 2 diabetes 9:03a For Infectious Fischer, CHILD SUPPORT CASE OFFICER mellitus with Diseases other skin complications T87.44 Infection of amputation stump, left lower extremity L03.116 Cellulitis of left lower limb E11.40 Type 2 diabetes mellitus with diabetic neuropathy, unsp Office Visit 02/15/2019 8:52a [facility] Selena T87.44 Infection of chely Garrido M.D. amputation Hospitalists stump, left lower extremity E11.69 Type 2 diabetes mellitus with other specified complication I10 Essential (primary) hypertension Z79.4 [facility] (current) use of insulin Office Visit 02/14/2019 8:52a [facility] Selena T87.44 Infection of chely Garrido M.D. amputation Hospitalists stump, left lower extremity E11.69 Type 2 diabetes mellitus with other specified complication I10 Essential (primary) hypertension Z79.4 [facility] (current) use of insulin Office Visit 02/13/2019 8:52a [facility] T87.44 Infection of Assoc,chely Marlow M.D. amputation Hospitalists stump, left lower extremity I10 Essential (primary) hypertension E11.69 Type 2 diabetes mellitus with other specified complication Z79.4 director long term care (current) use of insulin Office Visit 02/13/2019 [facility] Tosha Naqvi E11.628 Type 2 diabetes 9:00a For Infectious MYLENE Fischer mellitus with Diseases other skin complications T87.44 Infection of amputation stump, left lower extremity E11.40 Type 2 diabetes mellitus with diabetic neuropathy, unsp L03.116 Cellulitis of left lower limb Office Visit 02/13/2019 [facility] Niyah Lugo, S90.822D Blister 2:29p Services Of RPA-C (nonthermal), left C.M.A. foot, subsequent encounter Z89.432 Acquired absence of left foot Office Visit 02/12/2019 [facility] T87.44 Infection of 8:51a Assoc,chely Wynn NP amputation Hospitalists stump, left lower extremity E11.9 Type 2 diabetes mellitus without complications I10 Essential (primary) hypertension F32.9 Major depressive disorder, single episode, unspecified Office Visit 02/12/2019 11:00a [facility] L03.116 Cellulitis of Services Of Hediy Haynes left lower limb C.M.A. Z89.432 Acquired absence of left foot Office Visit 02/05/2019 [facility] M86.672 Other chronic 10:15a Services Of Heidy Haynes osteomyelitis, left C.M.A. ankle and foot Office Visit 12/11/2018 [facility] Liam Riojas Z89.432 Acquired absence of 2:40p For Infectious Macqueen, left foot Diseases M.Shine E11.52 Type 2 diabetes w diabetic peripheral angiopathy w gangrene Assessments Date Code Description Provider 05/19/2019 Z89.512 Acquired absence of left leg below Colten Haynes M.D. knee 05/12/2019 Z89.512 Acquired absence of left leg below Colten Haynes M.D. knee 05/06/2019 T87.44 Infection of amputation stump, left Tosha Andersondavisleehernan Fischer, CHILD SUPPORT CASE OFFICER lower extremity 05/06/2019 Z89.512 Acquired absence of left leg below Tosha Preetinatalyamy Fischer, CHILD SUPPORT CASE OFFICER knee 05/06/2019 E11.40 Type 2 diabetes mellitus with Toshadoris Fischer, CHILD SUPPORT CASE OFFICER diabetic neuropathy, unspecified 05/05/2019 Z47.81 Encounter for orthopedic aftercare AHSAN Reynolds following surgical amputation 05/05/2019 D64.9 Anemia, unspecified [place] Ange Doto, CHILD SUPPORT CASE OFFICER 05/05/2019 Z89.512 Acquired absence of left leg below DAVINA ReynoldsC knee 05/05/2019 N18.9 Chronic kidney disease, unspecified [place] Ange Doto, CHILD SUPPORT CASE OFFICER 05/05/2019 E11.22 Type 2 diabetes mellitus with Al[place] Ange Doto, CHILD SUPPORT CASE OFFICER diabetic chronic kidney disease 05/04/2019 Z47.81 Encounter for orthopedic aftercare ELROY Krause following surgical amputation 05/04/2019 D64.9 Anemia, unspecified [place] Ange Doto, CHILD SUPPORT CASE OFFICER 05/04/2019 Z89.512 Acquired absence of left leg below ELROY Krause knee 05/04/2019 T87.44 Infection of amputation stump, left Tosha Preetinatalyamy Fischer, CHILD SUPPORT CASE OFFICER lower extremity 05/04/2019 N18.9 Chronic kidney disease, unspecified [place] Ange Doto, CHILD SUPPORT CASE OFFICER 05/04/2019 Z89.512 Acquired absence of left leg below Tosha Preetinatalyamy Fischer, CHILD SUPPORT CASE OFFICER knee 05/04/2019 E11.22 Type 2 diabetes mellitus with [place] Ange Doto, CHILD SUPPORT CASE OFFICER diabetic chronic kidney disease 05/04/2019 E11.40 Type 2 diabetes mellitus with Tosha Fischer, CHILD SUPPORT CASE OFFICER diabetic neuropathy, unspecified 05/03/2019 D64.9 Anemia, unspecified [place] Ange Doto, CHILD SUPPORT CASE OFFICER 05/03/2019 N18.9 Chronic kidney disease, unspecified [place] Ange Doto, CHILD SUPPORT CASE OFFICER 05/03/2019 E11.22 Type 2 diabetes mellitus with [place] Ange Doto, CHILD SUPPORT CASE OFFICER diabetic chronic kidney disease 05/02/2019 Z47.89 Encounter for other orthopedic Radha Canas RPA-C aftercare 05/02/2019 D64.9 Anemia, unspecified [place] Black, CHILD SUPPORT CASE OFFICER 05/02/2019 Z89.512 Acquired absence of left leg below Anup Carson MD knee 05/02/2019 E11.22 Type 2 diabetes mellitus with [place]ka Black NP diabetic chronic kidney disease 05/02/2019 N18.9 Chronic kidney disease, unspecified Alka Black CHILD SUPPORT CASE OFFICER 05/01/2019 Z47.81 Encounter for orthopedic aftercare Niyah Lugo, RPA-C following surgical amputation 05/01/2019 D64.9 Anemia, unspecified Maciej Miles PA 05/01/2019 Z89.512 Acquired absence of left leg below Niyah Emilyginger, RPA-C knee 05/01/2019 N18.9 Chronic kidney disease, unspecified Maciej Miles PA 05/01/2019 E11.22 Type 2 diabetes mellitus with ELROY Richard diabetic chronic kidney disease 05/01/2019 E11.65 Type 2 diabetes mellitus with ELROY Richard hyperglycemia 04/30/2019 Z47.81 Encounter for orthopedic aftercare Dasha Hwang RPA-C following surgical amputation 04/30/2019 D64.9 Anemia, unspecified Maciej Miles PA 04/30/2019 Z89.512 Acquired absence of left leg below Dasha Jaramillojoy, RPA-C knee 04/30/2019 E11.22 Type 2 diabetes mellitus with ELROY Richard diabetic chronic kidney disease 04/30/2019 N18.9 Chronic kidney disease, unspecified Maciej Miles PA 04/29/2019 M86.9 Osteomyelitis, unspecified Maciej Miles PA 04/29/2019 T87.44 Infection of amputation stump, left Tosha Fischer NP lower extremity 04/29/2019 D64.9 Anemia, unspecified Maciej Miles PA 04/29/2019 M86.172 Other acute osteomyelitis, left Dasha Timnath, RPA-C ankle and foot 04/29/2019 N18.9 Chronic kidney disease, unspecified Maciej Miles PA 04/29/2019 E11.40 Type 2 diabetes mellitus with Tosha Fischer NP diabetic neuropathy, unspecified 04/29/2019 E11.22 Type 2 diabetes mellitus with ELROY Richard diabetic chronic kidney disease 04/29/2019 M86.172 Other acute osteomyelitis, left Anup Carson MD ankle and foot 04/29/2019 E11.69 Type 2 diabetes mellitus with other Tosha Fischer NP specified complication 04/29/2019 E11.621 Type 2 diabetes mellitus with foot Dasha Hwang RPA-C ulcer 04/29/2019 E11.621 Type 2 diabetes mellitus with foot Anup Carson MD ulcer 04/28/2019 T87.44 Infection of amputation stump, left Shine PottsO. lower extremity 04/28/2019 E87.1 Hypo-osmolality and hyponatremia Shine PottsO. 04/28/2019 E11.9 Type 2 diabetes mellitus without Rosalind Johnson D.O. complications 04/21/2019 M86.172 Other acute osteomyelitis, left Colten Haynes M.D. ankle and foot 04/20/2019 M86.172 Other acute osteomyelitis, left Liam Gutierrez M.D. ankle and foot 04/20/2019 E11.69 Type 2 diabetes mellitus with other Liam Gutierrez M.D. specified complication 04/14/2019 M86.172 Other acute osteomyelitis, left Colten Haynes M.D. ankle and foot 04/07/2019 M86.172 Other acute osteomyelitis, left Colten Haynes M.D. ankle and foot 03/31/2019 S90.812A Abrasion, left foot, initial Colten Haynes M.D. encounter 03/31/2019 E11.621 Type 2 diabetes mellitus with foot Colten Haynes M.D. ulcer 03/27/2019 M86.172 Other acute osteomyelitis, left Liam Gutierrez M.D. ankle and foot 03/27/2019 Z79.2 director long term care (current) use of Liam Gutierrez M.D. antibiotics 03/27/2019 E11.69 Type 2 diabetes mellitus with other Liam Gutierrez M.D. specified complication 03/17/2019 M86.172 Other acute osteomyelitis, left Colten Haynes M.D. ankle and foot 03/13/2019 M86.172 Other acute osteomyelitis, left Liam Gutierrez M.D. ankle and foot 03/13/2019 E11.69 Type 2 diabetes mellitus with other Liam Gutierrez M.D. specified complication 03/13/2019 Z79.2 [facility] (current) use of Liam Gutierrez M.D. antibiotics 02/23/2019 E11.69 Type 2 diabetes mellitus with other Tosha Fischer NP specified complication 02/23/2019 M86.172 Other acute osteomyelitis, left Tosha Donya Fischer NP ankle and foot 02/23/2019 E11.40 Type 2 diabetes mellitus with Tosha Fischer NP diabetic neuropathy, unsp 02/23/2019 T87.44 Infection of amputation stump, left Tosha Andersonvioleta Fischer, MYLENE lower extremity 02/22/2019 T87.44 Infection of amputation stump, left Radha Canas, RPA-C lower extremity 02/22/2019 L03.116 Cellulitis of left lower limb Radha Canas, RPA-C 02/22/2019 Z89.432 Acquired absence of left foot Radha Canas, RPA-C 02/21/2019 I10 Essential (primary) hypertension Radha Munroe M.D. 02/21/2019 R19.7 Diarrhea, unspecified Radha Munroe M.D. 02/21/2019 N18.9 Chronic kidney disease, unspecified Radha Munroe M.D. 02/21/2019 Z79.4 [facility] (current) use of insulin Radha Munroe M.D. 02/20/2019 R19.7 Diarrhea, unspecified Radha Munroe M.D. 02/20/2019 N18.9 Chronic kidney disease, unspecified Radha Munroe M.D. 02/20/2019 E11.22 Type 2 diabetes mellitus w diabetic Radha Munroe M.D. chronic kidney disease 02/20/2019 I10 Essential (primary) hypertension Radha Munroe M.D. 02/20/2019 Z79.4 [facility] (current) use of insulin Radha Munroe M.D. 02/19/2019 E11.69 Type 2 diabetes mellitus with other Tosha Fischer NP specified complication 02/19/2019 I10 Essential (primary) hypertension Radha Munroe M.D. 02/19/2019 M86.172 Other acute osteomyelitis, left Toshadoris Fischer NP ankle and foot 02/19/2019 L03.116 Cellulitis of left lower limb Amy Reich, PA 02/19/2019 E11.40 Type 2 diabetes mellitus with Tosha Fischer NP diabetic neuropathy, unsp 02/19/2019 R19.7 Diarrhea, unspecified Radha Munroe M.D. 02/19/2019 T87.44 Infection of amputation stump, left Toshadoris Fischer NP lower extremity 02/19/2019 Z89.432 Acquired absence of left foot Amy Reich, PA 02/19/2019 N18.9 Chronic kidney disease, unspecified Radha Munroe M.D. 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 chronic kidney disease 02/19/2019 Z79.4 director long term care (current) use of insulin Radha Munroe M.D. 02/18/2019 E11.69 Type 2 diabetes mellitus with other Tosha Fischer NP specified complication 02/18/2019 I10 Essential (primary) hypertension Selena Marlow M.D. 02/18/2019 M86.172 Other acute osteomyelitis, left Tosha Fischer NP ankle and foot 02/18/2019 L03.116 Cellulitis of left lower limb Amy Damir, PA 02/18/2019 E11.40 Type 2 diabetes mellitus with Tosha Fischer NP diabetic neuropathy, unsp 02/18/2019 R19.7 Diarrhea, unspecified Selena Marlow M.D. 02/18/2019 T87.44 Infection of amputation stump, left Toshadoris Fischer NP lower extremity 02/18/2019 Z89.432 Acquired absence of left foot Amy Reich PA 02/18/2019 Z79.4 [facility] (current) use of insulin Selena Marlow M.D. 02/17/2019 E11.65 Type 2 diabetes mellitus with Edison Patterson MD hyperglycemia 02/17/2019 I10 Essential (primary) hypertension Selena Marlow M.D. 02/17/2019 Z79.4 [facility] (current) use of insulin Selena Marlow M.D. 02/16/2019 E11.628 Type 2 diabetes mellitus with other Tosha Fischer, MYLENE skin complications 02/16/2019 E11.628 Type 2 diabetes mellitus with other Dereje Potts.O. skin complications 02/16/2019 T87.44 Infection of amputation stump, left Tosha Fischer, CHILD SUPPORT CASE OFFICER lower extremity 02/16/2019 L03.116 Cellulitis of left lower limb Amy Reich, PA 02/16/2019 L03.116 Cellulitis of left lower limb Tosha Fischer, CHILD SUPPORT CASE OFFICER 02/16/2019 L08.9 Local infection of the skin and Rosalind Johnson, D.O. subcutaneous tissue, uns 02/16/2019 E11.40 Type 2 diabetes mellitus with Tosha Donya Fischer, MYLENE diabetic neuropathy, [facility] 02/16/2019 Z89.432 Acquired absence of left foot Amy Reich PA 02/16/2019 I10 Essential (primary) hypertension Dereje Potts.O. 02/16/2019 E11.22 Type 2 diabetes mellitus w diabetic Rosalind Johnson D.O. chronic kidney disease 02/16/2019 N18.9 Chronic kidney disease, unspecified Rosalind Johnson, D.O. 02/16/2019 Z79.4 [facility] (current) use of insulin Dereje Potts.O. 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 lower extremity 02/15/2019 E11.69 Type 2 diabetes mellitus with other Selena Marlow M.D. specified complication 02/15/2019 I10 Essential (primary) hypertension Selena Marlow M.D. 02/15/2019 Z79.4 director long term care (current) use of insulin Selena Marlow M.D. 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 lower extremity 02/14/2019 E11.69 Type 2 diabetes mellitus with other Selena Marlow M.D. specified complication 02/14/2019 I10 Essential (primary) hypertension Selena Marlow M.D. 02/14/2019 Z79.4 director long term care (current) use of insulin Selena Marlow M.D. 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 lower extremity 02/13/2019 T87.44 Infection of amputation stump, left Tosha Fischer, MYLENE lower extremity 02/13/2019 S90.822D Blister (nonthermal), left foot, AHSAN Reynolds subsequent encounter 02/13/2019 E11.40 Type 2 diabetes mellitus with Tosha Fischer NP diabetic neuropathy, unsp 02/13/2019 I10 Essential (primary) hypertension Selena Marlow M.D. 02/13/2019 L03.116 Cellulitis of left lower limb Tosha Fischer NP 02/13/2019 Z89.432 Acquired absence of left foot AHSAN Reynolds 02/13/2019 E11.69 Type 2 diabetes mellitus with other Selena Marlow M.D. specified complication 02/13/2019 Z79.4 director long term care (current) use of insulin Selena Marlow M.D. 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 02/12/2019 E11.9 Type 2 diabetes mellitus without Remedios Wynn NP complications 02/12/2019 Z89.432 Acquired absence of left foot Colten Haynes M.D. 02/12/2019 I10 Essential (primary) hypertension Remedios Wynn, MYLENE 02/12/2019 F32.9 Major depressive disorder, single Remedios Wynn NP episode, unspecified 02/10/2019 M86.672 Other chronic osteomyelitis, left Colten Haynes M.D. ankle and foot 02/05/2019 M86.672 Other chronic osteomyelitis, left Colten Haynes M.D. ankle and foot 01/22/2019 M86.672 Other chronic osteomyelitis, left Colten Haynes M.D. ankle and foot 01/01/2019 M86.672 Other chronic osteomyelitis, left Colten Haynes M.D. ankle and foot 12/11/2018 E11.52 Type 2 diabetes mellitus with Colten Haynes M.D. diabetic peripheral angiopathy 12/11/2018 Z89.432 Acquired absence of left foot Liam Gutierrez M.D. 12/11/2018 Z89.432 Acquired absence of left foot Colten Haynes M.D. 12/11/2018 E11.52 Type 2 diabetes mellitus with Liam Gutierrez M.D. diabetic peripheral angiopathy 12/11/2018 L97.528 Non-prs chronic ulcer oth prt left Colten Haynes M.D. foot with oth severity 12/04/2018 Z89.432 Acquired absence of left foot Jb Ferrari MD 12/04/2018 I96 Gangrene, not elsewhere classified Jb Ferrari MD 12/04/2018 E11.621 Type 2 diabetes mellitus with foot Jb Ferrari MD ulcer 12/04/2018 Z47.81 Encounter for orthopedic aftercare Jb Ferrari MD following surgical amp 11/25/2018 E11.621 Type 2 diabetes mellitus with foot Colten Haynes M.D. ulcer 11/25/2018 Z89.432 Acquired absence of left foot Colten Haynes M.D. Plan of Treatment Future Appointment(s):06/09/2019 10:45 am - Colten Haynes M.D. at [facility]..05/27/2019 2:00 pm - Tosha Fischer NP at [facility]84/24/2019 11:00 am - Edison Patterson MD at [facility]05/19/2019 - Colten Haynes M.D.Z89.512 Acquired absence of left leg below kneeNew Therapy:Rehab ReferralFollow up:4-5 weeks Functional Status Description No Information Available Mental Status Description No Information Available Referrals Refer to Dr Reason for Referral Status Appt Edison Patterson MD 63 year old diabetic woman with Patient Notified 06/09/2019 neuropathy and foot infections [address] [address] [phone]
--- OUTSIDE RECORDS SUMMARY | 2019-05-30 16:17 | XMS REPORT | Continuity of Care Document ---
:1955 External Reference #:[id number] Author Name Colten Haynes M.D. (transmitted by agent of provider Rhea Felder) Address [address] [place] [address] Care Team Providers Name Role Phone William Roman MD - Gastroenterology Care Team Information Keno Attendant Lorenzo Ortiz MD - Ophthalmology Care Team Information Keno Attendant [phone] Latrice Salas MD [facility] - Care Team Information Keno Attendant [phone] Cardiovascular Disease Steffany Wilburn MD - Internal Medicine Care Team Information Keno Attendant Problems Active Problems Provider Date Benign essential [...] History of insertion of stent into Boris Owens NP Onset: 07/22/2015 ureter Note: Left ureteral stent placement d/t moderate left-sided hydronephorsis; Dr. Beau Pruett History of malignant neoplasm of rectum Boris Owens MEDIA/INSTRUCTIONAL DESIGNER Onset: 07/31/2011 Note: chemo & radiation Dr. Cordon's following Type 2 diabetes mellitus with diabetic Ignacio Lawrence M.D. Onset: 2015 polyneuropathy Chronic osteomyelitis of hand Colten Brandon MD Onset: 08/31/2016 Convalescence after surgery Cotlen Brandon MD Onset: 09/14/2016 Type 2 diabetes [...] Patient has never smoked Smoking Status Reviewed: 05/12/19 Patient has never smoked Exercise Type/Frequency Exercises [...] 2 check blood sugar 2 1units E11.40 [place] 12/03/2017 times daily and prn Heidy Lawrence w/Device Kit Onetouch Ultrasoft check blood sugar 2 100units E11.40 [place] 12/03/2017 Lancets times daily and prtyson Lawrence M.D. [facility] Onetouch Ultra Blue test twice a day 100units E11.40 [place] 12/03/2017 and as needed Heidy Lawrence Strips Basaglar Kwikpen inject 85 iu daily 30ml Zsofia Abraham, 11/15/2017 in the evenings, FRONT OFFICE JAVA DEVELOPER 100Unit/ML Solution reduce dose to 70 Pen-Inject iu if bs reading < 100 at night - pt taking at 9am at [facility] w/ good effect Furosemide 1 by mouth every 30tabs I10 Zsofia Abraham, 11/08/2017 20mg day f FRONT OFFICE JAVA DEVELOPER Tablets Oxygen 2 l nc at bedtime 1units Les Turcios 12/20/2016 [facility] Heidy Carter Sertraline HCL 1 tab by mouth 90tabs F32.9 Zsofia Abraham, 03/25/2015 daily FRONT OFFICE JAVA DEVELOPER 100mg Tablets BD Pen [place] for use with 100units Vanessa Prince, 12/17/2012 Short/Ultrafine/31G insulin pens as N.P. X 01/29" directed 31G X 8 mm Misc Insulin Syringe 1ML use qid 120units E11.40 [...] by mouth every Unknown 40mg day Capsules DR Aspirin Low Dose 1 by mouth every Unknown day 81mg Tablets DR History Medications Doxycycline Hyclate one tablet twice [...] CPT Code Status Date Vaccine Lot # 88892 Given 07/19/2016 Influ Virus Vaccine, Quadrivalent, Split Virus, [place] [id number] [address] Given 02/25/2014 Hepatitis B Vaccine Adult Dosage [id number] Given 05/28/2012 Fluzone Vaccine [id number] Given 05/28/2012 Influenza Virus 3Yrs & Over 09123 Given 02/06/2012 Pneumonia Vaccine [id number] 14094 Given 07/10/2011 Influenza Virus 3Yrs & Over Vital Signs Date Vital Result Comment 05/12/2019 11:48am Height 71 inches 5'11" Heart Rate 65 /min BP Systolic 130 mmHg BP Diastolic 72 mmHg Respiratory Rate 18 /min Body Temperature 98.2 F Pain Level 0 04/28/2019 9:28am Height 71 inches 5'11" Weight 260.00 lb patient stated Heart Rate 110 /min BP Systolic 140 mmHg BP Diastolic 72 mmHg Body Temperature 99.4 F Pain Level 5 BMI (Body Mass Index) 36.3 kg/m2 Results Test Date Facility Test Result H/L Range Note Comp Metabolic 05/11/2019 [facility] Sodium 141 mmol/L Normal 135-[address] [place] [address] [phone] Potassium 3.8 mmol/L Normal 3.5-5.0 Co2 Carbon [...] 5 mmol/L Normal 2-11 Laboratory test 05/11/2019 [facility] Vancomycin Trough 10.3 g /mL [address] [place] [address] [phone] C Reactive Protein 30.27 mg/L High <8.01 4 CBC Auto 05/11/2019 [facility] White Blood 5.6 10^3/uL Normal 3.5-10.[address] [place] [address] [phone] Red Blood Count 2.70 10^6/uL Low 3.70-4.87 [...] Blood Cells % 0.1 Laboratory test 05/11/2019 [facility] Erythrocyte Sed 103 mm/Hr High 0-29 [address] [place] [address] [phone] Comp Metabolic 03/30/2019 [facility] Sodium 142 Normal 135- 145 [address] mmol/[place] [address] [phone] Chloride 108 mmol/L Normal 101-111 Co2 Carbon [...] 5 mmol/L Normal 2-11 Laboratory test 03/30/2019 [facility] C Reactive 13.75 High < 8.01 [address] Protein mg/[place] [address] [phone] CBC Auto Diff 03/30/2019 [facility] White Blood 5.5 Normal 3.5 -10.[address] Count 10^3/[place] [address] [phone] Red Blood Count 3.84 10^6/uL Normal 3.70-4.87 [...] Red Blood Cells % 0.1 Laboratory 03/30/2019 [facility] Erythrocyte 47 mm/Hr High 0- 29 9 test finding [address] [place] [address] [phone] Laboratory 03/27/2019 [facility] Vancomycin 30.3 Critical 10 , test finding [address] Trough g/mL high 11 [place] [address] [phone] Comp 03/23/2019 [facility] Sodium 141 Normal 135-145 [address] mmol/[place] [address] [phone] Potassium 4.9 mmol/L Normal 3.5-5.0 Chloride 109 [...] Egfr 52.7 >60 13 Laboratory test 03/23/2019 [facility] Vancomycin Trough 20.6 g /mL [address] [place] [address] [phone] C Reactive Protein 10.76 mg/L High <8.01 15 CBC Auto 03/23/2019 [facility] White Blood 6.3 10^3/uL Normal 3.5-10.[address] [place] [address] [phone] Red Blood Count 4.05 10^6/uL Normal 3.70-4.87 [...] Red Blood Cells % 0.0 Laboratory 03/23/2019 [facility] Erythrocyte Sed 50 mm/Hr High 0-29 16 test finding [address] [place] [address] [phone] Laboratory 03/16/2019 [facility] Vancomycin 17.0 17, test finding [address] Trough g/mL 18 [place] [address] [phone] Laboratory 03/09/2019 [facility] Vancomycin 14.8 19, test finding [address] Trough g/mL 20 [place] [address] [phone] Laboratory 01/21/2019 [facility] Point of Care 165 High 70- 100 21 test finding [address] Glucose mg/dL [place], [place] [address] [phone] Laboratory 01/21/2019 [facility] Point of Care 125 High 70- 100 22 test finding [address] Glucose mg/dL [place], [place] [address] [phone] Laboratory 01/21/2019 [facility] Point of Care 112 High 70- 100 23 test finding [address] Glucose mg/dL [place], [place] [address] [phone] CBC Auto Diff 12/08/2018 [facility] White Blood 6.0 Normal 3.5 -10. [address] Count 10^3/uL 8 [place] [address] [phone] Red Blood Count 3.72 10^6/uL Normal 3.70-4.87 [...] Blood Cells % 0.1 Comp Metabolic 12/08/2018 [facility] Sodium 140 mmol/L Normal 135-[address] [place] [address] [phone] Potassium 4.3 mmol/L Normal 3.5-5.0 Chloride 107 [...] Egfr 58.1 >60 25 Laboratory test 12/08/2018 [facility] Vancomycin Random 22.4 g /mL [address] [place] [address] [phone] C Reactive Protein 12.20 mg/L High <8.01 27 CBC Auto 12/05/2018 [facility] White Blood 5.4 10^3/uL Normal 3.5-10.[address] [place] [address] [phone] Red Blood Count 3.88 10^6/uL Normal 3.70-4.87 [...] Blood Cells % 0.1 Comp Metabolic 12/05/2018 [facility] Sodium 142 mmol/L Normal 135-[address] [place] [address] [phone] Potassium 4.2 mmol/L Normal 3.5-5.0 Chloride 108 [...] Egfr 64.6 >60 29 Laboratory test 12/05/2018 [facility] Vancomycin Random 21.2 g /mL [address] [place] [address] [phone] C Reactive Protein 12.04 mg/L High <8.01 31 Laboratory 12/03/2018 [facility] Vancomycin 21.9 32, 33 test finding [address] Random g/[place] [address] [phone] Laboratory 12/01/2018 [facility] Vancomycin 23.5 34, 35 test finding [address] Random g/[place] [address] [phone] Laboratory 11/26/2018 [facility] Vancomycin 18.0 36, 37 test finding [address] Trough g/[place] [address] [phone] CBC Auto Diff 11/21/2018 [facility] White Blood 6.1 Normal 3.5 - [address] Count 10^3/uL 10.8 [place] [address] [phone] Red Blood Count 3.86 10^6/uL Low 4.00-5.40 [...] Blood Cells % 0 Comp Metabolic 11/21/2018 [facility] Sodium 140 mmol/L Normal 135-[address] [place] [address] [phone] Chloride 105 mmol/L Normal 101-111 Co2 Carbon [...] TNP U/L 13-39 41 Laboratory test 11/21/2018 [facility] Vancomycin Trough 23.6 g /mL [address] [place] [address] [phone] C Reactive Protein 8.50 mg/L High <8.01 43 Laboratory test 11/17/2018 [facility] Vancomycin 21.7 g/mL 44, [address] [place] [address] [phone] 1 [id number] 2 Because ethnic data is not always [...] Meningitis 10-15 for All Other Infections 4 [id number] 5 [id number] 6 [facility] - Floor: 1, Rm #: 156B [id number] 7 Because ethnic data is not always [...] 5 Kidney failure <15 (or dialysis) 8 [facility] - Floor: 1, Rm #: 156B [id number] 9 [facility] - Floor: 1, Rm #: 156B [id number] 10 [id number] [facility] - Floor: , Rm #: 156B 11 15-20 for HCAP, VAP, Osteomyelitis, Endocarditis, Meningitis 10-15 for All Other Infections 12 [facility] - Floor: 1, Rm #: 156B [id number] 13 Because ethnic data is not always [...] Meningitis 10-15 for All Other Infections 15 [facility] - Floor: 1, Rm #: 156B [id number] [facility], Rm #: 156B [id number] 17 [facility] - Floor: 1, Rm #: 156B [id number] 18 15-20 for HCAP, VAP, Osteomyelitis, Endocarditis, Meningitis 10-15 for All Other Infections 19 [facility] - Floor: 1, Rm #: 156B [id number] 20 [facility] - Floor: 1, Rm #: 156B [id number] 21 Cell Installer: [id number] Cell Installer: [id number] 23 Cell Installer: [id number] 24 [facility] - Floor: 1, Rm #: 168B [id number] 25 Because ethnic data is not always [...] Meningitis 10-15 for All Other Infections 27 [facility] - Floor: 1, Rm #: 168B [id number] 28 [facility] - Floor: 1, Rm #: 168 [...] Meningitis 10-15 for All Other Infections 31 [facility] - Floor: 1, Rm #: 168 32 [facility] - Floor: 1, Rm #: 168B [id number] 33 15-20 for HCAP, VAP, +++Osteomyelitis, Endocarditis, Meningitis 10-15 for All Other Infections 34 [facility] - Floor: 1, Rm #: 168B [id number] NEXT DOSE 1000 35 15-20 for HCAP, VAP, +++Osteomyelitis, Endocarditis, Meningitis 10-15 for All Other Infections 36 [id number] 37 [id number] 38 [facility] - Floor: 1, Rm #: 168B [id number] NEXT VANCO DOSE TODAY AT 1000 39 [...] report test result due to hemolysis. 42 [facility] - Floor: 1, Rm #: 168B [id number] NEXT VANCO DOSE TODAY AT 1000 43 [facility] - Floor: 1, Rm #: 168B [id number] NEXT VANCO DOSE TODAY AT 1000 44 [facility] - Floor: 1, Rm #: 168B [id number] 45 [facility] - Floor: 1, Rm #: 168B [id number] Procedures Date Code Description Status 04/29/2019 24623 Amputation Leg Through Tibia & Fibula Completed 04/29/2019 52136 Amputation Leg Through Tibia & Fibula Completed 04/07/2019 53944 Walking Cast Completed 02/10/2019 79110 Walking Cast Completed 01/22/2019 62013 Walking Cast Completed 01/01/2019 20169 Walking Cast Completed 12/11/2018 70869 Short Leg Cast Completed 12/04/2018 43948 Short Leg Cast Completed 11/25/2018 03591 Walking Cast Completed 01/01/2013 65433162 Colonoscopy Completed 10/16/2012 101911696 Diabetic Retinal Eye Exam Completed 07/17/2012 78076121 Mammogram Completed 10/04/2011 876367352 Diabetic Foot Exam Completed 08/08/2011 35525361 Mammogram Completed 07/30/2011 395851470 Diabetic Foot Exam Completed 07/16/2011 839006812 Diabetic Foot Exam Completed 07/06/2011 20666434 Colonoscopy Completed 07/02/2011 781488569 Diabetic Foot Exam Completed 06/11/2011 640441565 Diabetic Foot Exam Completed 05/29/2011 808764820 Diabetic Foot Exam Completed 05/14/2011 867957213 Diabetic Foot Exam Completed 05/01/2011 191106752 Diabetic Foot Exam Completed 04/09/2011 744494758 Diabetic Foot Exam Completed 04/02/2011 774340599 Diabetic Foot Exam Completed 03/12/2011 282622107 Diabetic Foot Exam Completed 08/04/2010 54709452 Mammogram Completed Medical Devices Description No Information Available Encounters Type Date Location Provider Dx Diagnosis Office Visit 05/06/2019 [facility] Tosha Naqvi T87.44 Infection of 6:37a Infectious Fischer, MEDIA/INSTRUCTIONAL DESIGNER amputation stump, Diseases left lower extremity Z89.512 Acquired absence of left leg below knee E11.40 Type 2 diabetes mellitus with diabetic neuropathy, unsp [facility] T[facility].44 Infection of 6:36a For Infectious Fischer, MEDIA/INSTRUCTIONAL DESIGNER amputation Diseases stump, left lower extremity Z89.512 Acquired absence of left leg below knee E11.40 Type 2 diabetes mellitus with diabetic neuropathy, unsp [facility] T[facility].44 Infection of 9:14a For Infectious Fischer, MEDIA/INSTRUCTIONAL DESIGNER amputation Diseases stump, left lower extremity E11.40 Type 2 diabetes mellitus with diabetic neuropathy, unsp E11.69 Type 2 diabetes mellitus with other specified complication Office Visit 04/21/2019 [facility] Colten Mosley86.172 Other acute 9:30a Services Of Heidy Haynes osteomyelitis, left C.M.A. ankle and foot Office Visit 04/20/2019 [facility] Liam Riojas M86.172 Other acute 2:40p For Infectious Macqueen, osteomyelitis, left Diseases M.D. ankle and foot E11.69 Type 2 diabetes mellitus with other specified complication Office Visit 03/31/2019 11:00a Orthopedic Colten S90.812A Abrasion, left Services Of Heidy Haynes foot, initial C.M.A. encounter E11.621 Type 2 diabetes mellitus with foot ulcer Office Visit 03/27/2019 [facility] Liam Riojas M86.172 Other acute 11:30a For Infectious Heidy Gutierrez osteomyelitis, left Diseases ankle and foot Z79.2 truck terminal manager (current) use of antibiotics E11.69 Type 2 diabetes mellitus with other specified complication Office Visit 03/17/2019 [facility]opedic Colten Mosley86.172 Other acute 9:15a Services Of Heidy Haynes osteomyelitis, left C.M.A. ankle and foot Office Visit 03/13/2019 [facility] Liam Riojas M86.172 Other acute 11:30a For Infectious [place], osteomyelitis, left Diseases M.D. ankle and foot E11.69 Type 2 diabetes mellitus with other specified complication Z79.2 assisted (current) use of antibiotics Office Visit 02/23/2019 [facility] E11.69 Type 2 diabetes 8:55a For Infectious Aaliyah MEDIA/INSTRUCTIONAL DESIGNER mellitus with Diseases other specified complication M86.172 Other acute osteomyelitis, left ankle and foot E11.40 Type 2 diabetes mellitus with diabetic neuropathy, uns T87.44 Infection of amputation stump, left lower extremity Office Visit 02/22/2019 1:35p Orthopedic Radha Floresita, T87.44 Infection of Services Of RPA-C amputation C.M.A. stump, left lower extremity L03.116 Cellulitis of left lower limb Z89.432 Acquired absence of left foot Office Visit 02/21/2019 8:55a [facility] Radha Munroe, [employer],chely Moody (primary) Hospitalists hypertension R19.7 Diarrhea, unspecified N18.9 Chronic kidney disease, unspecified Z79.4 truck terminal manager (current) use of insulin Office Visit 02/20/2019 [facility] Radha Munroe, R19.7 Diarrhea, 8:54a Assocchely M.D. unspecified Hospitalists N18.9 Chronic kidney disease, unspecified E11.22 Type 2 diabetes mellitus w diabetic chronic kidney disease I10 Essential (primary) hypertension Z79.4 truck terminal manager (current) use of insulin Office Visit 02/19/2019 2:01p Orthopedic Amy Reich, L03.116 Cellulitis of Services Of [place] left lower limb C.M.A. Z89.432 Acquired absence of left foot Office Visit 02/19/2019 8:54a [facility] Radha Munroe, I10 Essential Assocchely M.D. (primary) Hospitalists hypertension R19.7 Diarrhea, unspecified N18.9 Chronic kidney disease, unspecified E11.22 Type 2 diabetes mellitus w diabetic chronic kidney disease Z79.4 assisted (current) use of insulin Office Visit 02/19/2019 [facility] Donya E11.69 Type 2 diabetes 9:06a For Infectious Aaliyah, MEDIA/INSTRUCTIONAL DESIGNER mellitus with Diseases other specified complication M86.172 Other acute osteomyelitis, left ankle and foot E11.40 Type 2 diabetes mellitus with diabetic neuropathy, unsp T87.44 Infection of amputation stump, left lower extremity Office Visit [facility] E11.69 Type 2 diabetes 9:04a For Infectious Fischer, MEDIA/INSTRUCTIONAL DESIGNER mellitus with Diseases other specified complication M86.172 Other acute osteomyelitis, left ankle and foot E11.40 Type 2 diabetes mellitus with diabetic neuropathy, unsp T87.44 Infection of amputation stump, left lower extremity Office Visit 02/18/2019 8:54a [facility] Selena I10 Essential chely Garrido M.D. (primary) Hospitalists hypertension R19.7 Diarrhea, unspecified Z79.4 assisted (current) use of insulin Office Visit 02/18/2019 9:40a Orthopedic Amy Reich L03.116 Cellulitis of Services Of [place] left lower limb C.M.A. Z89.432 Acquired absence of left foot Office Visit 02/17/2019 8:53a [facility] Selena I10 Essential chely Garrido M.D. (primary) Hospitalists hypertension Z79.4 assisted (current) use of insulin Office 02/17/2019 [facility] Edison Patterson MD E11.65 Type 2 diabetes Visit 3:20p and Endocrinology mellitus with of [employer] Field Coordinator hyperglycemia Office 02/16/2019 [facility] E11.628 Type 2 diabetes Visit 9:03a Infectious Fischer, MEDIA/INSTRUCTIONAL DESIGNER mellitus with Diseases other skin complications T87.44 Infection of amputation stump, left lower extremity L03.116 Cellulitis of left lower limb E11.40 Type 2 diabetes mellitus with diabetic neuropathy, unsp Office Visit 02/16/2019 [facility] E11.628 Type 2 diabetes 8:53a Assocchely D.O. mellitus with Hospitalists other skin complications L08.9 Local infection of the skin and subcutaneous tissue, unsp I10 Essential (primary) hypertension E11.22 Type 2 diabetes mellitus w diabetic chronic kidney disease N18.9 Chronic kidney disease, unspecified Z79.4 assisted (current) use of insulin Office Visit 02/16/2019 2:01p Orthopedic Amy Reich, L03.116 Cellulitis of Services Of [place] left lower limb C.M.A. Z89.432 Acquired absence of left foot Office Visit 02/15/2019 8:52a [facility] Selena T87.44 Infection of Asschely tucker M.D. amputation Hospitalists stump, left lower extremity E11.69 Type 2 diabetes mellitus with other specified complication I10 Essential (primary) hypertension Z79.4 assisted (current) use of insulin Office Visit 02/14/2019 8:52a [facility] Selena T87.44 Infection of chely Garrido M.D. amputation Hospitalists stump, left lower extremity E11.69 Type 2 diabetes mellitus with other specified complication I10 Essential (primary) hypertension Z79.4 truck terminal manager (current) use of insulin Office Visit 02/13/2019 Orthopedic Niyah Lugo, S90.822D Blister 2:29p Services Of ROMEL-C (nonthermal), left C.M.A. foot, subsequent encounter Z89.432 Acquired absence of left foot Office Visit 02/13/2019 8:52a [facility] Selena T87.44 Infection of Asschely tucker M.D. amputation Hospitalists stump, left lower extremity I10 Essential (primary) hypertension E11.69 Type 2 diabetes mellitus with other specified complication Z79.4 truck terminal manager (current) use of insulin Office Visit 02/13/2019 [facility] Tosha Naqvi E11.628 Type 2 diabetes 9:00a For Infectious MYLENE Fischer mellitus with Diseases other skin complications T87.44 Infection of amputation stump, left lower extremity E11.40 Type 2 diabetes mellitus with diabetic neuropathy, unsp L03.116 Cellulitis of left lower limb Office Visit 02/12/2019 [facility] T87.44 Infection of 8:51a Assocchely NP amputation Hospitalists stump, left lower extremity E11.9 Type 2 diabetes mellitus without complications I10 Essential (primary) hypertension F32.9 Major depressive disorder, single episode, unspecified Office Visit 02/12/2019 11:00a Orthopedic Colten L03.116 Cellulitis of Services Of Heidy Haynes left lower limb C.M.A. Z89.432 Acquired absence of left foot Office Visit 02/05/2019 Orthopedic Colten M86.672 Other chronic 10:15a Services Of Heidy Haynes osteomyelitis, left C.M.A. ankle and foot Office Visit 12/11/2018 [facility] Liam Riojas Z89.432 Acquired absence of 2:40p For Infectious [place], left foot Diseases Heidy E11.52 Type 2 diabetes w diabetic peripheral angiopathy w gangrene Office Visit 11/14/2018 [facility] Mayank E11.621 Type 2 9:34a Asschely tucker M.D. diabetes Hospitalists mellitus with foot ulcer I96 Gangrene, not elsewhere classified L97.528 Non-prs chronic ulcer oth prt left foot with oth severity Z89.432 Acquired absence of left foot Z79.4 assisted (current) use of insulin Office Visit 11/13/2018 [facility] E11.621 Type 2 9:33a chely Garrido M.D. diabetes Hospitalists mellitus with foot ulcer L97.528 Non-prs chronic ulcer oth prt left foot with oth severity G89.18 Other acute postprocedural pain I10 Essential (primary) hypertension Z79.4 assisted (current) use of insulin Assessments Date Code Description Provider 05/12/2019 Z89.512 Acquired absence of left leg below Colten Haynes M.D. knee 05/06/2019 T87.44 Infection of amputation stump, left Tosha Fischer NP lower extremity 05/06/2019 Z89.512 Acquired absence of left leg below Tosha Fischer NP knee 05/06/2019 E11.40 Type 2 diabetes mellitus with Tosha Fischer NP diabetic neuropathy, unspecified 05/04/2019 T87.44 Infection of amputation stump, left Tosha Fischer NP lower extremity 05/04/2019 Z89.512 Acquired absence of left leg below Tosha Fischer NP knee 05/04/2019 E11.40 Type 2 diabetes mellitus with Tosha Fischer NP diabetic neuropathy, unspecified 05/02/2019 Z89.512 Acquired absence of left leg below Anup Carson MD knee 04/29/2019 T87.44 Infection of amputation stump, left Tosha Fischer NP lower extremity 04/29/2019 M86.172 Other acute osteomyelitis, left AHSAN Ford ankle and foot 04/29/2019 E11.40 Type 2 diabetes mellitus with Tosha Fischer NP diabetic neuropathy, unspecified 04/29/2019 M86.172 Other acute osteomyelitis, left Anup Carson MD ankle and foot 04/29/2019 E11.69 Type 2 diabetes mellitus with other Tosha Fischer NP specified complication 04/29/2019 E11.621 Type 2 diabetes mellitus with foot AHSAN Ford ulcer 04/29/2019 E11.621 Type 2 diabetes mellitus with foot Anup Carson MD ulcer 04/21/2019 M86.172 Other acute osteomyelitis, left Colten [...] Gutierrez M.D. ankle and foot 03/27/2019 Z79.2 truck terminal manager (current) use of Liam Gutierrez M.D. antibiotics 03/27/2019 E11.69 Type 2 diabetes mellitus with other Liam Gutierrez M.D. specified complication 03/17/2019 M86.172 Other acute osteomyelitis, left Colten Haynes M.D. ankle and foot 03/13/2019 M86.172 Other acute osteomyelitis, left Liam Gutierrez M.D. ankle and foot 03/13/2019 E11.69 Type 2 diabetes mellitus with other Liam Gutierrez M.D. specified complication 03/13/2019 Z79.2 assisted (current) use of Liam Gutierrez M.D. antibiotics 02/23/2019 E11.69 Type 2 diabetes mellitus with other Tosha Fischer NP specified complication 02/23/2019 M86.172 Other acute osteomyelitis, left Tosha Fischer NP ankle and foot 02/23/2019 E11.40 Type 2 diabetes mellitus with Tosha Fischer NP diabetic neuropathy, unsp 02/23/2019 T87.44 Infection of amputation stump, left Tosha Fischer NP lower extremity 02/22/2019 T87.44 Infection of amputation stump, left Radha Canas, [facility] lower extremity 02/22/2019 L03.116 Cellulitis of left lower limb Radha Canas, [facility] 02/22/2019 Z89.432 Acquired absence of left foot Radha Canas, [facility] 02/21/2019 I10 Essential (primary) hypertension Radha Munroe M.D. 02/21/2019 R19.7 Diarrhea, unspecified Radha Munroe M.D. 02/21/2019 N18.9 Chronic kidney disease, unspecified Radha Munroe M.D. 02/21/2019 Z79.4 assisted (current) use of insulin Radha Munroe M.D. 02/20/2019 R19.7 Diarrhea, unspecified Radha Munroe M.D. 02/20/2019 N18.9 Chronic kidney disease, unspecified Radha Munroe M.D. 02/20/2019 E11.22 Type 2 diabetes mellitus w diabetic Radha Munroe M.D. chronic kidney disease 02/20/2019 I10 Essential (primary) hypertension Radha Munroe M.D. 02/20/2019 Z79.4 truck terminal manager (current) use of insulin Radha Munroe M.D. 02/19/2019 E11.69 Type 2 diabetes mellitus with other Tosha Fischer NP specified complication 02/19/2019 I10 Essential (primary) hypertension Radha Munroe M.D. 02/19/2019 M86.172 Other acute osteomyelitis, left Tosha Fischer NP ankle and foot 02/19/2019 L03.116 Cellulitis of left lower limb ELROY Correa 02/19/2019 E11.40 Type 2 diabetes mellitus with Tosha Fischer NP diabetic neuropathy, unsp 02/19/2019 R19.7 Diarrhea, unspecified Radha Munroe M.D. 02/19/2019 T87.44 Infection of amputation stump, left Tosha Fischer NP lower extremity 02/19/2019 Z89.432 Acquired absence of left foot ELROY Correa 02/19/2019 N18.9 Chronic kidney disease, unspecified Radha Munroe M.D. 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 02/18/2019 E11.69 Type 2 diabetes mellitus with other Tosha Fischer NP specified complication 02/18/2019 I10 Essential (primary) hypertension Selena Marlow M.D. 02/18/2019 M86.172 Other acute osteomyelitis, left Tosha Fischer NP ankle and foot 02/18/2019 L03.116 Cellulitis of left lower limb Amy Reich PA 02/18/2019 E11.40 Type 2 diabetes mellitus with Tosha Fischer NP diabetic neuropathy, [facility] 02/18/2019 R19.7 Diarrhea, unspecified Selena Marlow M.D. 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 02/17/2019 E11.65 Type 2 diabetes mellitus with Edison Patterson MD hyperglycemia 02/17/2019 I10 Essential (primary) hypertension Selena Marlow M.D. 02/17/2019 Z79.4 assisted (current) use of insulin Selena Marlow M.D. 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 subcutaneous tissue, unsp 02/16/2019 E11.40 Type 2 diabetes mellitus with Tosha Fischer NP diabetic neuropathy, unsp 02/16/2019 Z89.432 Acquired absence of left foot ELROY Correa 02/16/2019 I10 Essential (primary) hypertension Shine PottsOAbram 02/16/2019 E11.22 Type 2 diabetes mellitus w diabetic Dereje Potts.O. chronic kidney disease 02/16/2019 N18.9 Chronic kidney disease, unspecified Dereje oPtts.O. 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 lower extremity 02/15/2019 E11.69 Type 2 diabetes mellitus with other Selena Marlow M.D. specified complication 02/15/2019 I10 Essential (primary) hypertension Selena Marlow M.D. 02/15/2019 Z79.4 assisted (current) use of insulin Selena Marlow M.D. 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 lower extremity 02/14/2019 E11.69 Type 2 diabetes mellitus with other Selena Marlow M.D. specified complication 02/14/2019 I10 Essential (primary) hypertension Selena Marlow M.D. 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 02/13/2019 L03.116 Cellulitis of left lower limb Tosha Andersonvioleta Fischer, MEDIA/INSTRUCTIONAL DESIGNER 02/13/2019 Z89.432 Acquired absence of left foot AHSAN Reynolds 02/13/2019 E11.69 Type 2 diabetes mellitus with other Selena Marlow M.D. specified complication 02/13/2019 Z79.4 assisted (current) use of insulin Selena Marlow M.D. 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 02/12/2019 E11.9 Type 2 diabetes mellitus without Remedios Wynn NP complications 02/12/2019 Z89.432 Acquired absence of left foot Colten Haynes M.D. 02/12/2019 I10 Essential (primary) hypertension Remedios Wynn NP 02/12/2019 F32.9 Major depressive disorder, single Remedios [...] absence of left foot Colten Haynes M.D. 11/14/2018 Z89.432 Acquired absence of left foot AHSAN Reynolds 11/14/2018 E11.621 Type 2 diabetes mellitus with foot Mayank Sandy M.D. ulcer 11/14/2018 I96 Gangrene, not elsewhere classified Mayank Sandy M.D. 11/14/2018 L97.528 Non-prs chronic ulcer oth prt left Mayank Sandy M.D. foot with oth severity 11/14/2018 Z89.432 Acquired absence of left foot Mayank Sandy M.D. 11/14/2018 Z79.4 assisted (current) use of insulin Maynak Sandy M.D. 11/13/2018 Z89.432 Acquired absence of left foot ELROY Correa 11/13/2018 E11.621 Type 2 diabetes mellitus with foot Mayank Sandy M.D. ulcer 11/13/2018 L97.528 Non-prs chronic ulcer oth prt left Mayank Sandy M.D. foot with oth severity 11/13/2018 G89.18 Other acute postprocedural pain Mayank Sandy M.D. 11/13/2018 I10 Essential (primary) hypertension Mayank Sandy M.D. 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 Plan of Treatment Future Appointment(s):2019 2:00 pm - Tosha Fischer NP at [facility]/24/2019 11:00 am - Edison Patterson MD at [facility]05/12/2019 - Colten Haynes M.D.Z89.512 Acquired absence of left leg below kneeFollow up:10-14 days Functional Status Description No Information Available Mental Status Description No Information Available Referrals Refer to Reason for Referral Status Appt Date Edison Patterson MD 63 year old diabetic woman with Patient Notified 06/09/2019 neuropathy and foot infections [address] [place] [address] [phone]
--- OUTSIDE RECORDS SUMMARY | 2019-05-30 16:17 | XMS REPORT | Continuity of Care Document ---
:1955 External Reference #:[id number] Author Name Tosha Fischer NP (transmitted by agent of provider Sparkle Correa) Address [address] [place] [address] Care Team Providers Name Role Phone William Roman MD - Gastroenterology Care Team Information [employer]astics Factory Worker [phone] Lorenzo Ortiz MD - Ophthalmology Care Team Information [employer] Factory Worker [phone] Latrice Salas MD [facility] - Care Team Information Plastics Factory Worker Cardiovascular Disease Steffany Wilburn MD - Internal Medicine Care Team Information Plastics Factory Worker [phone] Problems Active Problems Provider Date Benign essential [...] Patient has never smoked Smoking Status Reviewed: 05/27/19 Patient has never smoked Exercise Type/Frequency Exercises [...] 2 check blood sugar 2 1units E11.40 [place] 12/03/2017 times daily and prtyson Lawrence M.D. w/Device Kit Onetouch Ultrasoft check blood sugar 2 100units E11.40 [place] 12/03/2017 Lancets times daily and prtyson Lawrence M.D. [facility] Onetouch Ultra Blue test twice a day 100units E11.40 [place] 12/03/2017 and as needed Heidy Lawrence Strips Basaglar Kwikpen inject 85 iu daily 30ml Zsofia Abraham, 11/15/2017 in the evenings, GLASS ETCHER 100Unit/ML Solution reduce dose to 70 Pen-Inject iu if bs reading < 100 at night - pt taking at 9am at [facility] w/ good effect Furosemide 1 by mouth every 30tabs I10 Zsofia Abraham, 11/08/2017 20mg day f GLASS ETCHER Tablets Oxygen 2 l nc at bedtime 1units Les Turcios 12/20/2016 [facility] Heidy Carter Sertraline HCL 1 tab by mouth 90tabs F32.9 Zsofia Abraham, 03/25/2015 daily GLASS ETCHER 100mg Tablets BD Pen [place] for use with 100units Vanessa Prince, 12/17/2012 [...] Unknown day 81mg Tablets DR Vancomycin HCL 750mg IV twice Unknown 1gm daily x 28 days at [facility] (ending 05/26/19) History Medications Doxycycline Hyclate one tablet twice 28caps Liam Riojas 03/29/2019 - daily for 14 days Heidy Gutierrez 04/19/2019 100mg Capsules (order written on [facility] consult sheet) Vancomycin HCL 750mg IV q 12 hrs Liam Riojas 02/23/2019 - 1gm x 4-6 wks at Heidy Gutierrez 03/28/2019 [facility] started 02/13/19 Bactrim DS 1 by mouth twice 28tabs M86.672 Colten Haynes, 02/10/2019 - a day Heidy 02/23/2019 800-160mg Tablets Immunizations CPT Code Status Date Vaccine Lot # [id number] Given 07/19/2016 Influ Virus Vaccine, Quadrivalent, Split Virus, [place] [id number] [id number] Given 02/25/2014 Hepatitis B Vaccine Adult Dosage [id number] Given 05/28/2012 Fluzone Vaccine [id number] Given 05/28/2012 Influenza Virus 3Yrs & Over 65119 Given 02/06/2012 Pneumonia Vaccine [id number] Given 07/10/2011 Influenza Virus 3Yrs & Over Vital Signs Date Vital Result Comment 2019 1:58pm Height 71 inches 5'11" Respiratory Rate 14 /min Body Temperature 99.2 F 05/19/2019 10:26am Height 71 inches 5'11" Weight 260.00 lb Heart Rate 80 /min BP Systolic 144 mmHg BP Diastolic 70 mmHg Respiratory Rate 14 /min Body Temperature 98.4 F Pain Level 0 BMI (Body Mass Index) 36.3 kg/m2 Results Test Date Facility Test Result H/L Range Note Laboratory test [facility] Vancomycin 17.0 g/mL 1, 2 finding [address] [place] [address] [phone] CBC Auto Diff [facility] White Blood 6.3 10^3/uL Normal 3.5-10.8 [address] [place] [address] [phone] Red Blood Count 3.69 10^6/uL Low 3.70-4.87 Hemoglobin 9.5 g/dL Low 12.0-16.0 Hematocrit 30 % Low 35-47 Mean Corpuscular Volume 80 fL Normal 80-97 Mean Corpuscular Hemoglobin 26 pg Low 27-31 Mean Corpuscular HGB Conc 32 g/dL Normal 31-36 Red Cell Distribution Width 18 % High 10-15 Platelet Count 252 10^3/uL Normal 150-450 Mean Platelet Volume 8.3 fL Normal 7.4-10.4 Abs Neutrophils 5.4 10^3/uL Normal 1.5-7.7 Abs Lymphocytes 0.5 10^3/uL Low 1.0-4.8 Abs Monocytes 0.2 10^3/uL Normal 0-0.8 Abs Eosinophils 0.2 10^3/uL Normal 0-0.6 Abs Basophils 0.0 10^3/uL Normal 0-0.2 Abs Nucleated RBC 0.0 10^3/uL Granulocyte % 85.4 % Lymphocyte % 7.9 % Monocyte % 3.9 % Eosinophil % 2.4 % Basophil % 0.4 % Nucleated Red Blood Cells % 0.1 Comp Metabolic 05/11/2019 [facility] Sodium 141 mmol/L Normal 135-145 [address] [place] [address] [phone] Potassium 3.8 mmol/L Normal 3.5-5.0 Co2 Carbon [...] Egfr Non- 69.2 >60 Egfr 83.7 >60 5 Chloride 112 mmol/L High 101-111 Anion Gap 5 mmol/L Normal 2-11 Laboratory test 05/11/2019 [facility] Vancomycin Trough 10.3 g /mL [address] [place] [address] [phone] C Reactive Protein 30.27 mg/L High <8.01 7 CBC Auto 05/11/2019 [facility] White Blood 5.6 10^3/uL Normal 3.5-10.[address] [place] [address] [phone] Red Blood Count 2.70 10^6/uL Low 3.70-4.87 [...] Blood Cells % 0.1 Laboratory test 05/11/2019 [facility] Erythrocyte Sed 103 mm/Hr High 0-29 [address] [place] [address] [phone] Comp Metabolic 03/30/2019 [facility] Sodium 142 Normal 135- 145 [address] mmol/[place] [address] [phone] Chloride 108 mmol/L Normal 101-111 Co2 Carbon [...] Egfr Non- 46.1 >60 Egfr 55.8 >60 10 Potassium 5.2 mmol/L High 3.5-5.0 Anion Gap 5 mmol/L Normal 2-11 Laboratory test 03/30/2019 [facility] C Reactive 13.75 High < 8.01 [address] Protein mg/[place] [address] [phone] CBC Auto Diff 03/30/2019 [facility] White Blood 5.5 Normal 3.5 -10.[address] Count 10^3/[place] [address] [phone] Red Blood Count 3.84 10^6/uL Normal 3.70-4.87 [...] Red Blood Cells % 0.1 Laboratory 03/30/2019 [facility] Erythrocyte 47 mm/Hr High 0- 29 12 test finding [address] [place] [address] [phone] Laboratory 03/27/2019 [facility] Vancomycin 30.3 Critical 13 , test finding [address] Trough g/mL high 14 [place] [address] [phone] Comp 03/23/2019 [facility] Sodium 141 Normal 135-145 [address] mmol/[place] [address] [phone] Potassium 4.9 mmol/L Normal 3.5-5.0 Chloride 109 [...] Egfr Non- 43.5 >60 Egfr 52.7 >60 16 Laboratory test 03/23/2019 [facility] Vancomycin Trough 20.6 g /mL [address] [place] [address] [phone] C Reactive Protein 10.76 mg/L High <8.01 18 CBC Auto 03/23/2019 [facility] White Blood 6.3 10^3/uL Normal 3.5-10.[address] [place] [address] [phone] Red Blood Count 4.05 10^6/uL Normal 3.70-4.87 [...] Red Blood Cells % 0.0 Laboratory 03/23/2019 [facility] Erythrocyte Sed 50 mm/Hr High 0-29 19 test finding [address] [place] [address] [phone] Laboratory 03/16/2019 [facility] Vancomycin 17.0 20, test finding [address] Trough g/mL 21 [place] [address] [phone] Laboratory 03/09/2019 [facility] Vancomycin 14.8 22, test finding [address] Trough g/mL 23 [place] [address] [phone] Laboratory 01/21/2019 [facility] Point of Care 112 High 70- 100 24 test finding [address] Glucose mg/dL [place], [place] [address] [phone] Laboratory 01/21/2019 [facility] Point of Care 125 High 70- 100 25 test finding [address] Glucose mg/[place] [address] [phone] Laboratory 01/21/2019 [facility] Point of Care 165 High 70- 100 26 test finding [address] Glucose mg/[place] [address] [phone] CBC Auto Diff 12/08/2018 [facility] White Blood 6.0 Normal 3.5 -10. [address] Count 10^3/uL 8 [place] [address] [phone] Red Blood Count 3.72 10^6/uL Normal 3.70-4.87 [...] Blood Cells % 0.1 Comp Metabolic 12/08/2018 [facility] Sodium 140 mmol/L Normal 135-[address] [place] [address] [phone] Potassium 4.3 mmol/L Normal 3.5-5.0 Chloride 107 [...] Egfr Non- 48.0 >60 Egfr 58.1 >60 28 Laboratory test 12/08/2018 [facility] Vancomycin Random 22.4 g /mL [address] [place] [address] [phone] C Reactive Protein 12.20 mg/L High <8.01 30 CBC Auto 12/05/2018 [facility] White Blood 5.4 10^3/uL Normal 3.5-10.8 [address] [place] [address] [phone] Red Blood Count 3.88 10^6/uL Normal 3.70-4.87 [...] Blood Cells % 0.1 Comp Metabolic 12/05/2018 [facility] Sodium 142 mmol/L Normal 135-145 Panel [address] [place] [address] [phone] Potassium 4.2 mmol/L Normal 3.5-5.0 Chloride 108 [...] Egfr Non- 53.3 >60 Egfr 64.6 >60 32 Laboratory test 12/05/2018 [facility] Vancomycin Random 21.2 g /mL 33 finding [address] [place] [address] [phone] C Reactive Protein 12.04 mg/L High <8.01 34 Laboratory test 12/03/2018 [facility] Vancomycin 21.9 g/mL 35, [address] [place] [address] [phone] Laboratory test 12/01/2018 [facility] Vancomycin 23.5 g/mL 37, [address] [place] [address] [phone] Laboratory test 11/26/2018 [facility] Vancomycin 18.0 g/mL 39, [address] [place] [address] [phone] 1 [id number] 2 15-20 for HCAP, VAP, Osteomyelitis, Endocarditis, Meningitis 10-15 for All Other Infections 3 [id number] PLEASE RUN STAT, CALL W/H/H [phone] P489 4 [id number] 5 Because ethnic data is not always readily [...] 15-29 5 Kidney failure <15 (or dialysis) 6 15-20 for HCAP, VAP, Osteomyelitis, Endocarditis, Meningitis 10-15 for All Other Infections 7 [id number] 8 [id number] 9 [facility] - Floor: 1, Rm #: 156B [id number] 10 Because ethnic data is not always readily [...] 15-29 5 Kidney failure <15 (or dialysis) 11 [facility] - Floor: 1, Rm #: 156B [id number] 12 [facility] - Floor: 1, Rm #: 156B [id number] 13 [id number] [facility] - Floor: , Rm #: [id number] 14 15-20 for HCAP, VAP, Osteomyelitis, Endocarditis, Meningitis 10-15 for All Other Infections 15 [facility] - Floor: 1, Rm #: 156B [id number] 16 Because ethnic data is not always readily [...] 15-29 5 Kidney failure <15 (or dialysis) 17 15-20 for HCAP, VAP, Osteomyelitis, Endocarditis, Meningitis 10-15 for All Other Infections 18 [facility] - Floor: 1, Rm #: 156B [id number] 19 [facility] - Floor: 1, Rm #: 156B [id number] 20 [facility] - Floor: 1, Rm #: 156B [id number] 21 15-20 for HCAP, VAP, Osteomyelitis, Endocarditis, Meningitis 10-15 for All Other Infections 22 [facility] - Floor: 1, Rm #: 156B [id number] 23 [facility] - Floor: 1, Rm #: 156B [id number] 24 Rn Endoscopy: [id number] Rn Endoscopy: [id number] 26 Rn Endoscopy: [id number] 27 [facility] - Floor: 1, Rm #: 168B [id number] 28 Because ethnic data is not always readily [...] 15-29 5 Kidney failure <15 (or dialysis) 29 15-20 for HCAP, VAP, +++Osteomyelitis, Endocarditis, Meningitis 10-15 for All Other Infections 30 [facility] - Floor: 1, Rm #: 168B [id number] 31 [facility] - Floor: 1, Rm #: 168 32 Because ethnic data is not always readily [...] 15-29 5 Kidney failure <15 (or dialysis) 33 15-20 for HCAP, VAP, +++Osteomyelitis, Endocarditis, Meningitis 10-15 for All Other Infections 34 [facility] - Floor: 1, Rm #: 168 35 [facility] - Floor: 1, Rm #: 168B [id number] 36 15-20 for HCAP, VAP, +++Osteomyelitis, Endocarditis, Meningitis 10-15 for All Other Infections 37 [facility] - Floor: 1, Rm #: 168B [id number] NEXT DOSE 1000 38 15-20 for HCAP, VAP, +++Osteomyelitis, Endocarditis, Meningitis 10-15 for All Other Infections 39 [id number] 40 [id number] Procedures Date Code Description Status 04/29/2019 32273 Amputation Leg Through Tibia & Fibula Completed 04/29/2019 05519 Amputation Leg Through Tibia & Fibula Completed 04/07/2019 37730 Walking Cast Completed 02/10/2019 72246 Walking Cast Completed 01/22/2019 98858 Walking Cast Completed 01/01/2019 48048 Walking Cast Completed 12/11/2018 81801 Short Leg Cast Completed 12/04/2018 61748 Short Leg Cast Completed 11/25/2018 65424 Walking Cast Completed 01/01/2013 32757046 Colonoscopy Completed 10/16/2012 291044058 Diabetic Retinal Eye Exam Completed 07/17/2012 75364788 Mammogram Completed 10/04/2011 778108325 Diabetic Foot Exam Completed 08/08/2011 44141459 Mammogram Completed 07/30/2011 051864617 Diabetic Foot Exam Completed 07/16/2011 574393258 Diabetic Foot Exam Completed 07/06/2011 36990068 Colonoscopy Completed 07/02/2011 297273943 Diabetic Foot Exam Completed 06/11/2011 006580361 Diabetic Foot Exam Completed 05/29/2011 080592161 Diabetic Foot Exam Completed 05/14/2011 129122846 Diabetic Foot Exam Completed 05/01/2011 565851575 Diabetic Foot Exam Completed 04/09/2011 646023476 Diabetic Foot Exam Completed 04/02/2011 777426457 Diabetic Foot Exam Completed 03/12/2011 830821900 Diabetic Foot Exam Completed 08/04/2010 95337865 Mammogram Completed Medical Devices Description No Information Available Encounters Type Date Location Provider Dx Diagnosis Office Visit 05/06/2019 [facility] Tosha Naqvi T87.44 Infection of 6:37a Infectious MYLENE Fischer amputation stump, Diseases left lower extremity Z89.512 Acquired absence of left leg below knee E11.40 Type 2 diabetes mellitus with diabetic neuropathy, unsp Office Visit 05/05/2019 8:46a [facility] [place] D64.9 Anemia, Assoc,pc Ange Black, unspecified Hospitalists DEVOPS ARCHITECT N18.9 Chronic kidney disease, unspecified E11.22 Type 2 diabetes mellitus w diabetic chronic kidney disease Office Visit 05/04/2019 [facility] Donya T87.44 Infection of 6:36a For Valentin Fischer NP amputation Diseases stump, left lower extremity Z89.512 Acquired absence of left leg below knee E11.40 Type 2 diabetes mellitus with diabetic neuropathy, unsp Office Visit 05/04/2019 8:46a [facility] D64.9 Anemia, Assoc,pc [facility] [place], unspecified Hospitalists DEVOPS ARCHITECT N18.9 Chronic kidney disease, unspecified E11.22 Type 2 diabetes mellitus w diabetic chronic kidney disease Office Visit 05/03/2019 8:46a [facility] D64.9 Anemia, Assoc,pc [facility] [place], unspecified Hospitalists DEVOPS ARCHITECT N18.9 Chronic kidney disease, unspecified E11.22 Type 2 diabetes mellitus w diabetic chronic kidney disease Office Visit 05/02/2019 8:45a [facility] D64.9 Anemia, Assoc,pc [facility] [place], unspecified Hospitalists DEVOPS ARCHITECT E11.22 Type 2 diabetes mellitus w diabetic chronic kidney disease N18.9 Chronic kidney disease, unspecified Office Visit 05/01/2019 8:45a [facility] Maciej D64.9 Anemia, Assoc,pc Jd, [place] unspecified Hospitalists N18.9 Chronic kidney disease, unspecified E11.22 Type 2 diabetes mellitus w diabetic chronic kidney disease E11.65 Type 2 diabetes mellitus with hyperglycemia Office Visit 04/30/2019 8:44a [facility] Maciej D64.9 Anemia, Assoc,chely Miles, [place] unspecified Hospitalists E11.22 Type 2 diabetes mellitus w diabetic chronic kidney disease N18.9 Chronic kidney disease, unspecified Office Visit 04/29/2019 [facility] Tosha Naqvi T87.44 Infection of 9:14a For Infectious MYLENE Fischer amputation Diseases stump, left lower extremity E11.40 Type 2 diabetes mellitus with diabetic neuropathy, unsp E11.69 Type 2 diabetes mellitus with other specified complication Office Visit 04/29/2019 [facility] Maciej M86.9 Osteomyelitis, 8:37a Assoc,pc Jd [place] unspecified Hospitalists D64.9 Anemia, unspecified N18.9 Chronic kidney disease, unspecified E11.22 Type 2 diabetes mellitus w diabetic chronic kidney disease Office Visit 04/28/2019 8:37a [facility] Rosalind T87.44 Infection of Assoc,chely Johnson D.O. amputation Hospitalists stump, left lower extremity E87.1 Hypo-osmolality and hyponatremia E11.9 Type 2 diabetes mellitus without complications Office Visit 04/21/2019 [facility] M86.172 Other acute 9:30a Services Of Heidy Haynes osteomyelitis, left C.M.A. ankle and foot Office Visit 04/20/2019 [facility] Liam Riojas M86.172 Other acute 2:40p For Infectious [place], osteomyelitis, left Diseases M.D. ankle and foot E11.69 Type 2 diabetes mellitus with other specified complication Office Visit 03/31/2019 11:00a [facility] Col[facility] S90.812A Abrasion, left Services Of Heidy Haynes foot, initial C.M.A. encounter E11.621 Type 2 diabetes mellitus with foot ulcer Office Visit 03/27/2019 [facility] Liam Riojas M86.172 Other acute 11:30a For Infectious Matt MAbramDAbram osteomyelitis, left Diseases ankle and foot Z79.2 USP (current) use of antibiotics E11.69 Type 2 diabetes mellitus with other specified complication Office Visit 03/17/2019 [facility] M86.172 Other acute 9:15a Services Of Heidy Haynes osteomyelitis, left C.M.A. ankle and foot Office Visit 03/13/2019 [facility] Liam Riojas M86.172 Other acute 11:30a For Infectious [place], osteomyelitis, left Diseases M.D. ankle and foot E11.69 Type 2 diabetes mellitus with other specified complication Z79.2 spectral scientist (current) use of antibiotics Office Visit 02/23/2019 [facility] Tosha Naqvi E11.69 Type 2 diabetes 8:55a For Infectious Fischer, DEVOPS ARCHITECT mellitus with Diseases other specified complication M86.172 [...] of left foot Office Visit 02/21/2019 8:55a [facility] Radha Munroe, I10 Essential Assoc,chely Moody (primary) Hospitalists hypertension R19.7 Diarrhea, unspecified N18.9 Chronic kidney disease, unspecified Z79.4 USP (current) use of insulin Office Visit 02/20/2019 [facility] Radha Munroe, R19.7 Diarrhea, 8:54a Asschely tucker M.D. unspecified Hospitalists N18.9 Chronic kidney disease, unspecified E11.22 Type 2 diabetes mellitus w diabetic chronic kidney disease I10 Essential (primary) hypertension Z79.4 USP (current) use of insulin Office Visit 02/19/2019 [facility] E11.69 Type 2 diabetes 9:06a For Infectious Fischer, DEVOPS ARCHITECT mellitus with Diseases other specified complication M86.172 Other acute osteomyelitis, left ankle and foot E11.40 Type 2 diabetes mellitus with diabetic neuropathy, unsp T87.44 Infection of amputation stump, left lower extremity Office Visit 02/19/2019 8:54a [facility] Radha Munroe, I10 Essential Asschely tucker M.D. (primary) Hospitalists hypertension R19.7 Diarrhea, unspecified N18.9 Chronic kidney disease, unspecified E11.22 Type 2 diabetes mellitus w diabetic chronic kidney disease Z79.4 USP (current) use of insulin Office Visit 02/19/2019 2:01p Orthopedic Amy Reich, L03.116 Cellulitis of Services Of [place] left lower limb C.M.A. Z89.432 Acquired absence of left foot Office Visit 02/18/2019 [facility] E11.69 Type 2 diabetes 9:04a For Infectious Fischer, DEVOPS ARCHITECT mellitus with Diseases other specified complication M86.172 Other acute osteomyelitis, left ankle and foot E11.40 Type 2 diabetes mellitus with diabetic neuropathy, unsp T87.44 Infection of amputation stump, left lower extremity Office Visit 02/18/2019 9:40a Orthopedic Amy Reich, L03.116 Cellulitis of Services Of [place] left lower limb C.M.A. Z89.432 Acquired absence of left foot Office Visit 02/18/2019 8:54a [facility] Selena I10 Essential Assocchely M.D. (primary) Hospitalists hypertension R19.7 Diarrhea, unspecified Z79.4 spectral scientist (current) use of insulin Office Visit 02/17/2019 [facility] Patterson, E11.65 Type 2 diabetes 3:20p Endocrinology of MD mellitus with Central Office Repairer hyperglycemia Office Visit 02/17/2019 [facility] I10 Essential 8:53a chely Garrido M.D. (primary) Hospitalists hypertension Z79.4 spectral scientist (current) use of insulin Office Visit 02/16/2019 2:01p Orthopedic Amy Reich, L03.116 Cellulitis of Services Of [place] left lower limb C.M.A. Z89.432 Acquired absence of left foot Office Visit 02/16/2019 [facility] E11.628 Type 2 diabetes 8:53a chely Garrido D.O. mellitus with Hospitalists other skin complications L08.9 Local infection of the skin and subcutaneous tissue, unsp I10 Essential (primary) hypertension E11.22 Type 2 diabetes mellitus w diabetic chronic kidney disease N18.9 Chronic kidney disease, unspecified Z79.4 USP (current) use of insulin Office Visit 02/16/2019 [facility] Tosha Naqvi E11.628 Type 2 diabetes 9:03a For Infectious Fischer, DEVOPS ARCHITECT mellitus with Diseases other skin complications T87.44 Infection of amputation stump, left lower extremity L03.116 Cellulitis of left lower limb E11.40 Type 2 diabetes mellitus with diabetic neuropathy, unsp Office Visit 02/15/2019 8:52a [facility] Selena T87.44 Infection of chely Garrido M.D. amputation Hospitalists stump, left lower extremity E11.69 Type 2 diabetes mellitus with other specified complication I10 Essential (primary) hypertension Z79.4 spectral scientist (current) use of insulin Office Visit 02/14/2019 8:52a [facility] Selena T87.44 Infection of chely Garrido M.D. amputation Hospitalists stump, left lower extremity E11.69 Type 2 diabetes mellitus with other specified complication I10 Essential (primary) hypertension Z79.4 spectral scientist (current) use of insulin Office Visit 02/13/2019 8:52a [facility] Selena T87.44 Infection of chely Garrido M.D. amputation Hospitalists stump, left lower extremity I10 Essential (primary) hypertension E11.69 Type 2 diabetes mellitus with other specified complication Z79.4 spectral scientist (current) use of insulin Office Visit 02/13/2019 [facility] Tosha Naqvi E11.628 Type 2 diabetes 9:00a For Infectious MYLENE Fischer mellitus with Diseases other skin complications T87.44 Infection of amputation stump, left lower extremity E11.40 Type 2 diabetes mellitus with diabetic neuropathy, unsp L03.116 Cellulitis of left lower limb Office Visit 02/13/2019 [facility] Niyahrhianna Lugo, S90.822D Blister 2:29p Services Of ROMEL-C (nonthermal), left C.M.A. foot, subsequent encounter Z89.432 Acquired absence of left foot Office Visit 02/12/2019 [facility] T87.44 Infection of 8:51a Assoc,chely Wynn NP [...] C.M.A. ankle and foot Office Visit 12/11/2018 [facility] Liam Riojas Z89.432 Acquired absence of 2:40p For Infectious [place], left foot Diseases Heidy E11.52 Type 2 diabetes w diabetic peripheral angiopathy w gangrene Assessments Date Code Description Provider 2019 T87.44 Infection of amputation stump, left Tosha Fsicher NP lower extremity 2019 E11.40 Type 2 diabetes mellitus with Tosha Fischer NP diabetic neuropathy, unspecified 2019 M86.9 Osteomyelitis, unspecified Tosha Fischer NP 05/19/2019 Z89.512 Acquired absence of left leg below Colten Haynes M.D. knee 05/12/2019 Z89.512 Acquired absence of left leg below Colten Haynes M.D. knee 05/06/2019 T87.44 Infection of amputation stump, left Tosha Fischer NP lower extremity 05/06/2019 Z47.81 Encounter for orthopedic aftercare ELROY Correa following surgical amputation 05/06/2019 Z89.512 Acquired absence of left leg below Tosha Fischer NP knee 05/06/2019 Z89.512 Acquired absence of left leg below ELROY Correa knee 05/06/2019 E11.40 Type 2 diabetes mellitus with Tosha Fischer DEVOPS ARCHITECT diabetic neuropathy, unspecified 05/05/2019 Z47.81 Encounter for orthopedic aftercare AHSAN Reynolds following surgical amputation 05/05/2019 D64.9 Anemia, unspecified [place] Ange Doto, DEVOPS ARCHITECT 05/05/2019 Z89.512 Acquired absence of left leg below AHSAN Reynolds knee 05/05/2019 N18.9 Chronic kidney disease, unspecified [place] Ange Doto, DEVOPS ARCHITECT 05/05/2019 E11.22 Type 2 diabetes mellitus with Alka Ange Doto, DEVOPS ARCHITECT diabetic chronic kidney disease 05/04/2019 Z47.81 Encounter for orthopedic aftercare ELROY Krause following surgical amputation 05/04/2019 D64.9 Anemia, unspecified Alka Ange Doto, DEVOPS ARCHITECT 05/04/2019 Z89.512 Acquired absence of left leg below ELROY Krause knee 05/04/2019 T87.44 Infection of amputation stump, left Tosha Fischer NP lower extremity 05/04/2019 N18.9 Chronic kidney disease, unspecified Alka Ange Doto, DEVOPS ARCHITECT 05/04/2019 Z89.512 Acquired absence of left leg below Tosha Fischer NP knee 05/04/2019 E11.22 Type 2 diabetes mellitus with Alka Ange Dotez, DEVOPS ARCHITECT diabetic chronic kidney disease 05/04/2019 E11.40 Type 2 diabetes mellitus with Tosha Fischer DEVOPS ARCHITECT diabetic neuropathy, unspecified 05/03/2019 D64.9 Anemia, unspecified Alka Ange Doto, DEVOPS ARCHITECT 05/03/2019 N18.9 Chronic kidney disease, unspecified Alka Ange Doto, DEVOPS ARCHITECT 05/03/2019 E11.22 Type 2 diabetes mellitus with Alka Black, DEVOPS ARCHITECT diabetic chronic kidney disease 05/02/2019 Z47.89 Encounter for other orthopedic Radha Canas RPA-C aftercare 05/02/2019 D64.9 Anemia, unspecified Alka Black, DEVOPS ARCHITECT 05/02/2019 Z89.512 Acquired absence of left leg below Anup Carson MD knee 05/02/2019 E11.22 Type 2 diabetes mellitus with Alka Black NP diabetic chronic kidney disease 05/02/2019 N18.9 Chronic kidney disease, unspecified Alka Black NP 05/01/2019 Z47.81 Encounter for orthopedic aftercare Niyah Lugo RPA-C following surgical amputation 05/01/2019 D64.9 Anemia, unspecified ELROY Richard 05/01/2019 Z89.512 Acquired absence of left leg below Niyah Lugo RPA-C knee 05/01/2019 N18.9 Chronic kidney disease, unspecified ELROY Richard 05/01/2019 E11.22 Type 2 diabetes mellitus with ELROY Richard diabetic chronic kidney disease 05/01/2019 E11.65 Type 2 diabetes mellitus with ELROY Richard hyperglycemia 04/30/2019 Z47.81 Encounter for orthopedic aftercare Dasha Hwang RPA-C following surgical amputation 04/30/2019 D64.9 Anemia, unspecified Maciej Miles PA 04/30/2019 Z89.512 Acquired absence of left leg below Dasha Hwang RPA-C knee 04/30/2019 E11.22 Type 2 diabetes mellitus with ELROY Richard diabetic chronic kidney disease 04/30/2019 N18.9 Chronic kidney disease, unspecified Maciej Miles PA 04/29/2019 M86.9 Osteomyelitis, unspecified ELROY Richard 04/29/2019 T87.44 Infection of amputation stump, left Tosha Fischer NP lower extremity 04/29/2019 D64.9 Anemia, unspecified ELROY Richard 04/29/2019 M86.172 Other acute osteomyelitis, left Dasha Hwang RPA-C ankle and foot 04/29/2019 N18.9 Chronic kidney disease, unspecified ELROY Richard 04/29/2019 E11.40 Type 2 diabetes mellitus with [...] 04/28/2019 T87.44 Infection of amputation stump, left Dereje Potts.O. lower extremity 04/28/2019 E87.1 Hypo-osmolality and hyponatremia [...] Gutierrez M.D. ankle and foot 03/27/2019 Z79.2 spectral scientist (current) use of Liam Gutierrez M.D. antibiotics 03/27/2019 E11.69 Type 2 diabetes mellitus with other Liam Gutierrez M.D. specified complication 03/17/2019 M86.172 Other acute osteomyelitis, left Colten Haynes M.D. ankle and foot 03/13/2019 M86.172 Other acute osteomyelitis, left Liam Gutierrez M.D. ankle and foot 03/13/2019 E11.69 Type 2 diabetes mellitus with other Liam Gutierrez M.D. specified complication 03/13/2019 Z79.2 spectral scientist (current) use of Liam Gutierrez M.D. antibiotics 02/23/2019 E11.69 Type 2 diabetes mellitus with other Tosha Fischer NP specified complication 02/23/2019 M86.172 Other acute osteomyelitis, left Tosha Donya Fischer , MYLENE ankle and foot 02/23/2019 E11.40 Type 2 diabetes mellitus with Tosha Fischer NP diabetic neuropathy, unsp 02/23/2019 T87.44 Infection of amputation stump, left Tosha Andersonvioleta Fischer, MYLENE lower extremity 02/22/2019 T87.44 Infection of amputation stump, left Radha Canas, RPA-C lower extremity 02/22/2019 L03.116 Cellulitis of left lower limb Radha Canas, [facility] 02/22/2019 Z89.432 Acquired absence of left foot Radha Canas, [facility] 02/21/2019 I10 Essential (primary) hypertension Radha Munroe M.D. 02/21/2019 R19.7 Diarrhea, unspecified Radha Munroe M.D. 02/21/2019 N18.9 Chronic kidney disease, unspecified Radha Munroe M.D. 02/21/2019 Z79.4 spectral scientist (current) use of insulin Radha Munroe M.D. 02/20/2019 R19.7 Diarrhea, unspecified Radha Munroe M.D. 02/20/2019 N18.9 Chronic kidney disease, unspecified Radha Munroe M.D. 02/20/2019 E11.22 Type 2 diabetes mellitus w diabetic Radha Munroe M.D. chronic kidney disease 02/20/2019 I10 Essential (primary) hypertension Radha Munroe M.D. 02/20/2019 Z79.4 spectral scientist (current) use of insulin Radha Munroe M.D. 02/19/2019 E11.69 Type 2 diabetes mellitus with other Tosha Fischer NP specified complication 02/19/2019 I10 Essential (primary) hypertension Radha Munroe M.D. 02/19/2019 M86.172 Other acute osteomyelitis, left Toshadoris Fischer NP ankle and foot 02/19/2019 L03.116 Cellulitis of left lower limb Amy Reich, PA 02/19/2019 E11.40 Type 2 diabetes mellitus with Toshadoris Fischer NP diabetic neuropathy, unsp 02/19/2019 R19.7 Diarrhea, unspecified Radha Munroe M.D. 02/19/2019 T87.44 Infection of amputation stump, left Toshadoris Fischer DEVOPS ARCHITECT lower extremity 02/19/2019 Z89.432 Acquired absence of left foot Amy Reich, PA 02/19/2019 N18.9 Chronic kidney disease, unspecified Radha Munroe M.D. 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 chronic kidney disease 02/19/2019 Z79.4 spectral scientist (current) use of insulin Radha Munroe M.D. 02/18/2019 E11.69 Type 2 diabetes mellitus with other Tosha Fischer NP specified complication 02/18/2019 I10 Essential (primary) hypertension Selena Marlow M.D. 02/18/2019 M86.172 Other acute osteomyelitis, left Tosha Fischer NP ankle and foot 02/18/2019 L03.116 Cellulitis of left lower limb Amy Reich, PA 02/18/2019 E11.40 Type 2 diabetes mellitus with Tosha Fischer NP diabetic neuropathy, unsp 02/18/2019 R19.7 Diarrhea, unspecified Selena Marlow M.D. 02/18/2019 T87.44 Infection of amputation stump, left Tosha Andersonvioleta Fischer NP lower extremity 02/18/2019 Z89.432 Acquired absence of left foot Amy Reich PA 02/18/2019 Z79.4 USP (current) use of insulin Selena Marlow M.D. 02/17/2019 E11.65 Type 2 diabetes mellitus with Edison Patterson MD hyperglycemia 02/17/2019 I10 Essential (primary) hypertension Selena Marlow M.D. 02/17/2019 Z79.4 USP (current) use of insulin Selena Marlow M.D. 02/16/2019 E11.628 Type 2 diabetes mellitus with other Tosha Fischer NP skin complications 02/16/2019 E11.628 Type 2 diabetes mellitus with other Rosalind Johnson D.O. skin complications 02/16/2019 T87.44 Infection of amputation stump, left Tosha Fischer, DEVOPS ARCHITECT lower extremity 02/16/2019 L03.116 Cellulitis of left lower limb Amy Reich, PA 02/16/2019 L03.116 Cellulitis of left lower limb Tosha Fischre, DEVOPS ARCHITECT 02/16/2019 L08.9 Local infection of the skin and Dereje Potts.O. subcutaneous tissue, uns 02/16/2019 E11.40 Type 2 diabetes mellitus with Tosha Donya Fischer, MYLENE diabetic neuropathy, [facility] 02/16/2019 Z89.432 Acquired absence of left foot Amy Reich PA 02/16/2019 I10 Essential (primary) hypertension Dereje Ptots.O. 02/16/2019 E11.22 Type 2 diabetes mellitus w diabetic Rosalind Johnson D.O. chronic kidney disease 02/16/2019 N18.9 Chronic kidney disease, unspecified Rosalind Johnson D.O. 02/16/2019 Z79.4 USP (current) use of insulin Dereje Potts.O. 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 lower extremity 02/15/2019 E11.69 Type 2 diabetes mellitus with other Selena Marlow M.D. specified complication 02/15/2019 I10 Essential (primary) hypertension Selena Marlow M.D. 02/15/2019 Z79.4 spectral scientist (current) use of insulin Selena Marlow M.D. 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 lower extremity 02/14/2019 E11.69 Type 2 diabetes mellitus with other Selena Marlow M.D. specified complication 02/14/2019 I10 Essential (primary) hypertension Selena Marlow M.D. 02/14/2019 Z79.4 USP (current) use of insulin Selena Marlow M.D. [...] Selena Marlow M.D. specified complication 02/13/2019 Z79.4 spectral scientist (current) use of insulin Selena Marlow M.D. 02/12/2019 T87.44 Infection of amputation stump, left Remedios Wynn, MYLENE lower extremity 02/12/2019 L03.116 Cellulitis of [...] Colten Haynes M.D. Plan of Treatment Future Appointment(s):06/11/2019 11:30 am - [facility] 10:45 am - Colten Haynes M.D. at [facility]2019 - Tosha Fischer, NPT87.44 Infection of amputation stump, left lower extremityNew Labs:C Reactive Protein, Ordered: 05/27/19Follow up:1-2 byhmkO17.40 Type 2 diabetes mellitus with diabetic neuropathy, unspM86.9 Osteomyelitis, unspecified Functional Status Description No Information Available Mental Status Description No Information Available Referrals Refer to Reason for Referral Status Appt Date Edison Patterson MD 63 year old diabetic woman with Patient Notified 06/09/2019 neuropathy and foot infections [address] [place] [address] [phone]
[2019-05-30 16:34] LABS: Albumin/Globulin Ratio 1.3 (1-3); BUN/Creatinine Ratio 22.2 (8-20); C Reactive Protein 11.81 mg/L (<8.01); Calcium 9.2 mg/dL (8.6-10.3); EGFR African American 51.6 (>60); EGFR Non-African American 42.6 (>60); Potassium 4.1 mmol/L (3.5-5.0); Total Bilirubin 0.3 mg/dL (0.2-1.0)
[2019-05-30] MEDS ORDERED: Ondansetron INJ* 2 MG/ML VIAL IV ONE (16:56)
[2019-05-30] MEDS ORDERED: HYDROmorphone INJ1* 1 MG/ML SYRINGE IV SLOW PU ONE (16:56)
[2019-05-30] MEDS ORDERED: Vancomycin(*) 1,000 MG in NS 0.9% 250 ML* 250 ML IVPB ONE (17:00)
[2019-05-30] MEDS ORDERED: Ondansetron INJ* 2 MG/ML VIAL IV PRN (17:16)
[2019-05-30] MEDS ORDERED: Cyclobenzaprine TAB* 10 MG PO PRN (17:27)
[2019-05-30] MEDS ORDERED: oxyCODONE TAB* 5 MG TAB PO PRN (17:27)
[2019-05-30] MEDS ORDERED: Dextrose 50% VIAL 50 ml IV PUSH PRN ×2 (17:53→22:36)
[2019-05-30] MEDS ORDERED: Vancomycin per Pharmacy* NOTE FOLLOW UP SCH (18:00)
[2019-05-30] MEDS ORDERED: Insulin LISPRO* 1 UNITS UNIT SUBCUT SCH (18:00)
[2019-05-30] MEDS ORDERED: Insulin GLARGINE(*) 1 UNITS UNIT SUBCUT SCH (18:00)
[2019-05-30 18:18] LABS: INR 1.15 (0.82-1.09)
[2019-05-30] MEDS ORDERED: Buffered Lidocaine 1% SYRIN* 1 ML/SYRINGE INTRADERM ONE (19:49)
[2019-05-30] MEDS: oxyCODONE TAB* 5 MG TAB PO PRN (19:51)
[2019-05-30] MEDS: Lactated Ringers 1000 ML Bag* 1,000 ML IV SCH (19:54)
[2019-05-30] MEDS ORDERED: Insulin GLARGINE(*) 1 UNITS UNIT SUBCUT ONE ×2 (21:00→22:30)
[2019-05-30] MEDS: Cefepime 1 GM in Dextrose(*) 1 GM/50 ML BAG IV SCH (21:05)
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
[2019-05-30] MEDS ORDERED: Heparin VIAL(*) 5000 UNITS/ML VIAL (FIVE THOUSAND) SUBCUT SCH (22:00)
[2019-05-30] MEDS ORDERED: Insulin LISPRO* 1 UNITS UNIT SUBCUT ONE (22:36)
[2019-05-30] MEDS: Lactobacillus Acidophilus* 1 TAB PO SCH (23:13)
[2019-05-30] MEDS: Metoprolol Tartrate TAB* 25 MG PO SCH (23:20)
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
[2019-05-31] MEDS: oxyCODONE TAB* 5 MG TAB PO PRN ×4 (00:09→16:42)
[2019-05-31] MEDS: Acetaminophen TAB* 325 MG PO PRN (04:41)
[2019-05-31] MEDS: Vancomycin(*) 750 MG in NS 0.9% 250 ML* 250 ML IVPB SCH ×2 (05:44→18:04)
[2019-05-31] MEDS ORDERED: Lactated Ringers 1000 ML Bag* 1,000 ML IV SCH (06:00)
[2019-05-31 06:15] LABS: ABS Eosinophils 0.1 10^3/ul (0-0.6); ABS Lymphocytes 0.6 10^3/ul (1.0-4.8); ABS Monocytes 0.4 10^3/ul (0-0.8); ABS Neutrophils 4.6 10^3/ul (1.5-7.7); Eosinophil % 2.5 %; Hematocrit 30 % (35-47); Hemoglobin 9.7 g/dL (12.0-16.0); Lymphocyte % 9.8 %; Mean Corpuscular HGB Conc 33 g/dL (31-36); Mean Corpuscular Hemoglobin 27 pg (27-31); Mean Corpuscular Volume 81 fL (80-97); Mean Platelet Volume 7.9 fL (7.4-10.4); Platelet Count 228 10^3/uL (150-450); Red Blood Count 3.66 10^6 /uL (3.70-4.87); Red Cell Distribution Width 18 % (10-15); White Blood Count 5.7 10^3/uL (3.5-10.8)
[2019-05-31 06:28] LABS: BUN/Creatinine Ratio 21.6 (8-20); Calcium 8.9 mg/dL (8.6-10.3); Potassium 4.2 mmol/L (3.5-5.0)
[2019-05-31] MEDS ORDERED: Bupivacaine 0.25% SDV PF* 10 ML VIAL INJ ONE (07:14)
[2019-05-31] MEDS ORDERED: fentaNYL* 50 MCG/ML 2 ML VIAL (100 MCG VIAL) ONE ×3 (07:37→10:14)
[2019-05-31] MEDS ORDERED: Lidocaine 2% PF * 5 ML VIAL ONE (07:37)
[2019-05-31] MEDS ORDERED: Propofol* 10 MG/ML 20 ML BTL ONE (07:37)
[2019-05-31] MEDS ORDERED: oxyCODONE/Acetamin 5/325 MG* TAB PO PRN (08:06)
[2019-05-31] MEDS ORDERED: Naloxone* 0.4 MG/ML 1 ML VIAL IV PRN (08:06)
[2019-05-31] MEDS ORDERED: HYDROcodone/ACETAMIN 5-325 MG* 1 TAB PO PRN (08:06)
[2019-05-31] MEDS ORDERED: DiMENhydriNATE IV* 50 MG/ML VIAL IV PUSH PRN (08:06)
[2019-05-31] MEDS ORDERED: Ondansetron INJ* 2 MG/ML VIAL ONE (08:49)
[2019-05-31] MEDS: fentaNYL* 50 MCG/ML 2 ML VIAL (100 MCG VIAL) IV PRN ×3 (09:56→10:16)
[2019-05-31] MEDS ORDERED: DiMENhydriNATE IV* 50 MG/ML VIAL ONE (10:14)
[2019-05-31] MEDS: Cefepime 1 GM in Dextrose(*) 1 GM/50 ML BAG IV SCH ×2 (10:40→21:13)
[2019-05-31] MEDS: Lactated Ringers 1000 ML Bag* 1,000 ML IV SCH (11:39)
[2019-05-31] MEDS: Metoprolol Tartrate TAB* 25 MG PO SCH ×2 (11:40→21:08)
[2019-05-31] MEDS ORDERED: Gabapentin CAP(*) 100 MG PO PRN ×2 (11:41→13:10)
[2019-05-31] MEDS: Pantoprazole TAB * 40 MG TAB PO SCH (11:48)
[2019-05-31] MEDS: Sertraline* 100 MG TAB PO SCH (11:48)
[2019-05-31] MEDS: Lactobacillus Acidophilus* 1 TAB PO SCH ×2 (11:48→21:07)
[2019-05-31] MEDS: Ferrous Sulfate TAB* 325 MG PO SCH (11:48)
[2019-05-31] MEDS: Insulin LISPRO* 1 UNITS UNIT SUBCUT SCH ×2 (12:10→16:46)
[2019-05-31] MEDS ORDERED: Gabapentin CAP(*) 100 MG PO ONE (13:12)
--- NOTE | 2019-05-31 13:17 | PN ---
Subjective Date of Service: 05/31/19 Interval History: Ms. Valdez reports some persistent sharp nerve pain in her left leg. She denies other complaint including chest pain, SOB, nausea, or abdominal pain. She confirms that she lost her balance and fell, leading to the dehiscence of her wound. She denies lightheadedness or dizziness and was otherwise doing well prior to this fall. Objective Active Medications: Acetaminophen (Tylenol Tab*) 650 mg PO Q4H PRN Aspirin (Aspirin Ec Tab*) 81 mg PO QAM [facility] Cyclobenzaprine HCl (Flexeril Tab*) 10 mg PO TID PRN Dextrose (Dextrose 50% Vial 50 Ml*) 25 ml IV PUSH .FOR FS < 60 - SS PRN Ferrous Sulfate (Ferrous Sulfate Tab*) 325 mg PO DAILY S[facility] Gabapentin (Neurontin Cap(*)) 200 mg PO TID PRN Heparin Sodium (Porcine) (Heparin Vial(*)) 5,000 units SUBCUT Q8HR [facility] Cefepime HCl (Maxipime 1 Gm In Dextrose Duplex (*)) 1 gm in 50 mls @ 100 mls/ hr IV Q12H [facility] Lactated Ringer's (Lactated Ringers 1000 Ml Bag*) 1,000 mls @ 100 mls/hr IV PER RATE [facility] Vancomycin HCl 750 mg/ Sodium (Chloride) 250 mls @ 166.667 mls/hr IVPB Q12H [facility] Insulin Glargine (Lantus(*)) 85 units SUBCUT BEDTIME [facility] Insulin Human Lispro (Humalog*) 0 units SUBCUT AC [facility]; Protocol Lactobacillus Rhamnosus (Lactobacillus Acidophilus*) 1 tab PO BID [facility] Lisinopril (Prinivil Tab*) 40 mg PO QAM [facility] Metoprolol Tartrate (Lopressor Tab*) 25 mg PO BID [facility] Ondansetron HCl (Zofran Inj*) 4 mg IV Q6H PRN Oxycodone HCl (Roxycodone Tab*) 5 mg PO Q4H PRN Oxycodone/Acetaminophen (Percocet 5/325 Tab*) 1 tab PO Q4H PRN Pantoprazole Sodium (Protonix Tab*) 40 mg PO QAM [facility] Pharmacy Consult (Vancomycin Per Pharmacy*) 1 note FOLLOW UP .VANC PER PHARMACY [facility]; Protocol Pharmacy Profile Note (Vancomycin Trough Check) 1 note FOLLOW UP 0530 ONE Sertraline HCl (Zoloft*) 100 mg PO QAM [facility] Vitamin B Complex/Vitamin E (B Complex-50*) 1 tab PO QAM [facility] Vital Signs: Temp Pulse Resp BP Pulse Ox 96.4 F 76 18 130/72 99 05/31/19 12:26 05/31/19 12:26 05/31/19 12:26 05/31/19 12:05/31/19 12:26 Oxygen Devices in Use Now: None Appearance: Female lying in bed in NAD Eyes: No Scleral Icterus Ears/Nose/Mouth/Throat: Mucous Membranes Moist Neck: Trachea Midline Respiratory: Symmetrical Chest Expansion and Respiratory Effort, Clear to Auscultation Cardiovascular: NL Sounds; No Murmurs; No JVD Skin: No Rash or Ulcers Neurological: Alert and Oriented x 3, NL Muscle Strength and Tone Nutrition: Taking PO's Result Diagrams: 05/31/19 05:59 05/31/19 05:59 Assess/Plan/Problems-Billing Assessment: Ms. Valdez is a 64 yo F with a PMH left BKA, IDDM, who was admitted on 05/30/19 after a mechanical fall resulting in left stump wound dehiscence. - Patient Problems (1) Wound dehiscence Comment: - POD # 0 s/p wound closure with Dr Dallas - Given complex history with recurrent osteomyelitis, plan to continue vanco, cefepime for at least 48 hours post op - Anticipate Dr Haynes will eval tomorrow (2) Diabetes mellitus Comment: - BGs 190s, A1c 9.4%. - Continue SSI and lantus (3) Anemia Comment: - Chronic, stable, monitor - Updated iron studies are consistent with PHAN and AOCD - Continue oral iron (4) CKD (chronic kidney disease) Comment: - Stable, at baseline (5) GERD (gastroesophageal reflux disease) Comment: - Continue protonix (6) Depression Comment: - Cont Sertraline. (7) HTN (hypertension) Comment: - Controlled. - Continue lisinopril and metoprolol (8) HLD (hyperlipidemia) Comment: - Continue statin. (9) DVT prophylaxis Comment: - Lovenox per Ortho (10) DNR (do not resuscitate)
[2019-05-31] MEDS: Vitamin B Complex TAB PO SCH (13:21)
--- NOTE | 2019-05-31 15:15 | OP ---
OPERATIVE REPORT: DATE OF OPERATION: 05/31/19 DATE OF : 53 SURGEON: Jb Ferrari MD [employer] OFFICER: ELROY Krause A physician pediatric physician assistant was required for the length of the procedure for help with patient positioning and closure. ANESTHESIOLOGIST: Dr. Remi Ferreira. ANESTHESIA: General anesthesia. PRE-OP DIAGNOSES: 1. Dehiscence, traumatic, surgical wound, left lower extremity. 2. Status post left enbvk-lnb-ddgt amputation, 04/29/19. POST-OP DIAGNOSES: 1. Dehiscence, traumatic, surgical wound, left lower extremity. 2. Status post left yufch-fpi-tfas amputation, 04/29/19. OPERATIVE PROCEDURE: 1. Irrigation and debridement and formal closure of dehisced surgical wound, left lower extremity. 2. Vacuum-assisted closure wound sponge placed over the surgical incision using Prevena device. ANTIBIOTICS: 1. Cefepime 1 g. 2. The patient also had received a scheduled vancomycin dose several hours preoperatively. IV FLUIDS: See Anesthesia note. [id number] PLUS WOUND SPONGE APPLICATION TIME: 57 minutes. SPECIMENS: None. IMPLANTS: Prevena wound sponge above the skin. COMPLICATIONS: None. ESTIMATED BLOOD LOSS: Minimal. TOURNIQUET TIME: Zero minutes. Tourniquet was not inflated. INDICATIONS FOR PROCEDURE: The patient is a 64-year-old woman, diabetic, with a prior history of a P irogoff ankle level amputation with subsequent infection, impoverished wound healing and osteomyeliti s, subsequently treated with a below- knee amputation by my partner, Dr. Carson, on 04/29/19. The patient had an uneventful postoperative course and was discharged to [facility] and was discharg ed to home on approximately 05/28/19. The patient fell off of her knee scooter on 05/30/19 early in the afternoon and presented to the emergency department with a fully dehisced and gapped wound. The patient had a dressing on at that time so that there was no tyrel contamination. I irrigated the wound in the emergency room and placed a number of stitches through the skin and subcutaneous tissue to reapproximate the wound provisionally to minimize insensible fluid loss, and maximize the potenti al for formal wound closure in the operating room. The patient was admitted to the hospitalist mary blum, placed on IV antibiotics. The patient has a known history of MRSA, so was placed on vancomycin a nd cefepime was added to that by the hospitalist service. Discussed risks and potential complications of the surgery with the patient including persistence of open wound if the wound was not closable. Wound breakdown and wound infection were certainly discuss ed. I consented the patient for irrigation and debridement, possible formal closure plus a sponge on the skin versus a VAC sponge if full closure was not feasible. I also consented the patient for possible revision below-knee amputation. DESCRIPTION OF PROCEDURE: In preoperative holding, the patient signed a written consent. Operative extremity was marked in preoperative holding. The patient was taken back to the operating room and p laced supine on the operating room table. Sedated and intubated. Bone Foam was placed under the left lower extremity. A blanket bump under the hemipelvis. Tournique t was placed around the left proximal thigh. The left lower extremity was prepped and draped. Forma l surgical time-out was performed. I should note that before the prep and drape, I removed all the patient's stitches that I placed in t he emergency department. The prep was performed with Betadine given the open wound. Tourniquet was not inflated. There was no bleeding, active from wound. I explored the wound. No contamination, gross. I irrigated the wound with 3 L of normal saline usin g cystoscopy tubing and some light debridement with my digits. I also removed all visible suture mat erial with a rongeur. We next performed closure. We were able to close the subcutaneous layer with buried simple stitches using Vicryl 2-0 suture. Actually along the entire length of the incision, we were able to get a germán e closure of the subcutaneous layer. I was not expecting this to be as nice. Next, I debrided with sharp dissection and a knife the areas along the distal aspect of the skin inci edmund where there was scabbing. I debrided the scab and some unhealthy tissue deep to the scab in mul tiple locations along the distal side of the wound. Skin was still able to oppose skin. We next closed the skin with horizontal mattress stitches using mostly nylon 3-0 suture, but also quinn e Prolene 2-0 suture. The skin was brought nicely to skin. The skin closure was under a tiny bit of tension as evidenced by some slight discoloration of the skin. I was comfortable with this given our plan to apply a sponge dressing over the incision. I cleaned the skin. There was no bleeding. I should state that during the case, I used Bovie electrocautery just once prior to wound closure and after irrigation. This was along the lateral aspect of the distal side of the wound, and there was a tiny bleeder at the level of the skin or just deep to it. With the wound now formally closed, applied the sponge. Applied the Prevena unit. Hooked it up to th e appropriate suction. The patient was awakened, extubated and brought to the PACU. In the PACU, I noted that the tubing seemed to not be working. Therefore, I obtained a new suction t ubing, created a new hole in the sponge and applied a new suction tubing. There was no leak and the sponge appeared to be appropriately affected by negative pressure. We attached the Prevena system to the larger sucking unit. DISPOSITION: The patient will continue on IV antibiotics. She will continue on Prevena sponge dress ing. We will figure out disposition. I am comfortable with the patient just receiving 24 to 48 hour s of IV antibiotics postoperatively. There is no contamination in the wound. As a precaution, we co uld send the patient out on oral antibiotics. Question for this patient will be whether she is able to be discharged home and trusted on that knee scooter again versus sent to rehab. The Prevena spong e dressing could be changed 5 to 7 days from now in a clinic or could be changed sooner than that owen or to hospital discharge. [id number]/[facility] #: [id number]
[2019-05-31] MEDS: Insulin GLARGINE(*) 1 UNITS UNIT SUBCUT SCH (21:08)
[2019-05-31] MEDS: oxyCODONE/Acetamin 5/325 MG* TAB PO PRN (21:09)
[2019-06-01] MEDS: oxyCODONE TAB* 5 MG TAB PO PRN ×5 (03:31→22:26)
[2019-06-01] MEDS ORDERED: Vancomycin Trough Check NOTE FOLLOW UP ONE (05:30)
[2019-06-01] MEDS: Heparin VIAL(*) 5000 UNITS/ML VIAL (FIVE THOUSAND) SUBCUT SCH ×3 (05:39→21:55)
[2019-06-01] MEDS: Vancomycin(*) 750 MG in NS 0.9% 250 ML* 250 ML IVPB SCH ×2 (06:39→17:37)
[2019-06-01] MEDS: Cefepime 1 GM in Dextrose(*) 1 GM/50 ML BAG IV SCH ×2 (08:39→20:22)
[2019-06-01] MEDS: Aspirin EC TAB* 81 MG TAB.EC PO SCH (10:07)
[2019-06-01] MEDS: Lactobacillus Acidophilus* 1 TAB PO SCH ×2 (10:07→21:10)
[2019-06-01] MEDS: Metoprolol Tartrate TAB* 25 MG PO SCH ×2 (10:08→21:10)
[2019-06-01] MEDS: Pantoprazole TAB * 40 MG TAB PO SCH (10:08)
[2019-06-01] MEDS: Ferrous Sulfate TAB* 325 MG PO SCH (10:08)
[2019-06-01] MEDS: Vitamin B Complex TAB PO SCH (10:08)
[2019-06-01] MEDS: Insulin LISPRO* 1 UNITS UNIT SUBCUT SCH ×3 (10:08→18:30)
[2019-06-01] MEDS: Lisinopril TAB* 10 MG PO SCH (10:08)
[2019-06-01] MEDS: Sertraline* 100 MG TAB PO SCH (10:08)
[2019-06-01] MEDS: Lactated Ringers 1000 ML Bag* 1,000 ML IV SCH (11:00)
--- NOTE | 2019-06-01 15:21 | PN ---
Progress Note - Progress Note Date of Service: 06/01/19 SOAP: Subjective: []Pt seen OOB in chair. She feels well, her lle is not painful today. Denies fever, chills. Has no other complaints. Objective: []Gen: Appears well, NAD LLE: Drssing CDI, vac functioning well. No erythema proximally. Calves supple and nontender Assessment: []Dehiscence, traumatic, surgical wound, left lower extremity. Status post left nstmy-gbx-emul amputation, 04/29/19. POD 1 s/p OPERATIVE PROCEDURE: 1. Irrigation and debridement and formal closure of dehisced surgical wound, left lower extremity. 2. Vacuum-assisted closure wound sponge placed over the surgical incision using Prevena device. Plan: [] NWB LLE Plan for 2 days IV abx then DC likely back to rehab depending on PT/OT Incisional vac to remain in place until F/U with Dr Haynes next week Vital Signs Temp 98.4 F 06/01/19 11:57 Pulse 59 06/01/19 11:57 Resp 16 06/01/19 13:10 BP 120/60 06/01/19 11:57 Pulse Ox 97 06/01/19 11:57 Intake & Output 05/31/19 06/01/19 06/01/19 18:59 06:59 18:59 Intake Total 1450 2370 1262 Output Total 900 1200 2000 Balance 550 1170 -738 Intake: IV Fluids 1250 992 982 CEFAPIME 1 GM 50 LR 1200 992 982 IVPB 328 280 ABX - CEFEPIME 58 ABX - VANCOMYCIN 270 LR 280 Oral 200 1050 0 Output: Urine 900 1200 2000 Other: Estimated Void Large Date of Last Bowel 05/31/19 Movement # Bowel Movements 1 Estimated Stool Amount Large # Voids 1 Laboratory Last Values WBC 5.7 10^3/uL (3.5-10.8) 05/31/19 05:59 RBC 3.66 10^6 /uL (3.70-4.87) L 05/31/19 05:59 Hgb 9.7 g/dL (12.0-16.0) L 05/31/19 05:59 Hct 30 % (35-47) L 05/31/19 05:59 MCV 81 fL (80-97) 05/31/19 05:59 MCH 27 pg (27-31) 05/31/19 05:59 MCHC 33 g/dL (31-36) 05/31/19 05:59 RDW 18 % (10-15) H 05/31/19 05:59 Plt Count 228 10^3/uL (150-450) 05/31/19 05:59 MPV 7.9 fL (7.4-10.4) 05/31/19 05:59 Neut % (Auto) 81.1 % 05/31/19 05:59 Lymph % (Auto) 9.8 % 05/31/19 05:59 [place] % (Auto) 6.3 % 05/31/19 05:59 Eos % (Auto) 2.5 % 05/31/19 05:59 Baso % (Auto) 0.3 % 05/31/19 05:59 Absolute Neuts (auto) 4.6 10^3/ul (1.5-7.7) 05/31/19 05:59 Absolute Lymphs (auto) 0.6 10^3/ul (1.0-4.8) L 05/31/19 05:59 Absolute Monos (auto) 0.4 10^3/ul (0-0.8) 05/31/19 05:59 Absolute Eos (auto) 0.1 10^3/ul (0-0.6) 05/31/19 05:59 Absolute Basos (auto) 0.0 10^3/ul (0-0.2) 05/31/19 05:59 Absolute Nucleated RBC 0.0 10^3/ul 05/31/19 05:59 Nucleated RBC % 0.0 05/31/19 05:59 INR (Anticoag Therapy) 1.15 (0.82-1.09) H 05/30/19 17:57 Sodium 136 mmol/L (135-145) 05/31/19 05:59 Potassium 4.2 mmol/L (3.5-5.0) 05/31/19 05:59 Chloride 105 mmol/L (101-111) 05/31/19 05:59 Carbon Dioxide 27 mmol/L (22-32) 05/31/19 05:59 Anion Gap 4 mmol/L (2-11) 05/31/19 05:59 BUN 27 mg/dL (6-24) H 05/31/19 05:59 Creatinine 1.25 mg/dL (0.51-0.95) H 05/31/19 05:59 Est GFR ( Amer) 52.0 (>60) 05/31/19 05:59 Est GFR (Non-Af Amer) 43.0 (>60) 05/31/19 05:59 BUN/Creatinine Ratio 21.6 (8-20) H 05/31/19 05:59 Glucose 191 mg/dL (70-100) H 05/31/19 05:59 POC Glucose (mg/dL) 132 mg/dL (70-100) H 06/01/19 12:08 Hemoglobin A1c 7.5 % (4.0-5.6) H 05/30/19 16:05 Calcium 8.9 mg/dL (8.6-10.3) 05/31/19 05:59 Total Bilirubin 0.30 mg/dL (0.2-1.0) 05/30/19 16:05 AST 11 U/L (13-39) L 05/30/19 16:05 ALT 10 U/L (7-52) 05/30/19 16:05 Alkaline Phosphatase 115 U/L (34-104) H 05/30/19 16:05 C-Reactive Protein 11.81 mg/L (<8.01) H 05/30/19 16:05 Total Protein 7.0 g/dL (6.4-8.9) 05/30/19 16:05 Albumin 4.0 g/dL (3.2-5.2) 05/30/19 16:05 Globulin 3.0 g/dL (2-4) 05/30/19 16:05 Albumin/Globulin Ratio 1.3 (1-3) 05/30/19 16:05 Vancomycin Trough 14.5 mcg/mL 06/01/19 05:50
--- NOTE | 2019-06-01 16:55 | PN ---
Subjective Date of Service: 06/01/19 Interval History: Pt is here with dehiscence of L BKA site s/p fall outside while using knee scooter. She states that she is very comfortable with use of knee scooter, but feels she was just being careless and accidentally fell. She does not feel that she would benefit from AURE. She plans to live with her brother, who lives next door, while she heals. In order for this to occur, she needs a ramp. Pt has occasional sharp, stabbing pain to wound site, but feels that pain is managed well and improved from yesterday. No other complaints today. Objective Active Medications: Acetaminophen (Tylenol Tab*) 650 mg PO Q4H PRN Aspirin (Aspirin Ec Tab*) 81 mg PO QAM SJ Cyclobenzaprine HCl (Flexeril Tab*) 10 mg PO TID PRN Dextrose (Dextrose 50% Vial 50 Ml*) 25 ml IV PUSH .FOR FS < 60 - SS PRN Ferrous Sulfate (Ferrous Sulfate Tab*) 325 mg PO DAILY SJ Gabapentin (Neurontin Cap(*)) 200 mg PO TID PRN Heparin Sodium (Porcine) (Heparin Vial(*)) 5,000 units SUBCUT Q8HR SJ Cefepime HCl (Maxipime 1 Gm In Dextrose Duplex (*)) 1 gm in 50 mls @ 100 mls/ hr IV Q12H SJ Lactated Ringer's (Lactated Ringers 1000 Ml Bag*) 1,000 mls @ 100 mls/hr IV PER RATE SJ Vancomycin HCl 750 mg/ Sodium (Chloride) 250 mls @ 166.667 mls/hr IVPB Q12H SJ Insulin Glargine (Lantus(*)) 85 units SUBCUT BEDTIME SJ Insulin Human Lispro (Humalog*) 0 units SUBCUT AC SJ; Protocol Lactobacillus Rhamnosus (Lactobacillus Acidophilus*) 1 tab PO BID SJ Lisinopril (Prinivil Tab*) 40 mg PO QAM SJ Metoprolol Tartrate (Lopressor Tab*) 25 mg PO BID SJ Ondansetron HCl (Zofran Inj*) 4 mg IV Q6H PRN Oxycodone HCl (Roxycodone Tab*) 5 mg PO Q4H PRN Oxycodone/Acetaminophen (Percocet 5/325 Tab*) 1 tab PO Q4H PRN Pantoprazole Sodium (Protonix Tab*) 40 mg PO QAM [facility] Pharmacy Consult (Vancomycin Per Pharmacy*) 1 note FOLLOW UP .VANC PER PHARMACY [facility]; Protocol Pharmacy Profile Note (Vancomycin Trough Check) 1 note FOLLOW UP 0530 ONE Sertraline HCl (Zoloft*) 100 mg PO QAM [facility] Vitamin B Complex/Vitamin E (B Complex-50*) 1 tab PO QAM [facility] Vital Signs: Temp Pulse Resp BP Pulse Ox 97.6 F 72 16 126/64 94 06/01/19 15:43 06/01/19 15:43 06/01/19 15:43 06/01/19 15:43 06/01/19 15:43 Oxygen Devices in Use Now: None Appearance: Pt is sitting in chair with LE elevated. She appears to be in no acute distress. Eyes: No Scleral Icterus, PERRLA Ears/Nose/Mouth/Throat: NL Teeth, Lips, Gums, Clear Oropharnyx, Mucous Membranes Moist Neck: NL Appearance and Movements; NL JVP, Trachea Midline Respiratory: Symmetrical Chest Expansion and Respiratory Effort, Clear to Auscultation Cardiovascular: NL Sounds; No Murmurs; No JVD, RRR, No Edema Abdominal: NL Sounds; No Tenderness; No Distention, No Hepatosplenomegaly Extremities: No Edema, No Clubbing, Cyanosis, - - L BKA noted with CDI dressing in place, wound vac in place. Neurological: Alert and Oriented x 3 Result Diagrams: 05/31/19 05:59 05/31/19 05:59 Microbiology and Other Data: Microbiology 05/30/19 16:05 Aerobic Blood Culture - Preliminary Blood Venous No Growth Day 2 Anaerobic Blood Culture - Preliminary No Growth Day 2 05/30/19 16:05 Aerobic Blood Culture - Preliminary Blood Venous No Growth Day 2 Anaerobic Blood Culture - Preliminary No Growth Day 2 Assess/Plan/Problems-Billing Assessment: Ms. Valdez is a 64 yo F with a PMH left BKA, IDDM, who was admitted on 05/30/19 after a mechanical fall resulting in left stump wound dehiscence. - Patient Problems (1) Wound dehiscence Comment: - POD # 1 s/p wound closure with Dr Dallas - Ortho consulted, thank you for recommendations - Given complex history with recurrent osteomyelitis, plan to continue vanco, cefepime for at least 48 hours post op, then discontinue - PT/OT to evaluate for AURE vs home - Continue wound vac, NWB LLE - F/u with Dr. Haynes outpatient (2) Diabetes mellitus Comment: - BGs 100-190 - A1c 7.5% - Continue SSI and lantus (3) HTN (hypertension) Comment: - SBP 120's, well controlled - Continue lisinopril and metoprolol (4) Anemia Comment: - Chronic, stable, monitor - Updated iron studies are consistent with PHAN and AOCD - Continue oral iron (5) CKD (chronic kidney disease) Comment: - Stable, at baseline (6) Depression Comment: - Cont Sertraline. (7) GERD (gastroesophageal reflux disease) Comment: - Continue protonix (8) DVT prophylaxis Comment: - Lovenox per Ortho (9) DNR (do not resuscitate) Status and Disposition: Inpatient. Discharge when stable. AURE vs. home with assistance.
[2019-06-01] MEDS: Insulin GLARGINE(*) 1 UNITS UNIT SUBCUT SCH (21:10)
[2019-06-02] MEDS: Lactated Ringers 1000 ML Bag* 1,000 ML IV SCH (00:05)
[2019-06-02] MEDS: Heparin VIAL(*) 5000 UNITS/ML VIAL (FIVE THOUSAND) SUBCUT SCH ×3 (05:39→21:47)
[2019-06-02] MEDS: Vancomycin(*) 750 MG in NS 0.9% 250 ML* 250 ML IVPB SCH (05:40)
[2019-06-02 06:06] LABS: ABS Eosinophils 0.2 10^3/ul (0-0.6); ABS Lymphocytes 0.6 10^3/ul (1.0-4.8); ABS Monocytes 0.2 10^3/ul (0-0.8); ABS Neutrophils 3.2 10^3/ul (1.5-7.7); Eosinophil % 3.8 %; Hematocrit 26 % (35-47); Hemoglobin 8.6 g/dL (12.0-16.0); Lymphocyte % 14.1 %; Mean Corpuscular HGB Conc 33 g/dL (31-36); Mean Corpuscular Hemoglobin 27 pg (27-31); Mean Corpuscular Volume 81 fL (80-97); Mean Platelet Volume 8.3 fL (7.4-10.4); Nucleated Red Blood Cells % 0.1; Platelet Count 181 10^3/uL (150-450); Red Blood Count 3.22 10^6 /uL (3.70-4.87); Red Cell Distribution Width 17 % (10-15); White Blood Count 4.2 10^3/uL (3.5-10.8)
[2019-06-02 06:27] LABS: BUN/Creatinine Ratio 16.4 (8-20); Calcium 9.1 mg/dL (8.6-10.3); EGFR African American 53.5 (>60); EGFR Non-African American 44.2 (>60)
[2019-06-02] MEDS: Insulin LISPRO* 1 UNITS UNIT SUBCUT SCH ×3 (08:51→18:27)
[2019-06-02] MEDS: Metoprolol Tartrate TAB* 25 MG PO SCH ×2 (08:52→21:47)
[2019-06-02] MEDS: Aspirin EC TAB* 81 MG TAB.EC PO SCH (09:00)
[2019-06-02] MEDS: Sertraline* 100 MG TAB PO SCH (09:00)
[2019-06-02] MEDS: Pantoprazole TAB * 40 MG TAB PO SCH (09:00)
[2019-06-02] MEDS: Lisinopril TAB* 10 MG PO SCH (09:00)
[2019-06-02] MEDS: Lactobacillus Acidophilus* 1 TAB PO SCH ×2 (09:00→21:46)
[2019-06-02] MEDS: Ferrous Sulfate TAB* 325 MG PO SCH (09:00)
[2019-06-02] MEDS: Vitamin B Complex TAB PO SCH (09:01)
--- NOTE | 2019-06-02 09:54 | PN ---
Progress Note - Progress Note Date of Service: 06/02/19 SOAP: Subjective: []Pt seen at bedside. She feels well today without fever, chills or LLE pain. Objective: []Gen: Appears well, NAD LLE: No erythema noted, Assessment: []Dehiscence, traumatic, surgical wound, left lower extremity. Status post left [id number]-[id number] amputation, 04/29/19. POD 2 s/p OPERATIVE PROCEDURE: 1. Irrigation and debridement and formal closure of dehisced surgical wound, left lower extremity. 2. Vacuum-assisted closure wound sponge placed over the surgical incision using Prevena device. Plan: [] NWB LLE Plan for 2 days IV abx then DC likely back to rehab depending on PT/OT Incisional vac to remain in place until F/U with Dr Haynes next week if w/i 7 days of procedure, otherwise can be changed prior to DC. Will have received 2 days IV abx, no need to stay in house from ortho standpoint Vital Signs Temp 97 F 06/02/19 07:22 Pulse 52 06/02/19 07:22 Resp 17 06/02/19 07:22 BP 110/62 06/02/19 07:22 Pulse Ox 99 06/02/19 07:22 Intake & Output 06/01/19 06/02/19 06/02/19 18:59 06:59 18:59 Intake Total 1462 2858 1011 Output Total 1999 1150 800 Balance -538 1708 211 Intake: IV Fluids 970 316 7851 ABX - VANCOMYCIN 255 LR 982 732 756 IVPB 280 626 ABX - CEFEPIME 55 ABX - VANCOMYCIN 275 LR 280 296 Oral 200 1500 Output: Urine 1999 1150 800 Other: # Bowel Movements 1 Estimated Stool Amount Medium Laboratory Last Values WBC 4.2 10^3/uL (3.5-10.8) 06/02/19 05:53 RBC 3.22 10^6 /uL (3.70-4.87) L 06/02/19 05:53 Hgb 8.6 g/dL (12.0-16.0) L 06/02/19 05:53 Hct 26 % (35-47) L 06/02/19 05:53 MCV 81 fL (80-97) 06/02/19 05:53 MCH 27 pg (27-31) 06/02/19 05:53 MCHC 33 g/dL (31-36) 06/02/19 05:53 RDW 17 % (10-15) H 06/02/19 05:53 Plt Count 181 10^3/uL (150-450) 06/02/19 05:53 MPV 8.3 fL (7.4-10.4) 06/02/19 05:53 Neut % (Auto) 75.7 % 06/02/19 05:53 Lymph % (Auto) 14.1 % 06/02/19 05:53 [place] % (Auto) 6.0 % 06/02/19 05:53 Eos % (Auto) 3.8 % 06/02/19 05:53 Baso % (Auto) 0.4 % 06/02/19 05:53 Absolute Neuts (auto) 3.2 10^3/ul (1.5-7.7) 06/02/19 05:53 Absolute Lymphs (auto) 0.6 10^3/ul (1.0-4.8) L 06/02/19 05:53 Absolute Monos (auto) 0.2 10^3/ul (0-0.8) 06/02/19 05:53 Absolute Eos (auto) 0.2 10^3/ul (0-0.6) 06/02/19 05:53 Absolute Basos (auto) 0.0 10^3/ul (0-0.2) 06/02/19 05:53 Absolute Nucleated RBC 0.0 10^3/ul 06/02/19 05:53 Nucleated RBC % 0.1 06/02/19 05:53 INR (Anticoag Therapy) 1.15 (0.82-1.09) H 05/30/19 17:57 Sodium 139 mmol/L (135-145) 06/02/19 05:53 Potassium 4.0 mmol/L (3.5-5.0) 06/02/19 05:53 Chloride 108 mmol/L (101-111) 06/02/19 05:53 Carbon Dioxide 26 mmol/L (22-32) 06/02/19 05:53 Anion Gap 5 mmol/L (2-11) 06/02/19 05:53 BUN 20 mg/dL (6-24) 06/02/19 05:53 Creatinine 1.22 mg/dL (0.51-0.95) H 06/02/19 05:53 Est GFR ( Amer) 53.5 (>60) 06/02/19 05:53 Est GFR (Non-Af Amer) 44.2 (>60) 06/02/19 05:53 BUN/Creatinine Ratio 16.4 (8-20) 06/02/19 05:53 Glucose 104 mg/dL (70-100) H 06/02/19 05:53 POC Glucose (mg/dL) 196 mg/dL (70-100) H 06/01/19 20:55 Hemoglobin A1c 7.5 % (4.0-5.6) H 05/30/19 16:05 Calcium 9.1 mg/dL (8.6-10.3) 06/02/19 05:53 Total Bilirubin 0.30 mg/dL (0.2-1.0) 05/30/19 16:05 AST 11 U/L (13-39) L 05/30/19 16:05 ALT 10 U/L (7-52) 05/30/19 16:05 Alkaline Phosphatase 115 U/L (34-104) H 05/30/19 16:05 C-Reactive Protein 11.81 mg/L (<8.01) H 05/30/19 16:05 Total Protein 7.0 g/dL (6.4-8.9) 05/30/19 16:05 Albumin 4.0 g/dL (3.2-5.2) 05/30/19 16:05 Globulin 3.0 g/dL (2-4) 05/30/19 16:05 Albumin/Globulin Ratio 1.3 (1-3) 05/30/19 16:05 Vancomycin Trough 14.5 mcg/mL 06/01/19 05:50
--- NOTE | 2019-06-02 12:43 | PN ---
Subjective Date of Service: 06/02/19 Interval History: Ms. Valdez states she is doing well today. She would like to go to [facility] for AURE. A ramp is being built at her house currently. L knee pain continues to improve and is currently rated at 0/10. She has abdominal pain, which she states is chronic. She has no other complaints today. Objective Active Medications: Acetaminophen (Tylenol Tab*) 650 mg PO Q4H PRN Aspirin (Aspirin Ec Tab*) 81 mg PO QAM SJ Cyclobenzaprine HCl (Flexeril Tab*) 10 mg PO TID PRN Dextrose (Dextrose 50% Vial 50 Ml*) 25 ml IV PUSH .FOR FS < 60 - SS PRN Ferrous Sulfate (Ferrous Sulfate Tab*) 325 mg PO DAILY SJ Gabapentin (Neurontin Cap(*)) 200 mg PO TID PRN Heparin Sodium (Porcine) (Heparin Vial(*)) 5,000 units SUBCUT Q8HR SJ Lactated Ringer's (Lactated Ringers 1000 Ml Bag*) 1,000 mls @ 100 mls/hr IV PER RATE SJ] Insulin Glargine (Lantus(*)) 85 units SUBCUT BEDTIME SJ Insulin Human Lispro (Humalog*) 0 units SUBCUT AC SJ; Protocol Lactobacillus Rhamnosus (Lactobacillus Acidophilus*) 1 tab PO BID SJ Lisinopril (Prinivil Tab*) 40 mg PO QAM SJ Metoprolol Tartrate (Lopressor Tab*) 25 mg PO BID SJ Ondansetron HCl (Zofran Inj*) 4 mg IV Q6H PRN Oxycodone HCl (Roxycodone Tab*) 5 mg PO Q4H PRN Oxycodone/Acetaminophen (Percocet 5/325 Tab*) 1 tab PO Q4H PRN Pantoprazole Sodium (Protonix Tab*) 40 mg PO QAM [facility] Pharmacy Profile Note (Vancomycin Trough Check) 1 note FOLLOW UP 0530 ONE Sertraline HCl (Zoloft*) 100 mg PO QAM SJ Vitamin B Complex/Vitamin E (B Complex-50*) 1 tab PO QAM [facility] Vital Signs: Temp Pulse Resp BP Pulse Ox 97.5 F 54 18 130/73 97 06/02/19 11:52 06/02/19 11:52 06/02/19 11:52 06/02/19 11:52 06/02/19 11:52 Oxygen Devices in Use Now: None Appearance: Pt is sitting up in bed with HOB elevated. She appears to be in no acute distress. Eyes: No Scleral Icterus, PERRLA Ears/Nose/Mouth/Throat: NL Teeth, Lips, Gums, Clear Oropharnyx, Mucous Membranes Moist Neck: NL Appearance and Movements; NL JVP, Trachea Midline Respiratory: Symmetrical Chest Expansion and Respiratory Effort, Clear to Auscultation Cardiovascular: NL Sounds; No Murmurs; No JVD, RRR, No Edema Abdominal: - - Obese, nondistended. BS in all quadrants. Mildly TTP. Extremities: No Edema, No Clubbing, Cyanosis, - - L BKA with CDI dressing in place. Wound vac in place. Neurological: Alert and Oriented x 3 Result Diagrams: 06/03/19 05:26 06/03/19 05:26 Microbiology and Other Data: Microbiology 05/30/19 16:05 Aerobic Blood Culture - Preliminary Blood Venous No Growth Day 2 Anaerobic Blood Culture - Preliminary No Growth Day 2 05/30/19 16:05 Aerobic Blood Culture - Preliminary Blood Venous No Growth Day 2 Anaerobic Blood Culture - Preliminary No Growth Day 2 Assess/Plan/Problems-Billing Assessment: Ms. Valdez is a 64 yo F with a PMH left BKA, IDDM, who was admitted on 05/30/19 after a mechanical fall resulting in left stump wound dehiscence. - Patient Problems (1) Wound dehiscence Comment: - POD #2 s/p wound closure with Dr Dallas - Ortho consulted, thank you for recommendations - Given complex history with recurrent osteomyelitis, continued antibiotics x48h post-op; they are now finished - Bactrim DS BID x7 days starting today - PT/OT recommends AURE; pt would like to go to [facility] - Continue wound vac, NWB LLE - F/u with Dr. Haynes outpatient within 7d of surgery for wound vac change (2) HTN (hypertension) Comment: - SBP 120's, well controlled - Holding lisinopril while patient is on Bactrim - Continue metoprolol with hold parameters (3) Anemia Comment: - Chronic, stable, monitor - Updated iron studies are consistent with PHAN and AOCD - Continue oral iron - H/H decreased some overnight; likely d/t dilutional plus post-op anemia - D/C IVF and recheck H/H in a.m. (4) Diabetes mellitus Comment: - BGs 132-218 - A1c 7.5% - Continue SSI and lantus (5) CKD (chronic kidney disease) Comment: - Stable, at baseline (6) Depression Comment: - Cont Sertraline. (7) GERD (gastroesophageal reflux disease) Comment: - Continue protonix (8) DVT prophylaxis Comment: - Lovenox per Ortho (9) DNR (do not resuscitate) Status and Disposition: Inpatient. Discharge when stable. AURE vs. home with assistance.
[2019-06-02] MEDS: Acetaminophen TAB* 325 MG PO PRN (21:46)
[2019-06-02] MEDS: Sulfamethox/Trimethoprim DS 800/160* TAB PO SCH (21:46)
[2019-06-02] MEDS: Insulin GLARGINE(*) 1 UNITS UNIT SUBCUT SCH (21:47)
[2019-06-03] MEDS: oxyCODONE TAB* 5 MG TAB PO PRN (00:47)
[2019-06-03] MEDS ORDERED: Vancomycin Trough Check NOTE FOLLOW UP ONE (05:30)
[2019-06-03 05:59] LABS: Hematocrit 27 % (35-47); Hemoglobin 8.9 g/dL (12.0-16.0)
[2019-06-03] MEDS: Heparin VIAL(*) 5000 UNITS/ML VIAL (FIVE THOUSAND) SUBCUT SCH ×3 (06:06→22:46)
[2019-06-03 06:15] LABS: EGFR African American 55.6 (>60)
[2019-06-03] MEDS: Insulin LISPRO* 1 UNITS UNIT SUBCUT SCH ×3 (09:56→17:53)
[2019-06-03] MEDS: Aspirin EC TAB* 81 MG TAB.EC PO SCH (10:04)
[2019-06-03] MEDS: Lactobacillus Acidophilus* 1 TAB PO SCH ×2 (10:04→20:30)
[2019-06-03] MEDS: Sulfamethox/Trimethoprim DS 800/160* TAB PO SCH ×2 (10:05→20:31)
[2019-06-03] MEDS: Sertraline* 100 MG TAB PO SCH (10:06)
[2019-06-03] MEDS: Pantoprazole TAB * 40 MG TAB PO SCH (10:06)
[2019-06-03] MEDS: Ferrous Sulfate TAB* 325 MG PO SCH (10:10)
[2019-06-03] MEDS: Metoprolol Tartrate TAB* 25 MG PO SCH ×2 (10:16→20:32)
[2019-06-03] MEDS: Vitamin B Complex TAB PO SCH (10:18)
--- NOTE | 2019-06-03 15:46 | PN ---
Progress Note - Progress Note Date of Service: 06/03/19 SOAP: Subjective: []Pt seen at bedside. She feels well, no complaints. Objective: []Gen: Appears well, NAD LLE: vac suctioning well, dressing cdi, no erythema proximal to dressing. Assessment: []Dehiscence, traumatic, surgical wound, left lower extremity. Status post left xnxag-kim-[id number] amputation, 04/29/19. POD 3 s/p OPERATIVE PROCEDURE: 1. Irrigation and debridement and formal closure of dehisced surgical wound, left lower extremity. 2. Vacuum-assisted closure wound sponge placed over the surgical incision using Prevena device. Plan: [] NWB LLE Incisional vac to remain in place until F/U with Dr Haynes next week if w/i 7 days of procedure, otherwise can be changed prior to DC Will have received 2 days IV abx, no need to stay in house from ortho standpoint. rec po abx x 7 days after IV complete Vital Signs Temp 97.2 F 06/03/19 11:25 Pulse 61 06/03/19 11:25 Resp 16 06/03/19 11:25 BP 135/80 06/03/19 11:25 Pulse Ox 99 06/03/19 11:25 Intake & Output 06/02/19 06/03/19 06/03/19 18:59 06:59 18:59 Intake Total 2771 1650 360 Output Total 2000 1500 800 Balance 771 150 -440 Intake: IV Fluids 1011 ABX - VANCOMYCIN 255 LR 756 Oral 1760 1650 360 Output: Urine 2000 1500 800 Other: Estimated Void Medium Date of Last Bowel 06/03/19 Movement # Bowel Movements 1 Estimated Stool Amount Small Small # Voids 1 Laboratory Last Values WBC 4.2 10^3/uL (3.5-10.8) 06/02/19 05:53 RBC 3.22 10^6 /uL (3.70-4.87) L 06/02/19 05:53 Hgb 8.9 g/dL (12.0-16.0) L 06/03/19 05:26 Hct 27 % (35-47) L 06/03/19 05:26 MCV 81 fL (80-97) 06/02/19 05:53 MCH 27 pg (27-31) 06/02/19 05:53 MCHC 33 g/dL (31-36) 06/02/19 05:53 RDW 17 % (10-15) H 06/02/19 05:53 Plt Count 181 10^3/uL (150-450) 06/02/19 05:53 MPV 8.3 fL (7.4-10.4) 06/02/19 05:53 Neut % (Auto) 75.7 % 06/02/19 05:53 Lymph % (Auto) 14.1 % 06/02/19 05:53 [place] % (Auto) 6.0 % 06/02/19 05:53 Eos % (Auto) 3.8 % 06/02/19 05:53 Baso % (Auto) 0.4 % 06/02/19 05:53 Absolute Neuts (auto) 3.2 10^3/ul (1.5-7.7) 06/02/19 05:53 Absolute Lymphs (auto) 0.6 10^3/ul (1.0-4.8) L 06/02/19 05:53 Absolute Monos (auto) 0.2 10^3/ul (0-0.8) 06/02/19 05:53 Absolute Eos (auto) 0.2 10^3/ul (0-0.6) 06/02/19 05:53 Absolute Basos (auto) 0.0 10^3/ul (0-0.2) 06/02/19 05:53 Absolute Nucleated RBC 0.0 10^3/ul 06/02/19 05:53 Nucleated RBC % 0.1 06/02/19 05:53 INR (Anticoag Therapy) 1.15 (0.82-1.09) H 05/30/19 17:57 Sodium 139 mmol/L (135-145) 06/02/19 05:53 Potassium 4.0 mmol/L (3.5-5.0) 06/02/19 05:53 Chloride 108 mmol/L (101-111) 06/02/19 05:53 Carbon Dioxide 26 mmol/L (22-32) 06/02/19 05:53 Anion Gap 5 mmol/L (2-11) 06/02/19 05:53 BUN 20 mg/dL (6-24) 06/03/19 05:26 Creatinine 1.18 mg/dL (0.51-0.95) H 06/03/19 05:26 Est GFR ( Amer) 55.6 (>60) 06/03/19 05:26 Est GFR (Non-Af Amer) 46.0 (>60) 06/03/19 05:26 BUN/Creatinine Ratio 16.4 (8-20) 06/02/19 05:53 Glucose 104 mg/dL (70-100) H 06/02/19 05:53 POC Glucose (mg/dL) 109 mg/dL (70-100) H 06/03/19 12:42 Hemoglobin A1c 7.5 % (4.0-5.6) H 05/30/19 16:05 Calcium 9.1 mg/dL (8.6-10.3) 06/02/19 05:53 Total Bilirubin 0.30 mg/dL (0.2-1.0) 05/30/19 16:05 AST 11 U/L (13-39) L 05/30/19 16:05 ALT 10 U/L (7-52) 05/30/19 16:05 Alkaline Phosphatase 115 U/L (34-104) H 05/30/19 16:05 C-Reactive Protein 11.81 mg/L (<8.01) H 05/30/19 16:05 Total Protein 7.0 g/dL (6.4-8.9) 05/30/19 16:05 Albumin 4.0 g/dL (3.2-5.2) 05/30/19 16:05 Globulin 3.0 g/dL (2-4) 05/30/19 16:05 Albumin/Globulin Ratio 1.3 (1-3) 05/30/19 16:05 Vancomycin Trough 14.5 mcg/mL 06/01/19 05:50
[2019-06-03] MEDS: Loperamide CAP* 2 MG PO PRN ×2 (18:26→20:31)
--- NOTE | 2019-06-03 19:18 | PN ---
Subjective Date of Service: 06/03/19 Interval History: Pt is resting comfortably in bed. She is feeling well. She reports no pain in surgical site L leg today. She is eager for d/c to [facility]. She continues to have abd pain, diarrhea, which are both chronic. No other complaints today. Objective Active Medications: Acetaminophen (Tylenol Tab*) 650 mg PO Q4H PRN Aspirin (Aspirin Ec Tab*) 81 mg PO QAM SJ Cyclobenzaprine HCl (Flexeril Tab*) 10 mg PO TID PRN Dextrose (Dextrose 50% Vial 50 Ml*) 25 ml IV PUSH .FOR FS < 60 - SS PRN Ferrous Sulfate (Ferrous Sulfate Tab*) 325 mg PO DAILY SJ Gabapentin (Neurontin Cap(*)) 200 mg PO TID PRN Heparin Sodium (Porcine) (Heparin Vial(*)) 5,000 units SUBCUT Q8HR SJ Insulin Glargine (Lantus(*)) 85 units SUBCUT BEDTIME SJ Insulin Human Lispro (Humalog*) 0 units SUBCUT AC SJ; Protocol Lactobacillus Rhamnosus (Lactobacillus Acidophilus*) 1 tab PO BID SJ Loperamide HCl (Imodium Cap*) 2 mg PO .SEE DIRECTIONS PRN Metoprolol Tartrate (Lopressor Tab*) 25 mg PO BID SJ Ondansetron HCl (Zofran Inj*) 4 mg IV Q6H PRN Oxycodone HCl (Roxycodone Tab*) 5 mg PO Q4H PRN Oxycodone/Acetaminophen (Percocet 5/325 Tab*) 1 tab PO Q4H PRN Pantoprazole Sodium (Protonix Tab*) 40 mg PO QAM SJ Sertraline HCl (Zoloft*) 100 mg PO QAM SJ Trimethoprim/Sulfamethoxazole (Bactrim Ds 800/160 Tab*) 1 tab PO BID SJ Vitamin B Complex/Vitamin E (B Complex-50*) 1 tab PO QAM SJ Vital Signs: Temp Pulse Resp BP Pulse Ox 97.4 F 64 20 132/76 98 06/03/19 16:17 06/03/19 16:17 06/03/19 18:26 06/03/19 16:17 06/03/19 16:17 Oxygen Devices in Use Now: None Appearance: Pt resting comfortably in bed, in no acute distress. Pleasant, cooperative, appropriate. Eyes: No Scleral Icterus, PERRLA Ears/Nose/Mouth/Throat: NL Teeth, Lips, Gums, Clear Oropharnyx, Mucous Membranes Moist Neck: NL Appearance and Movements; NL JVP, Trachea Midline Respiratory: Symmetrical Chest Expansion and Respiratory Effort, Clear to Auscultation Cardiovascular: NL Sounds; No Murmurs; No JVD, RRR, No Edema Abdominal: - - No distention; BS all quadrants. Mildly TTP. Extremities: No Edema, No Clubbing, Cyanosis, - - LLE with BKA; CDI dressing in place, wound vac in place. Neurological: Alert and Oriented x 3 Result Diagrams: 06/03/19 05:26 06/03/19 05:26 Microbiology and Other Data: Microbiology 05/30/19 16:05 Aerobic Blood Culture - Preliminary Blood Venous No Growth Day 2 Anaerobic Blood Culture - Preliminary No Growth Day 2 05/30/19 16:05 Aerobic Blood Culture - Preliminary Blood Venous No Growth Day 2 Anaerobic Blood Culture - Preliminary No Growth Day 2 Assess/Plan/Problems-Billing Assessment: Ms. Valdez is a 64 yo F with a PMH left BKA, IDDM, who was admitted on 05/30/19 after a mechanical fall resulting in left stump wound dehiscence. - Patient Problems (1) Wound dehiscence Comment: - POD #3 s/p wound closure with Dr Dallas - Ortho consulted, thank you for recommendations - Given complex history with recurrent osteomyelitis, continued IV antibiotics x48h post-op; finished - Bactrim DS BID x7 days starting 06/02/2019 - PT/OT recommends AURE; pt would like to go to [facility] - Continue wound vac, NWB LLE - F/u with Dr. Haynes outpatient within 7d of surgery for wound vac change (2) HTN (hypertension) Comment: - SBP 120-130's, well controlled - Holding lisinopril while patient is on Bactrim - Continue metoprolol with hold parameters (3) Anemia Comment: - Chronic, stable, monitor - Updated iron studies are consistent with PHAN and AOCD - Continue oral iron - H/H decreased some overnight; likely d/t dilutional plus post-op anemia - D/C IVF and recheck H/H in a.m. (4) Diabetes mellitus Comment: - BGs 100-160's - A1c 7.5% - Continue SSI and lantus (5) CKD (chronic kidney disease) Comment: - Stable, at baseline (6) Depression Comment: - Cont Sertraline. (7) GERD (gastroesophageal reflux disease) Comment: - Continue protonix (8) DVT prophylaxis Comment: - Lovenox per Ortho (9) DNR (do not resuscitate) Status and Disposition: Inpatient. Discharge when stable. AURE vs. home with assistance.
[2019-06-03] MEDS: oxyCODONE/Acetamin 5/325 MG* TAB PO PRN (20:30)
[2019-06-03] MEDS: Insulin GLARGINE(*) 1 UNITS UNIT SUBCUT SCH (22:47)
[2019-06-04] MEDS: Heparin VIAL(*) 5000 UNITS/ML VIAL (FIVE THOUSAND) SUBCUT SCH (05:33)
[2019-06-04] MEDS: Insulin LISPRO* 1 UNITS UNIT SUBCUT SCH ×2 (09:33→12:31)
[2019-06-04] MEDS: Ferrous Sulfate TAB* 325 MG PO SCH (09:35)
[2019-06-04] MEDS: Aspirin EC TAB* 81 MG TAB.EC PO SCH (09:43)
[2019-06-04] MEDS: Sulfamethox/Trimethoprim DS 800/160* TAB PO SCH (09:43)
[2019-06-04] MEDS: Lactobacillus Acidophilus* 1 TAB PO SCH (09:43)
[2019-06-04] MEDS: Sertraline* 100 MG TAB PO SCH (09:43)
[2019-06-04] MEDS: Vitamin B Complex TAB PO SCH (09:43)
[2019-06-04] MEDS: Pantoprazole TAB * 40 MG TAB PO SCH (09:44)
[2019-06-04] MEDS: Metoprolol Tartrate TAB* 25 MG PO SCH (09:50)
[2019-06-04] MEDS ORDERED: Ondansetron INJ* 2 MG/ML VIAL IV PRN (10:44)
[2019-06-04 12:41] VITALS: BP 121/79
--- NOTE | 2019-06-04 13:23 | PN ---
Progress Note - Progress Note Date of Service: 06/04/19 SOAP: Subjective: []Pt seen at bedside. She is feeling well without CP, SOB, dizziness or nausea. Objective: []Gen: Appears well, NAD LLE: Incisional vac changed. Incision CDI well approximated no erythema and no discharge. Stump and calf are nontender. Assessment: []Dehiscence, traumatic, surgical wound, left lower extremity. Status post left xrkxs-ese-[id number] amputation, 04/29/19. POD 4 s/p OPERATIVE PROCEDURE: 1. Irrigation and debridement and formal closure of dehisced surgical wound, left lower extremity. 2. Vacuum-assisted closure wound sponge placed over the surgical incision using Prevena device. Plan: [] NWB LLE Incisional vac changed today, she has follow up appt scheduled with Dr Haynes already on 06/09. Appropriate to leave incisional vac in place until this follow up visit. Finish remainder of 7 days bactrim Vital Signs Temp 97.9 F 06/04/19 12:40 Pulse 57 06/04/19 12:40 Resp 18 06/04/19 12:40 BP 121/79 06/04/19 12:40 Pulse Ox 97 06/04/19 12:40 Intake & Output 06/03/19 06/04/19 06/04/19 18:59 06:59 18:59 Intake Total 840 2400 240 Output Total 1000 400 800 Balance -160 2000 -560 Intake: Oral 840 2400 240 Output: Urine 1000 400 800 Other: Estimated Void Large Date of Last Bowel 06/03/19 Movement # Bowel Movements 1 1 Estimated Stool Amount Small Medium # Voids 1 Laboratory Last Values WBC 4.2 10^3/uL (3.5-10.8) 06/02/19 05:53 RBC 3.22 10^6 /uL (3.70-4.87) L 06/02/19 05:53 Hgb 8.9 g/dL (12.0-16.0) L 06/03/19 05:26 Hct 27 % (35-47) L 06/03/19 05:26 MCV 81 fL (80-97) 06/02/19 05:53 MCH 27 pg (27-31) 06/02/19 05:53 MCHC 33 g/dL (31-36) 06/02/19 05:53 RDW 17 % (10-15) H 06/02/19 05:53 Plt Count 181 10^3/uL (150-450) 06/02/19 05:53 MPV 8.3 fL (7.4-10.4) 06/02/19 05:53 Neut % (Auto) 75.7 % 06/02/19 05:53 Lymph % (Auto) 14.1 % 06/02/19 05:53 [place] % (Auto) 6.0 % 06/02/19 05:53 Eos % (Auto) 3.8 % 06/02/19 05:53 Baso % (Auto) 0.4 % 06/02/19 05:53 Absolute Neuts (auto) 3.2 10^3/ul (1.5-7.7) 06/02/19 05:53 Absolute Lymphs (auto) 0.6 10^3/ul (1.0-4.8) L 06/02/19 05:53 Absolute Monos (auto) 0.2 10^3/ul (0-0.8) 06/02/19 05:53 Absolute Eos (auto) 0.2 10^3/ul (0-0.6) 06/02/19 05:53 Absolute Basos (auto) 0.0 10^3/ul (0-0.2) 06/02/19 05:53 Absolute Nucleated RBC 0.0 10^3/ul 06/02/19 05:53 Nucleated RBC % 0.1 06/02/19 05:53 INR (Anticoag Therapy) 1.15 (0.82-1.09) H 05/30/19 17:57 Sodium 139 mmol/L (135-145) 06/02/19 05:53 Potassium 4.0 mmol/L (3.5-5.0) 06/02/19 05:53 Chloride 108 mmol/L (101-111) 06/02/19 05:53 Carbon Dioxide 26 mmol/L (22-32) 06/02/19 05:53 Anion Gap 5 mmol/L (2-11) 06/02/19 05:53 BUN 20 mg/dL (6-24) 06/03/19 05:26 Creatinine 1.18 mg/dL (0.51-0.95) H 06/03/19 05:26 Est GFR ( Amer) 55.6 (>60) 06/03/19 05:26 Est GFR (Non-Af Amer) 46.0 (>60) 06/03/19 05:26 BUN/Creatinine Ratio 16.4 (8-20) 06/02/19 05:53 Glucose 104 mg/dL (70-100) H 06/02/19 05:53 POC Glucose (mg/dL) 92 mg/dL (70-100) 06/04/19 12:18 Hemoglobin A1c 7.5 % (4.0-5.6) H 05/30/19 16:05 Calcium 9.1 mg/dL (8.6-10.3) 06/02/19 05:53 Total Bilirubin 0.30 mg/dL (0.2-1.0) 05/30/19 16:05 AST 11 U/L (13-39) L 05/30/19 16:05 ALT 10 U/L (7-52) 05/30/19 16:05 Alkaline Phosphatase 115 U/L (34-104) H 05/30/19 16:05 C-Reactive Protein 11.81 mg/L (<8.01) H 05/30/19 16:05 Total Protein 7.0 g/dL (6.4-8.9) 05/30/19 16:05 Albumin 4.0 g/dL (3.2-5.2) 05/30/19 16:05 Globulin 3.0 g/dL (2-4) 05/30/19 16:05 Albumin/Globulin Ratio 1.3 (1-3) 05/30/19 16:05 Vancomycin Trough 14.5 mcg/mL 06/01/19 05:50
--- NOTE | 2019-06-04 13:31 | DS ---
CC: Vanessa Prince NP; Dr. Colten Haynes; [facility], [place] * DATE OF ADMISSION: 05/30/2019. DATE OF DISCHARGE: 06/04/2019. PRIMARY CARE PHYSICIAN: Vanessa Prince NP. OTHER PHYSICIAN: Dr. Colten Haynes. ATTENDING PHYSICIAN: Dr. Isabel Gloria * (dictated by ELROY Estes ). PRIMARY DIAGNOSES: 1. Left BKA wound dehiscence. 2. Irrigation debridement closure of left BKA wound dehiscence 05/31/2019. SECONDARY DIAGNOSES: 1. Diabetes mellitus type 2, insulin dependent. 2. Hypertension. 3. Coronary artery disease. 4. PUD. 5. History of osteomyelitis left foot, subsequent left BKA. 6. History of colon cancer. 7. History of recurrent UTI's. 8. Chronic diarrhea. 9. Chronic anemia. 10. GERD. 11. Depression. PROCEDURES WHILE IN THE HOSPITAL: 05/31/2019, irrigation and debridement and formal closure of dehisced surgical wound left lower extremity. Vacuum- assisted closure wound sponge placed over surgical incision using Prevena device. DISCHARGE MEDICATIONS: Home medications: 1. Aspirin 81 mg p.o. daily. 2. Ferrous Sulfate 325 mg p.o. daily. 3. Gabapentin 200 mg p.o. t.i.d. prn mild nerve pain. 4. Glargine 75 units subcu at bedtime. 5. Lactobacillus acidophilus one cap p.o. b.i.d. 6. Loperamide one tab p.o. daily prn diarrhea. 7. Metoprolol Tartrate 25 mg p.o. b.i.d. 8. Omeprazole 40 mg p.o. daily. 9. Oxycodone 5 mg p.o. q.4 hours prn pain. 10. Sertraline 100 mg p.o. daily. 11. Bactrim DS one tab p.o. b.i.d. times 10 doses. 12. Vitamin B complex one cap p.o. q.a.m. New home medications: 1. Gabapentin. 2. Bactrim. Discontinued home medications: 1. Lisinopril. HISTORY OF PRESENT ILLNESS/HOSPITAL COURSE: Ms. Valdez is a 64-year-old female with a past medical history of diabetes, left BKA 04/29/2019 with discharge to [facility], [place]. She was discharged from [facility], [place] on 05/28/2019 and had a fall while using her knee scooter resulting in left BKA wound dehiscence. For full and complete details, please see the history and physical dictated by Tess Malloy NP on 05/30/2019. In short, the patient presents with wound dehiscence of left BKA and was admitted for treatment on the . On the , the patient was brought to the operating room for irrigation, debridement, and closure of the left lower extremity surgical wound. Prevena device vacuum- assisted closure was placed. The patient was given IV antibiotic, Cefepime, for 48 hours and then this was discontinued. She was continued on Bactrim DS for another seven days and will be discharged on this medication. Her wound VAC was changed on 06/04/2019 and she has a follow-up appointment with Dr. Haynes on June 09. She will be discharged to [facility], [place] for subacute rehab. While the patient was in the hospital, she was noted to have chronic anemia. Her hemoglobin dropped some during her inpatient stay, but is trending up at discharge. The patient's kidney function appears to be within normal limits and at baseline. The patient is noted to have had episodes of hypoglycemia with morning blood sugars times two days. She is typically on 85 units of Glargine daily at home. We will decrease the dose to 75 units starting tonight and titrate up as needed based on a.m. blood sugars. The patient's blood pressure was well-controlled throughout her stay. Home medications include Lisinopril and Metoprolol. Her Lisinopril was discontinued in the setting of Bactrim use. She will be continued on Metoprolol daily. She may restart Lisinopril when Bactrim is finished. Due to low heart rate on Metoprolol, the patient may benefit from restarting Lisinopril and discontinuing Metoprolol once Bactrim is finished. On the day of discharge, the patient is eager to be discharged to [facility], [place] to start physical therapy and rehab. She has no complaints. She denies pain in the leg, although she does not she gets a pressure sensation when the leg is hanging down that is relieved with elevation. She does have abdominal pain which is chronic and diarrhea which is also chronic. She has no other complaints today. REVIEW OF SYSTEMS: A ten point review of systems has been performed and all the pertinent positives and negatives are in the HPI. All other systems are negative. PHYSICAL EXAMINATION: General: Ms. Valdez is a well-developed, well-nourished, middle-aged, obese, white woman who is sitting up in her chair with the left lower extremity elevated. She appears to be in no acute distress. She is pleasant, cooperative and calm. HEENT: PERRL, EOMI, nonicteric sclerae. Hearing grossly intact. Oral mucous membranes are moist, there are no lesions. Pharynx is clear. The tongue is at midline. Cardiovascular: Regular rate and rhythm with S1, S2 present without murmurs, rubs, clicks, or gallops. There is no JVD. There is no peripheral edema. Radial and right pedal pulse palpable. Pulmonary: Symmetrical chest expansion without use of accessory muscles. Lungs: Clear to auscultation bilaterally without rhonchi, wheezes, or rubs. There is no digital clubbing or cyanosis. Abdomen: Obese. Bowel sounds in all quadrants. There is mild tenderness to palpation. No distention. Musculoskeletal: Left BKA noted. The wound is closed with sutures. There is mild ecchymosis surrounding the wound. There is no discharge, tenderness or erythema. Wound VAC is being replaced 06/04/2019. Neuro: The patient is awake. She is alert and oriented times three with cranial nerves grossly intact. Sensation intact distally. Sensation intact to left BKA. Ms. Valdez is stable for discharge to [facility], [place]. CONDITION ON DISCHARGE: Good. DIET: Heart-healthy, ADA. ACTIVITY: AURE for PT/OT, nonweightbearing left lower extremity. MEDICATIONS: 1. Continue Bactrim for ten more doses for a total of seven days. 2. Hold Lisinopril while taking Bactrim; may start when medication is finished. 3. Hold Metoprolol for heart rate less than 60. Consider discontinuation of medication with restart of Lisinopril due to relative bradycardia. 4. Glargine, home dose is 85 units; take 75 units this evening due to morning low blood sugars. Monitor a.m. blood sugars for need for increase. EDUCATION: 1. Follow-up with primary care provider in four to seven days of discharge from [facility], [place]. 2. Wound VAC has been changed 06/04/2019. Follow-up with Dr. Haynes as scheduled on 06/09/2019. This is a summarized report of a complex medical history and hospital stay. For further details, please see the entire medical record. TIME SPENT: Approximately 35 minutes were spent on this discharge, greater than half of that time was spent [id number] with the patient discussing discharge plans and instructions. ELROY HEWITT [id number]/CPS #: [id number] MTDDereje
[2019-06-04] MEDS ORDERED: Insulin GLARGINE(*) 1 UNITS UNIT SUBCUT SCH (21:00)
== END 2019-06-04 14:20 | DRG 501 ==
LOC: ED 15:01 → SSU 17:16
PROVIDERS: ADMIT Internal Medicine; ATTEND Internal Medicine
PROC: 3E10X8Z Irrigation of Skin and Mucous Membranes using Irrigating Substance (ICD-10-PCS; 2019-05-30)
PROC: 0HQLXZZ Repair Left Lower Leg Skin, External Approach (ICD-10-PCS; 2019-05-30)
PROC: 0HBLXZZ Excision of Left Lower Leg Skin, External Approach (ICD-10-PCS; 2019-05-31)
PROC: 0JDP0ZZ Extraction of Left Lower Leg Subcutaneous Tissue and Fascia, Open Approach (ICD-10-PCS; principal; 2019-05-31 08:00)
DX: T87.81 Dehiscence of amputation stump (principal); I12.0 Hypertensive chronic kidney disease with stage 5 chronic kidney disease or end stage renal disease; E11.22 Type 2 diabetes mellitus with diabetic chronic kidney disease; E11.42 Type 2 diabetes mellitus with diabetic polyneuropathy; E78.00 Pure hypercholesterolemia, unspecified; K21.9 Gastro-esophageal reflux disease without esophagitis; F32.9 Major depressive disorder, single episode, unspecified; E66.9 Obesity, unspecified; I25.10 Atherosclerotic heart disease of native coronary artery without angina pectoris; I27.20 Pulmonary hypertension, unspecified; Z66 Do not resuscitate; N18.9 Chronic kidney disease, unspecified; K27.9 Peptic ulcer, site unspecified, unspecified as acute or chronic, without hemorrhage or perforation; K52.9 Noninfective gastroenteritis and colitis, unspecified; D50.0 Iron deficiency anemia secondary to blood loss (chronic); W05.1XXA Fall from non-moving nonmotorized scooter, initial encounter; Y92.009 Unspecified place in unspecified non-institutional (private) residence as the place of occurrence of the external cause; Z85.038 Personal history of other malignant neoplasm of large intestine; Z87.440 Personal history of urinary (tract) infections; Z79.82 Long term (current) use of aspirin; Z79.4 Long term (current) use of insulin; Z79.891 Long term (current) use of opiate analgesic; Z79.899 Other long term (current) drug therapy; Z88.8 Allergy status to other drugs, medicaments and biological substances; Z83.3 Family history of diabetes mellitus; Z86.14 Personal history of Methicillin resistant Staphylococcus aureus infection
CPT/HCPCS: 36415; 80048; 80053; 80202; 82565; 83036; 84520; 85014; 85018; 85025; 85610; 86140; 87040; 99283; A9270-GY; A9272-GY; G8978-GP-CK; G8979-GP-CI; G8987-GO-CK; G8988-GO-CI; J0692; J1170; J1240; J1644; J2405; J2704; J3010; J3370; J3490

== ENCOUNTER 2019-12-18 06:36 | Day surgery (SDC) | payer MEDICARE ==
--- NOTE | 2019-12-16 12:47 | HP ---
HISTORY AND PHYSICAL: DATE OF PLANNED ADMISSION AND SURGERY: 12/18/19 HISTORY OF PRESENT ILLNESS: Ms. Valdez is a 64-year-old white female who is admitted with chronic left hydronephrosis, left ureteral stricture, managed by long term care administrator stent drainage, for cystoscopy and left ureteral stent exchange. Ms. Valdez developed distal left ureteral stricture following treatment of carcinoma of the colon with surgery and radiation therapy. She had been managed with chronic left ureteral stent drainage. The stent was last replaced about 11 months ago. There was a delay in replacing her stent because of multiple problems related to her peripheral vascular disease. The patient has not had any symptoms of urinary tract infection, pyelonephritis, or flank pain. She is now admitted for left ureteral stent exchange. PAST MEDICAL HISTORY AND SYSTEM REVIEW: She is diabetic and has peripheral vascular disease that had required a left below-knee amputation in the fall. She had required revision of the stump following a fall and wound dehiscence in May 2019. She is hypertensive and diabetic. She has history of depression. MEDICATIONS: She is maintained on the following mediations: 1. Lantus 85 units subcu every evening. 2. Lisinopril 40 mg daily. 3. Metoprolol 25 mg twice a day. 4. Omeprazole 40 mg daily. 5. Sertraline 100 mg daily. 6. Oxycodone as needed for pain. 7. She is on iron replacement. 8. One baby aspirin per day. ALLERGIES: She reports being intolerant to ATENOLOL, GLIPIZIDE, and METFORMIN. FAMILY HISTORY: Positive for diabetes in her siblings. SOCIAL HISTORY: She does not smoke and does not drink alcohol. She denies the use of recreational drugs. She is disabled. PHYSICAL EXAMINATION GENERAL: Obese white female, who has a left below-knee amputation and uses a walker. VITAL SIGNS: Blood pressure 140/70, pulse of 60. LUNGS: Clear. HEART: Regular and rhythmic. No murmurs. ABDOMEN: Soft. No masses. No tenderness and no CVA tenderness. EXTREMITIES: Well-healed stump of a left below-knee amputation. IMPRESSION: Left ureteral stricture with history of left hydronephrosis, managed by chronic left ureteral stent drainage. PLAN: Considering the stent has been in place for almost a year and the concern about obstruction and infection, plan is for left ureteral stent exchange. Urine culture was done preoperatively and the patient is started on Cipro 500 mg twice a day 2 days prior to the procedure. She will be given 1 dose of IV Levaquin before the procedure is done. I discussed the above plans in detail with the patient. All her questions were answered. [id number]/[facility] #: [id number] [facility]
[~2019-12-18 06:36] MED LIST changes: -DiMENhydriNATE IV* 50 MG/ML VIAL IV PUSH PRN; -Famotidine IV* 10 MG/ML 2 ML (20 mg) ONE; -HYDROcodone/ACETAMIN 5-325 MG* 1 TAB PO PRN; -Iohexol 180 (CONTRAST) 10 ML SDV IV ONE; -Levofloxacin 750 MG IVPREMIX(* 750 MG/150 ML BAG ONE; -Lidocaine 2% PF * 5 ML VIAL ONE; -Midazolam* 1 MG/ML 2 ML VIAL (2 MG) ONE; -Naloxone* 0.4 MG/ML 1 ML VIAL IV PRN; -Ondansetron INJ* 2 MG/ML VIAL ONE; -Propofol* 10 MG/ML 20 ML BTL ONE; -fentaNYL* 50 MCG/ML 2 ML VIAL (100 MCG VIAL) IV PRN; -fentaNYL* 50 MCG/ML 2 ML VIAL (100 MCG VIAL) ONE; -oxyCODONE/Acetamin 5/325 MG* TAB PO PRN
[2019-12-18] MEDS ORDERED: Buffered Lidocaine 1% SYRIN* 1 ML/SYRINGE INTRADERM ONE (06:54)
[2019-12-18] MEDS ORDERED: Famotidine IV* 10 MG/ML 2 ML (20 mg) ONE (06:54)
[2019-12-18] MEDS ORDERED: Levofloxacin 750 MG IVPREMIX(* 750 MG/150 ML BAG ONE (06:54)
[2019-12-18] MEDS ORDERED: Iohexol 180 (CONTRAST) 10 ML SDV IV ONE (08:56)
[2019-12-18] MEDS ORDERED: cefTRIAXone(*) 2 GM ADDV.VIAL IVPB ONE (10:54)
[2019-12-18] MEDS ORDERED: Midazolam* 1 MG/ML 2 ML VIAL (2 MG) ONE ×2 (14:01→14:28)
[2019-12-18] MEDS ORDERED: fentaNYL* 50 MCG/ML 2 ML VIAL (100 MCG VIAL) ONE (14:01)
[2019-12-18] MEDS ORDERED: Propofol* 10 MG/ML 20 ML BTL ONE (14:27)
[2019-12-18] MEDS ORDERED: fentaNYL* 50 MCG/ML 2 ML VIAL (100 MCG VIAL) IV PRN (15:04)
[2019-12-18] MEDS ORDERED: Ondansetron INJ* 2 MG/ML VIAL IV PRN (15:04)
[2019-12-18] MEDS ORDERED: Naloxone* 0.4 MG/ML 1 ML VIAL IV PRN (15:04)
--- NOTE | 2019-12-18 15:37 | OP ---
CC: Dr. Wilburn * DATE OF OPERATION: 12/18/19 - [facility] DATE OF : 53 SURGEON: Beau Pruett MD. ANESTHESIOLOGIST: Dr. Rodrigo Giron. ANESTHESIA: IV sedation with MAC. PRE-OP DIAGNOSES: 1. Left ureteral stricture. 2. Status post placement of left ureteral stent. POST-OP DIAGNOSES: 1. Left ureteral stricture. 2. Status post placement of left ureteral stent. OPERATIVE PROCEDURES: 1. Cystoscopy. 2. Left retrograde pyelography. 3. Left ureteral stent exchange (black silicone, 8.5 Syrian, 24 cm long). INDICATION FOR PROCEDURE: Ms. Valdez is a 64-year-old white female who developed a distal left ureteral stricture following surgical and radiation treatment of carcinoma of the colon. This has been managed conservatively with chronic stent drainage. The stent was last replaced almost 1 year ago. The patient is now admitted for a stent exchange. PATHOLOGY AT CYSTOSCOPY: The bladder mucosa showed hyperemia consistent with changes of cystitis. The distal limb of the stent was seen coming from the left ureteral orifice. Upon left retrograde pyelography, there was minimal hydronephrosis and hydroureter. The old stent was still patent. No suspicious bladder lesions were seen. DESCRIPTION OF PROCEDURE: With the patient in the lithotomy position, and after proper scrubbing and draping and under intravenous sedation with anesthesia monitoring, cystoscopy was performed. The bladder was inspected and the above findings were noted. The distal limb of the left ureteral stent was pulled out to the level of the urethral meatus. A flexible tip guidewire was introduced through the lumen of the stent and was positioned in the area of the renal pelvis. The stent was then removed keeping the guidewire in place. Retrograde pyelography was then performed. A black silicone stent, 24 cm long, 8.5 Syrian was then placed with the proximal end coiling in the renal pelvis and the distal end coiling inside the bladder. There was good drainage of contrast from the kidney. The patient tolerated the procedure well and left the operating room in good condition. [id number]/[facility]PS #: [id number] MTDD
[2019-12-18 17:07] VITALS: BP 142/66
== END 2019-12-18 17:10 | disposition home or self-care (01) ==
LOC: OR 06:36
PROVIDERS: ATTEND Urology
DX: N13.1 Hydronephrosis with ureteral stricture, not elsewhere classified (principal); Z85.038 Personal history of other malignant neoplasm of large intestine; E11.9 Type 2 diabetes mellitus without complications; Z79.4 Long term (current) use of insulin; I73.9 Peripheral vascular disease, unspecified; Z89.512 Acquired absence of left leg below knee; I10 Essential (primary) hypertension; Z68.36 Body mass index [BMI] 36.0-36.9, adult; G47.33 Obstructive sleep apnea (adult) (pediatric); K21.9 Gastro-esophageal reflux disease without esophagitis; Z86.711 Personal history of pulmonary embolism
CPT/HCPCS: 74420; C1876; J0696; J2250; J2704; J3010

== ENCOUNTER 2022-05-01 11:20 | Observation (INO) ==
[2022-05-01 15:31] LABS: ABS Eosinophils 0.1 10^3/ul (0-0.6); ABS Lymphocytes 0.3 10^3/ul (1.0-4.8); ABS Monocytes 0.5 10^3/ul (0-0.8); ABS Neutrophils 8.4 10^3/ul (1.5-7.7); Eosinophil % 0.8 %; Hematocrit 30 % (35-47); Hemoglobin 9.5 g/dL (12.0-16.0); Lymphocyte % 3.5 %; Mean Corpuscular HGB Conc 32 g/dL (31-36); Mean Corpuscular Hemoglobin 26 pg (27-31); Mean Corpuscular Volume 82 fL (80-97); Mean Platelet Volume 7.5 fL (7.4-10.4); Platelet Count 412 10^3/uL (150-450); Red Blood Count 3.65 10^6 /uL (3.70-4.87); Red Cell Distribution Width 15 % (10-15); White Blood Count 9.3 10^3/uL (3.5-10.8)
[2022-05-01 16:13] LABS: Calcium 8.8 mg/dL (8.6-10.3); Potassium 4.7 mmol/L (3.5-5.0); eGFR CKD-EPI 41.6 (>60)
[2022-05-01] MEDS ORDERED: Iodixanol (CONTRAST) 320 MG/ML 100 ML SDV IV ONE (16:50)
[2022-05-01 17:08] LABS: Urine Color Yellow
[2022-05-01 17:09] LABS: Urine Appearance Cloudy; Urine Bilirubin Negative (Negative); Urine Glucose 1+ (250mg/dL) (Negative); Urine Ketones 2+ (40mg/dL) (Negative); Urine Nitrite Negative (Negative); Urine Protein 1+ (30 mg/dL) (Negative); Urine Urobilinogen 1.0 (Negative) (Negative); Urine pH 5.5 (5.0-9.0)
[2022-05-01] MEDS ORDERED: Morphine 4 MG/ML VIAL (1 ml) IV ONE (17:13)
[2022-05-01] MEDS ORDERED: Lactated Ringers 1000 ml BAG 1,000 ML IV ONE (18:03)
[2022-05-01] MEDS ORDERED: cefTRIAXone 2 gm/50 mL D5W 2 GM/50 ML BAG IV ONE (18:03)
[2022-05-01] MEDS ORDERED: Enoxaparin 40 MG/0.4 ML SYR SUBCUT SCH (21:00)
[2022-05-01] MEDS ORDERED: Dextrose 50% Syringe 50 ml 25 GM/50 ML SYRINGE IV PUSH PRN (23:53)
[2022-05-02 05:17] LABS: ABS Eosinophils 0.1 10^3/ul (0-0.6); ABS Lymphocytes 0.4 10^3/ul (1.0-4.8); ABS Monocytes 0.6 10^3/ul (0-0.8); ABS Neutrophils 6.5 10^3/ul (1.5-7.7); Eosinophil % 1.1 %; Hematocrit 27 % (35-47); Hemoglobin 8.9 g/dL (12.0-16.0); Lymphocyte % 5.7 %; Mean Corpuscular HGB Conc 32 g/dL (31-36); Mean Corpuscular Hemoglobin 27 pg (27-31); Mean Corpuscular Volume 82 fL (80-97); Mean Platelet Volume 7.6 fL (7.4-10.4); Platelet Count 379 10^3/uL (150-450); Red Blood Count 3.33 10^6 /uL (3.70-4.87); Red Cell Distribution Width 15 % (10-15); White Blood Count 7.6 10^3/uL (3.5-10.8)
[2022-05-02 05:21] LABS: INR 1.38 (0.89-1.11)
[2022-05-02 05:26] LABS: Calcium 8.6 mg/dL (8.6-10.3); Potassium 4.5 mmol/L (3.5-5.0); eGFR CKD-EPI 32.9 (>60)
[2022-05-02] MEDS ORDERED: Morphine 2 MG/ML SYRINGE IV PRN (07:27)
[2022-05-02] MEDS: Acetaminophen IV 1 GM/100ML 1,000 MG/100 ML BAG IV SCH ×2 (10:05→15:42)
[2022-05-02] MEDS: Aspirin EC 81 mg TAB.EC (enteric coated) PO SCH (10:08)
[2022-05-02] MEDS ORDERED: ceFAZolin 1 GM in Dextrose 1 GM/50 ML BAG ONE (15:18)
[2022-05-02] MEDS ORDERED: Iohexol 180 (CONTRAST) 10 ML SDV IV ONE (16:53)
[2022-05-02] MEDS ORDERED: fentaNYL 100 mcg/2 ml 50 MCG/ML VIAL IV PRN (16:57)
[2022-05-02] MEDS ORDERED: Naloxone 0.4 mg VIAL 0.4 mg/ml 1 ml VIAL IV PRN (16:57)
[2022-05-02] MEDS ORDERED: fentaNYL 100 mcg/2 ml 50 MCG/ML VIAL ONE (17:23)
[2022-05-02] MEDS ORDERED: Midazolam 2 mg/2 ml VIAL 1 mg/ml 2 ml VIAL (2 mg) ONE (17:24)
[2022-05-02] MEDS ORDERED: cefTRIAXone 1 gm/50 mL D5W 1 GM/50 ML BAG IV SCH (18:00)
[2022-05-03] MEDS: Acetaminophen IV 1 GM/100ML 1,000 MG/100 ML BAG IV SCH ×2 (01:36→08:32)
[2022-05-03 05:54] LABS: Hematocrit 27 % (35-47); Hemoglobin 8.7 g/dL (12.0-16.0); Mean Corpuscular HGB Conc 32 g/dL (31-36); Mean Corpuscular Hemoglobin 26 pg (27-31); Mean Corpuscular Volume 82 fL (80-97); Mean Platelet Volume 7.5 fL (7.4-10.4); Platelet Count 422 10^3/uL (150-450); Red Blood Count 3.33 10^6 /uL (3.70-4.87); Red Cell Distribution Width 15 % (10-15); White Blood Count 7.6 10^3/uL (3.5-10.8)
[2022-05-03 06:35] LABS: Calcium 8.2 mg/dL (8.6-10.3); Magnesium 2.3 mg/dL (1.9-2.7); Potassium 4.6 mmol/L (3.5-5.0); eGFR CKD-EPI 40.5 (>60)
[2022-05-03] MEDS: Aspirin EC 81 mg TAB.EC (enteric coated) PO SCH (08:33)
[2022-05-03 11:14] VITALS: BP 120/54
== END 2022-05-03 11:45 | disposition home or self-care (01) ==
LOC: ED 11:20 → SUATTDRO 20:11 → INTOOBSV 20:11 → EDHOLD 20:11 → OBSVTOIN 20:11 → MEDTELE 21:48
PROVIDERS: ADMIT Internal Medicine; ATTEND Student in an Organized Health Care Education/Training Program

== ENCOUNTER 2022-07-23 10:35 | Inpatient (IN) ==
[~2022-07-23 10:35] MED LIST changes: +Buffered Lidocaine 1% SYRIN 1 ml INTRADERM ONE; -Buffered Lidocaine 1% SYRIN* 1 ML/SYRINGE INTRADERM ONE; -Famotidine IV* 10 MG/ML 2 ML (20 mg) IV ONE; -Lactated Ringers 1000 ML Bag* 1,000 ML IV SCH; +Lactated Ringers 1000 ml BAG 1,000 ML IV SCH
[2022-07-23] MEDS ORDERED: ceFAZolin 2 GM PREMIX 2 GM/50 ML BAG ONE (11:03)
[2022-07-23] MEDS ORDERED: Dexamethasone IV 4 MG/ML VIAL 1 ml VIAL ONE (12:51)
[2022-07-23] MEDS ORDERED: Lidocaine 2% PF 5 ML VIAL ONE (12:51)
[2022-07-23] MEDS ORDERED: Propofol 10 MG/ML 20 ML BTL ONE (12:51)
[2022-07-23] MEDS ORDERED: Ondansetron 4 mg VIAL 2 MG/ML 2 ml VIAL ONE (12:51)
[2022-07-23] MEDS ORDERED: fentaNYL 100 mcg/2 ml 50 MCG/ML VIAL IV PRN (13:34)
[2022-07-23] MEDS ORDERED: Prochlorperazine 5 mg/ml 2 ml VIAL (10 mg) IV PRN (13:34)
[2022-07-23] MEDS ORDERED: HYDROmorphone 1 MG/1 ML SYRINGE IV PRN (13:34)
[2022-07-23] MEDS ORDERED: Naloxone 0.4 mg VIAL 0.4 mg/ml 1 ml VIAL IV PRN (13:34)
[2022-07-23] MEDS ORDERED: fentaNYL 100 mcg/2 ml 50 MCG/ML VIAL ONE ×2 (16:05→19:44)
[2022-07-23] MEDS ORDERED: Metoclopramide 5 MG/ML VIAL (10 mg) ONE (16:16)
[2022-07-23] MEDS ORDERED: Dextrose 50% VIAL 50 ml ONE (17:11)
[2022-07-23] MEDS ORDERED: Morphine 2 MG/ML SYRINGE IV PRN (19:26)
[2022-07-23] MEDS ORDERED: Lactulose 30 ml UDC PO PRN (19:26)
[2022-07-23] MEDS ORDERED: Ondansetron 4 mg VIAL 2 MG/ML 2 ml VIAL IV PRN (19:26)
[2022-07-23] MEDS ORDERED: Magnesium Hydroxide LIQ 30 ML UDC PO PRN (19:26)
[2022-07-23] MEDS ORDERED: Ondansetron ODT 4 mg TAB 4 MG TAB PO PRN (19:26)
[2022-07-23] MEDS ORDERED: Collagenase 250 units/gm OINT 1 tube TOPICAL PRN (19:33)
[2022-07-23] MEDS ORDERED: Vancomycin 1,000 MG in NS 0.9% 250 ml 250 ML IVPB SCH (20:00)
[2022-07-23] MEDS ORDERED: Lactated Ringers 1000 ml BAG 1,000 ML IV SCH (20:00)
[2022-07-23] MEDS ORDERED: Dextrose 50% Syringe 50 ml 25 GM/50 ML SYRINGE IV PUSH PRN (20:14)
[2022-07-23] MEDS: Magnesium Hydroxide LIQ 30 ML UDC PO SCH ×2 (21:48→21:56)
[2022-07-23] MEDS ORDERED: Cefepime ADVAN 1 GM in NS 0.9% 50 ML 50 ML IVPB SCH (22:00)
[2022-07-23] MEDS ORDERED: Vancomycin per Pharmacy 1 EA NOTE FOLLOW UP SCH (22:00)
[2022-07-23] MEDS: Insulin GLARGINE 100 un/ml 10 ml VIAL SUBCUT SCH (22:06)
[2022-07-23] MEDS: Cefepime 2 GM in Dextrose 2 GM/50 ML BAG IV SCH (22:46)
[2022-07-23 23:00] LABS: eGFR CKD-EPI 43.6 (>60)
[2022-07-23] MEDS ORDERED: Vancomycin 1,750 MG in NS 0.9% 500 ml BAG 500 ML IVPB ONE (23:00)
[2022-07-24 06:42] LABS: Hematocrit 28 % (35-47); Hemoglobin 9.1 g/dL (12.0-16.0); Mean Platelet Volume 8.2 fL (7.4-10.4); Platelet Count 266 10^3/uL (150-450)
[2022-07-24 07:13] LABS: Potassium 4.3 mmol/L (3.5-5.0); eGFR CKD-EPI 43.2 (>60)
[2022-07-24] MEDS: Magnesium Hydroxide LIQ 30 ML UDC PO SCH (07:49)
[2022-07-24] MEDS ORDERED: Influenza vaccine *QUAD* *2022-23* 0.5 ML SYRINGE IM ONE (09:00)
[2022-07-24] MEDS: Cefepime 2 GM in Dextrose 2 GM/50 ML BAG IV SCH ×2 (11:00→22:25)
[2022-07-24] MEDS: Aspirin EC 81 mg TAB.EC (enteric coated) PO SCH (11:11)
[2022-07-24] MEDS: Vitamin THERAPEUTIC TAB PO SCH (11:11)
[2022-07-24] MEDS: Enoxaparin 40 MG/0.4 ML SYR SUBCUT SCH (13:01)
[2022-07-24] MEDS: Insulin GLARGINE 100 un/ml 10 ml VIAL SUBCUT SCH (20:48)
[2022-07-25] MEDS: Vancomycin 1,750 MG in NS 0.9% 500 ml BAG 500 ML IVPB SCH ×2 (00:15→21:22)
[2022-07-25 06:53] LABS: ABS Eosinophils 0.1 10^3/ul (0-0.6); ABS Lymphocytes 0.6 10^3/ul (1.0-4.8); ABS Monocytes 0.4 10^3/ul (0-0.8); ABS Neutrophils 5.3 10^3/ul (1.5-7.7); Eosinophil % 1.7 %; Hematocrit 28 % (35-47); Mean Corpuscular HGB Conc 32 g/dL (31-36); Mean Corpuscular Hemoglobin 26 pg (27-31); Mean Corpuscular Volume 80 fL (80-97); Mean Platelet Volume 8.3 fL (7.4-10.4); Platelet Count 265 10^3/uL (150-450); Red Blood Count 3.51 10^6 /uL (3.70-4.87); Red Cell Distribution Width 17 % (10-15); White Blood Count 6.5 10^3/uL (3.5-10.8)
[2022-07-25 07:10] LABS: Calcium 8.3 mg/dL (8.6-10.3); eGFR CKD-EPI 44.8 (>60)
[2022-07-25] MEDS: Vitamin THERAPEUTIC TAB PO SCH (08:35)
[2022-07-25] MEDS: Aspirin EC 81 mg TAB.EC (enteric coated) PO SCH (08:36)
[2022-07-25 09:42] LABS: Urine Appearance Turbid; Urine Bilirubin Negative (Negative); Urine Blood 2+ (Negative); Urine Color Amber; Urine Glucose 3+(>=500 mg/dL) (Negative); Urine Ketones Negative (Negative); Urine Nitrite Negative (Negative); Urine Protein 1+(30 mg/dL) (Negative); Urine Specific Gravity 1.008 (1.002-1.030); Urine Urobilinogen Negative (Negative)
[2022-07-25 09:51] LABS: Urine Bacteria Absent (Absent); Urine Red Blood Cell 3+(>10/hpf) (Absent); Urine Squamous Epithelial Cell Present (Absent); Urine White Blood Cell 3+(>20/hpf) (Absent); Urine Yeast Present (Absent)
[2022-07-25] MEDS: Cefepime 2 GM in Dextrose 2 GM/50 ML BAG IV SCH (10:20)
[2022-07-25] MEDS: Enoxaparin 40 MG/0.4 ML SYR SUBCUT SCH (12:39)
[2022-07-25] MEDS: Insulin GLARGINE 100 un/ml 10 ml VIAL SUBCUT SCH (21:22)
[2022-07-26] MEDS: Cefepime 2 GM in Dextrose 2 GM/50 ML BAG IV SCH ×2 (00:04→11:24)
[2022-07-26 06:14] LABS: Hematocrit 29 % (35-47); Mean Platelet Volume 8.2 fL (7.4-10.4); Platelet Count 227 10^3/uL (150-450)
[2022-07-26 07:52] LABS: eGFR CKD-EPI 49.3 (>60)
[2022-07-26] MEDS: Vitamin THERAPEUTIC TAB PO SCH (09:20)
[2022-07-26] MEDS: Aspirin EC 81 mg TAB.EC (enteric coated) PO SCH (09:21)
[2022-07-26] MEDS: Enoxaparin 40 MG/0.4 ML SYR SUBCUT SCH (11:45)
[2022-07-26 16:22] VITALS: BP 122/65
[2022-07-26] MEDS ORDERED: Vancomycin Trough Check NOTE FOLLOW UP ONE (20:30)
== END 2022-07-26 18:20 | disposition home health service (06) | DRG 475 ==
LOC: OR 10:35 → SSU 20:00
PROVIDERS: ADMIT Orthopaedic Surgery; ATTEND Orthopaedic Surgery
PROC: O.ORAMP (2022-07-23 14:15)

== ENCOUNTER 2023-03-04 11:45 | Inpatient (IN) ==
[2023-03-04] MEDS ORDERED: Piperacillin/Tazobac ADVAN 3.375 GM in NS 0.9% 100 ml BAG 100 ML IV ONE (13:38)
[2023-03-04 14:55] LABS: ABS Lymphocytes 0.3 10^3/uL (1.0-4.8); ABS Monocytes 0.3 10^3/uL (0.0-0.9); ABS Neutrophils 6.4 10^3/uL (1.5-7.6); Eosinophil % 0.6 %; Hematocrit 31.7 % (35-45); Hemoglobin 10.4 g/dL (11.5-14.3); Lymphocyte % 4.4 %; Mean Corpuscular Hemoglobin 26.2 pg (27-33); Mean Corpuscular Hgb Conc 32.9 g/dL (31-36); Mean Corpuscular Volume 79.4 fL (80-97); Mean Platelet Volume 8.3 fL (7.5-11.2); Platelet Count 260 10^3/uL (150-450); Red Blood Count 3.99 10^6/uL (3.63-4.92); Red Cell Distribution Width 16.1 % (12-17)
[2023-03-04 15:27] LABS: Albumin 3.5 g/dL (3.2-5.2); Albumin/Globulin Ratio 0.9 (1-3); C Reactive Protein 138.77 mg/L (<8.01); Calcium 8.9 mg/dL (8.6-10.3); Creatinine, Serum 1.32 mg/dL (0.51-0.95); Globulin 3.7 g/dL (2-4); Phosphorus 3.2 mg/dL (2.5-5.0); Potassium 4.2 mmol/L (3.5-5.0); Total Bilirubin 0.5 mg/dL (0.2-1.0); Total Protein 7.2 g/dL (6.4-8.9)
[2023-03-04 15:47] LABS: Urine Appearance Turbid; Urine Bilirubin Negative (Negative); Urine Blood 2+ (Negative); Urine Color Yellow; Urine Glucose 3+(>=500 mg/dL) (Negative); Urine Ketones Negative (Negative); Urine Nitrite Positive (Negative); Urine Protein 2+(100 mg/dL) (Negative); Urine Specific Gravity 1.018 (1.002-1.030); Urine Urobilinogen Negative (Negative)
[2023-03-04 15:57] LABS: Urine Bacteria 3+ (Absent); Urine Red Blood Cell 3+(>10/hpf) (Absent); Urine White Blood Cell 3+(>20/hpf) (Absent)
[2023-03-04] MEDS ORDERED: Clindamycin 600 MG/D5W BAG 600 MG/50 ML BAG IV ONE (15:58)
[2023-03-04] MEDS ORDERED: Metoclopramide 5 MG/ML VIAL (10 mg) IV SLOW PU ONE (16:17)
[2023-03-04] MEDS ORDERED: Dextrose 50% Syringe 50 ml 25 GM/50 ML SYRINGE IV PUSH PRN (18:58)
[2023-03-04] MEDS ORDERED: Vancomycin per Pharmacy 1 EA NOTE FOLLOW UP SCH (19:00)
[2023-03-04] MEDS ORDERED: Iohexol 180 (CONTRAST) 20 ML SDV IV ONE (20:13)
[2023-03-04] MEDS ORDERED: Iohexol 180 (CONTRAST) 10 ML SDV IV ONE (20:13)
[2023-03-04] MEDS ORDERED: Prochlorperazine 5 mg/ml 2 ml VIAL (10 mg) IV PRN (20:41)
[2023-03-04] MEDS ORDERED: fentaNYL 100 mcg/2 ml 50 MCG/ML VIAL IV PRN (20:41)
[2023-03-04] MEDS ORDERED: Naloxone 0.4 mg VIAL 0.4 mg/ml 1 ml VIAL IV PRN (20:41)
[2023-03-04] MEDS ORDERED: Ondansetron 4 mg VIAL 2 MG/ML 2 ml VIAL ONE (20:59)
[2023-03-04] MEDS ORDERED: fentaNYL 100 mcg/2 ml 50 MCG/ML VIAL ONE (20:59)
[2023-03-04] MEDS ORDERED: Acetaminophen IV 1 GM/100ML 1,000 MG/100 ML BAG IV ONE (20:59)
[2023-03-04] MEDS ORDERED: Metoclopramide 5 MG/ML VIAL (10 mg) ONE (20:59)
[2023-03-04] MEDS ORDERED: Propofol 10 MG/ML 20 ML BTL ONE ×2 (20:59→21:22)
[2023-03-04] MEDS ORDERED: cefTRIAXone 1 gm/50 mL D5W 1 GM/50 ML BAG IV SCH ×2 (21:00→23:30)
[2023-03-04] MEDS ORDERED: Insulin GLARGINE 100 un/ml 10 ml VIAL SUBCUT SCH (21:00)
[2023-03-04] MEDS ORDERED: Vancomycin 1,500 MG in NS 0.9% 250 ml 250 ML IVPB ONE (22:00)
[2023-03-05 01:03] LABS: ABS Lymphocytes 0.5 10^3/uL (1.0-4.8); ABS Monocytes 0.4 10^3/uL (0.0-0.9); Eosinophil % 0.5 %; Hemoglobin 9.3 g/dL (11.5-14.3); Mean Corpuscular Hemoglobin 26.5 pg (27-33); Mean Corpuscular Volume 80.2 fL (80-97); Mean Platelet Volume 8.4 fL (7.5-11.2); Platelet Count 243 10^3/uL (150-450); Red Cell Distribution Width 15.8 % (12-17); White Blood Count 6.9 10^3/uL (3.8-11.8)
[2023-03-05 01:19] LABS: Creatinine, Serum 1.4 mg/dL (0.51-0.95)
[2023-03-05 01:22] LABS: Activated Partial Thrombo Time 28.4 seconds (26.0-38.0); INR 1.37 (0.88-1.18)
[2023-03-05] MEDS: Heparin 5000 UNITS/ML 1 mL VIAL SUBCUT SCH ×4 (02:47→23:19)
[2023-03-05 06:12] LABS: ABS Eosinophils 0.1 10^3/uL (0.0-0.5); ABS Lymphocytes 0.5 10^3/uL (1.0-4.8); ABS Monocytes 0.4 10^3/uL (0.0-0.9); ABS Neutrophils 4.6 10^3/uL (1.5-7.6); Hematocrit 31.3 % (35-45); Hemoglobin 9.6 g/dL (11.5-14.3); Lymphocyte % 8.5 %; Mean Corpuscular Hemoglobin 26.4 pg (27-33); Mean Corpuscular Hgb Conc 30.6 g/dL (31-36); Mean Corpuscular Volume 86.3 fL (80-97); Nucleated Red Blood Cells % 0.1 /100 WBC (0.0-0.4); Platelet Count 195 10^3/uL (150-450); Red Blood Count 3.62 10^6/uL (3.63-4.92); Red Cell Distribution Width 16.7 % (12-17); White Blood Count 5.6 10^3/uL (3.8-11.8)
[2023-03-05 06:20] LABS: Calcium 8.1 mg/dL (8.6-10.3); Creatinine, Serum 1.33 mg/dL (0.51-0.95); Magnesium 2.1 mg/dL (1.9-2.7); Potassium 3.9 mmol/L (3.5-5.0); eGFR CKD-EPI 43.6 (>60)
[2023-03-05] MEDS ORDERED: Empagliflozin 25 MG TAB PO SCH (09:00)
[2023-03-05] MEDS ORDERED: ceFAZolin VIAL 2 GM in NS 0.9% 100 ml BAG 100 ML IVPB SCH (16:00)
[2023-03-05] MEDS: ceFAZolin 2 GM PREMIX 2 GM/50 ML BAG IV SCH (16:53)
[2023-03-05] MEDS: Insulin GLARGINE 100 un/ml 10 ml VIAL SUBCUT SCH (20:33)
[2023-03-05] MEDS ORDERED: cefTRIAXone 1 GM Q24H (ADVAN) IVPB SCH (21:00)
[2023-03-05] MEDS ORDERED: Insulin GLARGINE 100 un/ml 10 ml VIAL SUBCUT SCH (21:00)
[2023-03-06] MEDS: ceFAZolin 2 GM PREMIX 2 GM/50 ML BAG IV SCH ×3 (01:07→16:35)
[2023-03-06] MEDS ORDERED: Vancomycin 1,500 MG in NS 0.9% 250 ml 250 ML IVPB SCH (06:00)
[2023-03-06] MEDS: Heparin 5000 UNITS/ML 1 mL VIAL SUBCUT SCH ×3 (06:09→20:58)
[2023-03-06] MEDS: Insulin GLARGINE 100 un/ml 10 ml VIAL SUBCUT SCH (20:59)
[2023-03-07] MEDS: ceFAZolin 2 GM PREMIX 2 GM/50 ML BAG IV SCH ×3 (00:26→16:37)
[2023-03-07] MEDS: Heparin 5000 UNITS/ML 1 mL VIAL SUBCUT SCH ×3 (06:01→21:06)
[2023-03-07 06:37] LABS: ABS Eosinophils 0.1 10^3/uL (0.0-0.5); ABS Lymphocytes 0.5 10^3/uL (1.0-4.8); ABS Monocytes 0.3 10^3/uL (0.0-0.9); ABS Neutrophils 5.4 10^3/uL (1.5-7.6); Eosinophil % 1.8 %; Hematocrit 27.8 % (35-45); Hemoglobin 9.3 g/dL (11.5-14.3); Lymphocyte % 8.2 %; Mean Corpuscular Hemoglobin 26.5 pg (27-33); Mean Corpuscular Hgb Conc 33.3 g/dL (31-36); Mean Corpuscular Volume 79.5 fL (80-97); Mean Platelet Volume 8.4 fL (7.5-11.2); Platelet Count 332 10^3/uL (150-450); Red Cell Distribution Width 15.9 % (12-17); White Blood Count 6.4 10^3/uL (3.8-11.8)
[2023-03-07 07:05] LABS: C Reactive Protein 86.19 mg/L (<8.01); Calcium 8.7 mg/dL (8.6-10.3); Creatinine, Serum 1.24 mg/dL (0.51-0.95); Potassium 4.4 mmol/L (3.5-5.0); eGFR CKD-EPI 47.4 (>60)
[2023-03-07] MEDS: Insulin GLARGINE 100 un/ml 10 ml VIAL SUBCUT SCH (21:05)
[2023-03-08] MEDS: ceFAZolin 2 GM PREMIX 2 GM/50 ML BAG IV SCH ×4 (00:37→23:10)
[2023-03-08] MEDS ORDERED: Vancomycin Trough Check NOTE FOLLOW UP ONE (05:30)
[2023-03-08 06:22] LABS: ABS Eosinophils 0.1 10^3/uL (0.0-0.5); ABS Lymphocytes 0.5 10^3/uL (1.0-4.8); ABS Monocytes 0.3 10^3/uL (0.0-0.9); ABS Neutrophils 4.3 10^3/uL (1.5-7.6); ABS Nucleated RBC 0.01 10^3/ul; Eosinophil % 2.2 %; Hematocrit 28.3 % (35-45); Hemoglobin 9.4 g/dL (11.5-14.3); Lymphocyte % 9.8 %; Mean Corpuscular Hemoglobin 26.4 pg (27-33); Mean Corpuscular Hgb Conc 33.1 g/dL (31-36); Mean Corpuscular Volume 79.7 fL (80-97); Nucleated Red Blood Cells % 0.1 /100 WBC (0.0-0.4); Platelet Count 314 10^3/uL (150-450); Red Blood Count 3.56 10^6/uL (3.63-4.92); Red Cell Distribution Width 15.9 % (12-17); White Blood Count 5.3 10^3/uL (3.8-11.8)
[2023-03-08 06:34] LABS: INR 1.21 (0.88-1.18)
[2023-03-08 06:47] LABS: Calcium 8.8 mg/dL (8.6-10.3); Creatinine, Serum 1.24 mg/dL (0.51-0.95); Potassium 4.7 mmol/L (3.5-5.0); eGFR CKD-EPI 47.4 (>60)
[2023-03-08] MEDS ORDERED: Dextrose 50% Syringe 50 ml 25 GM/50 ML SYRINGE IV PUSH PRN (12:59)
[2023-03-08] MEDS ORDERED: Dextrose 50% Syringe 50 ml 25 GM/50 ML SYRINGE ONE (13:04)
[2023-03-08] MEDS ORDERED: Bupivacaine 0.5% SDV PF 30ML VIAL ONE (14:23)
[2023-03-08] MEDS ORDERED: Lidocaine 2% PF 5 ML VIAL ONE (14:26)
[2023-03-08] MEDS ORDERED: Midazolam 2 mg/2 ml VIAL 1 mg/ml 2 ml VIAL (2 mg) ONE (14:26)
[2023-03-08] MEDS ORDERED: Propofol 10 MG/ML 20 ML BTL ONE ×2 (14:26→15:55)
[2023-03-08] MEDS ORDERED: fentaNYL 100 mcg/2 ml 50 MCG/ML VIAL ONE (14:26)
[2023-03-08] MEDS ORDERED: Lidocaine 1% VIAL 10 MG/ML VIAL 30 ML ONE (14:56)
[2023-03-08] MEDS ORDERED: Dexamethasone IV 4 MG/ML VIAL 1 ml VIAL ONE (15:04)
[2023-03-08] MEDS ORDERED: Ondansetron 4 mg VIAL 2 MG/ML 2 ml VIAL ONE (15:04)
[2023-03-08] MEDS ORDERED: Naloxone 0.4 mg VIAL 0.4 mg/ml 1 ml VIAL IV PRN (15:57)
[2023-03-08] MEDS ORDERED: fentaNYL 100 mcg/2 ml 50 MCG/ML VIAL IV PRN (15:57)
[2023-03-08] MEDS ORDERED: Ondansetron 4 mg VIAL 2 MG/ML 2 ml VIAL IV PRN (15:57)
[2023-03-08] MEDS ORDERED: HYDROmorphone 1 MG/1 ML SYRINGE IV PRN (15:57)
[2023-03-08] MEDS: Insulin GLARGINE 100 un/ml 10 ml VIAL SUBCUT SCH (21:07)
[2023-03-09 05:48] LABS: ABS Eosinophils 0.1 10^3/uL (0.0-0.5); ABS Lymphocytes 0.6 10^3/uL (1.0-4.8); ABS Monocytes 0.3 10^3/uL (0.0-0.9); ABS Neutrophils 7.6 10^3/uL (1.5-7.6); ABS Nucleated RBC 0.01 10^3/ul; Eosinophil % 0.9 %; Hematocrit 29.3 % (35-45); Hemoglobin 9.6 g/dL (11.5-14.3); Lymphocyte % 6.6 %; Mean Corpuscular Hemoglobin 25.7 pg (27-33); Mean Corpuscular Hgb Conc 32.7 g/dL (31-36); Mean Corpuscular Volume 78.4 fL (80-97); Mean Platelet Volume 7.9 fL (7.5-11.2); Nucleated Red Blood Cells % 0.1 /100 WBC (0.0-0.4); Platelet Count 370 10^3/uL (150-450); Red Blood Count 3.74 10^6/uL (3.63-4.92); Red Cell Distribution Width 15.9 % (12-17); White Blood Count 8.6 10^3/uL (3.8-11.8)
[2023-03-09 06:03] LABS: Calcium 8.7 mg/dL (8.6-10.3); Creatinine, Serum 1.14 mg/dL (0.51-0.95); Potassium 4.4 mmol/L (3.5-5.0); eGFR CKD-EPI 52.4 (>60)
[2023-03-09] MEDS: ceFAZolin 2 GM PREMIX 2 GM/50 ML BAG IV SCH ×3 (07:50→23:38)
[2023-03-09] MEDS: Heparin 5000 UNITS/ML 1 mL VIAL SUBCUT SCH ×2 (14:34→22:10)
[2023-03-09] MEDS: Insulin GLARGINE 100 un/ml 10 ml VIAL SUBCUT SCH (22:09)
[2023-03-10] MEDS: Heparin 5000 UNITS/ML 1 mL VIAL SUBCUT SCH ×3 (05:31→21:11)
[2023-03-10] MEDS: ceFAZolin 2 GM PREMIX 2 GM/50 ML BAG IV SCH ×3 (08:36→22:55)
[2023-03-10] MEDS ORDERED: Vancomycin 1,000 MG in NS 0.9% 250 ml 250 ML IVPB ONE (09:29)
[2023-03-10] MEDS ORDERED: Vancomycin per Pharmacy 1 EA NOTE FOLLOW UP SCH (10:00)
[2023-03-10] MEDS: Insulin GLARGINE 100 un/ml 10 ml VIAL SUBCUT SCH (21:11)
[2023-03-10] MEDS ORDERED: Vancomycin 750 MG in NS 0.9% 250 ML IVPB SCH (23:00)
[2023-03-11 05:51] LABS: ABS Eosinophils 0.1 10^3/uL (0.0-0.5); ABS Lymphocytes 0.7 10^3/uL (1.0-4.8); ABS Monocytes 0.3 10^3/uL (0.0-0.9); ABS Nucleated RBC 0.01 10^3/ul; Eosinophil % 1.8 %; Hematocrit 29.4 % (35-45); Hemoglobin 9.8 g/dL (11.5-14.3); Lymphocyte % 10.1 %; Mean Corpuscular Hemoglobin 26.2 pg (27-33); Mean Corpuscular Hgb Conc 33.2 g/dL (31-36); Mean Corpuscular Volume 78.9 fL (80-97); Mean Platelet Volume 7.9 fL (7.5-11.2); Nucleated Red Blood Cells % 0.2 /100 WBC (0.0-0.4); Platelet Count 351 10^3/uL (150-450); Red Blood Count 3.72 10^6/uL (3.63-4.92); Red Cell Distribution Width 16.4 % (12-17); White Blood Count 7.2 10^3/uL (3.8-11.8)
[2023-03-11 06:07] LABS: Calcium 8.7 mg/dL (8.6-10.3); Creatinine, Serum 1.09 mg/dL (0.51-0.95); Potassium 4.4 mmol/L (3.5-5.0); eGFR CKD-EPI 55.3 (>60)
[2023-03-11] MEDS: Heparin 5000 UNITS/ML 1 mL VIAL SUBCUT SCH ×2 (06:20→14:07)
[2023-03-11] MEDS: ceFAZolin 2 GM PREMIX 2 GM/50 ML BAG IV SCH (07:24)
[2023-03-11] MEDS ORDERED: Vancomycin per Pharmacy 1 EA NOTE FOLLOW UP SCH (10:00)
[2023-03-11] MEDS ORDERED: metroNIDAZOLE IV 500 MG/100ML 500 MG/100 ML BAG IVPB SCH (11:30)
[2023-03-11] MEDS ORDERED: Cefepime 1 GM in Dextrose 1 GM/50 ML BAG IV SCH ×2 (13:00→14:30)
[2023-03-11] MEDS ORDERED: Vancomycin 750 MG in NS 0.9% 250 ML IVPB ONE (13:05)
[2023-03-11 14:02] VITALS: BP 135/68
[2023-03-11] MEDS ORDERED: Vancomycin 750 MG in NS 0.9% 250 ML IVPB SCH (23:00)
[2023-03-12] MEDS ORDERED: Vancomycin Trough Check NOTE FOLLOW UP ONE ×2 (10:30)
== END 2023-03-11 17:30 | disposition home or self-care (01) | DRG 660 ==
LOC: ED 11:45 → EDHOLD 17:49 → SUATTDRO 17:49 → SSU 20:03
PROVIDERS: ADMIT Internal Medicine; ATTEND Internal Medicine